=== PATIENT | female | born 1940 | race Two or more races ===

== ENCOUNTER → 2017-04-12 | Outpatient (REF) | payer MEDICARE ==
[~2017-04-12] MED LIST: ACET500C PO; AMLO5TAB2 PO; BENZ100C5 PO; CLON0.5T PO; CRAN475C PO; CURCPOW XX; FOLI1TAB86 PO; IRBE150T12 PO; IRBE300T10 PO; LIDO TOP; LUTE6TAB2 PO; MAGN250T3 PO; METH2.5T PO; PRILOCAINE TOP; SUSTANE EYE DROPS OU; TUMS1000 PO; ULTR50TA PO; VISITAB5 PO; VITA100037 PO; VITATAB11 PO; [UNRECOGNIZED DRUG - OTHER] PO
[2017-04-12 21:36] LABS: RENAL EPITHELIAL CELLS 3 /HPF
== END ==
LOC: M LAB REF 10:00
PROVIDERS: ATTEND Physician Assistant
DX: R35.0 Frequency of micturition (principal)

== ENCOUNTER → 2017-05-21 | Outpatient (CLI) | payer MEDICARE | LOC: M WUC 14:53 | PROVIDERS: ATTEND Emergency Medicine | DX: I10 Essential (primary) hypertension (principal) ==

== ENCOUNTER → 2017-06-04 | Outpatient (CLI) | payer MEDICARE ==
--- NOTE | 2017-06-26 02:06 | ECWPNPC ---
PATIENT NAME: MARTELL SANTOYO : 1940 GENDER: FEMALE VISIT DATE: 06/04/2017 DISCHARGE DATE: 06/04/17 1457 VISIT LOCKED DATE TIME: PHYSICIAN: KENNA EASLEY RESOURCE: KENNA EASLEY REASON FOR APPOINTMENT 1. HIP/BACK/MEDS HISTORY OF PRESENT ILLNESS NEW PATIENT CONSULT: WHEN DID YOUR PAIN FIRST START? . BRIEFLY DESCRIBE HOW YOUR PAIN STARTED? . HOW DOES YOUR PAIN CHANGE WITH TIME? . DOES YOUR PAIN AWAKEN YOU FROM SLEEP? . HOW MANY HOURS OF SLEEP DO YOU NORMALLY GET? . ANY DIAGNOSTIC TESTING? . FACILITY WHERE TESTS WERE DONE? ____. PAIN TREATMENT TREATMENT YES CANCER HAVE YOU EVER HAD ANY TYPE OF CANCER?NO NO. PAIN SCREENING: PATIENT HAS A COMPLAINT OF ACUTE OR CHRONIC PAIN :YES FALL RISK SCREENING: SCREENING :NO FALLS IN THE PAST YEAR SCHUSTER INVENTORY: QUESTIONNAIRE ASSESSEDTBD SCORE VALUE CALCULATED TBD TODAY'S VISIT: NOTES: REFERRED BY DR JUSTIN ABDUL, [facility] FOR RIGHT HIP AREA PAIN. PCP IS LISANDRO BAILEY MD. SHE HAS PREVIOUSLY BEEN HERE FOR EVALUATION BY THIS PROVIDER ON 08/05/13. DID HAVE LFB 11/02/13 WHICH SHE REPORTS DID NOT HAVE RELIEF FOR MORE THAN A FEW DAYS. SHE HAS BEEN TO NUMEROUS PROVIDERS FOR PAIN CONTROL INCLUDING DR COLLINS AT [employer]. AFTER HER LAST VISIT HERE PULLED ON SOMETHING AT WORK AND HAD SEVERE BACK PAIN AND A=WAS OFF WORK FOR 6 WEEKS. WAS ABLE TO RETURN TO WORK FOR A PERIOD OF TIME HAD RETURN OF PAIN AND WENT OUT ON PERM DIS. PAIN IN RIGHT HIP/LEG HAS BEEN CONSTANT OVER THE LAST SEVERAL MONTHS. PAIN IS IN THE BUTTUCK AND POSTERIOR LEG.. NO N/T/W . WORST IS AFTER PROLONGED SITTING. CAN WALK WITH CART SUPPORT W/O DIFF. IS SLOW TO GET OOB. NO RECENT FALLS.. CURRENT MEDICATIONS TAKING SYSTANE 0.4-0.3 % SOLUTION 1 DROP INTO AFFECTED EYE NEEDED OPHTHALMIC 3-4 TIME(S) A DAY TAKING FISH OIL 1000 MG CAPSULE DELAYED RELEASE 1 CAPSULE ORALLY ONCE A DAY TAKING ULTRAM 50 MG TABLET 1 TABLET NEEDED ORALLY EVERY 6 HRS TAKING TYLENOL EXTRA STRENGTH 500 MG TABLET 1 TAB ORALLY EVERY 6 HRS NEEDED TAKING BENZONATATE 100 MG CAPSULE 1 CAPSULE NEEDED ORALLY THREE TIMES A DAY TAKING AMLODIPINE BESYLATE 5 MG TABLET 1 TABLET ORALLY ONCE A DAY TAKING IRBESARTAN 75 MG TABLET 1 TABLET ORALLY ONCE A DAY TAKING CLONAZEPAM 0.25 MG TABLET DISINTEGRATING 1 TAB ORALLY ONCE A DAY TAKING TUMS E-X 750 MG TABLET CHEWABLE 1 TABLET ORALLY TWICE A DAY TAKING PEPCID 20 MG TABLET 1 TABLET AT BEDTIME ORALLY ONCE A DAY TAKING VITAMIN D 1000 UNIT TABLET 1 TABLET ORALLY ONCE A DAY TAKING VITAMIN B COMPLEX - TABLET 1 TAB ORALLY DAILY TAKING LUTEIN 6 MG TABLET 2 TABS ORALLY DAILY TAKING VISION FORMULA - TABLET 1/2 TABLET ORALLY DAILY TAKING CRANBERRY FRUIT 425 MG CAPSULE ORALLY 2 TIMES A DAY TAKING MAGNESIUM 250 MG TABLET 1 TABLET WITH A MEAL ORALLY ONCE A DAY TAKING TURMERIC 500 MG CAPSULE ORALLY DAILY MEDICATION LIST REVIEWED AND RECONCILED WITH THE PATIENT PAST MEDICAL HISTORY HTN KIDNEY DX STAGE IV RENAL FAILURE DEPRESSION / ANXIETY DEGENERATIVE DISC POLYARTHRITIS NODOSA / OSTEOARTHRITIS SLEEP APNEA ASTHMA HIATLE HERNIA ANEMIA REFLUX BACK PAIN NECK PAIN ALLERGIES ASPIRIN: SHORT OF BREATH: ALLERGY SULFA: RASH: ALLERGY BISOPROLOL: SHORT OF BREATH: ALLERGY AMOXICILLIN: SHORT OF BREATH: ALLERGY CLONIDINE HCL: SHORT OF BREATH: ALLERGY MACROBID: SHORT OF BREATH: ALLERGY SURGICAL HISTORY REMOVAL OF CYST RIGHT INDEX FINGER 1995 CATARACT SURGERY 2009 HYSTERECTOMY 1988 SEPTOPLASTY 1990 AND 1997 TONSILECTOMY 1944 CARPAL TUNNEL RIGHT HAND 1998 RIGHT AND LEFT EYELID SURGERY 2011 PLANTAR FASCIOTOMY LEFT FOOT 2013 MOHS SURGERY LEFT NOSE AND SKIN GRAFT 2015 RIGHT INDEX FINGER CYST AND DEBRIDEMENT 06/2016 FAMILY HISTORY FATHER: , DIAGNOSED WITH HEART DISEASE MOTHER: , DIAGNOSED WITH HYPERTENSION 1 SISTER(S) - HEALTHY. SISITER HAS MELANOMA. SOCIAL HISTORY GENERAL: TOBACCO USE ARE YOU A:NONSMOKER ALCOHOL SCREENING POINTS0 INTERPRETATIONNEGATIVE RECREATIONAL DRUG USE DRUG USE?NO BAHAI [id number] PRESBYTERIAN LANGUAGE LANGUAGES SPOKEN:UZBEK LEARNING BARRIERS / SPECIAL NEEDS BARRIERS TO LEARNING?NO HEARING IMPAIRED?NO VISION IMPAIRED?YES :CORRECTIVE LENSES COGNITIVELY IMPAIRED?NO READINESS TO LEARN?YES LEARNING PREFERENCES?NO LEARNING CAPABILITIES PRESENT?YES EMOTIONAL BARRIERS?NO SPECIAL DEVICES?YES :CANE BOWL SANDER NEEDED?NO PAIN CLINIC PFS, CLERGY, PUBLIC HEALTH REFERRALS PFS REFERRAL NEEDED?NO CLERGY REFERRAL NEEDED?NO PUBLIC HEALTH REFERRAL NEEDED?NO WAS THE PROVIDER NOTIFIED OF ANY PERTINENT INFO?NO HAS THE PATIENT BEEN EDUCATED REGARDING HIS/HER PLAN OF CARE?YES HAS THE PATIENT BEEN EDUCATED REGARDING PAIN, THE RISK FOR PAIN, THE IMPORTANCE OF EFFECTIVE PAIN MANAGEMENT, AND THE PAIN ASSESSMENT PROCESS?YES PATIENT: ____. ADVANCE DIRECTIVES HEALTH CARE PROXY?NO WOULD YOU LIKE MORE INFORMATION?NO DO YOU HAVE A DNR?NO WOULD YOU LIKE MORE INFORMATION?NO LIVING WILL?NO WOULD YOU LIKE MORE INFORMATION?NO POWER OF AUTOMOBILE DESIGNER?NO WOULD YOU LIKE MORE INFORMATION?NO REVIEW OF SYSTEMS REVIEWED BY: PROVIDER: . CONSTITUTIONAL: ANY CHANGE IN YOUR MEDICAL CONDITION? NO . CHILLS NO . FEVER NO . INFECTION: DO YOU HAVE NEW INFECTIONS? NO - UTI RESOLVED - TAKES CRANBERRY PILL . DO YOU HAVE HISTORY OF MRSA? NO . MUSCULOSKELETAL: ANY NEW PATTERNS OF PAIN OR NUMBNESS? NO . SYTEMIC LUPUS NO . JOINT PAIN IS BEING CONSIDERED FR LEFT SHOULDER REPLACEMENT BUT HERE ARE MANY QUESTIONS AND CONCERNS (DR KOROMA/DR ELIAS). . GASTROENTEROLOGY: ANY NEW CHANGE IN BOWEL CONTROL? NO . BARRETTS ESOPHAGUS NO . CIRRHOSIS NO . HEPATITIS NO . LIVER FAILURE NO . ACID REFLUX YES . UNEXPLAINED WEIGHT LOSS NO . GENITOURINARY: ANY NEW CHANGE IN BLADDER CONTROL? NO . IS THERE A CHANCE YOU COULD BE ? NO . HEMATOLOGY/LYMPH: DO YOU TAKE ANY BLOOD THINNERS? (FOR EXAMPLE- COUMADIN, PLAVIX, AGGRENOX, PLATEL, PRADAXA, OR XARELTO) NO . WHEN WAS YOUR LAST DOSE? DATE: TIME: . LOW PLATELET COUNT NO . SICKLE CELL DISEASE NO . VON WILLIEBRANDS NO . FACTOR V LEIDEN NO . THALLASEMIA NO . ANEMIA YES . EASY BRUISING NO . NEUROLOGY: HAVE YOU FALLEN IN THE PAST 6 MONTHS? NO . ANY NEW EXTREMITY NUMBNESS OR WEAKNESS? NO . HEAD INJURY NO . DEMENTIA NO . CEREBRAL PALSY NO . MULTIPLE SCLEROSIS NO . DIZZINESS NO . HEADACHE NO . STROKES NO . VERTIGO NO . CARDIOLOGY: DO YOU HAVE A PACEMAKER OR DEFIBRILLATOR? NO . ANGINA NO . HEART ATTACK NO . HEART SURGERY NO . CONGESTIVE HEART FAILURE/FLUID OVERLOAD NO . CHEST PAIN NO . HIGH BLOOD PRESSURE YES . IRREGULAR HEART BEAT NO . KNOWN CORONARY ARTERY DISEASE FOLLOWS WITH DR LARA . RESPIRATORY: HAVE YOU BEEN SICK IN THE PAST WEEK? NO . FEVER NO . FLU LIKE SYMPTOMS? NO . CPAP YES . BYPAP NO . ASTHMA YES . EMPHYSEMA NO . CHRONIC LUNG DISEASES NO . SHORTNESS OF BREATH ON EXERTION NO . DO YOU USE ANY TYPE OF TOBACCO (SMOKE, SMOKELESS, CHEW)? NO . COUGH NO . SNORING NO . INTEGUMENTARY: DO YOU HAVE ANY RASHES OR OPEN SORES? NO . ALLERGIC/IMMUNO: ARE YOU ALLERGIC TO SHELLFISH OR IV DYE? NO . ANY NEW ALLERGIES? NO . PSYCHIATRIC: DO YOU HAVE THOUGHTS OF HURTING YOURSELF OR SOMEONE ELSE? NO . ARE YOU ABUSED, NEGLECTED, OR IN AN UNSAFE ENVIRONMENT? NO . ENDOCRINOLOGY: ARE YOU DIABETIC? NO . THYROID DISORDER NO . OTHER: DO YOU NEED ANY PRESCRIPTIONS? NO . IF YES, PLEASE LIST: ____ . ANY NEW PROBLEMS WITH YOUR MEDICATIONS? NO . WHEN DID YOU LAST EAT? ____ . WHEN DID YOU LAST DRINK? ____ . WHAT DID YOU LAST DRINK? ____ . NAME OF PERSON DRIVING YOU HOME? ____ . DO YOU HAVE ANY OTHER QUESTIONS OR CONCERNS NO . 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 UROLOGY: GENERAL STAGE IV KIDNEY DISEASE WITH GFR 29 . VITAL SIGNS WT 185.0 LBS, HT 59", BMI 37.36 INDEX, BP 148/79 MM HG, HR 72 /MIN, RR 16 /MIN, TEMP 97.5 F, OXYGEN SAT % 97%, SAFE IN ENV? (Y/N) YES, NA INITIALS TL 1319, REVIEWED BY: NORMAN. EXAMINATION GENERAL EXAMINATION: MUSCULOSKELETAL:MUSCLE STRENGTH TESTING 5/5 BILATERAL. SOME PAIN W SLR R>L. NO PAIN W PATRICKS. MIN TENDERNESS WITH PALP OVER TROCANERS, GROIN OR OVER LSA. NEUROLOGIC EXAM:1+/3+ U..2+ DAKOTA LE NO SENS DEF. ASSESSMENTS LUMBAR FACET ARTHROPATHY - M46.96 (PRIMARY) RIGHT HIP PAIN - M25.551 TREATMENT LUMBAR FACET ARTHROPATHY INJECTION FACET JOINT/NERVE LUMBAR/SACRALKENNA EASLEY 06/04/2017 2:33:30 PM > DIAGNSTIC LUMBAR FACET BLOCK RIGHT L4-5, L5-S1 NOTES: OK TO USE SALANPAS, BIOFREEZE, MEDS ORDERED. DISCUSSED OPTIONS FOR INTERVENTIONAL. ,FACET JOINT INJECTION MATERIAL WAS PRINTED. PREVENTIVE MEDICINE REVIEWED DX FACET PROCEDURE AND PRE PROCEDURE CARE/ PT EXPRESSED UNDERSTANDING OF ALL. PROCEDURE CODES FA211 ESTABILISHED PATIENT [facility] CHARGE DISPOSITION & COMMUNICATION FOLLOW UP AFTER INJECTION (REASON: CHECK AUTH DIAGNSTIC LUMBAR FACET BLOCK RIGHT L4-5, L5-S1) ELECTRONICALLY SIGNED BY BENJAMIN MARIE ON 06/24/2017 AT 08:36 AM EST DISCLAIMER : THIS IS A VISIT SUMMARY EXTRACTED FROM THE [employer] CHART. IT IS NOT A COPY OF THE [employer] PROGRESS NOTE. BARBER
== END ==
LOC: M PAIN 13:00
PROVIDERS: ATTEND Nurse Practitioner Family
DX: M46.96 Unspecified inflammatory spondylopathy, lumbar region (principal); M25.551 Pain in right hip; I12.9 Hypertensive chronic kidney disease with stage 1 through stage 4 chronic kidney disease, or unspecified chronic kidney disease; N18.4 Chronic kidney disease, stage 4 (severe); I25.9 Chronic ischemic heart disease, unspecified; Z79.891 Long term (current) use of opiate analgesic; Z79.899 Other long term (current) drug therapy; Z88.1 Allergy status to other antibiotic agents; Z88.2 Allergy status to sulfonamides

== ENCOUNTER → 2017-06-17 | Outpatient (CLI) | payer MEDICARE ==
[~2017-06-17] MED LIST changes: +BUPIVACAINE HCL 0.25% 30 ML VIAL As Ordered ONE; +ISOVUE-M 300 61% 15ML VIAL (Q9967) As Ordered ONE; +LIDOCAINE 1% SDV INJ 30 ML VIAL As Ordered ONE
--- NOTE | 2017-06-17 12:45 | REP ---
Partial lumbar spine series: Four views . History: Injection procedure for pain. 38 seconds of fluoroscopy time is reported. Findings: A sequence of four fluoroscopically obtained last image hold procedural spot radiographs of the lumbar spine document needle position and contrast injection associated with injection procedure. Signed by Calvin Laguerre MD 06/17/2017 12:36 P
--- NOTE | 2017-06-24 00:58 | ECWPNPC ---
PATIENT NAME: MARTELL SANTOYO : 1940 GENDER: FEMALE VISIT DATE: 06/17/2017 DISCHARGE DATE: 06/17/17 1218 VISIT LOCKED DATE TIME: PHYSICIAN: ADRIEN MARTINEZ RESOURCE: ADRIEN MARTINEZ REASON FOR APPOINTMENT 1. LFB, RIGHT, DIAG HISTORY OF PRESENT ILLNESS HISTORY OF PRESENT ILLNESS: PAIN THE PATIENT DESCRIBES THE PAIN... FALL RISK SCREENING: SCREENING :NO FALLS IN THE PAST YEAR CURRENT MEDICATIONS TAKING SYSTANE 0.4-0.3 % SOLUTION 1 DROP INTO AFFECTED EYE NEEDED OPHTHALMIC 3-4 TIME(S) A DAY, NOTES: 06/17/17 AM TAKING FISH OIL 1000 MG CAPSULE DELAYED RELEASE 1 CAPSULE ORALLY ONCE A DAY, NOTES: 06/16/17 11AM TAKING ULTRAM 50 MG TABLET 1 TABLET NEEDED ORALLY EVERY 6 HRS, NOTES: WEEK AGO TAKING TYLENOL EXTRA STRENGTH 500 MG TABLET 1 TAB ORALLY EVERY 6 HRS NEEDED, NOTES: AWHILE TAKING BENZONATATE 100 MG CAPSULE 1 CAPSULE NEEDED ORALLY THREE TIMES A DAY, NOTES: AWHILE TAKING AMLODIPINE BESYLATE 5 MG TABLET 1 TABLET ORALLY ONCE A DAY, NOTES: 06/16/17 1030PM TAKING IRBESARTAN 75 MG TABLET 1 TABLET ORALLY ONCE A DAY, NOTES: 06/16/17 1030 PM TAKING CLONAZEPAM 0.25 MG TABLET DISINTEGRATING 1 TAB ORALLY ONCE A DAY, NOTES: 06/16/17 11PM TAKING TUMS E-X 750 MG TABLET CHEWABLE 1 TABLET ORALLY TWICE A DAY, NOTES: 06/17/17 5PM TAKING PEPCID 20 MG TABLET 1 TABLET AT BEDTIME ORALLY ONCE A DAY, NOTES: 06/16/17 11PM TAKING VITAMIN D 1000 UNIT TABLET 1 TABLET ORALLY ONCE A DAY, NOTES: 06/16/17 11AM TAKING VITAMIN B COMPLEX - TABLET 1 TAB ORALLY DAILY, NOTES: 05/29/17 11AM TAKING LUTEIN 6 MG TABLET 2 TABS ORALLY DAILY, NOTES: 06/17/17 0800 TAKING VISION FORMULA - TABLET 1/2 TABLET ORALLY DAILY, NOTES: 06/17/17 0800 TAKING CRANBERRY FRUIT 425 MG CAPSULE ORALLY 2 TIMES A DAY, NOTES: 06/170800 TAKING MAGNESIUM 250 MG TABLET 1 TABLET WITH A MEAL ORALLY ONCE A DAY, NOTES: 06/16/17 2230 TAKING TURMERIC 500 MG CAPSULE ORALLY DAILY, NOTES: 06/16/17 1130PM MEDICATION LIST REVIEWED AND RECONCILED WITH THE PATIENT PAST MEDICAL HISTORY HTN KIDNEY DX STAGE IV RENAL FAILURE DEPRESSION / ANXIETY DEGENERATIVE DISC POLYARTHRITIS NODOSA / OSTEOARTHRITIS SLEEP APNEA ASTHMA HIATLE HERNIA ANEMIA REFLUX BACK PAIN NECK PAIN ALLERGIES ASPIRIN: SHORT OF BREATH: ALLERGY SULFA: RASH: ALLERGY BISOPROLOL: SHORT OF BREATH: ALLERGY AMOXICILLIN: SHORT OF BREATH: ALLERGY CLONIDINE HCL: SHORT OF BREATH: ALLERGY MACROBID: SHORT OF BREATH: ALLERGY SURGICAL HISTORY REMOVAL OF CYST RIGHT INDEX FINGER 1995 CATARACT SURGERY 2009 HYSTERECTOMY 1988 SEPTOPLASTY 1990 AND 1997 TONSILECTOMY 194 CARPAL TUNNEL RIGHT HAND 1998 RIGHT AND LEFT EYELID SURGERY 2011 PLANTAR FASCIOTOMY LEFT FOOT 2013 MOHS SURGERY LEFT NOSE AND SKIN GRAFT 2016 RIGHT INDEX FINGER CYST AND DEBRIDEMENT 06/2016 SOCIAL HISTORY GENERAL: TOBACCO USE ARE YOU A:NONSMOKER ALCOHOL SCREENING DID YOU HAVE A DRINK CONTAINING ALCOHOL IN THE PAST YEAR?NO POINTS0 INTERPRETATIONNEGATIVE RECREATIONAL DRUG USE DRUG USE?NO EPISCOPAL [id number] PRESBYTERIAN LANGUAGE LANGUAGES SPOKEN:VINCENTIAN LEARNING BARRIERS / SPECIAL NEEDS BARRIERS TO LEARNING?NO HEARING IMPAIRED?NO VISION IMPAIRED?YES :CORRECTIVE LENSES COGNITIVELY IMPAIRED?NO READINESS TO LEARN?YES LEARNING PREFERENCES?NO LEARNING CAPABILITIES PRESENT?YES EMOTIONAL BARRIERS?NO SPECIAL DEVICES?YES :CANE GRAB OPERATOR NEEDED?NO PAIN CLINIC PFS, CLERGY, PUBLIC HEALTH REFERRALS PFS REFERRAL NEEDED?NO CLERGY REFERRAL NEEDED?NO PUBLIC HEALTH REFERRAL NEEDED?NO WAS THE PROVIDER NOTIFIED OF ANY PERTINENT INFO?NO HAS THE PATIENT BEEN EDUCATED REGARDING HIS/HER PLAN OF CARE?YES HAS THE PATIENT BEEN EDUCATED REGARDING PAIN, THE RISK FOR PAIN, THE IMPORTANCE OF EFFECTIVE PAIN MANAGEMENT, AND THE PAIN ASSESSMENT PROCESS?YES PATIENT: ____. ADVANCE DIRECTIVES HEALTH CARE PROXY?NO WOULD YOU LIKE MORE INFORMATION?NO DO YOU HAVE A DNR?NO WOULD YOU LIKE MORE INFORMATION?NO LIVING WILL?NO WOULD YOU LIKE MORE INFORMATION?NO POWER OF COLLECTION SYSTEMS CONSULTANT?NO WOULD YOU LIKE MORE INFORMATION?NO REVIEW OF SYSTEMS REVIEWED BY: PROVIDER: . CONSTITUTIONAL: ANY CHANGE IN YOUR MEDICAL CONDITION? NO . CHILLS NO . FEVER NO . INFECTION: DO YOU HAVE NEW INFECTIONS? NO . DO YOU HAVE HISTORY OF MRSA? NO . MUSCULOSKELETAL: ANY NEW PATTERNS OF PAIN OR NUMBNESS? YES, MID BACK (WAS AT [facility] YESTERDAY) . GASTROENTEROLOGY: ANY NEW CHANGE IN BOWEL CONTROL? NO . GENITOURINARY: ANY NEW CHANGE IN BLADDER CONTROL? NO . IS THERE A CHANCE YOU COULD BE ? NO . HEMATOLOGY/LYMPH: DO YOU TAKE ANY BLOOD THINNERS? (FOR EXAMPLE- COUMADIN, PLAVIX, AGGRENOX, PLATEL, PRADAXA, OR XARELTO) NO . WHEN WAS YOUR LAST DOSE? DATE: TIME: . NEUROLOGY: HAVE YOU FALLEN IN THE PAST 6 MONTHS? NO . ANY NEW EXTREMITY NUMBNESS OR WEAKNESS? NO . CARDIOLOGY: DO YOU HAVE A PACEMAKER OR DEFIBRILLATOR? NO . RESPIRATORY: HAVE YOU BEEN SICK IN THE PAST WEEK? NO . FEVER NO . FLU LIKE SYMPTOMS? NO . COUGH NO . INTEGUMENTARY: DO YOU HAVE ANY RASHES OR OPEN SORES? NO . ALLERGIC/IMMUNO: ARE YOU ALLERGIC TO SHELLFISH OR IV DYE? YES, IV DYE CANNOT HAVE IV DYE DUE TO KIDNEY FAILURE . ANY NEW ALLERGIES? NO . PSYCHIATRIC: DO YOU HAVE THOUGHTS OF HURTING YOURSELF OR SOMEONE ELSE? NO . ARE YOU ABUSED, NEGLECTED, OR IN AN UNSAFE ENVIRONMENT? NO . ENDOCRINOLOGY: ARE YOU DIABETIC? NO . OTHER: DO YOU NEED ANY PRESCRIPTIONS? NO . IF YES, PLEASE LIST: ____ . ANY NEW PROBLEMS WITH YOUR MEDICATIONS? NO . WHEN DID YOU LAST EAT? 1130PM . WHEN DID YOU LAST DRINK? 0800 . WHAT DID YOU LAST DRINK? APPLE JUICE / WATER . NAME OF PERSON DRIVING YOU HOME? ARIADNA . DO YOU HAVE ANY OTHER QUESTIONS OR CONCERNS HAS TRIED SALON PAS TWICE WITH HIGH BP AFTER , NOT SURE IF COINCIDENCE OR NOT . VITAL SIGNS WT 180 LBS, HT 59", BMI 36.35 INDEX, BP 147/77 MM HG, HR 67 /MIN, RR 16 /MIN, TEMP 98.6 F, OXYGEN SAT % 98%, NA INITIALS SC 10:08, REVIEWED BY: NL. ASSESSMENTS SPONDYLOSIS OF LUMBAR REGION WITHOUT MYELOPATHY OR RADICULOPATHY - M47.816 (PRIMARY) SPONDYLOSIS OF LUMBOSACRAL REGION WITHOUT MYELOPATHY OR RADICULOPATHY - M47.817 PROCEDURES PN LUMBAR FACET BLOCK DIAGNOSTIC PRE PROCEDURE DIAGNOSIS LUMBAR SPONDYLOSIS, LUMBOSACRAL SPONDYLOSIS POST PROCEDURE DIAGNOSIS LUMBAR SPONDYLOSIS, , LUMBOSACRAL SPONDYLOSIS PROCEDURE RIGHT L4-L5 AND RIGHT L5-S1 FACET BLOCK DIAGNOSTIC NUMBER [address] ADRIEN MARTINEZ HOTEL OR MOTEL CLEANING SUPERVISOR NONE ANESTHESIA LOCAL PRE PROCEDURE NOTE THE PATIENT WITH HISTORY OF CHRONIC LOW BACK PAIN. I EVALUATED THE PATIENT AND REVIEWED THE CHART. I WENT OVER THE RISKS, ALTERNATIVES, AND BENEFITS ASSOCIATED WITH THIS PROCEDURE. THE PATIENT WOULD LIKE TO PROCEED AND GAVE CONSENT TO PERFORM THE PROCEDURE. AGREED WITH THE PATIENT WE ARE DOING THIS PROCEDURE TO DETERMINE IF THE PATIENT IS A CANDIDATE FOR A RADIOFREQUENCY ABLATION OF THE FACETS JOINTS. THE PATIENT DENIES UNEXPLAINABLE WEIGHT LOSS, FEVER, CHILLS, OR NEW CHANGES IN URINARY OR BOWEL CONTROL DESCRIPTION OF PROCEDURE THE PATIENT WAS BROUGHT TO THE PROCEDURE ROOM AND PLACED IN THE PRONE POSITION. THE LUMBOSACRAL AREA WAS CLEANED WITH CHLORAPREP SOLUTION AND DRAPED ASEPTICALLY. THE PROCEDURE WAS DONE UNDER STERILE CONDITIONS. I CHECKED LATERALITY AND THE LEVEL WHERE THE PROCEDURE WAS GOING TO BE PERFORMED WITH THE PATIENT AND THE SUPPORTING STAFF AT THE MOMENT OF THE TIME OUT IN THE PROCEDURE ROOM. UNDER FLUOROSCOPIC GUIDANCE, TARGETS WERE SELECTED AT THE INTERSECTION OF THE RIGHT TRANSVERSE PROCESS OF L4, L5 AND ALA OF S1 WITH ITS RESPECTIVE SUPERIOR ARTICULAR PROCESS. LIDOCAINE WAS USED TO NUMB THE SKIN AND THE SUBCUTANEOUS TISSUE BELOW IT. SPINAL NEEDLE, 22-GAUGE WAS ADVANCED UNDER FLUOROSCOPIC GUIDANCE AND FOLLOWING PATIENT FEEDBACK UNTIL THE TARGETS WERE REACHED. POSITION OF THE NEEDLES WAS VERIFIED WITH AP AND LATERAL VIEWS. AFTER PROPER POSITION OF THE NEEDLES WAS ACHIEVED, ISOVUE-M DYE 30% 0.1 ML WAS INJECTED AT EACH SITE SHOWING ADEQUATE SPREAD OF THE DYE. THEN A SOLUTION OF 0.4 ML OF BUPIVACAINE 0.25% WAS INJECTED AT EACH SITE. THERE WAS NO EVIDENCE OF BLOOD, PARESTHESIA OR CEREBROSPINAL FLUID DURING THE PROCEDURE. THE PATIENT WAS SENT TO THE RECOVERY ROOM. THE PATIENT WAS MOVING THE EXTREMITIES AND DOING WELL. THERE WAS NO COMPLICATION DURING THE PROCEDURE. FLUOROSCOPY TIME WAS 38 SECONDS POST PROCEDURE NOTE THE PATIENT WILL DOCUMENT HIS PAIN LEVEL AND RESPONSE TO THIS PROCEDURE EVERY 30 MINUTES. THE PATIENT WILL BE SEEN IN A FOLLOW UP IN THE NEXT FEW WEEKS. FURTHER DETERMINATION FOR HIS CASE WILL BE DONE AT THE NEXT VISIT. INSTRUCTIONS WERE GIVEN, QUESTIONS WERE ANSWERED, AND THE PATIENT EXPRESSED UNDERSTANDING AND AGREED WITH THE PLAN. I, GRACIELA DURÁN, DOCUMENTED THE ABOVE INFORMATION ACTING A SCRIBE FOR DR. MARTINEZ. I HAVE REVIEWED THE ABOVE DOCUMENT, WRITTEN BY GRACIELA WIGGINS AND I VERIFY THAT IT IS [facility] FACET BLOCK (PAIN)[id number] PROCEDURE CODES 17673 INJ PARAVERT F JNT L/S 1 LEV, MODIFIERS: RT 63083 INJ PARAVERT F JNT L/S 2 LEV, MODIFIERS: RT 6045F RADXPS IN END [id number] PXD DISPOSITION & COMMUNICATION FOLLOW UP 3 WEEKS ELECTRONICALLY SIGNED BY ADRIEN MARTINEZ MD ON 06/23/2017 AT 02:17 PM EST DISCLAIMER : THIS IS A VISIT SUMMARY EXTRACTED FROM THE [employer] CHART. IT IS NOT A COPY OF THE [employer] PROGRESS NOTE. MTDD
== END ==
LOC: M PAIN 10:00
PROVIDERS: ATTEND Anesthesiology
DX: G89.29 Other chronic pain (principal); M47.816 Spondylosis without myelopathy or radiculopathy, lumbar region; M47.817 Spondylosis without myelopathy or radiculopathy, lumbosacral region; I12.9 Hypertensive chronic kidney disease with stage 1 through stage 4 chronic kidney disease, or unspecified chronic kidney disease; N18.4 Chronic kidney disease, stage 4 (severe); G47.30 Sleep apnea, unspecified; J45.909 Unspecified asthma, uncomplicated; K21.9 Gastro-esophageal reflux disease without esophagitis; Z88.6 Allergy status to analgesic agent; Z88.2 Allergy status to sulfonamides; Z88.1 Allergy status to other antibiotic agents; Z88.8 Allergy status to other drugs, medicaments and biological substances; Z79.899 Other long term (current) drug therapy
CPT/HCPCS: 64493; 64494; Q9967

== ENCOUNTER → 2017-07-11 | Outpatient (CLI) | payer MEDICARE | LOC: M PAIN 14:15 | DX: G89.29 Other chronic pain (principal); M70.61 Trochanteric bursitis, right hip; M51.16 Intervertebral disc disorders with radiculopathy, lumbar region; M51.17 Intervertebral disc disorders with radiculopathy, lumbosacral region; I12.9 Hypertensive chronic kidney disease with stage 1 through stage 4 chronic kidney disease, or unspecified chronic kidney disease; N18.9 Chronic kidney disease, unspecified; G47.30 Sleep apnea, unspecified; J45.909 Unspecified asthma, uncomplicated; K21.9 Gastro-esophageal reflux disease without esophagitis; Z88.6 Allergy status to analgesic agent; Z88.2 Allergy status to sulfonamides; Z88.1 Allergy status to other antibiotic agents; Z88.8 Allergy status to other drugs, medicaments and biological substances; Z91.041 Radiographic dye allergy status; Z79.899 Other long term (current) drug therapy | CPT/HCPCS: G0463 ==

== ENCOUNTER → 2017-09-02 | Outpatient (CLI) | payer MEDICARE ==
[~2017-09-02] MED LIST changes: -ACET500C PO; -AMLO5TAB2 PO; -BENZ100C5 PO; +BUPIVACAINE HCL 0.25% 30 ML VIAL As Ordered; -BUPIVACAINE HCL 0.25% 30 ML VIAL As Ordered ONE; -CLON0.5T PO; -CRAN475C PO; -CURCPOW XX; -FOLI1TAB86 PO; -IRBE150T12 PO; -IRBE300T10 PO; -ISOVUE-M 300 61% 15ML VIAL (Q9967) As Ordered ONE; -LIDO TOP; +LIDOCAINE 1% SDV INJ 30 ML VIAL As Ordered; -LIDOCAINE 1% SDV INJ 30 ML VIAL As Ordered ONE; -LUTE6TAB2 PO; -MAGN250T3 PO; -METH2.5T PO; -PRILOCAINE TOP; -SUSTANE EYE DROPS OU; +TRIAMCINOLONE ACETONIDE SUSP 40 MG/ML VIAL (J3301) As Ordered; -TUMS1000 PO; -ULTR50TA PO; -VISITAB5 PO; -VITA100037 PO; -VITATAB11 PO; -[UNRECOGNIZED DRUG - OTHER] PO
== END ==
LOC: M PAIN 10:30
DX: G89.29 Other chronic pain (principal); M70.61 Trochanteric bursitis, right hip; I12.9 Hypertensive chronic kidney disease with stage 1 through stage 4 chronic kidney disease, or unspecified chronic kidney disease; N18.4 Chronic kidney disease, stage 4 (severe); M30.0 Polyarteritis nodosa; M19.90 Unspecified osteoarthritis, unspecified site; G47.30 Sleep apnea, unspecified; J45.909 Unspecified asthma, uncomplicated; K43.2 Incisional hernia without obstruction or gangrene; Z79.899 Other long term (current) drug therapy; Z88.1 Allergy status to other antibiotic agents; Z88.2 Allergy status to sulfonamides; Z88.6 Allergy status to analgesic agent; Z88.8 Allergy status to other drugs, medicaments and biological substances; Z91.041 Radiographic dye allergy status
CPT/HCPCS: J3301

== ENCOUNTER → 2017-09-18 | Outpatient (CLI) | payer MEDICARE | LOC: M PAIN 14:00 | DX: M70.61 Trochanteric bursitis, right hip (principal); M51.16 Intervertebral disc disorders with radiculopathy, lumbar region; M51.17 Intervertebral disc disorders with radiculopathy, lumbosacral region; G57.11 Meralgia paresthetica, right lower limb; I12.9 Hypertensive chronic kidney disease with stage 1 through stage 4 chronic kidney disease, or unspecified chronic kidney disease; N18.4 Chronic kidney disease, stage 4 (severe); K21.9 Gastro-esophageal reflux disease without esophagitis; Z79.891 Long term (current) use of opiate analgesic; Z79.899 Other long term (current) drug therapy; Z88.8 Allergy status to other drugs, medicaments and biological substances; Z91.041 Radiographic dye allergy status | CPT/HCPCS: G0463 ==

== ENCOUNTER → 2017-11-17 | Outpatient (CLI) | payer MEDICARE | LOC: M PAIN 13:45 | DX: M70.61 Trochanteric bursitis, right hip (principal); M51.16 Intervertebral disc disorders with radiculopathy, lumbar region; M51.17 Intervertebral disc disorders with radiculopathy, lumbosacral region; G57.11 Meralgia paresthetica, right lower limb; I12.0 Hypertensive chronic kidney disease with stage 5 chronic kidney disease or end stage renal disease; N18.5 Chronic kidney disease, stage 5; F32.9 Major depressive disorder, single episode, unspecified; F41.9 Anxiety disorder, unspecified; G47.30 Sleep apnea, unspecified; J45.909 Unspecified asthma, uncomplicated; K44.9 Diaphragmatic hernia without obstruction or gangrene; K21.9 Gastro-esophageal reflux disease without esophagitis; Z79.899 Other long term (current) drug therapy; Z88.0 Allergy status to penicillin; Z88.2 Allergy status to sulfonamides; Z88.6 Allergy status to analgesic agent; Z88.8 Allergy status to other drugs, medicaments and biological substances; Z91.041 Radiographic dye allergy status | CPT/HCPCS: G0463 ==

== ENCOUNTER → 2017-12-12 | Outpatient (CLI) | payer MEDICARE | LOC: M PAIN 14:00 | DX: G89.29 Other chronic pain (principal); M70.61 Trochanteric bursitis, right hip; M51.16 Intervertebral disc disorders with radiculopathy, lumbar region; M51.17 Intervertebral disc disorders with radiculopathy, lumbosacral region; G57.11 Meralgia paresthetica, right lower limb; I12.9 Hypertensive chronic kidney disease with stage 1 through stage 4 chronic kidney disease, or unspecified chronic kidney disease; N18.4 Chronic kidney disease, stage 4 (severe); F32.9 Major depressive disorder, single episode, unspecified; F41.9 Anxiety disorder, unspecified; M19.90 Unspecified osteoarthritis, unspecified site; G47.30 Sleep apnea, unspecified; J45.909 Unspecified asthma, uncomplicated; K44.9 Diaphragmatic hernia without obstruction or gangrene; D64.9 Anemia, unspecified; K21.9 Gastro-esophageal reflux disease without esophagitis; Z79.899 Other long term (current) drug therapy; Z88.2 Allergy status to sulfonamides; Z88.6 Allergy status to analgesic agent; Z88.0 Allergy status to penicillin; Z88.8 Allergy status to other drugs, medicaments and biological substances; Z91.041 Radiographic dye allergy status | CPT/HCPCS: G0463 ==

== ENCOUNTER → 2017-12-25 | Outpatient (CLI) | payer MEDICARE | LOC: M PAIN 08:45 | DX: M25.551 Pain in right hip (principal); I12.9 Hypertensive chronic kidney disease with stage 1 through stage 4 chronic kidney disease, or unspecified chronic kidney disease; N18.4 Chronic kidney disease, stage 4 (severe); F32.9 Major depressive disorder, single episode, unspecified; F41.9 Anxiety disorder, unspecified; G47.30 Sleep apnea, unspecified; J45.909 Unspecified asthma, uncomplicated; K44.9 Diaphragmatic hernia without obstruction or gangrene; D64.9 Anemia, unspecified; K21.9 Gastro-esophageal reflux disease without esophagitis; M54.2 Cervicalgia; Z79.899 Other long term (current) drug therapy; Z88.2 Allergy status to sulfonamides; Z88.6 Allergy status to analgesic agent; Z88.0 Allergy status to penicillin; Z88.8 Allergy status to other drugs, medicaments and biological substances; Z91.041 Radiographic dye allergy status | CPT/HCPCS: J3301 ==

== ENCOUNTER → 2018-01-15 | Outpatient (CLI) | payer MEDICARE | LOC: M PAIN 13:00 | DX: M70.61 Trochanteric bursitis, right hip (principal); M46.96 Unspecified inflammatory spondylopathy, lumbar region; M51.17 Intervertebral disc disorders with radiculopathy, lumbosacral region; I12.9 Hypertensive chronic kidney disease with stage 1 through stage 4 chronic kidney disease, or unspecified chronic kidney disease; N18.4 Chronic kidney disease, stage 4 (severe); F32.9 Major depressive disorder, single episode, unspecified; F41.9 Anxiety disorder, unspecified; M13.0 Polyarthritis, unspecified; G47.30 Sleep apnea, unspecified; J45.909 Unspecified asthma, uncomplicated; K44.9 Diaphragmatic hernia without obstruction or gangrene; Z79.899 Other long term (current) drug therapy; Z88.1 Allergy status to other antibiotic agents; Z88.2 Allergy status to sulfonamides; Z88.6 Allergy status to analgesic agent; Z88.8 Allergy status to other drugs, medicaments and biological substances; Z91.041 Radiographic dye allergy status | CPT/HCPCS: G0463 ==

== ENCOUNTER → 2018-01-30 | Outpatient (REF) | payer MEDICARE ==
[2018-01-30 13:25] LABS: APPEARANCE, URINE HAZY (CLEAR); BACTERIA, URINE AUTO 2+ (NEGATIVE); BILIRUBIN, URINE AUTO NEGATIVE (NEGATIVE); BLOOD, URINE BLOOD 2+ (NEGATIVE); COLOR, URINE YELLOW (YELLOW); GLUCOSE, URINE (UA) AUTO NEGATIVE (NEGATIVE); KETONE, URINE AUTO NEGATIVE (NEGATIVE); LEUKOCYTE ESTERASE, URINE AUTO 3+ (NEGATIVE); MUCUS, URINE SMALL (NEGATIVE); NITRITE, URINE AUTO NEGATIVE (NEGATIVE); PROTEIN, URINE AUTO NEGATIVE (NEGATIVE); RBC, URINE AUTO 12 /HPF (0-3); SPECIFIC GRAVITY URINE AUTO 1.009 (1.002-1.035); SQUAMOUS EPITHELIAL CELL UR AU 0 /HPF (0-6); UROBILINOGEN, URINE AUTO 0.2 mg/dL (0.0-2.0); WBC, URINE AUTO 84 /HPF (0-3)
== END ==
LOC: M LAB REF 13:04
DX: N39.0 Urinary tract infection, site not specified (principal)
CPT/HCPCS: 81001

== ENCOUNTER → 2018-02-27 | Outpatient (CLI) | payer MEDICARE | LOC: M PAIN 13:00 | DX: M70.61 Trochanteric bursitis, right hip (principal); M46.96 Unspecified inflammatory spondylopathy, lumbar region; M51.17 Intervertebral disc disorders with radiculopathy, lumbosacral region; I12.9 Hypertensive chronic kidney disease with stage 1 through stage 4 chronic kidney disease, or unspecified chronic kidney disease; N18.4 Chronic kidney disease, stage 4 (severe); F32.9 Major depressive disorder, single episode, unspecified; F41.9 Anxiety disorder, unspecified; M30.0 Polyarteritis nodosa; G47.30 Sleep apnea, unspecified; J45.909 Unspecified asthma, uncomplicated; K44.9 Diaphragmatic hernia without obstruction or gangrene; Z79.899 Other long term (current) drug therapy; Z88.1 Allergy status to other antibiotic agents; Z88.2 Allergy status to sulfonamides; Z88.6 Allergy status to analgesic agent; Z88.8 Allergy status to other drugs, medicaments and biological substances; Z91.041 Radiographic dye allergy status | CPT/HCPCS: G0463 ==

== ENCOUNTER → 2018-02-28 | Outpatient (REF) | payer MEDICARE ==
[2018-02-28 22:04] LABS: APPEARANCE, URINE CLEAR (CLEAR); BACTERIA, URINE AUTO 1+ (NEGATIVE); BILIRUBIN, URINE AUTO NEGATIVE (NEGATIVE); BLOOD, URINE BLOOD 2+ (NEGATIVE); COLOR, URINE STRAW (YELLOW); GLUCOSE, URINE (UA) AUTO NEGATIVE (NEGATIVE); KETONE, URINE AUTO NEGATIVE (NEGATIVE); LEUKOCYTE ESTERASE, URINE AUTO 1+ (NEGATIVE); NITRITE, URINE AUTO NEGATIVE (NEGATIVE); PROTEIN, URINE AUTO NEGATIVE (NEGATIVE); RBC, URINE AUTO 2 /HPF (0-3); SPECIFIC GRAVITY URINE AUTO 1.004 (1.002-1.035); SQUAMOUS EPITHELIAL CELL UR AU 0 /HPF (0-6); UROBILINOGEN, URINE AUTO 0.2 mg/dL (0.0-2.0); WBC, URINE AUTO 10 /HPF (0-3)
== END ==
LOC: M LAB REF 09:57
DX: N39.0 Urinary tract infection, site not specified (principal)
CPT/HCPCS: 81001

== ENCOUNTER → 2018-07-27 | Outpatient (REF) | payer MEDICARE ==
[~2018-07-27] MED LIST changes: +ACET500C PO; +AMLO5TAB6 PO; +BENZ100C5 PO; -BUPIVACAINE HCL 0.25% 30 ML VIAL As Ordered; +CLON0.5T PO; +CRAN475C PO; +CURCPOW XX; +FOLI1TAB86 PO; +IRBE150T12 PO; +IRBE300T10 PO; +LIDO TOP; -LIDOCAINE 1% SDV INJ 30 ML VIAL As Ordered; +LUTE6TAB2 PO; +MAGN250T3 PO; +METH2.5T PO; +PRILOCAINE TOP; +SUSTANE EYE DROPS OU; -TRIAMCINOLONE ACETONIDE SUSP 40 MG/ML VIAL (J3301) As Ordered; +TUMS1000 PO; +ULTR50TA PO; +VISITAB5 PO; +VITA100037 PO; +VITATAB11 PO; +[UNRECOGNIZED DRUG - OTHER] PO
[2018-07-27 17:04] LABS: AMORPHOUS SEDIMENT LARGE (NEGATIVE); APPEARANCE, URINE CLOUDY (CLEAR); BACTERIA, URINE AUTO 1+ (NEGATIVE); BILIRUBIN, URINE AUTO NEGATIVE (NEGATIVE); BLOOD, URINE BLOOD 1+ (NEGATIVE); COLOR, URINE YELLOW (YELLOW); GLUCOSE, URINE (UA) AUTO NEGATIVE (NEGATIVE); KETONE, URINE AUTO NEGATIVE (NEGATIVE); LEUKOCYTE ESTERASE, URINE AUTO 2+ (NEGATIVE); MUCUS, URINE SMALL (NEGATIVE); NITRITE, URINE AUTO NEGATIVE (NEGATIVE); PROTEIN, URINE AUTO NEGATIVE (NEGATIVE); RBC, URINE AUTO 47 /HPF (0-3); SPECIFIC GRAVITY URINE AUTO 1.012 (1.002-1.035); SQUAMOUS EPITHELIAL CELL UR AU 1 /HPF (0-6); UROBILINOGEN, URINE AUTO 0.2 mg/dL (0.0-2.0); WBC, URINE AUTO TNTC /HPF (0-3)
== END ==
LOC: M LAB REF 16:22
PROVIDERS: ATTEND Physician Assistant Medical
DX: N39.0 Urinary tract infection, site not specified (principal)

== ENCOUNTER → 2018-08-04 | Outpatient (REF) | payer MEDICARE ==
[2018-08-04 20:36] LABS: APPEARANCE, URINE CLEAR (CLEAR); BACTERIA, URINE AUTO NEGATIVE (NEGATIVE); BILIRUBIN, URINE AUTO NEGATIVE (NEGATIVE); BLOOD, URINE BLOOD NEGATIVE (NEGATIVE); COLOR, URINE STRAW (YELLOW); GLUCOSE, URINE (UA) AUTO NEGATIVE (NEGATIVE); KETONE, URINE AUTO NEGATIVE (NEGATIVE); LEUKOCYTE ESTERASE, URINE AUTO 1+ (NEGATIVE); NITRITE, URINE AUTO NEGATIVE (NEGATIVE); PROTEIN, URINE AUTO NEGATIVE (NEGATIVE); RBC, URINE AUTO 1 /HPF (0-3); SPECIFIC GRAVITY URINE AUTO 1.004 (1.002-1.035); SQUAMOUS EPITHELIAL CELL UR AU 0 /HPF (0-6); UROBILINOGEN, URINE AUTO 0.2 mg/dL (0.0-2.0); WBC, URINE AUTO 1 /HPF (0-3)
== END ==
LOC: M LAB REF 19:09
PROVIDERS: ATTEND Physician Assistant
DX: N39.0 Urinary tract infection, site not specified (principal)

== ENCOUNTER → 2018-08-28 | Outpatient (CLI) | payer MEDICARE ==
--- NOTE | 2018-08-28 16:01 | REP ---
Clinical: Trauma. Technique: Frontal view of the chest with four views of the the right hemithorax. Findings: Frontal view of the chest demonstrates no acute cardiopulmonary process. Multiple views of the right hemithorax demonstrates no obvious acute rib fracture or pathology. Impression: No acute right rib fracture identified. Electronically Signed by Swapnil Sunshine MD 08/28/2018 03:53 P
== END ==
LOC: M WUC 15:28
PROVIDERS: ATTEND Physician Assistant
DX: S20.211A Contusion of right front wall of thorax, initial encounter (principal); Y92.89 Other specified places as the place of occurrence of the external cause; Y93.89 Activity, other specified; X58.XXXA Exposure to other specified factors, initial encounter; Y99.8 Other external cause status

== ENCOUNTER → 2018-12-03 | Outpatient (CLI) | payer MEDICARE ==
[2018-12-03 12:40] LABS: BASO % 0.5 % (0.0-1.0); EOS # 0.5 10^3/uL (0.0-0.50); EOS % 8.2 % (0.0-3.0); HEMATOCRIT 34.4 % (36.0-47.0); HEMOGLOBIN 10.8 g/dl (12.0-15.5); LYMPH # 1.6 10^3/uL (1.5-4.5); LYMPH % 27.9 % (24.0-44.0); MEAN CORPUSCULAR HEMOGLOBIN 30.9 pg (27.0-33.0); MEAN CORPUSCULAR HGB CONC 31.4 g/dl (32.0-36.5); MEAN CORPUSCULAR VOLUME 98.3 fl (80.0-96.0); MONO # 0.6 10^3/uL (0.0-0.8); MONO % 10.2 % (0.0-5.0); NEUTROPHILS % 52.8 % (36.0-66.0); PLATELET COUNT, AUTOMATED 258 10^3/uL (150-450); WHITE BLOOD COUNT 5.6 10^3/uL (4.0-10.0)
[2018-12-03 13:02] LABS: ALBUMIN 3.5 GM/DL (3.2-5.2); BILIRUBIN,TOTAL 0.5 MG/DL (0.2-1.0); CALCIUM LEVEL 9.1 MG/DL (8.8-10.2); CHOLESTEROL RISK RATIO 3.369 (<5); CREATININE FOR GFR 2.01 MG/DL (0.55-1.30); GLOMERULAR FILTRATION RATE 25.6 (>39); POTASSIUM SERUM 4.4 MEQ/L (3.5-5.1); TOTAL PROTEIN 6.2 GM/DL (6.4-8.2)
== END ==
LOC: M WUC 09:52
PROVIDERS: ATTEND Physician Assistant
DX: I10 Essential (primary) hypertension (principal); M30.0 Polyarteritis nodosa

== ENCOUNTER → 2019-05-28 | Outpatient (CLI) | payer MEDICARE ==
--- NOTE | 2019-05-28 15:12 | REP ---
Clinical: Osteoporosis. Technique: AP and lateral views of the lower thoracic and lumbar spine. Findings: Osteopenia and moderate multilevel degenerative changes are appreciated including endplate sclerosis, spurring and disc space narrowing at T12-L1. Lordosis is maintained. There is no evidence for acute fracture / compression injury or significant subluxation. 4 mm of chronic anterolisthesis at the L4-5 level is noted and stable compared to MRI dated 2015. Impression: Osteopenia and moderate multilevel degenerative changes. No acute fracture / compression injury Electronically Signed by Swapnil Sunshine MD 05/28/2019 03:03 P
== END ==
LOC: M RAD 14:30
PROVIDERS: ATTEND Internal Medicine Rheumatology
DX: M85.9 Disorder of bone density and structure, unspecified (principal); M51.9 Unspecified thoracic, thoracolumbar and lumbosacral intervertebral disc disorder

== ENCOUNTER → 2019-12-27 | Outpatient (CLI) | payer MEDICARE ==
[~2019-12-27] MED LIST changes: -IRBE150T12 PO; +IRBE150T7 PO
[2019-12-27 11:31] LABS: BASO % 0.6 % (0.0-1.0); EOS # 0.7 10^3/uL (0.0-0.5); EOS % 9.8 % (0.0-3.0); HEMATOCRIT 35.5 % (36.0-47.0); HEMOGLOBIN 11.3 g/dl (12.0-15.5); LYMPH # 1.7 10^3/uL (1.5-5.0); MEAN CORPUSCULAR HEMOGLOBIN 31.8 pg (27.0-33.0); MEAN CORPUSCULAR HGB CONC 31.8 g/dl (32.0-36.5); MONO # 0.6 10^3/uL (0.0-0.8); MONO % 9.1 % (0.0-5.0); NEUTROPHILS # 3.7 10^3/uL (1.5-8.5); NEUTROPHILS % 55.2 % (36.0-66.0); PLATELET COUNT, AUTOMATED 231 10^3/uL (150-450); RED BLOOD COUNT 3.55 10^6/uL (4.00-5.40); WHITE BLOOD COUNT 6.6 10^3/uL (4.0-10.0)
[2019-12-27 13:34] LABS: ALBUMIN 3.4 GM/DL (3.2-5.2); BILIRUBIN,TOTAL 0.4 MG/DL (0.2-1.0); CALCIUM LEVEL 9.2 MG/DL (8.8-10.2); CHOLESTEROL RISK RATIO 4.102 (<5); CREATININE FOR GFR 2.19 MG/DL (0.55-1.30); GLOMERULAR FILTRATION RATE 23.1 (>39); POTASSIUM SERUM 4.3 MEQ/L (3.5-5.1); TOTAL 25(OH) VITAMIN D 42.9 NG/ML (30.0-100.0); TOTAL PROTEIN 6.5 GM/DL (6.4-8.2)
== END ==
LOC: M WUC 09:32
PROVIDERS: ATTEND Physician Assistant
DX: I10 Essential (primary) hypertension (principal); M30.0 Polyarteritis nodosa; E55.9 Vitamin D deficiency, unspecified

== ENCOUNTER → 2020-06-27 | Outpatient (CLI) | payer MEDICARE ==
[~2020-06-27] MED LIST changes: +AMLO1TAB24 PO; -AMLO5TAB6 PO
[2020-06-27 10:09] LABS: BASO % 0.7 % (0.0-1.0); EOS # 0.4 10^3/uL (0.0-0.5); EOS % 7.2 % (0.0-3.0); HEMATOCRIT 36.6 % (36.0-47.0); HEMOGLOBIN 11.2 g/dl (12.0-15.5); LYMPH # 1.7 10^3/uL (1.5-5.0); LYMPH % 27.2 % (24.0-44.0); MEAN CORPUSCULAR HEMOGLOBIN 30.4 pg (27.0-33.0); MEAN CORPUSCULAR HGB CONC 30.6 g/dl (32.0-36.5); MEAN CORPUSCULAR VOLUME 99.5 fl (80.0-96.0); MONO # 0.6 10^3/uL (0.0-0.8); MONO % 9.3 % (0.0-5.0); NEUTROPHILS # 3.4 10^3/uL (1.5-8.5); NEUTROPHILS % 55.3 % (36.0-66.0); PLATELET COUNT, AUTOMATED 232 10^3/uL (150-450); RED BLOOD COUNT 3.68 10^6/uL (4.00-5.40); WHITE BLOOD COUNT 6.1 10^3/uL (4.0-10.0)
[2020-06-27 10:31] LABS: ALBUMIN 3.4 GM/DL (3.2-5.2); BILIRUBIN,TOTAL 0.6 MG/DL (0.2-1.0); CALCIUM LEVEL 9.2 MG/DL (8.8-10.2); CREATININE FOR GFR 2.2 MG/DL (0.55-1.30); GLOMERULAR FILTRATION RATE 22.9 (>39); POTASSIUM SERUM 4.3 MEQ/L (3.5-5.1); TOTAL PROTEIN 6.6 GM/DL (6.4-8.2)
== END ==
LOC: M LAB 09:28
PROVIDERS: ATTEND Physician Assistant
DX: I10 Essential (primary) hypertension (principal)

== ENCOUNTER → 2020-10-11 | Outpatient (REF) | payer MEDICARE ==
[2020-10-11 18:26] LABS: PERCENT SATURATION 27.8 % (13.2-45.0)
== END ==
LOC: M LAB REF 16:40
PROVIDERS: ATTEND Nurse Practitioner Family
DX: D50.9 Iron deficiency anemia, unspecified (principal)

== ENCOUNTER 2020-11-09 09:50 | Emergency (ER) | payer MEDICARE ==
[~2020-11-09] VITALS: Ht 149.9 cm; Wt 81.9 kg
[2020-11-09 10:54] LABS: BASO % 0.5 % (0.0-1.0); EOS # 0.4 10^3/uL (0.0-0.5); EOS % 5.7 % (0.0-3.0); HEMATOCRIT 36.1 % (36.0-47.0); HEMOGLOBIN 11.5 g/dl (12.0-15.5); LYMPH # 1.5 10^3/uL (1.5-5.0); LYMPH % 19.9 % (24.0-44.0); MEAN CORPUSCULAR HEMOGLOBIN 30.6 pg (27.0-33.0); MEAN CORPUSCULAR HGB CONC 31.9 g/dl (32.0-36.5); MONO # 0.5 10^3/uL (0.0-0.8); MONO % 7.2 % (2.0-8.0); NEUTROPHILS % 66.3 % (36.0-66.0); PLATELET COUNT, AUTOMATED 255 10^3/uL (150-450); RED BLOOD COUNT 3.76 10^6/uL (4.00-5.40); WHITE BLOOD COUNT 7.5 10^3/uL (4.0-10.0)
--- NOTE | 2020-11-09 10:55 | REP ---
INDICATION: DYSPNEA/COUGH. COMPARISON: 08/28/2018. TECHNIQUE: SINGLE PORTABLE AP VIEW OF THE CHEST WAS PERFORMED. FINDINGS: THERE IS NO ACUTE INFILTRATE OR PULMONARY EDEMA. LUNGS ARE CLEAR. HEART IS NOT SIGNIFICANTLY ENLARGED. MEDIASTINAL SILHOUETTE IS UNREMARKABLE. THE VISUALIZED OSSEOUS STRUCTURES ARE INTACT. IMPRESSION: NO ACUTE PULMONARY DISEASE. <Electronically signed by Walt Cisse > 11/09/20 1054
[2020-11-09 11:04] LABS: INR 1.07; PROTHROMBIN TIME 14.2 SECONDS (12.5-14.3)
[2020-11-09 11:43] LABS: ALBUMIN 3.8 GM/DL (3.2-5.2); ALT/SGPT 17 U/L (12-78); BILIRUBIN,DIRECT 0.2 MG/DL (0.0-0.2); BILIRUBIN,TOTAL 0.6 MG/DL (0.2-1.0); BLOOD UREA NITROGEN 22 MG/DL (7-18); CALCIUM LEVEL 10.5 MG/DL (8.8-10.2); CARBON DIOXIDE LEVEL 25 MEQ/L (21-32); CHLORIDE LEVEL 111 MEQ/L (98-107); CK-MB VALUE MASS 1.6 NG/ML (<3.6); CPK CREATINE PHOSPHOKINASE 87 U/L (26-192); CREATININE FOR GFR 2.23 MG/DL (0.55-1.30); GLOMERULAR FILTRATION RATE 22.6 (>39); GLUCOSE, FASTING 103 MG/DL (70-100); MB/CK RELATIVE INDEX 1.84 (< OR =4); POTASSIUM SERUM 3.6 MEQ/L (3.5-5.1); SODIUM LEVEL 144 MEQ/L (136-145); THYROXINE (T4) 10.8 UG/DL (4.5-12.0); TOTAL PROTEIN 7.2 GM/DL (6.4-8.2); TROPONIN I < 0.02 NG/ML (< 0.10)
[2020-11-09 14:24] LABS: NT-PRO BNP 250 PG/ML (<450)
[2020-11-09 15:15] VITALS: BP 162/75
--- NOTE | 2020-11-10 19:37 | ECGEPIP ---
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
== END 2020-11-09 15:50 | disposition home or self-care (01) ==
LOC: M ED 09:50
DX: R06.00 Dyspnea, unspecified (principal); N18.9 Chronic kidney disease, unspecified; I12.9 Hypertensive chronic kidney disease with stage 1 through stage 4 chronic kidney disease, or unspecified chronic kidney disease; F41.9 Anxiety disorder, unspecified; M19.90 Unspecified osteoarthritis, unspecified site; Z79.899 Other long term (current) drug therapy; Z88.0 Allergy status to penicillin; Z88.2 Allergy status to sulfonamides; Z88.8 Allergy status to other drugs, medicaments and biological substances; Z91.011 Allergy to milk products; Z91.018 Allergy to other foods; Z91.041 Radiographic dye allergy status

== ENCOUNTER 2021-02-11 08:16 | Emergency (ER) | payer MEDICARE ==
[~2021-02-11] VITALS: Ht 149.9 cm; Wt 74.8 kg
[2021-02-11] MEDS ORDERED: CLON0.5T2 (08:31)
[2021-02-11] MEDS ORDERED: SERT50TA29 (08:31)
[2021-02-11] MEDS ORDERED: TRAM50TA2 (08:45)
[2021-02-11] MEDS ORDERED: CRAN450T4 PO (08:52)
[2021-02-11] MEDS ORDERED: TUMS750C5 PO (08:52)
[2021-02-11] MEDS ORDERED: PEPCCHW3 PO (08:52)
[2021-02-11] MEDS ORDERED: FISH306C PO (08:52)
[2021-02-11] MEDS ORDERED: RA T500C2 PO (08:52)
[2021-02-11 11:42] VITALS: BP 141/76
== END 2021-02-11 11:45 | disposition home or self-care (01) ==
LOC: M ED 08:16
DX: F41.9 Anxiety disorder, unspecified (principal); I12.9 Hypertensive chronic kidney disease with stage 1 through stage 4 chronic kidney disease, or unspecified chronic kidney disease; N18.4 Chronic kidney disease, stage 4 (severe); F33.9 Major depressive disorder, recurrent, unspecified; D64.9 Anemia, unspecified; G47.33 Obstructive sleep apnea (adult) (pediatric); Z79.899 Other long term (current) drug therapy; Z88.0 Allergy status to penicillin; Z88.2 Allergy status to sulfonamides; Z88.8 Allergy status to other drugs, medicaments and biological substances; Z91.018 Allergy to other foods; Z91.041 Radiographic dye allergy status

== ENCOUNTER → 2021-03-07 | Outpatient (REF) | payer MEDICARE ==
[~2021-03-07] MED LIST changes: +CLON0.5T2; +CRAN450T4 PO; +FISH306C PO; +PEPCCHW3 PO; +RA T500C2 PO; +SERT50TA29; +TRAM50TA2; +TUMS750C5 PO
[2021-03-07 20:00] LABS: ALBUMIN 3.6 GM/DL (3.2-5.2); BILIRUBIN,TOTAL 0.7 MG/DL (0.2-1.0); CALCIUM LEVEL 9.3 MG/DL (8.8-10.2); CHOLESTEROL RISK RATIO 3.27 (<5); CREATININE FOR GFR 2.27 MG/DL (0.55-1.30); FREE T4 1.05 NG/DL (0.76-1.46); GLOMERULAR FILTRATION RATE 22.1 (>32); POTASSIUM SERUM 3.9 MEQ/L (3.5-5.1); THYROID STIMULATING HORMONE 3.12 uIU/ML (0.358-3.740); TOTAL PROTEIN 6.5 GM/DL (6.4-8.2)
== END ==
LOC: M LAB REF 19:04
PROVIDERS: ATTEND Nurse Practitioner Family
DX: F41.9 Anxiety disorder, unspecified (principal); I10 Essential (primary) hypertension

== ENCOUNTER → 2021-03-20 | Outpatient (CLI) | payer MEDICARE ==
[2021-03-20 12:26] LABS: HEMOGLOBIN A1c 5.5 %
== END ==
LOC: M WUC 08:53
PROVIDERS: ATTEND Internal Medicine Endocrinology, Diabetes & Metabolism
DX: E16.1 Other hypoglycemia (principal)

== ENCOUNTER 2021-04-26 07:45 | Emergency (ER) | payer MEDICARE ==
[~2021-04-26] VITALS: Ht 149.9 cm; Wt 70.5 kg
[2021-04-26 07:45] VITALS: BP 131/72
[2021-04-26 08:43] LABS: HEMATOCRIT 41.2 % (36.0-47.0); HEMOGLOBIN 13.1 g/dl (12.0-15.5); MEAN CORPUSCULAR HEMOGLOBIN 31.6 pg (27.0-33.0); MEAN CORPUSCULAR HGB CONC 31.8 g/dl (32.0-36.5); MEAN CORPUSCULAR VOLUME 99.5 fl (80.0-96.0); PLATELET COUNT, AUTOMATED 294 10^3/uL (150-450); RED BLOOD COUNT 4.14 10^6/uL (4.00-5.40); WHITE BLOOD COUNT 8.3 10^3/uL (4.0-10.0)
[2021-04-26 09:13] LABS: AMPHETAMINES LEVEL URINE NEGATIVE (NEGATIVE); BARBITURATES URINE NEGATIVE (NEGATIVE); BENZODIAZEPINES URINE NEGATIVE (NEGATIVE); CANNABINOIDS URINE NEGATIVE (NEGATIVE); COCAINE METABOLITE URINE NEGATIVE (NEGATIVE); METHADONE URINE NEGATIVE (NEGATIVE); OPIATES URINE NEGATIVE (NEGATIVE); PHENCYCLIDINE URINE NEGATIVE (NEGATIVE)
[2021-04-26 09:25] LABS: ACETAMINOPHEN LEVEL < 2.0 UG/ML (10.0-30.0); ALBUMIN 3.5 GM/DL (3.2-5.2); ALT/SGPT 20 U/L (12-78); BILIRUBIN,DIRECT 0.2 MG/DL (0.0-0.2); BILIRUBIN,TOTAL 0.7 MG/DL (0.2-1.0); BLOOD UREA NITROGEN 22 MG/DL (7-18); CARBON DIOXIDE LEVEL 26 MEQ/L (21-32); CHLORIDE LEVEL 111 MEQ/L (98-107); CREATININE FOR GFR 2.22 MG/DL (0.55-1.30); ETHYL ALCOHOL (ETHANOL) < 0.003 % (0.000-0.010); GLOMERULAR FILTRATION RATE 22.6 (>32); GLUCOSE, FASTING 99 MG/DL (70-100); POTASSIUM SERUM 3.5 MEQ/L (3.5-5.1); SALICYLATE LEVEL < 1.7 MG/DL (5.0-30.0); SODIUM LEVEL 144 MEQ/L (136-145); TOTAL PROTEIN 7.1 GM/DL (6.4-8.2)
== END 2021-04-26 16:26 | disposition home or self-care (01) ==
LOC: M ED 07:45
DX: R06.02 Shortness of breath (principal); F33.9 Major depressive disorder, recurrent, unspecified; F41.9 Anxiety disorder, unspecified; I12.9 Hypertensive chronic kidney disease with stage 1 through stage 4 chronic kidney disease, or unspecified chronic kidney disease; N18.4 Chronic kidney disease, stage 4 (severe); Z79.899 Other long term (current) drug therapy; Z88.0 Allergy status to penicillin; Z88.2 Allergy status to sulfonamides; Z88.8 Allergy status to other drugs, medicaments and biological substances; Z91.018 Allergy to other foods; Z91.041 Radiographic dye allergy status

== ENCOUNTER 2021-05-05 06:54 | Emergency (ER) | payer MEDICARE ==
[~2021-05-05] VITALS: Ht 149.9 cm; Wt 71.8 kg
[2021-05-05 07:22] VITALS: BP 134/63
[2021-05-05] MEDS ORDERED: NS 500 ML IV ONE (07:25)
[2021-05-05] MEDS ORDERED: LOPE-39 PO (07:40)
[2021-05-05 07:42] LABS: BASO % 0.6 % (0.0-1.0); EOS # 0.4 10^3/uL (0.0-0.5); EOS % 5.6 % (0.0-3.0); HEMATOCRIT 35.5 % (36.0-47.0); HEMOGLOBIN 11.2 g/dl (12.0-15.5); LYMPH # 1.5 10^3/uL (1.5-5.0); LYMPH % 24.3 % (24.0-44.0); MEAN CORPUSCULAR HEMOGLOBIN 31.6 pg (27.0-33.0); MEAN CORPUSCULAR HGB CONC 31.5 g/dl (32.0-36.5); MEAN CORPUSCULAR VOLUME 100.3 fl (80.0-96.0); MONO # 0.6 10^3/uL (0.0-0.8); MONO % 9.6 % (2.0-8.0); NEUTROPHILS # 3.7 10^3/uL (1.5-8.5); NEUTROPHILS % 59.7 % (36.0-66.0); PLATELET COUNT, AUTOMATED 211 10^3/uL (150-450); RED BLOOD COUNT 3.54 10^6/uL (4.00-5.40); WHITE BLOOD COUNT 6.3 10^3/uL (4.0-10.0)
[2021-05-05 08:11] LABS: ALBUMIN 3.1 GM/DL (3.2-5.2); BILIRUBIN,DIRECT 0.2 MG/DL (0.0-0.2); BILIRUBIN,TOTAL 0.5 MG/DL (0.2-1.0); CREATININE FOR GFR 2.26 MG/DL (0.55-1.30); GLOMERULAR FILTRATION RATE 22.2 (>32); MAGNESIUM LEVEL 2.3 MG/DL (1.8-2.4); POTASSIUM SERUM 3.3 MEQ/L (3.5-5.1); TOTAL PROTEIN 6.3 GM/DL (6.4-8.2)
== END 2021-05-05 10:24 | disposition home or self-care (01) ==
LOC: M ED 06:54
DX: R19.7 Diarrhea, unspecified (principal); T50.995A Adverse effect of other drugs, medicaments and biological substances, initial encounter; I12.9 Hypertensive chronic kidney disease with stage 1 through stage 4 chronic kidney disease, or unspecified chronic kidney disease; N18.4 Chronic kidney disease, stage 4 (severe); G47.33 Obstructive sleep apnea (adult) (pediatric); F41.9 Anxiety disorder, unspecified; Z79.899 Other long term (current) drug therapy; Z88.0 Allergy status to penicillin; Z88.2 Allergy status to sulfonamides; Z88.8 Allergy status to other drugs, medicaments and biological substances; Z91.018 Allergy to other foods; Z91.041 Radiographic dye allergy status

== ENCOUNTER → 2021-05-21 | Outpatient (REF) | payer MEDICARE ==
[~2021-05-21] MED LIST changes: +LOPE-39 PO
== END ==
LOC: M LAB REF 11:32
PROVIDERS: ATTEND Physician Assistant
DX: N39.0 Urinary tract infection, site not specified (principal)

== ENCOUNTER → 2021-05-23 | Outpatient (CLI) | payer MEDICARE ==
--- NOTE | 2021-05-23 15:01 | DEXAMM ---
INDICATION: DISORDER OF BONE. COMPARISON: 05/13/2019, 11/05/2004. TECHNIQUE: Bone density was measured using dual-energy x-ray absorptiometry (DEXA). FINDINGS: AP SPINE L1-L4 BMD 1.204 g/cm2 Young Adult T-Score 0.1 Age Matched Z-Score 1.9. LT FEMUR, TOTAL BMD 0.944 g/cm2 Young Adult T-Score -0.5 Age Matched Z-Score 1.5. LT NECK BMD 0.847 g/cm2 Young Adult T-Score -1.4 Age Matched Z-Score 0.8. RT FEMUR, TOTAL BMD 0.932 g/cm2 Young Adult T-Score -0.6 Age Matched Z-Score 1.4. RT NECK BMD 0.893 g/cm2 Young Adult T-Score -1.0 Age Matched Z-Score 1.1. IMPRESSION: There is normal bone density of the spine. There is low bone density of the left hip. There is low bone density of the right hip. The density of the spine has increased 6.2% since the initial exam on 11/05/2004. The density of the spine increased 6.0% since most recent exam on 05/13/2019. The density of the left hip has increased 3.7% since initial exam on 11/05/2004. The density of the left hip has decreased 5.2% since most recent exam on 05/13/2019. The density of the right hip has increased 8.5% since the initial exam on 11/05/2004. The density of the right hip has decreased 0.7% since the most recent exam on 05/13/2019. FOLLOW-UP: Recommendation for the next bone density exam: 2 years. <Electronically signed by Walt Cisse > 05/23/21 [id number]
--- NOTE | 2021-05-23 15:58 | REPMRS ---
Patient History The patient states she has not had a clinical breast exam in over a year. Patient is postmenopausal and is nulliparous. No known family history of cancer. No Hormone Replacement Therapy Patient states no breast complaints today. Patient has signed MRS History Sheet. Digital Woman Screen Mammo: May 23, 2021 - Exam #: [id number] Bilateral CC and MLO view(s) were taken. Technologist: Eufemia Brito Millwright Prior study comparison: May 22, 2020, bilateral screening 3D/tomosynthesis, performed at [facility]. May 13, 2019, bilateral screening 3D/tomosynthesis, performed at [facility]. FINDINGS: The breast tissue is almost entirely fat. Screening. Digital screening (2D) mammography was performed bilaterally in the CC and MLO projections. Additionally, breast tomosynthesis (3D mammography) was performed bilaterally in the CC and MLO projections. Todays exam was compared to the prior exam/exams. By history, the patient has no complaints of a palpable breast abnormality or other significant breast complaints. The Volpara volumetric breast density category is A, the breasts are almost entirely fatty. The breasts are unchanged in size and shape. There are no tanisha-soft tissue densities or spiculated masses. There is no internal architectural distortion. There are no suspicious tanisha-calcific clusters. Skin thickening or nipple retraction is not present. IMPRESSION: BI-RADS Category 2- Benign Findings. There is no evidence of malignant alteration of the breasts. Followup examination recommended in one year. The lifetime Tyrer-Cuzick score is 2.5% This mammogram was read with the assistance of Belén [employer],an FDA approved computer aided detection system for mammography. Negative x-ray reports should not delay surgical consultation if a dominant or clinically suspicious mass is present. Not all breast cancers can be identified by mammography. Therefore, we recommend that you continue to perform regular breast self-examination and physical examination and then promptly contact your physician of any concerns or changes. Adenosis and dense breasts may obscure an underlying neoplasm. No significant changes when compared with prior studies. Assessment: BI-RADS/ACR category 2 mammogram. Benign Findings. Recommendation Routine screening mammogram of both breasts in 1 year. Electronically Signed By: Henrry Toledo MD 05/23/21 0180
== END ==
LOC: M WHC 12:26
PROVIDERS: ATTEND Nurse Practitioner Family
DX: Z12.31 Encounter for screening mammogram for malignant neoplasm of breast (principal); M89.9 Disorder of bone, unspecified; Z78.0 Asymptomatic menopausal state; M85.89 Other specified disorders of bone density and structure, multiple sites

== ENCOUNTER → 2021-05-29 | Outpatient (CLI) | payer MEDICARE ==
[2021-05-29 14:52] LABS: FOLATE > 24.0 NG/ML; VITAMIN B12 LEVEL 482 PG/ML
== END ==
LOC: M PLALAB 10:50
PROVIDERS: ATTEND Psychiatry & Neurology Neurology
DX: E03.9 Hypothyroidism, unspecified (principal); D51.9 Vitamin B12 deficiency anemia, unspecified; G31.84 Mild cognitive impairment of uncertain or unknown etiology

== ENCOUNTER 2021-06-04 08:09 | Emergency (ER) | payer MEDICARE ==
[~2021-06-04] VITALS: Ht 147.3 cm; Wt 70.0 kg
--- OUTSIDE RECORDS SUMMARY | 2021-06-04 08:15 | CCD ---
Author Author Christine Birmingham Organization Unknown Address [address] [address] Phone Care Team Providers Care Material Worker Name Role Phone Vinnie Celsa PCP Allergies, Adverse Reactions, Alerts No Data in Section Problem List Concept Problem Description Status Start Date Created Date Resolv ed Date Snomed Code F41.9 Unspecified Anxiety Disorder Active 05/17/2021 I12.9 Hypertensive chronic kidney disease w stg 1-4/unsp chr kdny Active 05/17/2021 F60.9 Unspecified Personality Disorder Active 021 Medications No Data in Section Social History Social History Element Description Concept Effective Date Smoking Status Unknown if ever smoked [id number] Immunizations No Data in Section Vital Signs Encounter Date Height Ins Weight Lbs Bmi Bp Systolic Bp Diastoli c Oxygen Saturation Respiration Rate Pulse Rate Body Temp Head Circumference Heigh t Lying 05/17/2021 59.00 156.00 31.50 142 81 0.00 0 0 0.00 0.0 0. 00 Procedures Date Concept Id Description Targeted Site Concept Targeted Site Concept Type 05/17/2021 18662 Health Monitoring - 15 Min CPT Patient has no history of implantable de vices Encounters Encounter Start Date End Date Encounter Type Description Diagnosis Di agnosis Desc Location Author First Name Author Last Name Npid Taxonomy Cod e Taxonomy Desc Phone Number Location Addr1 Location Addr2 Location [facility] Location [facility] Location Zip [id number] 05/17/2021 05/17/2021 00197 Health Monitoring - 15 Min F 41.[address] [facility] Vinnie woodward [phone] [id number] Licensed Practical Nurse [id number] [address] [address] Plan of Treatment No Data in Section Lab Results No Data in Section Instructions No Data in Section Functional Cognitive Status No Data in Section Insurance Providers Insurance Id Policy Effective Date Policy Thru Date Sean N isaias [id number] 2021 MEDICARE [id number] 11 2021 JADE
--- OUTSIDE RECORDS SUMMARY | 2021-06-04 08:15 | CCD ---
Author Christine Haley Organization Unknown Address [address] [address] Phone Care Team Providers Care Utility Lineman Name Role Phone Elfego Amayamond PCP Allergies, Adverse Reactions, Alerts No Data in Section Problem List Concept Problem Description Status Start Date Created Date Resolv ed Date Snomed Code F41.9 Unspecified Anxiety Disorder Active 05/22/2021 I12.9 Hypertensive chronic kidney disease w stg 1-4/unsp chr kdny Active 05/22/2021 F60.9 Unspecified Personality Disorder Active 021 Medications Rx Norm Medication Route Route Concept Start Date Stop Date Dosage Иван quency Duration Formula Strength Dosage Form Dosage Form Code Dosage Description Medication Id Account Npid Author First Name Author Last Name Taxonomy Code Taxonomy Desc Phone Number [id number] trazodone by mouth [id number] 05/22/2021 07/21/2021 at bedtime 30 50 mg tablet [id number] Daniel Amaya [id number] Psychiat ry [id number] Social History Social History Element Description Concept Effective Date Smoking Status Unknown if ever smoked [id number] Immunizations No Data in Section Vital Signs Encounter Date Height Ins Weight Lbs Bmi Bp Systolic Bp Diastoli c Oxygen Saturation Respiration Rate Pulse Rate Body Temp Head Circumference Heigh t Lying 05/22/2021 59.00 156.00 31.50 142 81 0.00 0 0 0.00 0.0 0. 00 Procedures Date Concept Id Description Targeted Site Concept Targeted Site Concept Type 05/22/2021 54463-85 Telemed Diagnostic Eval C PT Patient has no history of implantable de vices Encounters Encounter Start Date End Date Encounter Type Description Diagnosis Di agnosis Desc Location Author First Name Author Last Name Npid Taxonomy Cod e Taxonomy Desc Phone Number Location Addr1 Location Addr2 Location [facility] Location [facility] Location [facility] [id number] 05/22/2021 05/22/2021 99579-63 Telemed Diagnostic Eval F41. 9 Anxiety Disorder, Unspecified [facility] [id number] Psychiatry [id number] [address] [address] Plan of Treatment No Data in Section Lab Results No Data in Section Instructions No Data in Section Functional Cognitive Status No Data in Section Insurance Providers Insurance Id Policy Effective Date Policy Thru Date Company N isaias [id number] 2021 MEDICARE [id number] 11 2021 JADE
--- OUTSIDE RECORDS SUMMARY | 2021-06-04 08:15 | CCD ---
Continuity of Care Document (CCD) Created on: 05/29/2021 Christine Oconnor External Reference #: [id number] Sex: Female Author Author Christine SWAIN M.D. Organization Unknown Address [address] [place] [address] Phone [phone] Care Team Providers Care Carburizing Furnace Operator Name Role Phone Sapna Olsen AUTM [phone] Problems Active Problems Provider Date Mild cognitive disorder Winifred Swain M.D. Onset: Disorders of initiating and maintaining sleep Joy Sheth Onset: 05/29/2021 Recurrent major depression in partial remission Winifred Swain M.D. Onset: 05/29/2021 Obstructive sleep apnea syndrome Winifred Swain M.D. Onset: 05/29/2021 Malaise and fatigue Winifred Swain M.D. Onset: 05/29/2021 Social History Type Date Description Comments Sex Unknown Tobacco Use Start: Unknown Patient has never smoked Allergies and adverse reactions Active Allergies Criticality Reaction | Severity Comments Date Sulfamethoxazole Unable to assess criticality 05/29/2021 Penicillins Unable to assess criticality 05/29/2021 Kelsey Aspirin Unable to assess criticality 05/29/2021 Buspirone Unable to assess criticality 05/29/2021 Macrobid Unable to assess criticality 05/29/2021 Clonidine Unable to assess criticality 05/29/2021 Bisoprolol Unable to assess criticality 05/29/2021 Medications Description No Information Available Immunizations Description No Information Available Vital Signs Date Vital Result Comment 05/29/2021 9:32am BP Systolic 125 mmHg BP Diastolic 80 mmHg Heart Rate 74 /min Respiratory Rate 14 /min Height 58.3 inches 4'10.30" Weight 154.00 lb BMI (Body Mass Index) 31.9 kg/m2 Tama Body Weight 100 lb Results Description No Information Available Procedures Date Code Description Status 05/29/2021 25960 Office/Outpatient New Moderate M DM 45-59 Minutes Completed Medical Devices Description No Information Available Encounters Type Date Location Provider Dx Diagnosis Office Visit 05/29/2021 9:00a Main office [place] G31.84 Mild cognitive impairment, so stated F51.01 Primary insomnia F33.41 Major depressive disorder, r ecurrent, in partial remission G47.33 Obstructive sleep apnea (vy lt) (pediatric) R53.83 Other fatigue Assessments Date Code Description Provider 05/29/2021 G31.84 Mild cognitive impairment, so st ated Winifred Swain M.D. 05/29/2021 F51.01 Primary insomnia Moriah Sheth 05/29/2021 F33.41 Major depressive disorder, recur rent, in partial remission Wiinfred Swain M.D. 05/29/2021 G47.33 Obstructive sleep apnea (adult) (pediatric) Winifred Swain M.D. 05/29/2021 R53.83 Other fatigue Winifred Swain M.D. Plan of Treatment No Information Available Functional Status Description No Information Available Mental Status Description No Information Available Referrals Description No Information Available
--- OUTSIDE RECORDS SUMMARY | 2021-06-04 08:15 | CCD ---
Author Author BarbaraChristine Organization Unknown Address [address] [address] Phone Care Team Providers Care Needle Valve Operator Name Role Phone Doroteo Jimenez PCP Allergies, Adverse Reactions, Alerts No Data [...] Date Smoking Status Unknown if ever smoked [id number] Immunizations No Data in Section Vital Signs No Data in Section Procedures Date Concept Id Description Targeted Site Concept Targeted Site Concept Type 05/17/2021 75007 Brief Individual Psychotherapy - 30 min CPT Patient has no history of implantable de vices Encounters Encounter Start Date End Date Encounter Type Description Diagnosis Di agnosis Desc Location Author First Name Author Last Name Npid Taxonomy Cod e Taxonomy Desc Phone Number Location Addr1 Location Addr2 Location [facility] Location [facility] Location [place] [id number] 05/17/2021 05/17/2021 90147 Brief Individual Psychoth erapy - 30 min F41.9 Anxiety Disorder, Unspecified [facility] ty Barbara Sadler [id number] Maintenance Mechanic Supervisor [phone] [address] [address] Plan of Treatment No Data in Section Lab Results No Data in Section Instructions No Data in Section Insurance Providers Insurance Id Policy Effective Date Policy Thru Date Company N isaias [id number] 2021 MEDICARE [id number] 11 2021 [employer]
--- OUTSIDE RECORDS SUMMARY | 2021-06-04 08:15 | CCD | Continuity of Care Document ---
Author Author Christine TREJO Organization Unknown Address [address] [place] [address] Phone [phone] Care Team Providers Care Tank Farm Operator Name Role Phone Sapna Olsen AUTM [phone] Problems Active Problems Provider Date Mild cognitive [...] lb BMI (Body Mass Index) 31.9 kg/m2 [place] Body Weight 100 lb Results Test Acquired Date Facility Test Result H/L Range Note Laboratory test finding 05/29/2021 [facility] Thyroid Stimulating Hormone 3.340 uIU/ML Normal 0.358-3.740 Vitamin B12 & Folate 05/29/2021 [facility] Vitamin B12 Level 482 pg/mL Normal 1 Folate > 24.0 NG/ML Normal 2 1 VITAMIN B12 NORMAL RANGE NORMAL 247 - 911 PG/ML INDETERMINATE 211 - 246 PG/ML DEFICIENT LESS THAN 211 PG/ML 2 FOLATE NORMAL RANGE NORMAL GREATER THAN 5.4 NG/ML INDETERMINATE 3.4-5.4 NG/ML DEFICIENT LESS THAN 3.4 NG/ML Procedures Date Code Description Status 05/29/2021 15182 Office/Outpatient New Moderate M DM 45-59 Minutes Completed Medical Devices Description No Information Available Encounters Type Date Location Provider Dx Diagnosis Office Visit 05/29/2021 9:00a [facility] Joy Sheth G31.84 Mild cognitive impairment, so stated F51.01 Primary insomnia F33.41 Major depressive disorder, r ecurrent, in partial remission G47.33 Obstructive sleep apnea (vy lt) (pediatric) R53.83 Other fatigue Assessments Date Code Description Provider 05/29/2021 G31.84 Mild cognitive impairment, so st ated Winifred Swain M.D. 05/29/2021 F51.01 Primary insomnia Moriah Sheth 05/29/2021 F33.41 Major depressive disorder, recur rent, in partial remission Winifred Swain M.D. 05/29/2021 G47.33 Obstructive sleep apnea (adult) (pediatric) Winifred Swain M.D. 05/29/2021 R53.83 Other fatigue Winifred Swain M.D. Plan of Treatment Future Appointment(s):* 08/07/2021 3:00 pm - Winifred Swain M.D. at [facility] Functional Status Description No Information Available Mental Status Description No Information Available Referrals Description No Information Available
--- OUTSIDE RECORDS SUMMARY | 2021-06-04 08:15 | CCD | Continuity of Care Document ---
Author Author Christine BACK P.A. Organization Unknown Address [address] [place] [address] [place] [address] Phone [phone] Care Team Providers Care [employer] French Teacher Name Role Phone Mary Schroeder MD AUTM [phone] Problems Active Problems Provider Date Acute upper respiratory infection Lou Bruce Onset: 02/25/2011 Posterior rhinorrhea Lou Bruce Onset: 02/25 Urinary tract infectious disease Lou Dockery Ons et: 02/25/2011 Essential hypertension Lou Dockery Onset: 2010 Social History Type Date Description Comments Sex Unknown ETOH Use Denies alcohol use Tobacco Use Start: Unknown Patient has never smoked Smoking Status Reviewed: 05/21/21 Patient has never smoked Allergies and adverse reactions Active Allergies Criticality Reaction | Severity Comments Date Sulfa Unable to assess criticality 04/20/2008 Aspirin Unable to assess criticality 04/20/2008 Bisoprolol Fumarate Unable to assess criticality 04/20/2008 Clonidine HCL Unable to assess criticality 04/20/2008 Amoxicillin Unable to assess criticality sob 12/01/2011 Macrobid Unable to assess criticality 08/28/2018 Zithromax Unable to assess criticality yeast 08/28/2018 Contrast Dye Unable to assess criticality 08/28/2018 Buspar Unable to assess criticality severe diarr hea 05/21/2021 Zoloft Unable to assess criticality 05/21/2021 Medications Active Medications SIG Qnty Indications Ordering Provide r Date Clonazepam 0.25mg Tablets hs Unknown Tums 500mg Chewtabs Unknown Vitamin B Complex Capsules q d Unknown Lutein 20mg Capsules qd Unknown Vision Formula Tablets 1/2 q d Unknown Cranberry Fruit 475mg Capsules qd Unknown Magnesium 250mg bid Unknown Vitamin D-1000 1000Unit Tablets qd Unknown Fish Oil 435mg Capsules Unknown Amlodipine Besylate 5mg Tablets Unknown Tumeric Unknown Pepcid Unknown Systane Complete Unknown Immunizations Description No Information Available Vital Signs Date Vital Result Comment 05/21/2021 9:57am BP Systolic 152 mmHg BP Diastolic 82 mmHg Heart Rate 84 /min Respiratory Rate 17 /min O2 % BldC Oximetry 99 % Body Temperature 97.7 F Weight 155.00 lb Height 60 inches 5'0" BMI (Body Mass Index) 30.3 kg/m2 Pain Level 3 08/28/2018 3:00pm BP Systolic 127 mmHg BP Diastolic 83 mmHg Heart Rate 68 /min Respiratory Rate 18 /min O2 % BldC Oximetry 98 % Body Temperature 97.7 F Weight 173.00 lb Height 60 inches 5'0" BMI (Body Mass Index) 33.8 kg/m2 Pain Level 3 Results Test Acquired Date Facility Test Result H/L Range Note Laboratory test finding 05/21/2021 [place] [id number] [phone] Urine Culture <pending> Procedures Date Code Description Status 05/21/2021 76120 Office/Outpatient Established Lo w MDM 20-29 Min Completed Medical Devices Description No Information Available Encounters Type Date Location Provider Dx Diagnosis Office Visit 05/21/2021 9:25a Main Office Cash Back, [place] R3 5.0 Frequency of micturition Assessments Date Code Description Provider 05/21/2021 R35.0 Frequency of micturition Lou Best Plan of Treatment No Information Available Functional Status Description No Information Available Mental Status Description No Information Available Referrals Description No Information Available
--- OUTSIDE RECORDS SUMMARY | 2021-06-04 08:15 | CCD | Continuity of Care Document ---
Author Author Christine BACK P.A. Organization Unknown Address [address] [place] [address] [place] [address] Phone [phone] Care Team Providers Care Circulation Clerk Name Role Phone Mary Schroeder MD AUTM [phone] Problems Active Problems Provider Date Acute upper [...] H/L Range Note Laboratory test finding 05/21/[address] [id number] [phone] Urine Culture FULL REPORT IN L <SEE NOTE> Normal 1, 2 1 No Rx 2 FULL REPORT IN LAB NOTES (eC W and Medent). NO GROWTH CLINICAL SIGNIFICANCE 1 ORGANISM Procedures Date Code Description Status 05/21/2021 53040 Office/Outpatient Established Lo w MDM 20-29 Min Completed Medical Devices Description No Information Available Encounters Type Date Location Provider Dx Diagnosis Office Visit 05/21/2021 9:25a Main Office Cash Back, P.AEnrique R3 5.0 Frequency of micturition Assessments Date Code Description Provider 05/21/2021 R35.0 Frequency of micturition Mando Back, PDano Plan of Treatment No Information Available Functional Status Description No Information Available Mental Status Description No Information Available Referrals Description No Information Available
--- OUTSIDE RECORDS SUMMARY | 2021-06-04 08:15 | CCD | Continuity of Care Document ---
Author Author Christine BACK P.A. Organization Unknown Address [address] [place] [address] [place] [address] Phone [phone] Care Team Providers Care Family Sociologist Name Role Phone Mary Schroeder MD AUTM [phone] Problems Active Problems Provider Date Acute upper [...] H/L Range Note Laboratory test finding 05/21/2021 [place] [id number] [phone] Urine Culture <pending> Procedures Date Code Description Status 05/21/2021 50657 Office/Outpatient Established Lo w MDM 20-29 Min [...]
--- OUTSIDE RECORDS SUMMARY | 2021-06-04 08:15 | CCD | Continuity of Care Document ---
Author Author Christine SWAIN M.D. Organization Unknown Address [address] [place] [address] Phone [phone] Care Team Providers Care Wash House Supervisor Name Role Phone Sapna Olsen AUTM [phone] Problems Active Problems Provider Date Mild cognitive disorder Winifred Swain M.D. Onset: Disorders of initiating and maintaining sleep Joy Shteh Onset: 05/29/2021 Recurrent major depression in partial [...] lb BMI (Body Mass Index) 31.9 kg/m2 [place] Body Weight 100 lb Results Test Acquired Date Facility Test Result H/L Range Note Laboratory test finding 05/29/2021 [facility] Thyroid Stimulating Hormone 3.340 uIU/ML Normal 0.358-3.740 Vitamin B12 & Folate 05/29/2021 [facility] Vitamin B12 Level 482 pg/mL Normal 1 Folate > 24.0 NG/ML Normal 2 1 VITAMIN B12 NORMAL RANGE NORMAL 247 - 911 PG/ML INDETERMINATE 211 - 246 PG/ML DEFICIENT LESS THAN 211 PG/ML 2 FOLATE NORMAL RANGE NORMAL GREATER THAN 5.4 NG/ML INDETERMINATE 3.4-5.4 NG/ML DEFICIENT LESS THAN 3.4 NG/ML Procedures Date Code Description Status 05/29/2021 67341 Office/Outpatient New Moderate M DM 45-59 Minutes Completed Medical Devices Description No Information Available Encounters Type Date Location Provider Dx Diagnosis Office Visit 05/29/2021 9:00a [facility] Joy Sheth G31.84 Mild cognitive impairment, so [...] Swain M.D. Plan of Treatment Future Appointment(s):* 06/01/2021 3:15 pm - MRI at [facility] * 08/07/2021 3:00 pm - Winifred Swain M.D. at [facility] Functional Status Description No Information Available Mental Status Description No Information Available Referrals Description No Information Available
--- OUTSIDE RECORDS SUMMARY | 2021-06-04 08:15 | CCD ---
Author Author Christine Birmingham Organization Unknown Address [address] [address] Phone Care Team Providers Care Bird Trapper Name Role Phone Vinnie Celsa PCP Allergies, [...] Date Smoking Status Unknown if ever smoked [id number] Immunizations No Data in Section Vital Signs Encounter Date Height Ins Weight Lbs Bmi Bp Systolic Bp Diastoli c Oxygen Saturation Respiration Rate Pulse Rate Body Temp Head Circumference Heigh t Lying 05/17/2021 59.00 156.00 31.50 142 81 0.00 0 0 0.00 0.0 0. 00 Procedures Date Concept Id Description Targeted Site Concept Targeted Site Concept Type 05/17/2021 04022 Health Monitoring - 15 Min CPT Patient has no history of implantable de vices Encounters Encounter Start Date End Date Encounter Type Description Diagnosis Di agnosis Desc Location Author First Name Author Last Name Npid Taxonomy Cod e Taxonomy Desc Phone Number Location Addr1 Location Addr2 Location [facility] Location [facility] Location Zip [id number] 05/17/2021 05/17/2021 98283 Health Monitoring - 15 Min F 41.9 Anxiety Disorder, Unspecified [facility] Vinnie woodward [phone] [id number] Licensed Practical Nurse [phone] [address] [address] Plan of Treatment No Data in Section Lab Results No Data in Section Instructions No Data in Section Functional Cognitive Status No Data in Section Insurance Providers Insurance Id Policy Effective Date Policy Thru Date Sean N isaias [id number] 2021 MEDICARE [id number] 11 2021 JADE
--- OUTSIDE RECORDS SUMMARY | 2021-06-04 08:15 | CCD | Continuity of Care Document ---
Author Organization Unknown Address Unknown Phone Unavailable Care Team Providers Care Net Finisher Name Role Phone Philipp Mahoney MD AUTM [phone] [place] [employer] Account Coordinator - Orthopaedic Surgery AUTM [phone] Arsh RAMIREZ., Aziza AUTM [phone] Myrna Gooden MD AUTM [phone] [facility] Neurology - Neurology AUTM [phone] Problems Active Problems Provider Date Anxiety state Sahil Frazier M.D. Onset: 2010 Essential hypertension Sahil Frazier M.D. Onset: 06/2011 Polyarteritis nodosa Sahil Frazier M.D. Onset: 12/06 Gastroesophageal reflux disease Sahil Frazier M.D. O nset: 12/06/2010 Obstructive sleep apnea syndrome Sahil Frazier M.D. Onset: 04/08/2011 Spinal stenosis of lumbar region Sahil Frazier M.D. Onset: 11/12/2012 Chronic kidney disease stage 4 Mary Schroeder M.D. Onse t: 07/03/2020 Social History Type Date Description Comments Sex Unknown Tobacco Use Start: Unknown End: Unknown denies cigarette use Tobacco Use Start: Unknown Never Used Smokeless Tobacco ETOH Use Denies alcohol use Tobacco Use Start: Unknown Patient has never smoked Recreational Drug Use Never Used Drugs Smoking Status Reviewed: 03/12/21 Patient has never smoked Exercise Type/Frequency Exercises sporadically Sun Exposure Minimum amount of sun exposure Seat Belt/Car Seat Always uses seat belt Guns in Home No Smoke Alarms Yes Smoke Alarms Carbon Monoxide Detector: Yes Allergies and adverse reactions Active Allergies Criticality Reaction | Severity Comments Date Sulfa Unable to assess criticality rash 06/11/2006 Aspirin Unable to assess criticality trouble j luis thing 06/11/2006 Beta Blockers Unable to assess criticality Trouble amari athing 06/11/2006 Amoxicillin Unable to assess criticality SOB and rash, diarrhea 10/10/2011 Macrobid Unable to assess criticality SOB, Sneezing | Mil d Dr. Gordon advised to not take anymore 10/28/2013 Hydrochlorothiazide Unable to assess criticality Urticaria, heat ra sh 07/05/2016 Clonidine Unable to assess criticality 11/17/2018 Sertraline Unable to assess criticality insomnia, ag itation,nausea 03/12/2021 Medications Active Medications SIG Qnty Indications Ordering Provide r Date Buspirone HCL 5mg Tablets take one tablet by mouth twice a day 60tabs Sapna Olsen, MACHINE FILLER SERVICER 2020 Clotrimazole 1% Cream apply to affected area in ever area twice a day as needed for irritation 30gm B37.2 Mary Schroeder M.D. 08/06/2018 Vitamin D-3 1000Unit Tablets 1 po qd 90tabs Unknown Melatonin 3mg Capsules 1 t ab at bedtime Unknown CBD Oil using cream at night on her ankles U nknown Tumeric 538mg OTC 1 cap po ev annette day Unknown Fish Oil 1000mg Capsules 1 by mouth every day Unknown Amlodipine Besylate 5mg Tablets take one tablet by mouth every day for blood pressure Unk nown Pepcid Complete [id number] Chewt abs at hs prn Unknown Systane 0.4-0.3% Solution as needed for dry eyes otc Unknown Magnesium 250mg Tablets daily OTC Unknown Clonazepam 0.5mg Tablets 1 tab by mouth twice a day as needed for anxiety 60tabs Jada Olsen, MACHINE FILLER SERVICER Cranberry Fruit 475mg Tablets one tid Unknown Vision Formula Tab 1/2 tab q d Unknown Lutein 20mg Tablets 1 PO qd Unknown Vitamin B Complex Tablets 1 PO qd OTC Unknown Tums E-X Extra Strength 750mg Chew tabs 1 daily Unknown History Medications Mirtazapine 15mg Tablets take 1/2 tablet by mouth every day at bedtime 15tabs F41.9 Sapna Olsen F INCOME TAX INVESTIGATOR 02/12/2021 - 03/12/2021 Sertraline HCL 50mg Tablets 1/2 by mouth every day for one week then one tablet daily 30tabs F41.9 Sapna Mims FNP 02/05/2021 - 02/12/2021 Immunizations CPT Code Status Date Vaccine Lot # [id number] Given 10/27/2020 Moderna Sars-(Co vid-19) vaccine, mRNA, LNP-S, PF, 100 mcg/ 0.5 mL [id number] Given 09/29/2020 Moderna Sars-(Co vid-19) vaccine, mRNA, LNP-S, PF, 100 mcg/ 0.5 mL [id number] Given 12/09/2016 Prevnar 13 For Adults Q2038 Given 05/02/2016 Influenza Vaccine (Fluzone)( medicare) [id number] Given 06/02/2015 Zostavax Q2038 Given 05/04/2015 Influenza Vaccine (Fluzone)( medicare) [id number] Given 04/11/2010 Influenza Vaccination 80042 Given 05/22/2006 Pneumococcal Vaccine 40013 Given Unknown Pneumococcal Vaccine Vital Signs Date Vital Result Comment 04/30/2021 2:09pm BP Systolic 148 mmHg BP Diastolic 87 mmHg Heart Rate 86 /min Respiratory Rate 18 /min 03/12/2021 2:03pm BP Systolic 162 mmHg BP Diastolic 85 mmHg BP Systolic Recheck 136 mmHg BP Diastolic Recheck 86 mmHg Heart Rate 75 /min Body Temperature 97.8 F Respiratory Rate 16 /min Height 58.75 inches 4'10.75" Weight 165.38 lb Peak Expiratory Flow Rate 267 Estimated Peak Flow Rate [place] Body Weight 100 lb BMI (Body Mass Index) 33.7 kg/m2 Results Test Acquired Date Facility Test Result H/L Range Note Laboratory test finding 05/29/2021 [facility] [place], [place] [id number] [phone] Thyroid Stimulating Hormone 3.340 uIU/ML Normal 0. 358-3.740 Vitamin B12 & Folate 05/29/2021 [place] [address] [phone] Vitamin B12 Level 482 pg/mL Normal 1 Folate > 24.0 NG/ML Normal 2 Complete Blood Count 04/26/2021 [place] [address] [phone] White Blood Count 8.3 10 Normal 4.0-10.0 Red Blood Count 4.14 10 Normal 4.00-5.40 Hemoglobin 13.1 g/dL Normal 12.0-15.5 Hematocrit 41.2 % Normal 36.0-47.0 Mean Corpuscular Volume 99.5 fl High 80.0-96.0 Mean Corpuscular Hemoglobin 31.6 pg Normal 27.0-33.0 Mean Corpuscular HGB Conc 31.8 g/dL Low 32.0-36.5 Red Cell Distribution Width 12.8 % Normal 11.5-14.5 Platelet Count, Automated 294 10 Normal 150-450 Nucleated Red Blood Cell % 0.0 % Normal 0-0 Drug Eval Toxicology ED Only 04/26/2021 [place] [address] [phone] Amphetamines Level Urine NEGATIVE Normal Negativ e Barbiturates Urine NEGATIVE Normal Negative Benzodiazepines Urine NEGATIVE Normal Negative Cannabinoids Urine NEGATIVE Normal Negative Cocaine Metabolite Urine NEGATIVE Normal Negative Methadone Urine NEGATIVE Normal Negative Opiates Urine NEGATIVE Normal Negative Phencyclidine Urine NEGATIVE Normal Negative 3 Liver Profile 04/26/2021 [place] [address] [phone] Ast/Sgot 15 U/L Normal 7-37 Alt/SGPT 20 U/L Normal 12-78 Alkaline Phosphatase 54 U/L Normal 45-117 Bilirubin,Total 0.7 mg/dL Normal 0.2-1.0 Bilirubin,Direct 0.2 mg/dL Normal 0.0-0.2 Total Protein 7.1 GM/DL Normal 6.4-8.2 Albumin 3.5 GM/DL Normal 3.2-5.2 Albumin/Globulin Ratio 1.0 Low 1.2-2.2 Basic Metabolic Profile 04/26/2021 [place] [address] [phone] Glucose, Fasting 99 mg/dL Normal 70-100 Blood Urea Nitrogen 22 mg/dL High 7-18 Creatinine For GFR 2.22 mg/dL High 0.55-1.30 Glomerular Filtration Rate 22.6 Low >32 4 Sodium Level 144 mEq/L Normal 136-145 Potassium Serum 3.5 mEq/L Normal 3.5-5.1 Chloride Level 111 mEq/L High 98-107 Carbon Dioxide Level 26 mEq/L Normal 21-32 Anion Gap 7 mEq/L Low 8-16 Calcium Level 10.0 mg/dL Normal 8.8-10.2 Laboratory test finding 04/26/2021 [place] [address] [phone] Ethyl Alcohol (Ethanol) < 0.003 % Normal 0.000-0. 010 Salicylate Level < 1.7 mg/dL Low 5.0-30.0 Acetaminophen Level < 2.0 UG/ML Low 10.0-30.0 Thyroid Stimulating Hormone 3.540 uIU/ML Normal 0.358-3.740 Hemoglobin A1c 03/20/2021 [place] [address] [phone] Hemoglobin A1c 5.5 % Normal 5 Estimated Average Glucose 111 mg/dL High 60-110 Laboratory test finding 03/20/2021 [place] [address] [phone] Cortisol Am 16.6 g/dL Normal 4.3-22.4 Comprehensive Metabolic Profil 03/07/2021 [place] [facility] [address] [phone] Glucose, Fasting 100 mg/dL Normal 70-100 Blood Urea Nitrogen 27 mg/dL High 7-18 Creatinine For GFR 2.27 mg/dL High 0.55-1.30 Glomerular Filtration Rate 22.1 Low >32 6 Sodium Level 144 mEq/L Normal 136-145 Potassium Serum 3.9 mEq/L Normal 3.5-5.1 Chloride Level 111 mEq/L High 98-107 Carbon Dioxide Level 29 mEq/L Normal 21-32 Anion Gap 4 mEq/L Low 8-16 Calcium Level 9.3 mg/dL Normal 8.8-10.2 Ast/Sgot 17 U/L Normal 7-37 Alt/SGPT 20 U/L Normal 12-78 Alkaline Phosphatase 48 U/L Normal 45-117 Bilirubin,Total 0.7 mg/dL Normal 0.2-1.0 Total Protein 6.5 GM/DL Normal 6.4-8.2 Albumin 3.6 GM/DL Normal 3.2-5.2 Albumin/Globulin Ratio 1.2 Normal 1.2-2.2 Lipid Panel 03/07/2021 [facility] [place] [address] [phone] Triglycerides Level 122 mg/dL Normal <150 Cholesterol Level 157 mg/dL Normal <200 HDL Cholesterol 48 mg/dL Normal >40 LDL Cholesterol 85 mg/dL Normal <100 Non-HDL-C 109 mg/dL Normal Cholesterol Risk Ratio 3.270 Normal <5 FT4&TSH Panel 03/07/2021 [facility] [place] [address] [phone] Thyroid Stimulating Hormone 3.120 uIU/ML Normal 0. 358-3.740 Free T4 1.05 ng/dL Normal 0.76-1.46 1 VITAMIN B12 NORMAL RANGE NORMAL 247 - 911 PG/ML INDETERMINATE 211 - 246 PG/ML DEFICIENT LESS THAN 211 PG/ML 2 FOLATE NORMAL RANGE NORMAL GREATER THAN 5.4 NG/ML INDETERMINATE 3.4-5.4 NG/ML DEFICIENT LESS THAN 3.4 NG/ML 3 ALL PRESUMPTIVE POSITIVE FINDINGS ARE UNCONFIRMED THRESHOLD IN NG/ML AMPHETAMINES/METHAMPHET 1000 BARBITURATES 200 BENZODIAZEPINES 200 CANNABINOIDS (THC) 50 COCAINE METABOLITE 300 METHADONE 300 OPIATES 300 PHENCYCLIDINE 25 RESULTS ARE FOR MEDICAL PURPOSES ONLY. ALL URINE SPECIMENS WILL BE SAVED FOR 3 DAYS. IF CONFIRMATION OF A PRESUMPTIVE POSITIVE SCREEN RESULT IS DESIRED, CALL CHEMISTRY ([phone]) AND REQUEST URINE TO BE SENT TO REFERENCE LAB. FOR A LIST OF CLOSELY RELATED COMPOUNDS PLEASE CALL THE LAB. 4 Units are mL/min/1.73 m2 Chronic Kidney Disease Staging per NKF: Stage I & II GFR >=60 Normal to Mildly Decreased Stage III GFR 30-59 Moderately Decreased Stage IV GFR 15-29 Severely Decreased Stage V GFR <15 Very Little GFR Left ESRD GFR <15 on JOB TRAINING SPECIALIST 5 REFERENCE RANGES: <=5.6% NORMAL 5.7-6.4% SUGGESTS IMPAIRED GLUCOSE META BOLISM/PREDIABETIC >= 6.5% ABNORMAL 6 Units are mL/min/1.73 m2 Chronic Kidney Disease Staging per NKF: Stage I & II GFR >=60 Normal to Mildly Decreased Stage III GFR 30-59 Moderately Decreased Stage IV GFR 15-29 Severely Decreased Stage V GFR <15 Very Little GFR Left ESRD GFR <15 on JOB TRAINING SPECIALIST Procedures Date Code Description Status 05/23/2021 [id number] Mammogram Completed 04/30/2021 24943 Office/Outpatient Established Lo w MDM 20-29 Min Completed 03/12/2021 38801 Office/Outpatient Established Mo d MDM 30-39 Min Completed 02/12/2021 71718 Office/Outpatient Established Mo d MDM 30-39 Min Completed 02/05/2021 54299 Office/Outpatient Established Mo d MDM 30-39 Min Completed 05/23/2017 [id number] Bone Mineral Density Test Comple kasie 02/09/2016 [id number] Mammogram Completed 01/26/2014 [id number] Mammogram Completed 01/21/2013 [id number] Mammogram Completed Medical Devices Description No Information Available Encounters Type Date Location Provider Dx Diagnosis Office Visit 04/30/2021 2:00p Main Office Sapna Olsen FNP F41.9 Anxiety disorder, unspecified I10 Essential (primary) hyperten evelin Office Visit 03/12/2021 2:15p Main Office Sapna Olsen, MACHINE FILLER SERVICER I10 Essential (primary) hypertension F41.9 Anxiety disorder, unspecifie d E16.2 Hypoglycemia, unspecified Office Visit 02/12/2021 3:30p Main Office Sapna Olsen MACHINE FILLER SERVICER F41.9 Anxiety disorder, unspecified R11.0 Nausea Office Visit 02/05/2021 8:00a Main Office Sapna Olsen MACHINE FILLER SERVICER F41.9 Anxiety disorder, unspecified I10 Essential (primary) hyperten evelin Office Visit 01/01/2021 3:45p Main Office Sapna Olsen MACHINE FILLER SERVICER Z00.0 0 Encntr for general adult medical exam w/o abnormal findings I10 Essential (primary) hyperten evelin M30.0 Polyarteritis nodosa M48.061 Spinal stenosis, lumbar pelon on without neurogenic gopi N18.4 Chronic kidney disease, stag e 4 (severe) F41.9 Anxiety disorder, unspecifie d K21.9 Gastro-esophageal reflux dis ease without esophagitis Assessments Date Code Description Provider 04/30/2021 F41.9 Anxiety disorder, unspecified Pl eskach, Sapna, MACHINE FILLER SERVICER 04/30/2021 I10 Essential (primary) hypertension Pleskach, Sapna, MACHINE FILLER SERVICER 03/12/2021 I10 Essential (primary) hypertension Pleskach, Sapna, MACHINE FILLER SERVICER 03/12/2021 F41.9 Anxiety disorder, unspecified Pl eskach, Sapna, MACHINE FILLER SERVICER 03/12/2021 E16.2 Hypoglycemia, unspecified Pleska ch, Sapna, MACHINE FILLER SERVICER 02/12/2021 F41.9 Anxiety disorder, unspecified Pl eskach, Sapna, MACHINE FILLER SERVICER 02/12/2021 R11.0 Nausea Pleskach, Sapna, MACHINE FILLER SERVICER 02/05/2021 F41.9 Anxiety disorder, unspecified Pl eskach, Sapna, MACHINE FILLER SERVICER 02/05/2021 I10 Essential (primary) hypertension Pleskach, Sapna, MACHINE FILLER SERVICER 01/01/2021 Z00.00 Encounter for genera l adult medical examination without abnormal findings Mary Schroeder M.D. 01/01/2021 Z00.00 Encounter for genera l adult medical examination without abnormal findings Pleskach, Sapna, MACHINE FILLER SERVICER 01/01/2021 I10 Essential (primary) hypertension Mary Schroeder M.D. 01/01/2021 I10 Essential (primary) hypertension Pleskach, Sapna, [facility] 01/01/2021 M30.0 Polyarteritis nodosa Mack Schroeder M.D. 01/01/2021 M30.0 Polyarteritis nodosa Ambar Olsen, [facility] 01/01/2021 M48.061 Spinal stenosis, lum bar region without neurogenic claudication Mary Schroeder M.D. 01/01/2021 M48.061 Spinal stenosis, lum bar region without neurogenic claudication Pleskach, Sapna, MACHINE FILLER SERVICER 01/01/2021 N18.4 Chronic kidney disease, stage 4 (severe) Mary Schroeder M.D. 01/01/2021 N18.4 Chronic kidney disease, stage 4 (severe) Sapna Olsen FNP 01/01/2021 F41.9 Anxiety disorder, unspecified Wi Mary cox M.D. 01/01/2021 F41.9 Anxiety disorder, unspecified Pl Sapna cardenas FNP 01/01/2021 K21.9 Gastro-esophageal reflux disease without esophagitis Mary Schroeder M.D. 01/01/2021 K21.9 Gastro-esophageal reflux disease without esophagitis Sapna Olsen FNP Plan of Treatment Future Appointment(s):* 09/12/2021 1:45 pm - Sapna Olsen FNP at Main Office 04/30/2021 - Sapna Olsen FNP* F41.9 Anxiety disorder, unspecified * I10 Essential (primary) hypertension Functional Status Functional Condition Comment Date Status Glasses progressives Active Independent with all ADL's Activ e Wears corrective shoes on both feet Active Independent with all IADL's Acti ve Standard cane is used with the right hand to ambulate Active Cpap Machine Active Mental Status Mental Condition Comment Date Status None Active Referrals Refer to Dr Reason for Referral Status Appt Date [facility] Neurology Please evaluate for anxiety/ dementia issues, recommended by Dr. Myrna Gooden, I will include her note as well. Thank you. Scheduled 05/29/2021 [address] [place] [address] [phone] [facility] for Symptom Treatment/Relief Referring belinda ortiz, she is interested in medical marijuana for anxiety. Thank you. Patient Declined [address] [facility] [address] [phone] Myrna Gooden MD Please evaluate patient for hypoglycemia. Than k you. Closed [facility] [address] [place] [address] [phone]
--- OUTSIDE RECORDS SUMMARY | 2021-06-04 08:16 | CCD ---
Continuity of Care Document (CCD) Created on: 03/28/2021 Christine Oconnor External Reference #: [id number] : 1940 Sex: Female Author Author Christine BERRY MD Organization Unknown Address [address] [facility] [place] [address] Phone [phone] Care Team Providers Care Cupola Liner Helper Name Role Phone Sapna Olsen AUTM [phone] Problems Active Problems Provider Date Anxiety state Onset: 12/06/2010 Chronic kidney disease stage 4 Onset: Essential hypertension Onset: 12/06/2010 Gastroesophageal reflux disease Onset: 0 12/06/2010 Obstructive sleep apnea syndrome Onset: 04/08/2011 Polyarteritis nodosa Onset: 12/06/2010 Spinal stenosis of lumbar region Onset: 11/12/2012 Social History Type Date Description Comments Sex Unknown Tobacco Use Start: Unknown Never Smoked Cigarettes Smoking Status Reviewed: 03/19/21 Never Smoked Cigarettes ETOH Use Never used alcohol Allergies, Adverse Reactions, Alerts Active Allergies Criticality Reaction | Severity Comments Date Amoxicillin Unable to assess criticality SOB and rash, diarrhea 03/19/2021 Aspirin Unable to assess criticality trouble j luis thing 03/19/2021 Clonidine Unable to assess criticality 03/19/2021 Hydrochlorothiazide Unable to assess criticality Urticaria, heat ra sh 03/19/2021 Nitrofurantoin, Macrocrystals / Nitrofurantoin, Monohy drate Unable to assess criticality SOB, Sneezing | Mild Dr. Gordon advised to not take anymore 03/19/2021 Sertraline Unable to assess criticality insomnia, ag itation,nausea 03/19/2021 sulfa drugs Unable to assess criticality 03/19/2021 Medications Active Medications SIG Qnty Indications Ordering Provide r Date Lutein 20mg Tablets 1 PO qd Unknown Clonazepam 0.5mg Tablets 1 tab by mouth twice a day as needed for anxiety 60tabs PrettyJada y, COMIC ARTIST Vitamin D3 25mcg (1000 Ut) Tablets 1 po qd 90tabs Unknown Systane 0.4-0.3% Solution as needed for dry eyes Unknown Amlodipine Besylate 5mg Tablets take one tablet by mouth every day for blood pressure Unk nown Fish Oil 1000mg Capsules 1 by mouth every day Unknown Vitamin B Complex Tablets 1 by mouth daily Unknown Magnesium 250mg Tablets 1/2 tablet by mouth daily Unknown Turmeric 500mg Tablets 1 b y mouth daily Unknown CBD Cream as directed Unknown Cranberry Fruit 465mg Capsules 3 by mouth daily Unknown Pepcid Complete Chewtabs 1 by mouth daily Unknown Tums 500mg Chewtabs 1 by sai th daily Unknown Immunizations Description No Information Available Vital Signs Date Vital Result Comment 03/19/2021 1:02pm BP Systolic 130 mmHg BP Diastolic 70 mmHg Heart Rate 81 /min Height 59 inches 4'11" Weight 165.00 lb BMI (Body Mass Index) 33.3 kg/m2 O2 % BldC Oximetry 99 % Results Test Acquired Date Facility Test Result H/L Range Note Laboratory test finding 03/20/2021 [facility] [address] [place] [address] [phone] Cortisol Am 16.6 g/dL Normal 4.3-22.4 Hemoglobin A1c 03/20/2021 [facility] [address] [place] [address] [phone] Hemoglobin A1c 5.5 % Normal 1 Estimated Average Glucose 111 mg/dL High 60-110 Comprehensive Metabolic Profil 03/07/2021 N2N/CCD [place] Glucose, Fasting 100 mg/dL 70-100 Blood Urea Nitrogen 27 mg/dL High 7-18 Creatinine For GFR 2.27 mg/dL High 0.55-1.30 Glomerular Filtration Rate 22.1 1 Low 2 Sodium Level 144 mEq/L 136-145 Potassium Serum 3.9 mEq/L 3.5-5.1 Chloride Level 111 mEq/L High 98-107 Carbon Dioxide Level 29 mEq/L 21-32 Anion Gap 4 mEq/L Low 8-16 Calcium Level 9.3 mg/dL 8.8-10.2 Ast/Sgot 17 U/L 7-37 Alt/SGPT 20 U/L 12-78 Alkaline Phosphatase 48 U/L 45-117 Bilirubin,Total 0.7 mg/dL 0.2-1.0 Total Protein 6.5 GM/DL 6.4-8.2 Albumin 3.6 GM/DL 3.2-5.2 Albumin/Globulin Ratio 1.2 1 1.2-2.2 Lipid Panel 03/07/2021 N2N/CCD Import Triglycerides Level 122 mg/dL Cholesterol Level 157 mg/dL HDL Cholesterol 48 mg/dL LDL Cholesterol 85 mg/dL Non-HDL-C 109 mg/dL Cholesterol Risk Ratio 3.270 1 FT4&TSH Panel 03/07/2021 N2N/CCD Import Thyroid Stimulating Hormone 3.120 uIU/ML 0.358-3.740 Free T4 1.05 ng/dL 0.76-1.46 1 REFERENCE RANGES: <=5.6% NORMAL 5.7-6.4% SUGGESTS IMPAIRED GLUCOSE META BOLISM/PREDIABETIC >= 6.5% ABNORMAL 2 Units are mL/min/1.73 m2 Chronic Kidney Disease Staging per NKF: Stage I & II GFR >=60 Normal to Mildly Decreased Stage III GFR 30-59 Moderately Decreased Stage IV GFR 15-29 Severely Decreased Stage V GFR <15 Very Little GFR Left ESRD GFR <15 on MEDICAL STENOGRAPHER Procedures Date Code Description Status 03/19/2021 23603 Office/Outpatient New Moderate M DM 45-59 Minutes Completed 2013 [id number] Diabetic Foot Exam Completed Medical Devices Description No Information Available Encounters Type Date Location Provider Dx Diagnosis Office Visit 03/19/2021 1:00p DR. Myrna Berry MD E 16.1 Other hypoglycemia Assessments Date Code Description Provider 03/19/2021 E16.1 Other hypoglycemia Myrna mandujano MD Plan of Treatment Future Appointment(s):* 04/20/2021 3:15 pm - Florina Bran, TAPE CONTROLLED MACHINE STITCHER at DR. Myrna Berry 03/19/2021 - Myrna Berry MD* E16.1 Other hypoglycemia* Comments:* It does not sound as if she is actually having hypoglycemia. May be side effects of er clonazepam or may be her anxiety itself.given a meter and taught how to check BS when she feels symptomatic.Check cortisol level to rule our adrenal insu fficiency.Had been on steroids in the remote past. * Follow up:* florina ascencio- hypoglycemia Functional Status Description No Information Available Mental Status Description No Information Available Referrals Description No Information Available
--- OUTSIDE RECORDS SUMMARY | 2021-06-04 08:16 | CCD | Continuity of Care Document ---
Author Author Christine BERRY MD Organization Unknown Address [address] [facility] [place] [address] Phone [phone] Care Team Providers Care Remote Recruiter Name Role Phone Sapna Olsen AUTM [phone] Problems Active Problems Provider Date Anxiety state [...] as needed for anxiety 60tabs PrettyJada y, COPY WRITER Vitamin D3 25mcg (1000 Ut) Tablets 1 [...] H/L Range Note Laboratory test finding 03/20/2021 [facility] [address] [place] [address] [phone] - Cortisol Am 16.6 g/dL Normal 4.3-22.4 Hemoglobin A1c 03/20/2021 [facility] [address] [place] [address] [phone] - Hemoglobin A1c 5.5 % Normal [...] Little GFR Left ESRD GFR <15 on BUSINESS BANKING OFFICER Procedures Date Code Description Status 03/19/2021 58971 Office/Outpatient New Moderate M DM 45-59 Minutes Completed 2013 [id number] Diabetic Foot Exam Completed Medical Devices Description No Information Available Encounters Type Date Location Provider Dx Diagnosis Office Visit 03/19/2021 1:00p DR. Myrna Berry MD E 16.1 Other hypoglycemia Assessments Date Code Description Provider 03/19/2021 E16.1 Other hypoglycemia Myrna mandujano MD Plan of Treatment Future Appointment(s):* 04/20/2021 3:15 pm - Florina Bran, REGISTER OF WILLS at DR. Myrna Berry 03/19/2021 - Myrna [...]
--- OUTSIDE RECORDS SUMMARY | 2021-06-04 08:16 | CCD | Continuity of Care Document ---
Author Author Christine BENAVIDEZ DEBONER Organization Unknown Address [address] [place] [address] Phone [phone] Care Team Providers Care Granite Countertop Installer Name Role Phone Sapna Olsen MEL AUTM [phone] Problems Active Problems Provider Date Anxiety state Onset: 12/06/2010 Chronic kidney disease stage 4 Onset: Essential hypertension Onset: 12/06/2010 Gastroesophageal reflux disease Onset: 0 12/06/2010 Obstructive sleep apnea syndrome Onset: 04/08/2011 Polyarteritis nodosa Onset: 12/06/2010 Spinal stenosis of lumbar region Onset: 11/12/2012 Social History Type Date Description Comments Sex Unknown Tobacco Use Start: Unknown Never Smoked Cigarettes Smoking Status Reviewed: 04/20/21 Never Smoked Cigarettes ETOH Use Never used [...] a day as needed for anxiety 60tabs PleskJada lazo y, CERTIFIED ENERGY MANAGER Vitamin D3 25mcg (1000 Ut) Tablets 1 [...] Available Vital Signs Date Vital Result Comment 04/20/2021 2:56pm BP Systolic 128 mmHg BP Diastolic 84 mmHg Heart Rate 81 /min Height 59 inches 4'11" Weight 162.19 lb BMI (Body Mass Index) 32.8 kg/m2 O2 % BldC Oximetry 98 % 03/19/2021 1:02pm BP Systolic 130 mmHg BP Diastolic 70 mmHg Heart Rate 81 /min Height 59 inches 4'11" Weight 165.00 lb BMI (Body Mass Index) 33.3 kg/m2 O2 % BldC Oximetry 99 % Results Test Acquired Date Facility Test Result H/L Range Note Laboratory test finding 03/20/2021 [facility] [address] [place] [address] [phone] Cortisol Am 16.6 g/dL Normal 4.3-22.4 Hemoglobin A1c 03/20/2021 [facility] [address] [place] [address] [phone] Hemoglobin A1c 5.5 % Normal [...] Little GFR Left ESRD GFR <15 on CORRECTIONAL SUPERVISOR Procedures Date Code Description Status 04/20/2021 53780 Office/Outpatient Established Mo d MDM 30-39 Min Completed 03/19/2021 77199 Office/Outpatient New Moderate M DM 45-59 Minutes Completed 03/19/2021 [id number] Diabetic Foot Exam Completed Medical Devices Description No Information Available Encounters Type Date Location Provider Dx Diagnosis Office Visit 04/20/2021 3:15p DR. Myrna Benavidez, Dharmesh P E16.1 Other hypoglycemia Office Visit 03/19/2021 1:00p DR. Myrna Gooden MD E 16.1 Other hypoglycemia Assessments Date Code Description Provider 04/20/2021 E16.1 Other hypoglycemia Laurel marie NP 03/19/2021 E16.1 Other hypoglycemia Myrna mandujano MD Plan of Treatment 04/20/2021 - Laurel Benavidez NP* E16.1 Other hypoglycemia* Comments:* It does not sound as if she is actually having hypoglycemia. May be side effects of her clonazepam or may be her anxiety itself.Meter downloaded and reviewed- range 84-118Today, feels very shaky. Usually takes CLonazepam, but did not. Labs done 03/20/21- A1c= 5.5 %, cortisol level to rule out adrenal insufficiency= 16.6- normal. PT awaiting counseling with psychiatric NPPt also stage 4 CKDSuggest appt with PCP to discuss referral to neurology * Follow up:* Return to PCP Functional Status Description No Information Available Mental Status Description No Information Available Referrals Description No Information Available
--- OUTSIDE RECORDS SUMMARY | 2021-06-04 08:16 | CCD | Continuity of Care Document ---
Author Organization Unknown Address Unknown Phone Unavailable Care Team Providers Care Nuclear Medicine Physician Name Role Phone Philipp Mahoney MD AUT[facility] - Orth[facility]edic [facility] AUTM [phone] Arsh RAMIREZ., Aziza AUTM [phone] Myrna Gooden MD AUTM [phone] Problems Active Problems Provider Date Anxiety state [...] Yes Smoke Alarms Carbon Monoxide Detector: Yes Allergies, Adverse Reactions, Alerts Active Allergies Criticality [...] SIG Qnty Indications Ordering Provide r Date Clotrimazole 1% Cream apply to affected area in ever area twice a day as needed for irritation 30gm B37.2 Mary Schroeder M.D. 08/06/2018 Tums E-X Extra Strength 750mg Chew tabs 1 daily Unknown CBD Oil using cream at night on her ankles U nknown Tramadol HCL 50mg Tablets take 1 tablet by mouth every 6 hours as needed for pain 30tabs Sapna Olsen, CONTROL OFFICER MANAGER Tumeric 538mg OTC 1 cap po ev annette day Unknown Fish Oil 1000mg Capsules 1 by mouth every day Unknown Amlodipine Besylate 5mg Tablets take one tablet by mouth every day for blood pressure Unk nown Pepcid Complete [id number] Chewt abs at hs prn Unknown Systane 0.4-0.3% Solution as needed for dry eyes otc Unknown Vitamin D-3 1000Unit Tablets 1 po qd 90tabs Unknown Magnesium 250mg Tablets daily OTC Unknown Clonazepam 0.5mg Tablets 1 tab by mouth twice a day as needed for anxiety 60tabs Jada Olsen y, CONTROL OFFICER MANAGER Cranberry Fruit 475mg Tablets one tid Unknown Vision Formula Tab 1/2 tab q d Unknown Lutein 20mg Tablets 1 PO qd Unknown Vitamin B Complex Tablets 1 PO qd OTC Unknown History Medications Mirtazapine 15mg Tablets take 1/2 tablet by mouth every day at bedtime 15tabs F41.9 Sapna Olsen, F FINISHER OPERATOR 02/12/2021 - 03/12/2021 Sertraline HCL 50mg Tablets 1/2 by mouth every day for one week then one tablet daily 30tabs F41.9 Sapna Mims, CONTROL OFFICER MANAGER 02/05/2021 - 02/12/2021 Immunizations CPT Code Status Date Vaccine Lot # [id number] Given 10/27/2020 Moderna Sars-(Co vid-19) vaccine, mRNA, LNP-S, PF, 100 mcg/ 0.5 mL 35883 Given 09/29/2020 Moderna Sars-(Co vid-19) vaccine, mRNA, LNP-S, PF, 100 mcg/ 0.5 mL 87774 Given 12/09/2016 Prevnar 13 For Adults Q2038 Given 05/02/2016 Influenza Vaccine (Fluzone)( medicare) [id number] Given 06/02/2015 Zostavax Q2038 Given 05/04/2015 Influenza Vaccine (Fluzone)( medicare) [id number] 07677 Given 04/11/2010 Influenza Vaccination 46521 Given 05/22/2006 Pneumococcal Vaccine 52477 Given Unknown Pneumococcal Vaccine Vital Signs Date Vital Result Comment 03/12/2021 2:03pm BP Systolic 162 mmHg BP Diastolic 85 mmHg BP Systolic Recheck 136 mmHg BP Diastolic Recheck 86 mmHg Heart Rate 75 /min Body Temperature 97.8 F Respiratory Rate 16 /min Height 58.75 inches 4'10.75" Weight 165.38 lb Peak Expiratory Flow Rate 267 Estimated Peak Flow Rate [place] Body Weight 100 lb BMI (Body Mass Index) 33.7 kg/m2 02/12/2021 3:31pm BP Systolic 163 mmHg BP Diastolic 89 mmHg BP Systolic Recheck 150 mmHg recheck BP Diastolic Recheck 85 mmHg recheck Heart Rate 83 /min Body Temperature 97.4 F Respiratory Rate 14 /min Height 58.75 inches 4'10.75" Weight 165.50 lb Peak Expiratory Flow Rate 267 Estimated Peak Flow Rate [place] Body Weight 100 lb BMI (Body Mass Index) 33.7 kg/m2 Results Test Acquired Date Facility Test Result H/L Range Note Hemoglobin A1c 03/20/2021 [facility] [place] [address] [phone] Hemoglobin A1c 5.5 % Normal 1 Estimated Average Glucose 111 mg/dL High 60-110 Laboratory test finding 03/20/2021 [facility] [place], [place] [id number] [phone] Cortisol Am 16.6 g/dL Normal 4.3-22.4 Comprehensive Metabolic Profil 03/07/2021 [facility] [place] [address] [phone] Glucose, Fasting 100 mg/dL Normal 70-100 Blood Urea Nitrogen 27 mg/dL High 7-18 Creatinine For GFR 2.27 mg/dL High 0.55-1.30 Glomerular Filtration Rate 22.1 Low >32 2 Sodium Level 144 mEq/L Normal 136-145 Potassium [...] Ratio 1.2 Normal 1.2-2.2 Lipid Panel 03/07/[address] [facility] [address] [facility] [place] [address] [phone] Triglycerides Level 122 mg/dL Normal <150 Cholesterol Level 157 mg/dL Normal <200 HDL Cholesterol 48 mg/dL Normal >40 LDL Cholesterol 85 mg/dL Normal <100 Non-HDL-C 109 mg/dL Normal Cholesterol Risk Ratio 3.270 Normal <5 FT4&TSH Panel 03/07/[address] [facility] [address] [facility] [place] [address] [phone] Thyroid Stimulating Hormone 3.120 uIU/ML Normal 0. 358-3.740 Free T4 1.05 ng/dL Normal 0.76-1.46 1 REFERENCE RANGES: <=5.6% NORMAL 5.7-6.4% SUGGESTS IMPAIRED GLUCOSE META BOLISM/PREDIABETIC >= 6.5% ABNORMAL 2 Units are mL/min/1.73 m2 Chronic Kidney Disease Staging per NKF: Stage I & II GFR >=60 Normal to Mildly Decreased Stage III GFR 30-59 Moderately Decreased Stage IV GFR 15-29 Severely Decreased Stage V GFR <15 Very Little GFR Left ESRD GFR <15 on SHOPPER MARKETING MANAGER Procedures Date Code Description Status 03/12/2021 04932 Office/Outpatient Established Mo d MDM 30-39 Min Completed 02/12/2021 03040 Office/Outpatient Established Mo d MDM 30-39 Min Completed 02/05/2021 48266 Office/Outpatient Established Mo d MDM 30-39 Min Completed 05/22/2020 [id number] Mammogram Completed 05/13/2019 [id number] Bone Mineral Density Test Comple kasie 02/09/2016 [id number] Mammogram Completed 01/26/2014 [id number] Mammogram Completed 01/21/2013 [id number] Mammogram Completed Medical Devices Description No Information Available Encounters Type Date Location Provider Dx Diagnosis Office Visit 03/12/2021 2:15p Main Office Sapna Olsen, CONTROL OFFICER MANAGER I10 Essential (primary) hypertension F41.9 Anxiety disorder, unspecifie d E16.2 Hypoglycemia, unspecified Office Visit 02/12/2021 3:30p Main Office Sapna Olsen, CONTROL OFFICER MANAGER F41.9 Anxiety disorder, unspecified R11.0 Nausea Office Visit 02/05/2021 8:00a Main Office Sapna Olsen CONTROL OFFICER MANAGER F41.9 Anxiety disorder, unspecified I10 Essential (primary) hyperten evelin Office Visit 01/01/2021 3:45p Main Office Sapna Olsen, CONTROL OFFICER MANAGER Z00.0 0 Encntr for general adult medical exam w/o abnormal findings I10 Essential (primary) hyperten evelin M30.0 Polyarteritis nodosa M48.061 Spinal stenosis, lumbar pelon on without neurogenic gopi N18.4 Chronic kidney disease, stag e 4 (severe) F41.9 Anxiety disorder, unspecifie d K21.9 Gastro-esophageal reflux dis ease without esophagitis Assessments Date Code Description Provider 03/12/2021 I10 Essential (primary) hypertension Pleskach, Sapna, CONTROL OFFICER MANAGER 03/12/2021 F41.9 Anxiety disorder, unspecified Pl eskach, Sapna, CONTROL OFFICER MANAGER 03/12/2021 E16.2 Hypoglycemia, unspecified Pleska ch, Sapna, CONTROL OFFICER MANAGER 02/12/2021 F41.9 Anxiety disorder, unspecified Pl eskach, Sapna, CONTROL OFFICER MANAGER 02/12/2021 R11.0 Nausea Pleskach, Sapna, CONTROL OFFICER MANAGER 02/05/2021 F41.9 Anxiety disorder, unspecified Pl eskach, Sapna, CONTROL OFFICER MANAGER 02/05/2021 I10 Essential (primary) hypertension Pleskach, Sapna, CONTROL OFFICER MANAGER 01/01/2021 Z00.00 Encounter for genera l adult medical examination without abnormal findings Mary Schroeder M.D. 01/01/2021 Z00.00 Encounter for genera l adult medical examination without abnormal findings Pleskach Sapna, [facility] 01/01/2021 I10 Essential (primary) hypertension Mary Schroeder M.D. 01/01/2021 I10 Essential (primary) hypertension Plenurisach, Sapna, [facility] 01/01/2021 M30.0 Polyarteritis nodosa Mack Schroeder M.D. 01/01/2021 M30.0 Polyarteritis nodosa Ambar Olsen, [facility] 01/01/2021 M48.061 Spinal stenosis, lum bar region without neurogenic claudication Mary Schroeder M.D. 01/01/2021 M48.061 Spinal stenosis, lum bar region without neurogenic claudication Jada Olseny, [facility] 01/01/2021 N18.4 Chronic kidney disease, stage 4 (severe) Mary Schroeder M.D. 01/01/2021 N18.4 Chronic kidney disease, stage 4 (severe) Pleskach Sapna, [facility] 01/01/2021 F41.9 Anxiety disorder, unspecified Wi Mary cox M.D. 01/01/2021 F41.9 Anxiety disorder, unspecified Pl eskach, Sapna, [facility] 01/01/2021 K21.9 Gastro-esophageal reflux disease without esophagitis Mary Schroeder M.D. 01/01/2021 K21.9 Gastro-esophageal reflux disease without esophagitis Sapna Olsen FNP Plan of Treatment Future Appointment(s):* 09/12/2021 1:45 pm - Sapna Olsen FNP at Main Office 03/12/2021 - Sapna Olsen FNP* I10 Essential (primary) hypertension* Comments:* continue current medications * Follow up:* 6 months, no labs * F41.9 Anxiety disorder, unspecified* Comments:* patient would like a referral for medical marijuana, will refer to palliative care * E16.2 Hypoglycemia, unspecified* Comments:* patient feels that her BS is low and she would like to see Dr. Gooden, states she has seen her in the past and would like to see her againEncouraged patient to ensure protein with every meal and to follow a consistent carbohydrate diet Functional Status Functional Condition Comment Date Status Glasses progressives Active Independent with all ADL's Activ e Wears corrective shoes on both feet Active Independent with all IADL's Acti ve Standard cane is used with the right hand to ambulate Active Cpap Machine Active Mental Status Mental Condition Comment Date Status None Active Referrals Refer to Reason for Referral Status Appt Date Myrna Gooden MD Please evaluate patient for hypoglycemia. Than k you. Sent [facility] [address] [facility] [address] [phone] [facility] for Symptom Treatment/Relief Referring belinda ortiz, she is interested in medical marijuana for anxiety. Thank you. Sent [address] [facility] [address] [phone]
--- OUTSIDE RECORDS SUMMARY | 2021-06-04 08:16 | CCD | Continuity of Care Document ---
Author Author Christine OLSEN [facility] Organization Unknown Address [address] [place] [address] Phone [phone] Care Team Providers Care Journalism Internship Name Role Phone Philipp Mahoney MD AUTM [facility] - Orthopaedic Surgery AUTM [phone] Arsh RAMIREZ., Aziza AUTM [phone] Myrna Gooden MD AUTM [phone] [facility] - Neurology AUTM Problems Active Problems Provider Date Anxiety state [...] Strength 750mg Chew tabs 1 daily Unknown Melatonin 3mg Capsules 1 t ab at bedtime Unknown CBD Oil using cream at night on her ankles U nknown Tumeric 538mg OTC 1 cap po ev annette day Unknown Fish Oil 1000mg Capsules 1 by mouth every day Unknown Amlodipine Besylate 5mg Tablets take one tablet by mouth every day for blood pressure Unk nown Pepcid Complete [id number] Chewt abs at hs prn Unknown Systane 0.4-0.3% Solution as needed for dry eyes otc Unknown Vitamin D-3 1000Unit Tablets 1 po qd 90tabs Unknown Magnesium 250mg Tablets daily OTC Unknown Clonazepam 0.5mg Tablets 1 tab by mouth twice a day as needed for anxiety 60tabs Pleskach, Moll y, ASSISTANT DIRECTOR OF ADMISSIONS Cranberry Fruit 475mg Tablets one tid Unknown Vision Formula Tab 1/2 tab q d Unknown Lutein 20mg Tablets 1 PO qd Unknown Vitamin B Complex Tablets 1 PO qd OTC Unknown History Medications Mirtazapine 15mg Tablets take 1/2 tablet by mouth every day at bedtime 15tabs F41.9 Sapna Olsen, F MEDICAL RECORD CLERK 02/12/2021 - 03/12/2021 Sertraline HCL 50mg Tablets 1/2 by mouth every day for one week then one tablet daily 30tabs F41.9 Sapna Mims FNP 02/05/2021 - 02/12/2021 Immunizations CPT Code Status Date Vaccine Lot # [id number] Given 10/27/2020 Moderna Sars-(Co vid-19) vaccine, mRNA, LNP-S, PF, 100 mcg/ 0.5 mL 98659 Given 09/29/2020 Moderna Sars-(Co vid-19) vaccine, mRNA, LNP-S, PF, 100 mcg/ 0.5 mL 52870 Given 12/09/2016 Prevnar 13 For Adults Q2038 Given 05/02/2016 Influenza Vaccine (Fluzone)( medicare) [id number] 17873 Given 06/02/2015 Zostavax Q2038 Given 05/04/2015 Influenza Vaccine (Fluzone)( medicare) [id number] 00373 Given 04/11/2010 Influenza Vaccination 61243 Given 05/22/2006 Pneumococcal Vaccine 97146 Given Unknown Pneumococcal Vaccine Vital Signs Date [...] Flow Rate 267 Estimated Peak Flow Rate [place] Body Weight 100 lb BMI (Body Mass Index) 33.7 kg/m2 Results Test Acquired Date Facility Test Result H/L Range Note Complete Blood Count 04/26/2021 [place] [address] [phone] White Blood Count 8.3 10 Normal 4.0-10.0 [...] Toxicology ED Only 04/26/2021 [place] [address] [phone] Amphetamines Level Urine NEGATIVE Normal Negativ e Barbiturates Urine NEGATIVE Normal Negative Benzodiazepines Urine NEGATIVE Normal Negative Cannabinoids Urine NEGATIVE Normal Negative Cocaine Metabolite Urine NEGATIVE Normal Negative Methadone Urine NEGATIVE Normal Negative Opiates Urine NEGATIVE Normal Negative Phencyclidine Urine NEGATIVE Normal Negative 1 Liver Profile 04/26/2021 [facility] [place], [place] [address] [phone] Ast/Sgot 15 U/L Normal 7-37 Alt/SGPT 20 U/L Normal 12-78 Alkaline Phosphatase 54 U/L Normal 45-117 Bilirubin,Total 0.7 mg/dL Normal 0.2-1.0 Bilirubin,Direct 0.2 mg/dL Normal 0.0-0.2 Total Protein 7.1 GM/DL Normal 6.4-8.2 Albumin 3.5 GM/DL Normal 3.2-5.2 Albumin/Globulin Ratio 1.0 Low 1.2-2.2 Basic Metabolic Profile 04/26/2021 Patient Service Center [place], [place] [id number] [phone] Glucose, Fasting 99 mg/dL Normal 70-100 Blood Urea Nitrogen 22 mg/dL High 7-18 Creatinine For GFR 2.22 mg/dL High 0.55-1.30 Glomerular Filtration Rate 22.6 Low >32 2 Sodium Level 144 mEq/L Normal 136-145 Potassium Serum 3.5 mEq/L Normal 3.5-5.1 Chloride Level 111 mEq/L High 98-107 Carbon Dioxide Level 26 mEq/L Normal 21-32 Anion Gap 7 mEq/L Low 8-16 Calcium Level 10.0 mg/dL Normal 8.8-10.2 Laboratory test finding 04/26/2021 Patient Service [place], [place] [id number] [phone] Ethyl Alcohol (Ethanol) < 0.003 % Normal 0.000-0. 010 Salicylate Level < 1.7 mg/dL Low 5.0-30.0 Acetaminophen Level < 2.0 UG/ML Low 10.0-30.0 Thyroid Stimulating Hormone 3.540 uIU/ML Normal 0.358-3.740 Hemoglobin A1c 03/20/2021 Patient Service [place], [place] [address] [phone] Hemoglobin A1c 5.5 % Normal 3 Estimated Average Glucose 111 mg/dL High 60-110 Laboratory test finding 03/20/2021 [place] [address] [phone] Cortisol Am 16.6 g/dL Normal 4.3-22.4 Comprehensive Metabolic Profil 03/07/2021 [facility] [place] [address] [phone] Glucose, Fasting 100 mg/dL Normal 70-100 Blood Urea Nitrogen 27 mg/dL High 7-18 Creatinine For GFR 2.27 mg/dL High 0.55-1.30 Glomerular Filtration Rate 22.1 Low >32 4 Sodium Level 144 mEq/L [...] Ratio 1.2 Normal 1.2-2.2 Lipid Panel 03/07/2021 [facility] [place] [address] [phone] Triglycerides Level 122 mg/dL Normal <150 Cholesterol Level 157 mg/dL Normal <200 HDL Cholesterol 48 mg/dL Normal >40 LDL Cholesterol 85 mg/dL Normal <100 Non-HDL-C 109 mg/dL Normal Cholesterol Risk Ratio 3.270 Normal <5 FT4&TSH Panel 03/07/2021 [facility] [place] [address] [phone] Thyroid Stimulating Hormone 3.120 uIU/ML Normal 0. 358-3.740 Free T4 1.05 ng/dL Normal 0.76-1.46 1 ALL PRESUMPTIVE POSITIVE FINDINGS ARE UNCONFIRMED THRESHOLD [...] CLOSELY RELATED COMPOUNDS PLEASE CALL THE LAB. 2 Units are mL/min/1.73 m2 Chronic Kidney Disease Staging per NKF: Stage I & II GFR >=60 Normal to Mildly Decreased Stage III GFR 30-59 Moderately Decreased Stage IV GFR 15-29 Severely Decreased Stage V GFR <15 Very Little GFR Left ESRD GFR <15 on LEGAL ENTITY CONTROLLER 3 REFERENCE RANGES: <=5.6% NORMAL 5.7-6.4% SUGGESTS IMPAIRED GLUCOSE META BOLISM/PREDIABETIC >= 6.5% ABNORMAL 4 Units are mL/min/1.73 m2 Chronic Kidney Disease Staging per NKF: Stage I & II GFR >=60 Normal to Mildly Decreased Stage III GFR 30-59 Moderately Decreased Stage IV GFR 15-29 Severely Decreased Stage V GFR <15 Very Little GFR Left ESRD GFR <15 on LEGAL ENTITY CONTROLLER Procedures Date Code Description Status 04/30/2021 33783 Office/Outpatient Established Lo w MDM 20-29 Min Completed 03/12/2021 26352 Office/Outpatient Established Mo d MDM 30-39 Min Completed 02/12/2021 30624 Office/Outpatient Established Mo d MDM 30-39 Min Completed 02/05/2021 31572 Office/Outpatient Established Mo d MDM 30-39 Min Completed 05/22/2020 [id number] Mammogram Completed 05/13/2019 [id number] Bone Mineral Density Test Comple kasie 02/09/2016 [id number] Mammogram Completed 01/26/2014 [id number] Mammogram Completed 01/21/2013 [id number] Mammogram Completed Medical Devices Description No Information Available Encounters Type Date Location Provider Dx Diagnosis Office Visit 04/30/2021 2:00p Main Office Pleskach, Sapna, ASSISTANT DIRECTOR OF ADMISSIONS F41.9 Anxiety disorder, unspecified I10 Essential (primary) hyperten evelin Office Visit 03/12/2021 2:15p Main Office Pleskach, Sapna, ASSISTANT DIRECTOR OF ADMISSIONS I10 Essential (primary) hypertension F41.9 Anxiety disorder, unspecifie d E16.2 Hypoglycemia, unspecified Office Visit 02/12/2021 3:30p Main Office Pleskach, Sapna, ASSISTANT DIRECTOR OF ADMISSIONS F41.9 Anxiety disorder, unspecified R11.0 Nausea Office Visit 02/05/2021 8:00a Main Office Pleskach, Sapna, ASSISTANT DIRECTOR OF ADMISSIONS F41.9 Anxiety disorder, unspecified I10 Essential (primary) hyperten evelin Office Visit 01/01/2021 3:45p Main Office Pleskach, Sapna, ASSISTANT DIRECTOR OF ADMISSIONS Z00.0 0 Encntr for general adult medical exam w/o abnormal findings I10 Essential (primary) hyperten evelin M30.0 Polyarteritis nodosa M48.061 Spinal stenosis, lumbar pelon on without neurogenic gopi N18.4 Chronic kidney disease, stag e 4 (severe) F41.9 Anxiety disorder, unspecifie d K21.9 Gastro-esophageal reflux dis ease without esophagitis Assessments Date Code Description Provider 04/30/2021 F41.9 Anxiety disorder, unspecified Pl eskach, Sapna, ASSISTANT DIRECTOR OF ADMISSIONS 04/30/2021 I10 Essential (primary) hypertension Pleskach, Sapna, ASSISTANT DIRECTOR OF ADMISSIONS 03/12/2021 I10 Essential (primary) hypertension Pleskach, Sapna, ASSISTANT DIRECTOR OF ADMISSIONS 03/12/2021 F41.9 Anxiety disorder, unspecified Pl eskach, Sapna, ASSISTANT DIRECTOR OF ADMISSIONS 03/12/2021 E16.2 Hypoglycemia, unspecified Pleska ch, Sapna, ASSISTANT DIRECTOR OF ADMISSIONS 02/12/2021 F41.9 Anxiety disorder, unspecified Pl eskach Sapna, ASSISTANT DIRECTOR OF ADMISSIONS 02/12/2021 R11.0 Nausea Pleskviolet Sapna, ASSISTANT DIRECTOR OF ADMISSIONS 02/05/2021 F41.9 Anxiety disorder, unspecified Pl eskach, Sapna, ASSISTANT DIRECTOR OF ADMISSIONS 02/05/2021 I10 Essential (primary) hypertension PleSapna ennis, ASSISTANT DIRECTOR OF ADMISSIONS 01/01/2021 Z00.00 Encounter for genera l adult medical examination without abnormal findings Mary Schroeder M.D. 01/01/2021 Z00.00 Encounter for genera l adult medical examination without abnormal findings PleSapna ennis, ASSISTANT DIRECTOR OF ADMISSIONS 01/01/2021 I10 Essential (primary) hypertension Mary Schroeder M.D. 01/01/2021 I10 Essential (primary) hypertension Sapna Olsen, [facility] 01/01/2021 M30.0 Polyarteritis nodosa Mack Schroeder M.D. 01/01/2021 M30.0 Polyarteritis nodosa Ambar Olsen, [facility] 01/01/2021 M48.061 Spinal stenosis, lum bar region without neurogenic claudication Mary Schroeder M.D. 01/01/2021 M48.061 Spinal stenosis, lum bar region without neurogenic claudication Sapna Olsen, [facility] 01/01/2021 N18.4 Chronic kidney disease, stage 4 (severe) Mary Schroeder M.D. 01/01/2021 N18.4 Chronic kidney disease, stage 4 (severe) Sapna Olsen, ASSISTANT DIRECTOR OF ADMISSIONS 01/01/2021 F41.9 Anxiety disorder, unspecified Wi Mary cox M.D. 01/01/2021 F41.9 Anxiety disorder, unspecified Pl Sapna cardenas, ASSISTANT DIRECTOR OF ADMISSIONS 01/01/2021 K21.9 Gastro-esophageal reflux disease without esophagitis Mary Schroeder M.D. 01/01/2021 K21.9 Gastro-esophageal reflux disease without esophagitis Sapna Olsen, ASSISTANT DIRECTOR OF ADMISSIONS Plan of Treatment Future Appointment(s):* 09/12/2021 1:45 [...] to Reason for Referral Status Appt Date [facility] Please evaluate for anxiety/ dementia issues, recommended by Dr. Myrna Gooden, I will include her note as well. Thank you. Sent [address] [place] [address] [phone] [facility] for Symptom Treatment/Relief Referring belinda andresnathanael, she is interested in medical marijuana for anxiety. Thank you. Patient Declined [address] [address] [phone] Myrna Gooden MD Please evaluate patient for hypoglycemia. Than k you. Closed [facility] [address] [address] [phone]
--- OUTSIDE RECORDS SUMMARY | 2021-06-04 08:16 | CCD ---
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 06/30/2020 - 12:00AM Ba Goddard MD, FACS Active Macular Degeneration Nonexudative Bilateral Early Dry Stage 06/30/2020 - 12:00AM Ba Goddard MD, FACS Active Corneal Dystrophy Juvenile Epithelial 10/30/2015 - 12:00AM Ba Goddard MD, FACS Inactive Essential Hypertension 10/16/2015 - 12:00AM Ba Pascual MD, FACS Active Conjunctivitis Chronic Allergic 11/23/2013 - 12:00AM Ba Goddard MD, FACS Active Note: Unchanged Retinopathy Hypertensive Both Eyes 11/23/2013 - 12:00AM Ba Goddard MD, FACS Active Note: Unchanged Macular Degeneration Nonexudative Dry 05/20/2013 - 12:00AM Ba Goddard MD, FACS Inactive Note: Unchanged - both eyes Corneal Dystrophy Anterior 05/20/2013 - 12:00AM Ba Goddard MD, FACS Inactive Note: Unchanged - both eyes Corneal Dystrophy Endothelial Cornea Guttata 05/20/2013 - 12:00A Ba Goddard MD, FACS Inactive Note: Unchanged - both eyes Dry Eye Syndrome Both Eyes 05/20/2013 - 12:00AM Ba Goddard MD, FACS Active Note: Unchanged Vitreous Floaters Both Eyes 05/20/2013 - 12:00AM Ba Goddard MD, FACS Active Note: Unchanged Plan of Treatment Pending Tests Order Diagnosis Results Due Ordering Provi paty Testing Ordered - OCT OCT RETINA 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, bilateral, early dry stage 02/19/21 Ba Goddard MD, FACS Future Appointments Date Time Location Provider 7 Month Follow-Up and Testing 10/24/2021 2:35PM Ba Ivy MD [facility] Ba Goddard MD, FACS Assessments Includes: Assessments for all patient encounters Findings Encounter Date Corneal guttata of bilateral eyes 6 Month Follow-Up [facility] Ba Goddard MD, FACS 06/30/2020 Dry eye syndrome of both eyes 6 Month Follow-Up with Devin Goddard MD, FACS 06/30/2020 Early dry stage nonexudative macular degeneration of b oth eyes 6 Month Follow-Up with Ba Goddard MD, FACS 06/30/2020 Essential hypertension 6 Month Follow-Up with Ba Ivy MD, FACS 06/30/2020 Hypertensive retinopathy of both eyes 6 Month Follow-U p with Ba Goddard MD, FACS 06/30/2020 Early dry stage nonexudative macular degeneration of b oth eyes 7 Month Follow-Up with Ba Goddard MD, FACS 01/07/2020 Endothelial corneal dystrophy cornea guttata 7 Month F ollow-Up with Ba Goddard MD, FACS 01/07/2020 Essential hypertension 7 Month Follow-Up with Ba Ivy MD, FACS 01/07/2020 Hypertensive retinopathy of both eyes 7 Month Follow-U p with Ba Goddard MD, FACS 01/07/2020 Dry eye syndrome of both eyes 6 Month Follow-Up with O CT Retina with Ba Goddard MD, FACS 06/10/2019 Dry nonexudative macular degeneration 6 Month Follow-U p with OCT Retina with Ba Goddard MD, FACS 06/10/2019 Endothelial corneal dystrophy cornea guttata 6 Month F ollow-Up with OCT Retina with Ba Goddard MD, FACS 06/10/2019 Hypertensive retinopathy of both eyes 6 Month Follow-U p with OCT Retina with Ba Goddard MD, FACS 06/10/2019 Early dry stage nonexudative macular degeneration of b oth eyes 6 Month Follow-Up with Ba Goddard MD, FACS 12/02/2018 Endothelial corneal dystrophy cornea guttata 6 Month F ollow-Up with Ba Goddard MD, FACS 12/02/2018 Essential hypertension 6 Month Follow-Up with Ba Ivy MD, FACS 12/02/2018 Hypertensive retinopathy of both eyes 6 Month Follow-U p with Ba Goddard MD, FACS 12/02/2018 Early dry stage nonexudative macular degeneration of b oth eyes 7 Month Follow-Up and Testing with Ba Goddard MD, FACS 05/11/2018 Essential hypertension 7 Month Follow-Up and Testin g with Ba Goddard MD, FACS 05/11/2018 Fuchs' endothelial corneal dystrophy 7 Month Follow-Up and Testing with Ba Goddard MD, FACS 05/11/2018 Hypertensive retinopathy of both eyes 7 Month Follow-U p and Testing with Ba Goddard MD, FACS 05/11/2018 Anterior corneal dystrophy 8 Month Follow-Up with Ba Pascual MD, FACS 10/10/2017 Early dry stage nonexudative macular degeneration of b oth eyes 8 Month Follow-Up with Ba Goddard MD, FACS 10/10/2017 Essential hypertension 8 Month Follow-Up with Ba Ivy MD, FACS 10/10/2017 Hypertensive retinopathy of both eyes 8 Month Follow-U p with Ba Goddard MD, FACS 10/10/2017 Anterior corneal dystrophy 9 Month Follow-Up with Ba Pascual MD, FACS 02/10/2017 Early dry stage nonexudative macular degeneration of b oth eyes 9 Month Follow-Up with Ba Goddard MD, FACS 02/10/2017 Essential hypertension 9 Month Follow-Up with Ba Ivy MD, FACS 02/10/2017 Fuchs' endothelial corneal dystrophy 9 Month Follow-Up with Ba Goddard MD, FACS 02/10/2017 Hypertensive retinopathy of both eyes 9 Month Follow-U p with Ba Goddard MD, FACS 02/10/2017 Anterior corneal dystrophy 8 Month Follow-Up with Ba Pascual MD, FACS 06/07/2016 Dry eye syndrome of both eyes 8 Month Follow-Up with Devin Goddard MD, FACS 06/07/2016 Early dry stage nonexudative macular degeneration of b oth eyes 8 Month Follow-Up with Ba Goddard MD, FACS 06/07/2016 Essential hypertension 8 Month Follow-Up with Ba Ivy MD, FACS 06/07/2016 Hypertensive retinopathy of both eyes 8 Month Follow-U p with Ba Goddard MD, FACS 06/07/2016 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 7 Month Follow-Up with Ba Goddard MD, FACS 10/16/2015 Essential hypertension 7 Month Follow-Up with Ba Ivy MD, FACS 10/16/2015 Hypertensive retinopathy of both eyes 7 Month Follow-U p with Ba Goddard MD, FACS 10/16/2015 Juvenile epithelial corneal dystrophy 7 Month Follow-U p with Ba Goddard MD, FACS 10/16/2015 Nonexudative age-related macular degeneration of both eyes 7 Month Follow-Up with Ba Goddard MD, FACS 10/16/2015 Anterior corneal dystrophy both eyes 9 Month Follow-U p with Testing with Ba Goddard MD, FACS 03/13/2015 Chronic allergic conjunctivitis both eyes 9 Month Fol low-Up with Testing with Ba Goddard MD, FACS 03/13/2015 Dry eye syndrome of both eyes 9 Month Follow-Up with T esting with Ba Goddard MD, FACS 03/13/2015 Dry nonexudative macular degeneration both eyes 9 Mon th Follow-Up with Testing with Ba Goddard MD, FACS 03/13/2015 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 9 Month Follow-Up with Testing with Ba Goddard MD, FACS 03/13/2015 Hypertensive retinopathy of both eyes 9 Month Follow-U p with Testing with Ba Goddard MD, FACS 03/13/2015 Vitreous floaters in both eyes 9 Month Follow-Up with Testing with Ba Goddard MD, FACS 03/13/2015 Anterior corneal dystrophy both eyes 6 Month Follow-U p with Ba Goddard MD, FACS 06/06/2014 Chronic allergic conjunctivitis both eyes 6 Month Fol low-Up with Ba Goddard MD, FACS 06/06/2014 Dry eye syndrome of both eyes 6 Month Follow-Up with Devin Goddard MD, FACS 06/06/2014 Dry nonexudative macular degeneration both eyes 6 Mon th Follow-Up with Ba Goddard MD, FACS 06/06/2014 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 6 Month Follow-Up with Ba Goddard MD, FACS 06/06/2014 Hypertensive retinopathy of both eyes 6 Month Follow-U p with Ba Goddard MD, FACS 06/06/2014 Vitreous floaters in both eyes 6 Month Follow-Up with Ba Goddard MD, FACS 06/06/2014 Anterior corneal dystrophy 6 Month Follow-Up with Ba Pascual MD, FACS 11/23/2013 Chronic allergic conjunctivitis of both eyes 6 Month Follow-Up with Ba Goddard MD, FACS 11/23/2013 Dry eye syndrome of both eyes 6 Month Follow-Up with Devin Goddard MD, FACS 11/23/2013 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 6 Month Follow-Up with Ba Goddard MD, FACS 11/23/2013 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 6 Month Follow-Up with Ba Goddard MD, FACS 11/23/2013 Hypertensive retinopathy of both eyes 6 Month Follow-U p with Ba Goddard MD, FACS 11/23/2013 Vitreous floaters in both eyes 6 Month Follow-Up with Ba Goddard MD, FACS 11/23/2013 Anterior corneal dystrophy both eyes 1 Year Follow-Up with Ba Goddard MD, FACS 05/20/2013 Dry eye syndrome of both eyes 1 Year Follow-Up with Travis Goddard MD, FACS 05/20/2013 Dry nonexudative macular degeneration both eyes 1 Yea r Follow-Up with Ba Goddard MD, FACS 05/20/2013 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 1 Year Follow-Up with Ba Goddard MD, FACS 05/20/2013 Vitreous floaters in both eyes 1 Year Follow-Up with Devin Goddard MD, FACS 05/20/2013 Instructions Instructions not supported for this document typeNo Instructions Recorded Medical Equipment - Implanted Devices Includes: Current and historical DevicesNo Medical Equipment Recorded Medications Includes: Current and historical Medications Current Medications (continue as prescribed) Pepcid 20MG Oral Tablet 10/10/2017 Provider: Diagnosis: Tums E-X 750 Oral Tablet Chewable 10/10/2017 Provid er: Diagnosis: Fish Oil 1200 MG Capsule, conventional 10/16/2015 P rovider: Diagnosis: Irbesartan 75 MG Tablet 10/16/2015 Provider: Diagnosis: Turmeric 500 MG Capsule, conventional 10/16/2015 Pr ovider: Diagnosis: AmLODIPine Besylate 5 MG Tablet 03/13/2015 Provider : Diagnosis: Cranberry Fruit 475 MG Capsule, conventional 03/13/2015 Provider: Diagnosis: Systane 0.4-0.3% OP SOLN 06/06/2014 Provider: Diagnosis: Ultram 50 MG OR TABS 05/20/2013 Provider: Diagnosis: HM Magnesium 250 MG OR TABS 05/20/2013 Provider: Diagnosis: CVS Vision Formula OR TABS 05/20/2013 Provider: Diagnosis: 1/2 a tablet once a day CVS Lutein 6 MG OR CAPS 05/20/2013 Provider: Diagnosis: Tylenol Extra Strength 500 MG OR TABS 05/20/2013 Pr ovider: Diagnosis: Vitamin-B Complex OR TABS 05/20/2013 Provider: Diagnosis: GNP Vitamin D 25 MCG (1000 UT) OR TABS 05/20/2013 P rovider: Diagnosis: clonazePAM 0.25 MG OR TBDP 05/20/2013 Provider: Diagnosis: Past Medications on file Hydrochlorothiazide 12.5 MG Tablet 03/13/2015 - 10/16/2015 P rovider: Diagnosis: Folic Acid 3mg OR CAPS 06/06/2014 - 03/13/2015 Provider: Diagnosis: Methotrexate 2.5 MG OR TABS 06/06/2014 - 03/13/2015 Provider : Diagnosis: 2 tabs weekly Systane 0.4-0.3% OP SOLN 05/20/2013 - 06/06/2014 Provider: Diagnosis: Methotrexate 2.5 MG OR TABS 05/20/2013 - 06/06/2014 Provider : Diagnosis: weekly Irbesartan 300 MG OR TABS 05/20/2013 - 03/13/2015 Provider: Diagnosis: Folic Acid 5 MG OR CAPS 05/20/2013 - 06/06/2014 Provider: Diagnosis: Tums E-X 750 750 MG OR CHEW 05/20/2013 - 10/10/2017 Provider : Diagnosis: Pepcid Complete 10-800-165 MG OR CHEW 05/20/2013 - 8 Provider: Diagnosis: Cranberry Fruit 475 MG OR CAPS 05/20/2013 - 03/13/2015 Provi paty: Diagnosis: Medications Administered Includes: Administered Medications in patient's chartNo Administered Medications Recorded Vital Signs Includes: Vital Signs from 04/18/2020 through 04/18/2021No Vital Signs Recorded For Specified Dates Results Includes: Results from 04/18/2020 through 04/18/2021No Results Recorded For Specified Dates History of Present Illness History of Present Illness not supported for this document typeNo History of Present Illness Recorded Social History Description Last Updated No consumption of alcohol 06/30/2020 No tobacco use 06/30/2020 Not using drugs 06/30/2020 Smoking status : Never smoker 06/30/2020 Never smoked 05/20/2013 Procedures and Surgical History Includes: Procedures from 04/18/2020 through 04/18/2021 Procedures Code Diagnosis Performing Provider Service Location Service Date Intermediate Eye Exam Established Patient [id number] Nexdtve age-related mclr degn, bilateral, early dry stage, Essential (primary) hypertension, Hypertensive retinopathy, bilateral, Endothelial corneal dystrophy, bilateral Ba Dowell MD, FACS Ba Goddard MD [facility] 06/30/2020 Surgical History Last Updated Surgical / procedural history : Steele-Hyst erectomy 1988, Septoplasty, Removal of Polyps 1990, Endoscopic Removal of Polyps in sinuses 1997, Plantar Fasciitis sx on left foot 06/08/14, VNG test 05/03/19 01/07/2020 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 Frances wagn 05/20/2013 Medical History Includes: Medical History in patient's chart Description Last Updated Reported medical history : Carpal Tunnel Right Hand, Polyarteritis Nodosa, Anemia, Stage 4 Kidney Disease for 20 years, Vertigo, started balance thrapy 05/18/19 01/17/2020 History of essential hypertension 10/16/2015 No recent change in medical history 11/23/2013 History of blepharoplasty of the upper lid was perform ed both eyes 05/20/2013 Currently wearing eyeglasses 05/20/2013 History of arthritis 05/20/2013 History of hypertension 05/20/2013 Family History Includes: Family History in patient's chart Description Last Updated Maternal history of cataract 06/30/2020 Maternal history of glaucoma 06/30/2020 Maternal history of hypertension 06/30/2020 Paternal history of arthritis 06/30/2020 Paternal history of heart disease 06/30/2020 Family history of heart disease - Grandparent 015 Family history of hypertension - Grandparent 08/20/19 15 Family history of stroke/cerebrovascular accident - G randparent 08/20/2014 Review of Systems Review of Systems not supported for this document typeNo Review of Systems Recorded Mental Status Mental Status not supported for this document typeNo Mental Status Recorded Functional Status Functional Status not supported for this document typeNo Functional Status Recorded Physical Exam Physical Exam not supported for this document typeNo Physical Exam Recorded Immunizations Includes: Immunizations in patient's chartNo Immunizations Recorded Allergies Includes: Active, inactive, and resolved Allergies Substance Type Reaction Onset Date - Time Resolved Date - Ti me Status Sulfa Antibiotics Allergy 05/20/2013 - 12:00AM Active Macrobid Allergy 03/13/2015 - 12:00AM Acti ve hydroCHLOROthiazide Allergy Skin Rashes, Hives 10/16/2015 - 12:00A M Active Bisoprolol Allergy 05/20/2013 - 12:00AM Acti ve Aspirin Allergy 05/20/2013 - 12:00AM Acti ve Amoxicillin Allergy 11/23/2013 - 12:00AM Act buzz Encounters Includes: Encounters from 04/18/2020 through 04/18/2021 Encounter Provider Location Date Check-In Time Check-Out Time D iagnosis 7 Month Follow-Up and Testing Ba Goddard MD, FACS Devin Goddard MD [facility] 03/21/2021 1:25PM 2:22PM 6 Month Follow-Up Ba Goddard MD, FACS Ba Goddard MD [facility] 06/30/2020 1:34PM 2:33PM Essential Hypertensi on, Retinopathy Hypertensive Both Eyes, Macular Degeneration Nonexudative Bilateral Early Dry Stage, 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, Dry Eye Syndrome Both Eyes Insurance Includes: Active Insurance Policies Plan Name Member ID Group # Subscriber Relationship Effective Da trevor 1 - Medicare Part B [facility] ([facility]) [id number] Christine Oconnor Self 2 - [employer] [id number] Christine Oconnor Self Advance Directives Includes: Current Advance DirectivesNo Advance Directives Recorded Health Concerns Includes: Active Health ConcernsNo Active Health Concerns Recorded Goals Includes: Active GoalsNo Active Goals Recorded Interventions Includes: Interventions for active GoalsNo Interventions Recorded Evaluations & Outcomes Includes: Evaluations & Outcomes for active GoalsNo Outcomes Recorded
--- OUTSIDE RECORDS SUMMARY | 2021-06-04 08:16 | CCD | Continuity of Care Document ---
Author Author Christine OLSEN [facility] Organization Unknown Address [address] [place] [address] Phone [phone] Care Team Providers Care Leach Tank Tender Name Role Phone Philipp Mahoney MD AUTM [phone] [employer] Athletic Director - Orthopaedic Surgery AUTM [phone] Arsh RAMIREZ., Aziza AUTM [phone] Myrna Gooden MD AUTM [phone] [facility] Neurology - Neurology AUTM Problems Active Problems Provider Date Anxiety state Sahil Fraizer M.D. Onset: 2010 Essential hypertension Sahil Frazier [...] for blood pressure Unk nown Pepcid Complete [id number] Chewt abs at hs prn Unknown Systane 0.4-0.3% Solution as needed for dry eyes otc Unknown Vitamin D-3 1000Unit Tablets 1 po qd 90tabs Unknown Magnesium 250mg Tablets daily OTC Unknown Clonazepam 0.5mg Tablets 1 tab by mouth twice a day as needed for anxiety 60tabs Pleskach, Moll y, HAT FORMING MACHINE OPERATOR Cranberry Fruit 475mg Tablets one tid Unknown Vision Formula Tab 1/2 tab q d Unknown Lutein 20mg Tablets 1 PO qd Unknown Vitamin B Complex Tablets 1 PO qd OTC Unknown History Medications Mirtazapine 15mg Tablets take 1/2 tablet by mouth every day at bedtime 15tabs F41.9 Sapna Olsen, F GEOGRAPHIC INFORMATION SYSTEM ANALYST 02/12/2021 - 03/12/2021 Sertraline HCL 50mg Tablets 1/2 by mouth every day for one week then one tablet daily 30tabs F41.9 Sapna Mims FNP 02/05/2021 - 02/12/2021 Immunizations CPT Code Status Date Vaccine Lot # [id number] Given 10/27/2020 Moderna Sars-(Co vid-19) vaccine, mRNA, LNP-S, PF, 100 mcg/ 0.5 mL 26528 Given 09/29/2020 Moderna Sars-(Co vid-19) vaccine, mRNA, LNP-S, PF, 100 mcg/ 0.5 mL 34316 Given 12/09/2016 Prevnar 13 For Adults Q2038 Given 05/02/2016 Influenza Vaccine (Fluzone)( medicare) [id number] 06891 Given 06/02/2015 Zostavax Q2038 Given 05/04/2015 Influenza Vaccine (Fluzone)( medicare) [id number] 87577 Given 04/11/2010 Influenza Vaccination 40546 Given 05/22/2006 Pneumococcal Vaccine 59369 Given Unknown Pneumococcal Vaccine Vital Signs Date [...] Flow Rate 267 Estimated Peak Flow Rate [place] Body Weight 100 lb BMI (Body Mass Index) 33.7 kg/m2 Results Test Acquired Date Facility Test Result H/L Range Note Complete Blood Count 04/26/2021 [place] [address] [phone] White Blood Count 8.3 10 Normal 4.0-10.0 [...] Toxicology ED Only 04/26/2021 [place] [address] [phone] Amphetamines Level Urine NEGATIVE Normal Negativ e Barbiturates Urine NEGATIVE Normal Negative Benzodiazepines Urine NEGATIVE Normal Negative Cannabinoids Urine NEGATIVE Normal Negative Cocaine Metabolite Urine NEGATIVE Normal Negative Methadone Urine NEGATIVE Normal Negative Opiates Urine NEGATIVE Normal Negative Phencyclidine Urine NEGATIVE Normal Negative 1 Liver Profile 04/26/2021 Patient Service Cent [place], [place] [id number] [phone] Ast/Sgot 15 U/L Normal 7-37 Alt/SGPT 20 U/L Normal 12-78 Alkaline Phosphatase 54 U/L Normal 45-117 Bilirubin,Total 0.7 mg/dL Normal 0.2-1.0 Bilirubin,Direct 0.2 mg/dL Normal 0.0-0.2 Total Protein 7.1 GM/DL Normal 6.4-8.2 Albumin 3.5 GM/DL Normal 3.2-5.2 Albumin/Globulin Ratio 1.0 Low 1.2-2.2 Basic Metabolic Profile 04/26/2021 Patient Service Center [place], [place] [id number] [phone] Glucose, Fasting 99 mg/dL Normal 70-100 Blood [...] 8.8-10.2 Laboratory test finding 04/26/2021 Patient Service [place], [place] [id number] [phone] Ethyl Alcohol (Ethanol) < 0.003 % Normal 0.000-0. 010 Salicylate Level < 1.7 mg/dL Low 5.0-30.0 Acetaminophen Level < 2.0 UG/ML Low 10.0-30.0 Thyroid Stimulating Hormone 3.540 uIU/ML Normal 0.358-3.740 Hemoglobin A1c 03/20/2021 Patient Service [place], [place] [id number] [phone] Hemoglobin A1c 5.5 % Normal 3 Estimated Average Glucose 111 mg/dL High 60-110 Laboratory test finding 03/20/2021 [place] [address] [phone] Cortisol Am 16.6 g/dL Normal 4.3-22.4 Comprehensive Metabolic Profil 03/07/2021 [facility] [place] [address] [phone] Glucose, Fasting 100 mg/dL Normal 70-100 Blood [...] Ratio 1.2 Normal 1.2-2.2 Lipid Panel 03/07/2021 [facility] [place] [address] [phone] Triglycerides Level 122 mg/dL Normal <150 Cholesterol Level 157 mg/dL Normal <200 HDL Cholesterol 48 mg/dL Normal >40 LDL Cholesterol 85 mg/dL Normal <100 Non-HDL-C 109 mg/dL Normal Cholesterol Risk Ratio 3.270 Normal <5 FT4&TSH Panel 03/07/2021 [facility] [place] [address] [phone] Thyroid Stimulating Hormone 3.120 uIU/ML Normal 0. [...] Little GFR Left ESRD GFR <15 on PRESS TOOL MAKER 3 REFERENCE RANGES: <=5.6% NORMAL 5.7-6.4% SUGGESTS IMPAIRED GLUCOSE META BOLISM/PREDIABETIC >= 6.5% ABNORMAL 4 Units are mL/min/1.73 m2 Chronic Kidney Disease Staging per NKF: Stage I & II GFR >=60 Normal to Mildly Decreased Stage III GFR 30-59 Moderately Decreased Stage IV GFR 15-29 Severely Decreased Stage V GFR <15 Very Little GFR Left ESRD GFR <15 on PRESS TOOL MAKER Procedures Date Code Description Status 04/30/2021 08279 Office/Outpatient Established Lo w MDM 20-29 Min Completed 03/12/2021 08692 Office/Outpatient Established Mo d MDM 30-39 Min Completed 02/12/2021 39997 Office/Outpatient Established Mo d MDM 30-39 Min Completed 02/05/2021 07811 Office/Outpatient Established Mo d MDM 30-39 Min Completed 05/22/2020 [id number] Mammogram Completed 05/13/2019 [id number] Bone Mineral Density Test Comple kasie 02/09/2016 [id number] Mammogram Completed 01/26/2014 [id number] Mammogram Completed 01/21/2013 [id number] Mammogram Completed Medical Devices Description No Information Available Encounters Type Date Location Provider Dx Diagnosis Office Visit 04/30/2021 2:00p Main Office Pleskach, Sapna, HAT FORMING MACHINE OPERATOR F41.9 Anxiety disorder, unspecified I10 Essential (primary) hyperten evelin Office Visit 03/12/2021 2:15p Main Office Pleskach, Sapna, HAT FORMING MACHINE OPERATOR I10 Essential (primary) hypertension F41.9 Anxiety disorder, unspecifie d E16.2 Hypoglycemia, unspecified Office Visit 02/12/2021 3:30p Main Office Pleskach, Sapna, HAT FORMING MACHINE OPERATOR F41.9 Anxiety disorder, unspecified R11.0 Nausea Office Visit 02/05/2021 8:00a Main Office Pleskach, Sapna, HAT FORMING MACHINE OPERATOR F41.9 Anxiety disorder, unspecified I10 Essential (primary) hyperten evelin Office Visit 01/01/2021 3:45p Main Office Pleskach, Sapna, HAT FORMING MACHINE OPERATOR Z00.0 0 Encntr for general adult medical exam w/o abnormal findings I10 Essential (primary) hyperten evelin 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 M48.061 Spinal stenosis, lumbar pelon on without neurogenic gopi N18.4 Chronic kidney disease, stag e 4 (severe) F41.9 Anxiety disorder, unspecifie d K21.9 Gastro-esophageal reflux dis ease without esophagitis Assessments Date Code Description Provider 04/30/2021 F41.9 Anxiety disorder, unspecified Pl eskach, Sapna, HAT FORMING MACHINE OPERATOR 04/30/2021 I10 Essential (primary) hypertension Pleskach, Sapna, HAT FORMING MACHINE OPERATOR 03/12/2021 I10 Essential (primary) hypertension Pleskach, Sapna, HAT FORMING MACHINE OPERATOR 03/12/2021 F41.9 Anxiety disorder, unspecified Pl eskach, Sapna, HAT FORMING MACHINE OPERATOR 03/12/2021 E16.2 Hypoglycemia, unspecified Pleska ch, Sapna, HAT FORMING MACHINE OPERATOR 02/12/2021 F41.9 Anxiety disorder, unspecified Pl eskach Sapna, HAT FORMING MACHINE OPERATOR 02/12/2021 R11.0 Nausea Pleskviolet Sapna, HAT FORMING MACHINE OPERATOR 02/05/2021 F41.9 Anxiety disorder, unspecified Pl eskach, Sapna, HAT FORMING MACHINE OPERATOR 02/05/2021 I10 Essential (primary) hypertension PleSapna ennis, HAT FORMING MACHINE OPERATOR 01/01/2021 Z00.00 Encounter for genera l adult medical examination without abnormal findings Mary Schroeder M.D. 01/01/2021 Z00.00 Encounter for genera l adult medical examination without abnormal findings PleSapna ennis, HAT FORMING MACHINE OPERATOR 01/01/2021 I10 Essential (primary) hypertension Mary Schroeder M.D. 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 01/01/2021 M48.061 Spinal stenosis, lum bar region without neurogenic claudication Sapna Olsen, [facility] 01/01/2021 N18.4 Chronic kidney disease, stage 4 (severe) Mary Schroeder M.D. 01/01/2021 N18.4 Chronic kidney disease, stage 4 (severe) Sapna Olsen, HAT FORMING MACHINE OPERATOR 01/01/2021 F41.9 Anxiety disorder, unspecified Wi Mary cox M.D. 01/01/2021 F41.9 Anxiety disorder, unspecified Pl Sapna cardenas, HAT FORMING MACHINE OPERATOR 01/01/2021 K21.9 Gastro-esophageal reflux disease without esophagitis Mary Schroeder M.D. 01/01/2021 K21.9 Gastro-esophageal reflux disease without esophagitis Sapna Olsen, HAT FORMING MACHINE OPERATOR Plan of Treatment Future Appointment(s):* 09/12/2021 1:45 [...] to Reason for Referral Status Appt Date [facility] Neurology Please evaluate for anxiety/ dementia issues, recommended by Dr. Myrna Gooden, I will include her note as well. Thank you. Sent [address] [place] [address] [phone] [facility] for Symptom Treatment/Relief Referring belinda andresnathanael, she is interested in medical marijuana for anxiety. Thank you. Patient Declined [address] [address] [phone] Myrna Gooden MD Please evaluate patient for hypoglycemia. Than k you. Closed [facility] [address] [address] [phone]
--- OUTSIDE RECORDS SUMMARY | 2021-06-04 08:16 | CCD | Continuity of Care Document ---
Author Author Christine ORDONEZ M.D. Organization Unknown Address [address] [place] [address] Phone [phone] Care Team Providers Care Cloth Pattern Maker Name Role Phone Philipp Mahoney MD AUTM [employer] Instructor - Orthopaedic Surgery AUTM [phone] Arsh RAMIREZ., Aziza AUTM [phone] Myrna Gooden MD AUTM [phone] [facility] Neurology - Neurology AUTM Problems Active [...] 11/12/2012 Chronic kidney disease stage 4 Mary Ordonez M.D. Onse t: 07/03/2020 Social History Type [...] as needed for irritation 30gm B37.2 Mary Ordonez M.D. 08/06/2018 Tums E-X Extra Strength 750mg Chew tabs 1 daily Unknown Melatonin 3mg Capsules 1 t ab at bedtime Unknown CBD Oil using cream at night on her ankles U nknown Tramadol HCL 50mg Tablets take 1 tablet by mouth every 6 hours as needed for pain 30tabs Sapna Olsen, DIETITIAN CONSULTANT Tumeric 538mg OTC 1 cap po ev annette day Unknown Fish Oil 1000mg Capsules 1 by mouth every day Unknown Amlodipine Besylate 5mg Tablets take one tablet by mouth every day for blood pressure Unk nown Pepcid Complete [id number] Chewt abs at hs prn Unknown Systane 0.4-0.3% Solution as needed for dry eyes otc Unknown Vitamin D-3 1000Unit Tablets 1 po qd 90tabs Unknown Magnesium 250mg Tablets daily OTC Unknown Clonazepam 0.5mg Tablets 1 tab by mouth twice a day as needed for anxiety 60tabs Jada Olsen, DIETITIAN CONSULTANT Cranberry Fruit 475mg Tablets one tid Unknown Vision Formula Tab 1/2 tab q d Unknown Lutein 20mg Tablets 1 PO qd Unknown Vitamin B Complex Tablets 1 PO qd OTC Unknown History Medications Mirtazapine 15mg Tablets take 1/2 tablet by mouth every day at bedtime 15tabs F41.9 Sapna Olsen, F AIRCRAFT LAY OUT WORKER 02/12/2021 - 03/12/2021 Sertraline HCL 50mg Tablets 1/2 by mouth every day for one week then one tablet daily 30tabs F41.9 Sapna Mims FNP 02/05/2021 - 02/12/2021 Immunizations CPT Code Status Date Vaccine Lot # [id number] Given 10/27/2020 Moderna Sars-(Co vid-19) vaccine, mRNA, LNP-S, PF, 100 mcg/ 0.5 mL 45054 Given 09/29/2020 Moderna Sars-(Co vid-19) vaccine, mRNA, LNP-S, PF, 100 mcg/ 0.5 mL 62889 Given 12/09/2016 Prevnar 13 For Adults Q2038 Given 05/02/2016 Influenza Vaccine (Fluzone)( medicare) [id number] 22753 Given 06/02/2015 Zostavax Q2038 Given 05/04/2015 Influenza Vaccine (Fluzone)( medicare) [id number] 64928 Given 04/11/2010 Influenza Vaccination 48776 Given 05/22/2006 Pneumococcal Vaccine 54532 Given Unknown Pneumococcal Vaccine Vital Signs Date Vital Result Comment 03/12/2021 2:03pm BP Systolic 162 mmHg BP Diastolic 85 mmHg BP Systolic Recheck 136 mmHg BP Diastolic Recheck 86 mmHg Heart Rate 75 /min Body Temperature 97.8 F Respiratory Rate 16 /min Height 58.75 inches 4'10.75" Weight 165.38 lb Peak Expiratory Flow Rate 267 Estimated Peak Flow Rate [place] Body Weight 100 lb BMI (Body Mass Index) 33.7 kg/m2 02/12/2021 3:31pm BP Systolic 163 mmHg BP Diastolic 89 mmHg BP Systolic Recheck 150 mmHg recheck BP Diastolic Recheck 85 mmHg recheck Heart Rate 83 /min Body Temperature 97.4 F Respiratory Rate 14 /min Height 58.75 inches 4'10.75" Weight 165.50 lb Peak Expiratory Flow Rate 267 Estimated Peak Flow Rate [place] Body Weight 100 lb BMI (Body Mass Index) 33.7 kg/m2 Results Test Acquired Date Facility Test Result H/L Range Note Complete Blood Count 04/26/2021 [place] [address] [phone] White Blood Count 8.3 10 Normal 4.0-10.0 [...] Toxicology ED Only 04/26/2021 [place] [address] [phone] Amphetamines Level Urine NEGATIVE Normal Negativ e Barbiturates Urine NEGATIVE Normal Negative Benzodiazepines Urine NEGATIVE Normal Negative Cannabinoids Urine NEGATIVE Normal Negative Cocaine Metabolite Urine NEGATIVE Normal Negative Methadone Urine NEGATIVE Normal Negative Opiates Urine NEGATIVE Normal Negative Phencyclidine Urine NEGATIVE Normal Negative 1 Liver Profile 04/26/2021 [place] [address] [phone] Ast/Sgot 15 U/L Normal 7-37 Alt/SGPT 20 U/L Normal 12-78 Alkaline Phosphatase 54 U/L Normal 45-117 Bilirubin,Total 0.7 mg/dL Normal 0.2-1.0 Bilirubin,Direct 0.2 mg/dL Normal 0.0-0.2 Total Protein 7.1 GM/DL Normal 6.4-8.2 Albumin 3.5 GM/DL Normal 3.2-5.2 Albumin/Globulin Ratio 1.0 Low 1.2-2.2 Basic Metabolic Profile 04/26/2021 [place] [address] [phone] Glucose, Fasting 99 mg/dL Normal 70-100 Blood [...] 8.8-10.2 Laboratory test finding 04/26/2021 [place] [address] [phone] Ethyl Alcohol (Ethanol) < 0.003 % Normal 0.000-0. 010 Salicylate Level < 1.7 mg/dL Low 5.0-30.0 Acetaminophen Level < 2.0 UG/ML Low 10.0-30.0 Thyroid Stimulating Hormone 3.540 uIU/ML Normal 0.358-3.740 Hemoglobin A1c 03/20/2021 [place] [address] [phone] Hemoglobin A1c 5.5 % Normal 3 Estimated Average Glucose 111 mg/dL High 60-110 Laboratory test finding 03/20/2021 [place] [address] [phone] Cortisol Am 16.6 g/dL Normal 4.3-22.4 Comprehensive Metabolic Profil 03/07/2021 [facility] [place] [address] [phone] Glucose, Fasting 100 mg/dL Normal 70-100 Blood [...] Ratio 1.2 Normal 1.2-2.2 Lipid Panel 03/07/2021 [facility] [place] [address] [phone] Triglycerides Level 122 mg/dL Normal <150 Cholesterol Level 157 mg/dL Normal <200 HDL Cholesterol 48 mg/dL Normal >40 LDL Cholesterol 85 mg/dL Normal <100 Non-HDL-C 109 mg/dL Normal Cholesterol Risk Ratio 3.270 Normal <5 FT4&TSH Panel 03/07/2021 [facility] [place] [address] [phone] Thyroid Stimulating Hormone 3.120 uIU/ML Normal 0. [...] Little GFR Left ESRD GFR <15 on MANAGER TRANSPORTATION 3 REFERENCE RANGES: <=5.6% NORMAL 5.7-6.4% SUGGESTS IMPAIRED GLUCOSE META BOLISM/PREDIABETIC >= 6.5% ABNORMAL 4 Units are mL/min/1.73 m2 Chronic Kidney Disease Staging per NKF: Stage I & II GFR >=60 Normal to Mildly Decreased Stage III GFR 30-59 Moderately Decreased Stage IV GFR 15-29 Severely Decreased Stage V GFR <15 Very Little GFR Left ESRD GFR <15 on MANAGER TRANSPORTATION Procedures Date Code Description Status 03/12/2021 51319 Office/Outpatient Established Mo d MDM 30-39 Min Completed 02/12/2021 36851 Office/Outpatient Established Mo d MDM 30-39 Min Completed 02/05/2021 37496 Office/Outpatient Established Mo d MDM 30-39 Min Completed 05/22/2020 [id number] Mammogram Completed 05/13/2019 [id number] Bone Mineral Density Test Comple kasie 02/09/2016 [id number] Mammogram Completed 01/26/2014 [id number] Mammogram Completed 01/21/2013 [id number] Mammogram Completed Medical Devices Description No Information Available Encounters Type Date Location Provider Dx Diagnosis Office Visit 03/12/2021 2:15p Main Office PleSapna ennis, DIETITIAN CONSULTANT I10 Essential (primary) hypertension F41.9 Anxiety disorder, unspecifie d E16.2 Hypoglycemia, unspecified Office Visit 02/12/2021 3:30p Main Office Pleskach Sapna, DIETITIAN CONSULTANT F41.9 Anxiety disorder, unspecified R11.0 Nausea Office Visit 02/05/2021 8:00a Main Office PleSapna ennis, DIETITIAN CONSULTANT F41.9 Anxiety disorder, unspecified I10 Essential (primary) hyperten evelin Office Visit 01/01/2021 3:45p Main Office Plenurisach Sapna, DIETITIAN CONSULTANT Z00.0 0 Encntr for general adult medical exam w/o abnormal findings I10 Essential (primary) hyperten evelin 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 M48.061 Spinal stenosis, lumbar pelon on without neurogenic gopi N18.4 Chronic kidney disease, stag e 4 (severe) F41.9 Anxiety disorder, unspecifie d K21.9 Gastro-esophageal reflux dis ease without esophagitis Assessments Date Code Description Provider 03/12/2021 I10 Essential (primary) hypertension Sapna Olsen, DIETITIAN CONSULTANT 03/12/2021 F41.9 Anxiety disorder, unspecified Pl eskachSapna, DIETITIAN CONSULTANT 03/12/2021 E16.2 Hypoglycemia, unspecified Pleska chSapna, DIETITIAN CONSULTANT 02/12/2021 F41.9 Anxiety disorder, unspecified Pl Jada cardenasy, DIETITIAN CONSULTANT 02/12/2021 R11.0 Nausea Jada Olseny, DIETITIAN CONSULTANT 02/05/2021 F41.9 Anxiety disorder, unspecified Pl esJada bernsteiny, DIETITIAN CONSULTANT 02/05/2021 I10 Essential (primary) hypertension PleSapna ennis, DIETITIAN CONSULTANT 01/01/2021 Z00.00 Encounter for genera l adult medical examination without abnormal findings Mary Ordonez M.D. 01/01/2021 Z00.00 Encounter for genera l adult medical examination without abnormal findings PleSapna ennis, [facility] 01/01/2021 I10 Essential (primary) hypertension Mary Ordonez M.D. 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 01/01/2021 M48.061 Spinal stenosis, lum bar region without neurogenic claudication Sapna Olsen, [facility] 01/01/2021 N18.4 Chronic kidney disease, stage 4 (severe) Mary Ordonez M.D. 01/01/2021 N18.4 Chronic kidney disease, stage 4 (severe) Sapna Olsen, [facility] 01/01/2021 F41.9 Anxiety disorder, unspecified Mary Cook M.D. 01/01/2021 F41.9 Anxiety disorder, unspecified Pl Sapna cardenas, [facility] 01/01/2021 K21.9 Gastro-esophageal reflux disease without esophagitis Mary Ordonez M.D. 01/01/2021 K21.9 Gastro-esophageal reflux disease without [...] Dr Reason for Referral Status Appt Date [facility] Neurology Please evaluate for anxiety/ dementia issues, recommended by Dr. Myrna Gooden, I will include her note as well. Thank you. Sent [address] [place] [address] [phone] [facility] for Symptom Treatment/Relief Referring belinda ortiz, she is interested in medical marijuana for anxiety. Thank you. Patient Declined [address] [facility] [address] [phone] Myrna Gooden MD Please evaluate patient for hypoglycemia. Than k you. Closed [facility] [address] [address] [phone]
--- OUTSIDE RECORDS SUMMARY | 2021-06-04 08:16 | CCD | Continuity of Care Document ---
Author Author Christine BENAVIDEZ [employer] PROGRAM TEACH[employer] Organization Unknown Address [address] [place] [address] Phone [phone] Care Team Providers Care Sulfide Head Operator Name Role Phone Sapna Olsen MEL AUTM [phone] Problems Active Problems Provider Date Anxiety state [...] needed for anxiety 60tabs PleskJada lazo y, APPELLATE CONFEREE Vitamin D3 25mcg (1000 Ut) Tablets 1 [...] H/L Range Note Laboratory test finding 03/20/2021 [facility] [address] [place] [address] [phone] Cortisol Am 16.6 g/dL Normal 4.3-22.4 Hemoglobin A1c 03/20/2021 [facility] [address] [place] [address] [phone] Hemoglobin A1c 5.5 % Normal [...] Little GFR Left ESRD GFR <15 on MUSIC ADAPTER Procedures Date Code Description Status 04/20/2021 96774 Office/Outpatient Established Mo d MDM 30-39 Min Completed 03/19/2021 55021 Office/Outpatient New Moderate M DM 45-59 Minutes Completed 03/19/2021 [id number] Diabetic Foot Exam Completed Medical Devices Description [...]
--- OUTSIDE RECORDS SUMMARY | 2021-06-04 08:16 | CCD ---
Author Author BarbaraChristine Organization Unknown Address [address] [address] Phone Care Team Providers Care Mud Jack Nozzle Worker Name Role Phone Doroteo Jimenez PCP Allergies, Adverse Reactions, Alerts No Data in Section Problem List Concept Problem Description Status Start Date Created Date Resolv ed Date Snomed Code F41.9 Unspecified Anxiety Disorder Active 04/19/2021 I12.9 Hypertensive chronic kidney disease w stg 1-4/unsp chr kdny Active 04/19/2021 F60.9 Unspecified Personality Disorder Active 021 Medications No Data in Section Social History Social History Element Description Concept Effective Date Smoking Status Unknown if ever smoked [id number] Immunizations No Data in Section Vital Signs No Data in Section Procedures Date Concept Id Description Targeted Site Concept Targeted Site Concept Type 04/19/2021 00071 Brief Individual Psychotherapy - 30 min CPT Patient has no history of implantable de vices Encounters Encounter Start Date End Date Encounter Type Description Diagnosis Di agnosis Desc Location Author First Name Author Last Name Npid Taxonomy Cod e Taxonomy Desc Phone Number Location Addr1 Location Addr2 Location [facility] Location [facility] Location [facility] [id number] 04/19/2021 04/19/2021 40806 Brief Individual Psychoth erapy - 30 min F41.9 Anxiety Disorder, Unspecified [facility] ty Barbara Sadler [id number] Fibre Optic Cable Splicer [phone] [address] [address] Plan of Treatment No Data in Section Lab Results No Data in Section Instructions No Data in Section Insurance Providers Insurance Id Policy Effective Date Policy Thru Date Company [employer] [id number] 2021 MEDICARE [id number] 2021 [employer]
--- OUTSIDE RECORDS SUMMARY | 2021-06-04 08:17 | CCD ---
Author Author [facility] Organization [facility] Address Unknown Phone Unavailable Care Team Providers Care Weeder Name Role Phone Barbara, Doroteo Unavailable Cristo Lindsey MD Unavailable Unavailable Cristo Lindsey MD Unavailable Unavailable Cristo Lindsey MD Unavailable Unavailable Cristo Lindsey MD Unavailable Unavailable Cristo Lindsey MD Unavailable Unavailable Cristo Lindsey MD Unavailable Unavailable Cherie Iglesias Unavailable Pleskach, Sapna GARMENT INSPECTOR Unavailable Unavailable Pleskach, Sapna GARMENT INSPECTOR Unavailable Unavailable Pleskach, Sapna GARMENT INSPECTOR Unavailable Unavailable Pleskach, Sapna GARMENT INSPECTOR Unavailable Unavailable Pleskach, Sapna GARMENT INSPECTOR Unavailable Unavailable Pleskach, Sapna GARMENT INSPECTOR Unavailable Unavailable Pleskach, Sapna GARMENT INSPECTOR Unavailable Unavailable Pleskach, Sapna GARMENT INSPECTOR Unavailable Unavailable Pleskach, Sapna GARMENT INSPECTOR Unavailable Unavailable Pleskach, Sapna GARMENT INSPECTOR Unavailable Unavailable Pleskach, Sapna GARMENT INSPECTOR Unavailable Unavailable Pleskach, Sapna GARMENT INSPECTOR Unavailable Unavailable Pleskach, Sapna GARMENT INSPECTOR Unavailable Unavailable Pleskach, Sapna GARMENT INSPECTOR Unavailable Unavailable Pleskach, Sapna GARMENT INSPECTOR Unavailable Unavailable Pleskach, Sapna GARMENT INSPECTOR Unavailable Unavailable Pleskach, Sapna GARMENT INSPECTOR Unavailable Unavailable Pleskach, Sapna GARMENT INSPECTOR Unavailable Unavailable Pleskach, Sapna GARMENT INSPECTOR Unavailable Unavailable Pleskach, Sapna GARMENT INSPECTOR Unavailable Unavailable Pleskach, Sapna GARMENT INSPECTOR Unavailable Unavailable Pleskach, Sapna GARMENT INSPECTOR Unavailable Unavailable Pleskach, Sapna GARMENT INSPECTOR Unavailable Unavailable Pleskach, Sapna GARMENT INSPECTOR Unavailable Unavailable Pleskach, Sapna GARMENT INSPECTOR Unavailable Unavailable Pleskach, Sapna GARMENT INSPECTOR Unavailable Unavailable Pleskach, Sapna GARMENT INSPECTOR Unavailable Unavailable Pleskach, Sapna GARMENT INSPECTOR Unavailable Unavailable Pleskach, Sapna GARMENT INSPECTOR Unavailable Unavailable Pleskach, Sapna GARMENT INSPECTOR Unavailable Unavailable Pleskach, Sapna GARMENT INSPECTOR Unavailable Unavailable Pleskach, Sapna GARMENT INSPECTOR Unavailable Unavailable Pleskach, Sapna GARMENT INSPECTOR Unavailable Unavailable Pleskach, Sapna GARMENT INSPECTOR Unavailable Unavailable Pleskach, Sapna GARMENT INSPECTOR Unavailable Unavailable Pleskach, Sapna GARMENT INSPECTOR Unavailable Unavailable Pleskach, Sapna GARMENT INSPECTOR Unavailable Unavailable Pleskach, Sapna GARMENT INSPECTOR Unavailable Unavailable Pleskach, Sapna GARMENT INSPECTOR Unavailable Unavailable Pleskach, Sapna GARMENT INSPECTOR Unavailable Unavailable Pleskach, Sapna GARMENT INSPECTOR Unavailable Unavailable Pleskach, Sapna GARMENT INSPECTOR Unavailable Unavailable Pleskach, Sapna GARMENT INSPECTOR Unavailable Unavailable Pleskach, Sapna GARMENT INSPECTOR Unavailable Unavailable NAZANIN, DOM PA Unavailable Unavailable NAZANINDOM PA Unavailable Unavailable NAZANINDOM PA Unavailable Unavailable NAZANINDOM PA Unavailable Unavailable NAZANIN DOM PA Unavailable Unavailable NAZANIN, DOM PA Unavailable Unavailable NAZANIN, DOM PA Unavailable Unavailable NAZANIN, DOM PA Unavailable Unavailable NAZANIN, DOM PA Unavailable Unavailable NAZANIN, DOM PA Unavailable Unavailable NAZANIN, DOM PA Unavailable Unavailable NAZANIN, DOM PA Unavailable Unavailable NAZANIN, DOM PA Unavailable Unavailable NAZANIN, DOM PA Unavailable Unavailable NAZANIN, DOM PA Unavailable Unavailable NAZANIN, DOM PA Unavailable Unavailable NAZANIN, DOM PA Unavailable Unavailable NAZANIN, DOM PA Unavailable Unavailable NAZANIN, DOM PA Unavailable Unavailable NAZANIN, DOM PA Unavailable Unavailable NAZANIN, DOM PA Unavailable Unavailable NAZANIN, DOM PA Unavailable Unavailable NAZANIN, DOM PA Unavailable Unavailable NAZANIN, DOM PA Unavailable Unavailable NAZANIN, DOM PA Unavailable Unavailable NAZANIN, DOM PA Unavailable Unavailable NAZANIN, DOM PA Unavailable Unavailable NAZANIN, DOM PA Unavailable Unavailable NAZANIN, DOM PA Unavailable Unavailable NAZANIN, DOM PA Unavailable Unavailable NAZANIN, DOM PA Unavailable Unavailable NAZANIN, DOM PA Unavailable Unavailable NAZANIN, DOM PA Unavailable Unavailable NAZANIN, DOM PA Unavailable Unavailable NAZANIN, DOM PA Unavailable Unavailable NAZANIN, DOM PA Unavailable Unavailable Farmer Dowell, Cora Cosme MD, FACS Unavailable Unavailable Farmer Dowell, Cora Cosme MD, FACS Unavailable Unavailable Farmer Dowell, Cora Cosme MD, FACS Unavailable Unavailable Farmer Dowell, Cora Cosme MD, FACS Unavailable Unavailable Farmer Dowell, Cora Cosme MD, FACS Unavailable Unavailable Farmer Dowell, Cora Cosme MD, FACS Unavailable Unavailable Farmer Dowell, Cora Cosme MD, FACS Unavailable Unavailable Farmer Dowell, Cora Cosme MD, FACS Unavailable Unavailable Farmer Dowell, Cora Cosme MD, FACS Unavailable Unavailable Farmer Dowell, Cora Cosme MD, FACS Unavailable Unavailable Farmer Dowell, Cora Cosme MD, FACS Unavailable Unavailable Farmer Dowell, Cora Cosme MD, FACS Unavailable Unavailable Farmer Dowell, Cora Cosme MD, FACS Unavailable Unavailable Farmer Dowell, Cora Cosme MD, FACS Unavailable Unavailable Farmer Dowell, Cora Cosme MD, FACS Unavailable Unavailable Farmer Dowell, Cora Cosme MD, FACS Unavailable Unavailable Farmer Dowell, Cora Cosme MD, FACS Unavailable Unavailable Farmer Dowell, Cora Cosme MD, FACS Unavailable Unavailable Farmer Dowell, Cora Cosme MD, FACS Unavailable Unavailable Farmer Dowell, Cora Cosme MD, FACS Unavailable Unavailable Farmer Dowell, Cora Cosme MD, FACS Unavailable Unavailable Farmer Dowell, Cora Cosme MD, FACS Unavailable Unavailable Farmer Dowell, Cora Cosme MD, FACS Unavailable Unavailable Farmer Dowell, Cora Cosme MD, FACS Unavailable Unavailable Farmer Dowell, Cora Cosme MD, FACS Unavailable Unavailable Farmer Dowell, Cora Cosme MD, FACS Unavailable Unavailable Farmer Dowell, Cora Cosme MD, FACS Unavailable Unavailable Farmer Dowell, Cora Cosme MD, FACS Unavailable Unavailable Farmer Dowell, Cora Cosme MD, FACS Unavailable Unavailable Farmer Dowell, Cora Cosme MD, FACS Unavailable Unavailable Farmer Dowell, Cora Cosme MD, FACS Unavailable Unavailable Farmer Dowell, Cora Cosme MD, FACS Unavailable Unavailable Farmer Dowell, Cora Cosme MD, FACS Unavailable Unavailable Farmer Dowell, Cora Cosme MD, FACS Unavailable Unavailable Farmer Dowell, Cora Cosme MD, FACS Unavailable Unavailable Farmer Dowell, Cora Cosme MD, FACS Unavailable Unavailable Farmer Dowell, Cora Cosme MD, FACS Unavailable Unavailable Farmer Dowell, Cora Cosme MD, FACS Unavailable Unavailable Farmer Dowell, Cora Cosme MD, FACS Unavailable Unavailable Moreira, Yoly Unavailable Moreira, Yoly Unavailable Celsa Birmingham Unavailable Unavailable Petrancosta, [place] Julissa PA-C Unavailable Unavailabl e Petrancosta, [place] Julissa PA-C Unavailable Unavailabl e Petrancosta, [place] Julissa PA-C Unavailable Unavailabl e Petrancosta, [place] Julissa PA-C Unavailable Unavailabl e Petrancosta, [place] Julissa PA-C Unavailable Unavailabl e Petrancosta, [place] Julissa PA-C Unavailable Unavailabl e Petrancosta, [place] Julissa PA-C Unavailable Unavailabl e Petrancosta, [place] Julissa PA-C Unavailable Unavailabl e Petrancosta, [place] Julissa PA-C Unavailable Unavailabl e Petrancosta, [place] Julissa PA-C Unavailable Unavailabl e Petrancosta, [place] Julissa PA-C Unavailable Unavailabl e Petrancosta, [place] Julissa PA-C Unavailable Unavailabl e Petrancosta, [place] Julissa PA-C Unavailable Unavailabl e Petrancosta, [place] Julissa PA-C Unavailable Unavailabl e Petrancosta, [place] Julissa PA-C Unavailable Unavailabl e Petrancosta, [place] Julissa PA-C Unavailable Unavailabl e Petrancosta, [place] Julissa PA-C Unavailable Unavailabl e Petrancosta, [place] Julissa PA-C Unavailable Unavailabl e Petrancosta, [place] Julissa PA-C Unavailable Unavailabl e Petrancosta, [place] Julissa PA-C Unavailable Unavailabl e Petrancosta, [place] Julissa PA-C Unavailable Unavailabl e Petrancosta, [place] Julissa PA-C Unavailable Unavailabl e Petrancosta, [place] Julissa PA-C Unavailable Unavailabl e Petrancosta, [place] Julissa PA-C Unavailable Unavailabl e Petrancosta, [place] Julissa PA-C Unavailable Unavailabl e XAVIER BAILEY MD Unavailable Unavailable XAVIER BAILEYOPHER Unavailable Unavailable XAVIER BAILEY MD Unavailable Unavailable XAVIER BAILEY MD Unavailable Unavailable XAVIER BAILEY MD Unavailable Unavailable XAVIER BAILEYER Unavailable Unavailable XAVIER BAILEY MD Unavailable Unavailable XAVIER BAILEY MD Unavailable Unavailable XAVIER BAILEY MD Unavailable Unavailable XAVIER BAILEY MD Unavailable Unavailable XAVIER BAILEY MD Unavailable Unavailable XAVIER BAILEY MD Unavailable Unavailable XAVIER BAILEY MD Unavailable Unavailable XAVIER BAILEY MD Unavailable Unavailable XAVIER BAILEY MD Unavailable Unavailable XAVIER BAILEY MD Unavailable Unavailable XAVIER BAILEY MD Unavailable Unavailable XAVIER BAILEY MD Unavailable Unavailable XAVIER BAILEY MD Unavailable Unavailable XAVIER BAILEY MD Unavailable Unavailable XAVIER BAILEY MD Unavailable Unavailable XAVIER BAILEY MD Unavailable Unavailable XAVIER BAILEY MD Unavailable Unavailable XAVIER BAILEY MD Unavailable Unavailable XAVIER BAILEY MD Unavailable Unavailable XAVIER BAILEY MD Unavailable Unavailable XAVIER BAILEY MD Unavailable Unavailable XAVIER BAILEY MD Unavailable Unavailable XAVIER BAILEY MD Unavailable Unavailable XAVIER BAILEY MD Unavailable Unavailable XAVIER BAILEY MD Unavailable Unavailable XAVIER BAILEY MD Unavailable Unavailable XAVIER BAILEY MD Unavailable Unavailable XAVIER BAILEY MD Unavailable Unavailable XAVIER BAILEY MD Unavailable Unavailable XAVIER BAILEY MD Unavailable Unavailable XAVIER BAILEYOPHBRITTA RAMIREZ Unavailable Unavailable XAVIER BAILEY MD Unavailable Unavailable XAVIER BAILEY MD Unavailable Unavailable XAVIER BAILEY MD Unavailable Unavailable XAVIER BAILEY MD Unavailable Unavailable XAVIER BAILEY MD Unavailable Unavailable XAVIER BAILEY MD Unavailable Unavailable XAVIER BAILEY MD Unavailable Unavailable XAVIER BAILEY MD Unavailable Unavailable XAVIER BAILEY MD Unavailable Unavailable XAVIER BAILEY MD Unavailable Unavailable BLACK, XAVIER MCMAHON MD Unavailable Unavailable BLACK, XAVIER MCMAHON MD Unavailable Unavailable BLACK, XAVIER MCMAHON MD Unavailable Unavailable BLACK, XAVIER MCMAHON MD Unavailable Unavailable BLACK, XAVIER MCMAHON MD Unavailable Unavailable BLACK, XAVIER MCMAHON MD Unavailable Unavailable BLACK, XAVIER MCMAHON MD Unavailable Unavailable BLACK, XAVIER MCMAHON MD Unavailable Unavailable MCELHERAN, TAMMI PA Unavailable Unavailable MCELHERAN, TAMMI PA Unavailable Unavailable MCELHERAN, TAMMI PA Unavailable Unavailable MCELHERAN, TAMMI PA Unavailable Unavailable MCELHERAN, TAMMI PA Unavailable Unavailable MCELHERAN, TAMMI PA Unavailable Unavailable MCELHERAN, TAMMI PA Unavailable Unavailable MCELHERAN, TAMMI PA Unavailable Unavailable MCELHERAN, TAMMI PA Unavailable Unavailable MCELHERAN, TAMMI PA Unavailable Unavailable MCELHERAN, TAMMI PA Unavailable Unavailable MCELHERAN, TAMMI PA Unavailable Unavailable MCELHERAN, TAMMI PA Unavailable Unavailable MCELHERAN, TAMMI PA Unavailable Unavailable MCELHERAN, TAMMI PA Unavailable Unavailable MCELHERAN, TAMMI PA Unavailable Unavailable MCELHERAN, TAMMI PA Unavailable Unavailable MCELHERAN, TAMMI PA Unavailable Unavailable MCELHERAN, TAMMI PA Unavailable Unavailable MCELHERAN, TAMMI PA Unavailable Unavailable MCELHERAN, TAMMI PA Unavailable Unavailable MCELHERAN, TAMMI PA Unavailable Unavailable MCELHERAN, TAMMI PA Unavailable Unavailable MCELHERAN, TAMMI PA Unavailable Unavailable MCELHERAN, TAMMI PA Unavailable Unavailable MCELHERAN, TAMMI PA Unavailable Unavailable MCELHERAN, TAMMI PA Unavailable Unavailable MCELHERAN, TAMMI PA Unavailable Unavailable MCELHERAN, TAMMI PA Unavailable Unavailable Winifred Swain MD Unavailable Unavailable Winifred Swain MD Unavailable Unavailable Winifred Swain MD Unavailable Unavailable Winifred Swain MD Unavailable Unavailable Winifred Swain MD Unavailable Unavailable Winifred Swain MD Unavailable Unavailable Winifred Swain MD Unavailable Unavailable Winifred Swain MD Unavailable Unavailable Winifred Swain MD Unavailable Unavailable Winifred Swain MD Unavailable Unavailable Winifred Swain MD Unavailable Unavailable Winifred Swain MD Unavailable Unavailable Winifred Swain MD Unavailable Unavailable Winifred Swain MD Unavailable Unavailable Winifred Swain MD Unavailable Unavailable Winifred Swain MD Unavailable Unavailable Winifred Swain MD Unavailable Unavailable Winifred Swain MD Unavailable Unavailable Winifred Swain MD Unavailable Unavailable Winifred Swain MD Unavailable Unavailable Winifred Swain MD Unavailable Unavailable Winifred Swain MD Unavailable Unavailable Winifred Swain MD Unavailable Unavailable AliWinifred MD Unavailable Unavailable AliWinifred MD Unavailable Unavailable AliWinifred MD Unavailable Unavailable Ali, Winifred RAMIREZ Unavailable Unavailable AliWinifred MD Unavailable Unavailable Ali, Winifred RAMIREZ Unavailable Unavailable Ali, Winifred RAMIREZ Unavailable Unavailable Ali, Winifred RAMIREZ Unavailable Unavailable Ali, Winifred RAMIREZ Unavailable Unavailable Ali, Winifred RAMIREZ Unavailable Unavailable Ali, Winifred RAMIREZ Unavailable Unavailable Ali, Winifred RAMIREZ Unavailable Unavailable Ali, Winifred RAMIREZ Unavailable Unavailable Ali, Winifred RAMIREZ Unavailable Unavailable Ali, Winifred RAMIREZ Unavailable Unavailable Ali, Winifred RAMIREZ Unavailable Unavailable Ali, Winifred RAMIREZ Unavailable Unavailable Ali, Winifred RAMIREZ Unavailable Unavailable Ali, Winifred RAMIREZ Unavailable Unavailable Ali, Winifred RAMIREZ Unavailable Unavailable Ali, Winifred RAMIREZ Unavailable Unavailable Ali, Winifred RAMIREZ Unavailable Unavailable Ali, Winifred RAMIREZ Unavailable Unavailable Ali, Winifred RAMIREZ Unavailable Unavailable Ali, Winifred RAMIREZ Unavailable Unavailable Ali, Winifred RAMIREZ Unavailable Unavailable Ali, Winifred RAMIREZ Unavailable Unavailable AliWinifred MD Unavailable Unavailable AmayaAlek MD Unavailable Unavailable AmayaAlek MD Unavailable Unavailable Amaya, Alek Sanchez MD Unavailable Unavailable Amaya, Alek Sanchez MD Unavailable Unavailable PRAMOD, B MADY SHIPPER RECEIVER Unavailable Unavailable PRAMOD, B MADY SHIPPER RECEIVER Unavailable Unavailable PRAMOD, B MADY SHIPPER RECEIVER Unavailable Unavailable PRAMOD, B MADY SHIPPER RECEIVER Unavailable Unavailable PRAMOD, B MADY SHIPPER RECEIVER Unavailable Unavailable PRAMOD, B MADY SHIPPER RECEIVER Unavailable Unavailable PRAMOD, B MADY SHIPPER RECEIVER Unavailable Unavailable PRAMOD, B MADY SHIPPER RECEIVER Unavailable Unavailable PRAMOD, B MADY SHIPPER RECEIVER Unavailable Unavailable PRAMOD, B MADY SHIPPER RECEIVER Unavailable Unavailable PRAMOD, B MADY SHIPPER RECEIVER Unavailable Unavailable PRAMOD, B MADY SHIPPER RECEIVER Unavailable Unavailable PRAMOD, B MADY SHIPPER RECEIVER Unavailable Unavailable PRAMOD, B MADY SHIPPER RECEIVER Unavailable Unavailable PRAMOD, B MADY SHIPPER RECEIVER Unavailable Unavailable PRAMOD, B MADY SHIPPER RECEIVER Unavailable Unavailable PRAMOD, B MADY SHIPPER RECEIVER Unavailable Unavailable PRAMOD, B MADY SHIPPER RECEIVER Unavailable Unavailable PRAMOD, B MADY SHIPPER RECEIVER Unavailable Unavailable PRAMOD, B MADY SHIPPER RECEIVER Unavailable Unavailable PRAMOD, B MADY SHIPPER RECEIVER Unavailable Unavailable PRAMOD, B MADY SHIPPER RECEIVER Unavailable Unavailable PRAMOD, B MADY SHIPPER RECEIVER Unavailable Unavailable PRAMOD, B MADY SHIPPER RECEIVER Unavailable Unavailable PRAMOD, B MADY SHIPPER RECEIVER Unavailable Unavailable PRAMOD, B MADY SHIPPER RECEIVER Unavailable Unavailable PRAMOD, B MADY SHIPPER RECEIVER Unavailable Unavailable PRAMOD, B MADY SHIPPER RECEIVER Unavailable Unavailable PRAMOD, B MADY SHIPPER RECEIVER Unavailable Unavailable PRAMOD, B MADY SHIPPER RECEIVER Unavailable Unavailable PRAMOD, B MADY SHIPPER RECEIVER Unavailable Unavailable PRAMOD, B MADY SHIPPER RECEIVER Unavailable Unavailable PRAMOD, B MADY SHIPPER RECEIVER Unavailable Unavailable PRAMOD, B MADY SHIPPER RECEIVER Unavailable Unavailable PRAMOD, B MADY SHIPPER RECEIVER Unavailable Unavailable PRAMOD, B MADY SHIPPER RECEIVER Unavailable Unavailable PRAMOD, B MADY SHIPPER RECEIVER Unavailable Unavailable PRAMOD, B MADY SHIPPER RECEIVER Unavailable Unavailable PRAMOD, B MADY SHIPPER RECEIVER Unavailable Unavailable PRAMOD, B MADY SHIPPER RECEIVER Unavailable Unavailable PRAMOD, B MADY SHIPPER RECEIVER Unavailable Unavailable PRAMOD, B MADY SHIPPER RECEIVER Unavailable Unavailable PRAMOD, B MADY SHIPPER RECEIVER Unavailable Unavailable PRAMOD, B MADY SHIPPER RECEIVER Unavailable Unavailable PRAMOD, B MADY SHIPPER RECEIVER Unavailable Unavailable PRAMOD, B MADY SHIPPER RECEIVER Unavailable Unavailable PRAMOD, B MADY SHIPPER RECEIVER Unavailable Unavailable PRAMOD, B MADY SHIPPER RECEIVER Unavailable Unavailable PRAMOD, B MADY SHIPPER RECEIVER Unavailable Unavailable PRAMOD, B MADY SHIPPER RECEIVER Unavailable Unavailable PRAMOD, B MADY SHIPPER RECEIVER Unavailable Unavailable PRAMOD, B MADY SHIPPER RECEIVER Unavailable Unavailable PRAMOD, B MADY SHIPPER RECEIVER Unavailable Unavailable PRAMOD, B MADY SHIPPER RECEIVER Unavailable Unavailable PRAMOD, B MADY SHIPPER RECEIVER Unavailable Unavailable PRAMOD, B MADY SHIPPER RECEIVER Unavailable Unavailable PRAMOD, B MADY SHIPPER RECEIVER Unavailable Unavailable PRAMOD, B MADY SHIPPER RECEIVER Unavailable Unavailable PRAMOD, B MADY SHIPPER RECEIVER Unavailable Unavailable PRAMOD, B MADY SHIPPER RECEIVER Unavailable Unavailable PRAMOD, B MADY SHIPPER RECEIVER Unavailable Unavailable PRAMOD, B MADY SHIPPER RECEIVER Unavailable Unavailable Fish, B Myrna RAMIREZ Unavailable Unavailable Fish, B Myrna RAMIREZ Unavailable Unavailable Fish, B Myrna RAMIREZ Unavailable Unavailable Fish, B Myrna RAMIREZ Unavailable Unavailable Fish, B Myrna RAMIREZ Unavailable Unavailable Fish, B Myrna RAMIREZ Unavailable Unavailable Fish, B Myrna RAMIREZ Unavailable Unavailable Fish, B Myrna RAMIREZ Unavailable Unavailable Fish, B Myrna RAMIREZ Unavailable Unavailable Fish, B Myrna RAMIREZ Unavailable Unavailable Fish, B Myrna RAMIREZ Unavailable Unavailable Fish, B Myrna RAMIREZ Unavailable Unavailable Fish, B Myrna RAMIREZ Unavailable Unavailable Fish, B Myrna RAMIREZ Unavailable Unavailable Fish, B Myrna RAMIREZ Unavailable Unavailable Fish, B Myrna RAMIREZ Unavailable Unavailable Fish, B Myrna RAMIREZ Unavailable Unavailable Fish, B Myrna RAMIREZ Unavailable Unavailable Fish, B Myrna MD Unavailable Unavailable Fish, Michael Norris MD Unavailable Unavailable Fish, B Myrna RAMIREZ Unavailable Unavailable Fish, B Myrna RAMIREZ Unavailable Unavailable Fish, B Myrna RAMIREZ Unavailable Unavailable Fish, B Myrna RAMIREZ Unavailable Unavailable Fish, B Myrna RAMIREZ Unavailable Unavailable Fish, B Myrna RAMIREZ Unavailable Unavailable Fish, B Myrna RAMIREZ Unavailable Unavailable Fish, B Myrna RAMIREZ Unavailable Unavailable Fish, B Myrna RAMIREZ Unavailable Unavailable Fish, B Myrna RAMIREZ Unavailable Unavailable Fish, B Myrna RAMIREZ Unavailable Unavailable Fish, B Myrna RAMIREZ Unavailable Unavailable Fish, B Myrna RAMIREZ Unavailable Unavailable Fish, B Myrna RAMIREZ Unavailable Unavailable Fish, B Myrna RAMIREZ Unavailable Unavailable Fish, B Myrna RAMIREZ Unavailable Unavailable Fish, B Myrna RAMIREZ Unavailable Unavailable Fish, B Myrna RAMIREZ Unavailable Unavailable Fish, B Myrna RAMIREZ Unavailable Unavailable Fish, B Myrna RAMIREZ Unavailable Unavailable Fish, B Myrna RAMIREZ Unavailable Unavailable Fish, B Myrna RAMIREZ Unavailable Unavailable Fish, B Myrna RAMIREZ Unavailable Unavailable Fish, B Myrna RAMIREZ Unavailable Unavailable Fish, B Myrna RAMIREZ Unavailable Unavailable Fish, B Myrna RAMIREZ Unavailable Unavailable Fish, B Myrna RAMIREZ Unavailable Unavailable Fish, B Myrna RAMIREZ Unavailable Unavailable Fish, B Myrna RAMIREZ Unavailable Unavailable Fish, B Myrna RAMIREZ Unavailable Unavailable Fish, B Myrna RAMIREZ Unavailable Unavailable Fish, B Myrna RAMIREZ Unavailable Unavailable Fish, B Myrna RAMIREZ Unavailable Unavailable Fish, B Mynra RAMIREZ Unavailable Unavailable Fish, B Myrna RAMIREZ Unavailable Unavailable Fish, B Myrna RAMIREZ Unavailable Unavailable Fish, B Myrna RAMIREZ Unavailable Unavailable Fish, B Myrna RAMIREZ Unavailable Unavailable Fish, B Myrna RAMIREZ Unavailable Unavailable Fish, B Myrna RAMIREZ Unavailable Unavailable Fish, B Myrna RAMIREZ Unavailable Unavailable Fish, B Myrna RAMIREZ Unavailable Unavailable Fish, B Myrna RAMIREZ Unavailable Unavailable Fish, B Myrna RAMIREZ Unavailable Unavailable Fish, B Myrna RAMIREZ Unavailable Unavailable Angulo, L Macey PA Unavailable Unavailable Angulo, L Macey PA Unavailable Unavailable Angulo, L Macey PA Unavailable Unavailable Angulo, L Macey PA Unavailable Unavailable Angulo, L Macey PA Unavailable Unavailable Angulo, L Macey PA Unavailable Unavailable Angulo, L Macey PA Unavailable Unavailable Angulo, L Macey PA Unavailable Unavailable Angulo, L Macey PA Unavailable Unavailable Angulo, L Macey PA Unavailable Unavailable Angulo, L Macey PA Unavailable Unavailable Angulo, L Macey PA Unavailable Unavailable Angulo, L Macey PA Unavailable Unavailable Angulo, L Macey PA Unavailable Unavailable Angulo, L Macey PA Unavailable Unavailable Angulo, L Macey PA Unavailable Unavailable Angulo, L Macey PA Unavailable Unavailable Angulo, L Macey PA Unavailable Unavailable Angulo, L Macey PA Unavailable Unavailable Angulo, L Macey PA Unavailable Unavailable Angulo, L Macey PA Unavailable Unavailable Angulo, L Macey PA Unavailable Unavailable Angulo, L Macey PA Unavailable Unavailable Angulo, L Macey PA Unavailable Unavailable Angulo, L Macey PA Unavailable Unavailable Angulo, L Macey PA Unavailable Unavailable Angulo, L Macey PA Unavailable Unavailable Angulo, L Macey PA Unavailable Unavailable Angulo, L Macey PA Unavailable Unavailable Angulo, L Macey PA Unavailable Unavailable Angulo, L Macey PA Unavailable Unavailable Angulo, L Macey PA Unavailable Unavailable Angulo, L Macey PA Unavailable Unavailable Angulo, L Macey PA Unavailable Unavailable Angulo, L Macey PA Unavailable Unavailable Angulo, L Macey PA Unavailable Unavailable Angulo, L Macey PA Unavailable Unavailable Angulo, L Macey PA Unavailable Unavailable Angulo, L Macey PA Unavailable Unavailable Hegard, Destini GARMENT INSPECTOR Unavailable Unavailable Hegard, Destini GARMENT INSPECTOR Unavailable Unavailable Hegard, Destini GARMENT INSPECTOR Unavailable Unavailable Hegard, Destini GARMENT INSPECTOR Unavailable Unavailable Hegard, Destini GARMENT INSPECTOR Unavailable Unavailable Hegard, Destini GARMENT INSPECTOR Unavailable Unavailable Hegard, Dsetini GARMENT INSPECTOR Unavailable Unavailable Hegard, Destini GARMENT INSPECTOR Unavailable Unavailable Hegard, Destini GARMENT INSPECTOR Unavailable Unavailable Hegard, Destini GARMENT INSPECTOR Unavailable Unavailable Hegard, Destini GARMENT INSPECTOR Unavailable Unavailable Hegard, Destini GARMENT INSPECTOR Unavailable Unavailable Hegard, Destini GARMENT INSPECTOR Unavailable Unavailable Hegard, Destini GARMENT INSPECTOR Unavailable Unavailable Hegard, Destini GARMENT INSPECTOR Unavailable Unavailable Hegard, Destini GARMENT INSPECTOR Unavailable Unavailable Hegard, Destini GARMENT INSPECTOR Unavailable Unavailable Re-disclosure Warning The records that you are about to access may contain information from federally-assisted alcohol or drug abuse programs. If such information is present, then the following federally mandated warning applies: This information has been disclosed to you from records protected by federal confidentiality rules (42 CFR part 2). The federal rules prohibit you from making any further disclosure of this information unless further disclosure is expressly permitted by the written consent of the person to whom it pertains or as otherwise permitted by 42 CFR part 2. A general authorization for the release of medical or other information is NOT sufficient for this purpose. The Federal rules restrict any use of the information to criminally investigate or prosecute any alcohol or drug abuse patient.The records that you are about to access may contain highly sensitive health information, the redisclosure of which is protected by Article 27-F of the [facility] Public Health law. If you continue you may have access to information: Regarding HIV / AIDS; Provided by facilities licensed or operated by the [facility] Office of Mental Health; or Provided by the [facility] Office for People With Developmental Disabilities. If such information is present, then the following [facility] mandated warning applies: This information has been disclosed to you from confidential records which are protected by state law. State law prohibits you from making any further disclosure of this information without the specific written consent of the person to whom it pertains, or as otherwise permitted by law. Any unauthorized further disclosure in violation of state law may result in a fine or senior living sentence or both. A general authorization for the release of medical or other information is NOT sufficient authorization for further disc losure. Allergies and Adverse Reactions Type Description Substance Reaction Status Data Source(s ) Propensity to adverse reactions CLONIDINE DERIVATIVES Clonidine Derivatives Shortness Of Breath High [facility] High Family History Family Member Name Family Member Gender Family Member Status Date o f Status Description Data Source(s) Unknown Unknown Problem [facility] ([facility], [facility]) Encounters Encounter Providers Location Date Indications Data Source(s ) Outpatient Attender: Winifred Swain MD Main office - [place] 05/29/2021 09:00:00 AM EDT [facility] ([facility]) Telemed Diagnostic Eval Attender: Daniel Amaya MD [facility] fred [facility] 05/22/2021 01:00:00 AM EDT - 05/22/2021 01:00:00 AM EDT [facility] ([facility]) Attender: Daniel Amaya MD 05/22/2021 12:00:00 AM EDT [facility] ([facility]) Outpatient Attender: DOM montanez 05/21/2021 09:25:00 AM EDT MEDENT ([facility], [facility]) Health Monitoring - 15 Min Attender: Celsa ibarra [facility] 05/17/2021 01:45:00 AM EDT - 05/17/2021 01:45:00 AM EDT [facility] ([facility]) Brief Individual Psychotherapy - 30 min [facility] 01:00:00 AM EDT - 05/17/2021 01:00:00 AM EDT [facility] ([facility]) Attender: Celsa [place] 05/17/2021 12:00:00 AM EDT [facility] ([facility]) Attender: Doroteo Jimenez 05/17/2021 12:00:00 AM EDT [facility] ([facility]) Outpatient Attender: Sapna Olsen [facility] Main Office 04/30/2021 0 2:00:00 PM EDT MEDENT ([facility] Outpatient Attender: MADY VO NP Physical Therapy 03:15:00 PM EDT [facility] ([facility] ) Brief Individual Psychotherapy - 30 min [facility] 04/19/2021 01:00:00 AM EDT - 04/19/2021 01:00:00 AM EDT [facility] ([facility]) [facility]: [facility] 04/19/[facility]21 12:00:00 AM EDT [facility] ([facility]) <td ID="encounterTypeDescriptionID0">[facility]</td><td>Ba Goddard MD, ABRAM</td><td>Ba Goddard MD [facility]</td><td>03/21/2021</td><td>1:25PM</td><td>2:22PM</td><td></td>Outpatient Attender: Ba Dowell MD, ABRAM Goddard MD [facility] 03/21/2021 01:25:0 0 PM EDT - 03/21/2021 02:22:00 PM EDT MICHELLE (Ba Dowell MD [facility]) Outpatient Attender: Myrna Gooden MD Physical Therapy 03/19 01:00:00 PM EDT [facility] ([facility]) Outpatient Attender: Sapna Olsen [facility] Main Office 03/12/2021 0 2:15:00 PM EDT MED[facility] ([facility] Extended Individual Psychotherapy - 45 min Attender: Pretty nguyễn Harris [facility] 03/06/2021 01:00:00 AM EDT - 03/06/2021 01:00:00 AM EDT [facility] ([facility]) Attender: Cherie Harris 03/06/2021 12:00:00 AM EDT [facility] ([facility]) Emergency Attender: Cristo Lindsey MDConsultant: LISANDRO Giron MD 2021 08:23:00 AM EDT - 2021 11:22:00 AM EDT [facility] Patient discharged. Psychiatric Diagnostic Evaluation (Non-Medical) Attender: Noa wilsonnguyễn Harris [facility] 02/21/2021 01:00:00 AM EDT - 02/21/2021 01:00:00 AM EDT [facility] ([facility]) Attender: Cherie Iglesias 02/21/2021 12:00:00 AM EDT [facility] ([facility]) Extended Individual Psychotherapy - 45 min Attender: Darin Edwards [facility] 02/14/2021 02:15:00 AM EDT - 02/14/2021 02:15:00 AM EDT [facility] ([facility]) Attender: Yoly Moreira 02/14/2021 12:00:00 AM E DT [facility] ([facility]) Outpatient Attender: Sapna Olsen [facility] Main Office 02/12/2021 0 3:30:00 PM EDT MEDENT ([facility] Outpatient Attender: Sapna Olsen [facility] Main Office 02/05/2021 0 8:00:00 AM EDT MED[facility] ([facility] OFFICE OUTPATIENT VISIT 15 MINUTES Attender: TAMMI WELCH Physical Therapy 01/17/2021 02:45:00 PM EDT [facility] ([facility]) Outpatient Attender: Destini Rivas [facility] Main Office 0 01/16/2021 02:00:00 PM EDT MEDENT ([facility]) Outpatient Attender: Sapna Olsen [facility] Main Office 01/01/2021 0 3:45:00 PM EDT MED[facility] ([facility] Outpatient Attender: Macey WELCH Zeeshan.PRISCILLA-SJ.PRISCILLA 12:00:00 AM EST - 08/09/2020 02:50:43 PM EST [facility] Outpatient Attender: Jluissa Jaime PA-C Main Office 07/03/2020 12:15:00 PM EST [facility] ([facility] <td ID="encounterTypeDescriptionID1">[facility]</td><td>Ba Dowell MD, FACS</td><td>Ba Goddard MD [facility]</td><td>06/30/2020</td><td>1:34PM</td><td>2:33PM</td><td><content ID="encounterDiagnosisID1-0">Essential Hypertension</content>, <content ID="encounterDiagnosisID1-1">Retinopathy Hypertensive Both Eyes</content>, <content ID="encounterDiagnosisID1-2">Macular Degeneration Nonexudative Bilateral Early Dry Stage</content>, <content ID="encounterDiagnosisID1- 3">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</content>, <content ID="encounterDiagnosisID1-4">Dry Eye Syndrome Both Eyes</content></td>Outpatient Attender: Ba Dowell MD, FACS Ba Dowell MD [facility] 06/30/2020 01:34:00 PM EST - 06/30/2020 02:33:00 PM ES T 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Macular Degeneration Nonexudative Bilateral Early Dry StageEssential HypertensionRetinopathy Hypertensive Both EyesDry Eye Syndrome Both Eyes MICHELLE (Ba Dowell MD [facility]) Corneal Dystrophy Endothelial Cornea Gut brittany Bilateral Eyes Macular Degeneration Nonexudative Bilate ral Early Dry Stage Essential Hypertension 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 Outpatient Referrer: Macey RAMEYPRISCILLA-SJP.PRISCILLA 10/2019 12:00:00 AM EST [facility] Outpatient Attender: Macey RAMEYPRISCILLA-SJP.PRISCILLA 02/2020 12:00:00 AM EDT - 05/04/2020 01:59:49 PM EDT [facility] Functional Status Immunizations Vaccine Date Status Description Data Source(s) Moderna Sars-(Covid-19) vaccine, mRNA, LNP-S, PF, 100 mcg/ 0.5 mL 10/27/2020 12:00:00 AM EDT completed [facility] ([facility] COVID-19 VACCINE Moderna 10/27/2020 12:00:00 AM EDT completed [facility] Vaccine Series Complete: YESThis Data wa s Submitted to [facility] Via [facility]. COVID-19 VACCINE Moderna 09/29/2020 12:00:00 AM EST completed [facility] Vaccine Series Complete: NOThis Data was Submitted to [facility] Via [employer]. Moderna Sars-(Covid-19) vaccine, mRNA, LNP-S, PF, 100 mcg/ 0.5 mL 09/28/2020 11:00:00 PM EST completed [facility] ([facility] Medications Medication Brand Name Start Date Product Form Dose Route Admi nistrative Instructions Pharmacy Instructions Status Indications Reaction Description Data Source(s) Trazodone Hydrochloride 50 MG Oral Tablet trazodone 2020 12:00:00 AM EDT 50 mg by mouth completed <td ID="Medic ationRxNorm_1">267194</td><td ID="MedicationMedication_1">trazodone</td><td ID="MedicationRoute_1">by mouth</td><td ID="MedicationRouteConcept_1">W42685</td><td ID="MedicationStartDate_1">05/22/2021</td><td ID="MedicationStopDate_1">07/21/2021</td><td ID="MedicationDosageFrequency_1">at bedtime</td><td ID="MedicationDuration_1">30</td><td ID="MedicationFormulaStrength_1">50 mg</td><td ID="MedicationDosageForm_1">tablet</td><td ID="MedicationDosageFormCode_1"></td><td ID="MedicationDosageDescription_1"></td><td ID="MedicationMedicationId_1">[id number]</td><td ID="MedicationAccount_1">[id number]</td><td ID="MedicationNpid_1">[id number]</td><td ID="MedicationAuthorFirstName_1">Daniel</td><td ID="MedicationAuthorLastName_1">Amaya</td><td ID="MedicationTaxonomyCode_1">[id number]</td><td ID="MedicationTaxonomyDesc_1">Psychiatry</td><td ID="MedicationPhoneNumber_1"> [phone]</td> [facility] ([facility]) buspirone hydrochloride 5 MG Oral Tablet Buspirone HCL 05/03/2021 12:00:00 AM EDT ORAL active [facility]ENT ([facility] buspirone hydrochloride 5 MG Oral Tablet BUSPIRONE HCL 05/03/2021 12:00:00 AM EDT tablet 60 TAKE ONE TABLET BY MOUTH TWI CE A DAY TAKE ONE TABLET BY MOUTH TWICE A DAY SOLD: 05/03/2021 Mcconnell Alisson s Mirtazapine 15 MG Oral Tablet Mirtazapine 02/12/2021 12:00:00 AM EDT ORAL completed [facility] ([facility] Sertraline 50 MG Oral Tablet Sertraline HCL 02/05/2021 12:00:00 AM EDT ORAL completed [facility] ([facility] Clotrimazole 10 MG/ML Topical Cream clotrimazole (LOTR IMIN) 1 % cream clotrimazole (LOTRIMIN) 1 % cream 07/03/2020 12:00:00 AM EST active APPLY TO AFFECTED AREA IN JULIO C AREA TWICE DAILY NEE DED FOR IRRITATION [facility] Meclizine Hydrochloride 12.5 MG Oral Tablet meclizine (ANTIVERT) 12.5 MG tablet meclizine (ANTIVERT) 12.5 MG tablet 12.5 mg Oral a borted Take 12.5 mg by mouth 3 (three) times a day as needed [facility] Multiple Vitamin (MULTI-DAY PO) Oral aborted Take by mouth [facility] Insurance Providers Payer name Policy type / Coverage type Policy ID Covered republican ID Covered republican's relationship to badillo Policy [place] Plan Information [facility] [place] [id number] Self BS [place] Medigap Part B [id number] Self [id number] MEDICARE A [id number] Self [id number] A MEDICARE [id number] xxxxxxxxxxx [id number] Medicare Natl Gov't Servi Medicare Primary [id number] Self [id number] MEDICARE [id number] Latisha [id number] [place] Primary [id number] [facility] [id number] Self [id number] [facility] Options Medigap Part B [id number] Self [place] Primary [id number] Self [facility] Options Medigap Part B [id number] Self [place] Primary [id number] Self [facility] [facility] Options Medigap Part B [id number] Self 0 [id number] Medicare [place] Medicare Primary [id number] Self 1 [id number] [facility] Options Medigap Part B [id number] Self 0 [id number] [place] Med[place]ap Part B [id number] Self 1 [id number] [employer] [facility] Options Medigap Part B [id number] Self [id number] [place] Med[place]ap Part B [id number] Self [id number] [facility] Options Medigap Part B [id number] Self [id number] [place] Medicare Primary [id number] Self 1 [id number] [facility] Options Medigap Part B [id number] Self [id number] Medicare [place] Medicare Primary [id number] Self 1 [id number] [facility] [facility] Options Medigap Part B [id number] Self [id number] [place] Medicare Primary [id number] Self 1 [id number] [facility] Options Medigap Part B [id number] Self 0 [id number] Medicare [place] Medicare Primary [id number] Self 1 [id number] [facility] [id number] [facility] [id number] [address] [place] [address] [id number] xxxxxxxxxxx [id number] ANSI-Commercial [id number] MEDICARE C [id number] S [id number] A Medicare Part B [facility] Other 0 [id number] S elf 0 MEDICARE [id number] SP [id number] Medicare [place] Medicare Primary [id number] Self [id number] [facility]/ [facility] Options Medigap Part B [id number] Self [id number] Medicare - NGS Medicare Primary [id number] Self [id number] [employer] Medigap Part B [id number] 00.0 Self [id number] Medicare [place] Medicare Primary [id number] Self [id number] [employer] Medigap Part B [id number] 00.0 Self [id number] Medicare [place] Medicare Primary [id number] Self [id number] [facility] Medigap Part B [id number] Self Medicare [place] Medicare Primary [id number] Self Aarp Medigap Part B [id number] Self AARP O [id number] S [id number] A [id number] [employer] Medigap Part B [id number] 00.0 Self [id number] [employer] OPTIONS [id number] SP [id number] [employer] HE[employer] C[employer] OPTIONS [id number] SP [id number] MEDICARE [id number] SP [id number] A Medicare Part B [employer] Other 0 [id number] Self 0 MEDICARE PART A -O/P [id number] 18 [id number] [employer]ARP HE[employer] CARE OPTIONS -C [id number] 18 [id number] MEDICARE PART A -O/P [id number] 18 [id number] [facility]ARP [facility] C[facility] OPTIONS -CLINIC [id number] 18 [id number] MEDICARE PART A -CLINIC [id number] 18 [id number] MEDICARE C [id number] S [id number] AARP O [id number] S [id number] Medicare Part B [employer] Other 0 [id number] Self 0 Medicare [place] Medicare Primary [id number] Self [id number] [employer] Medigap Part B [id number] Self [id number] Medicare [place] Medicare Primary [id number] Self [id number] [facility] Part B [id number] 00.0 Self [id number] Medicare [place] Medicare Primary [id number] Self [id number] [facility] Health Care Options [facility] Part B [id number] Self [id number] [facility] Part B [id number] 00.0 Self [id number] Medicare [place] Medicare Primary [id number] Self [id number] [facility] Part B [id number] 00.0 Self [id number] Medicare [place] Medicare Primary [id number] Self [id number] Medicare [place] Medicare Primary [id number] Self [id number] MEDICARE [id number] ANS-Medicare Part B [id number] Problems, Conditions, and Diagnoses Code Display Name Description Problem Type Effective Dates Data Source(s) N182 Chronic kidney disease, stage 2 (mild) C hronic kidney disease, stage 2 (mild) Diagnosis 2021 08:23:00 AM EDT [facility] I129 Hypertensive chronic kidney disease with stage 1 through stage 4 chronic kidney disease, or unspecified chronic kidney disease Hypertensive chronic kidney disease with stage 1 through stage 4 chronic kidney disease, or unspecified chronic kidney disease Diagnosis 2021 08:23:00 AM ED T [facility] R1084 Generalized abdominal pain Generalized abdominal pain Diagnosis 2021 08:23:00 AM EDT [facility] I10 Essential (primary) hypertension Essential (primary) h ypertension Diagnosis 05/04/2020 12:46:07 PM EDT [facility] N28.9 Disorder of kidney and ureter, unspecifi ed Disorder of kidney and ureter, unspecifi Diagnosis 05/04/2020 12:46:07 PM EDT [facility] R06.02 Shortness of breath Shortness of breath Diagnosis 1 12:46:07 PM EDT [facility] I35.1 Nonrheumatic aortic (valve) insufficienc y Nonrheumatic aortic (valve) insufficienc Diagnosis 05/04/2020 12:46:07 PM EDT [facility] R09.89 Other specified symptoms and signs involving the circulatory and respiratory systems Other specified symptoms and signs invol Diagnosis 05/04/2020 12:46:07 PM EDT [facility] R53.83 Malaise and fatigue Malaise and fatigue Problem 1 07/29/2020 12:00:00 AM EDT MEDHENRIET[facility] ([facility]) G47.33 Obstructive sleep apnea syndrome Obstructive sle ep apnea syndrome Problem 05/29/2021 12:00:00 AM EDT [facility] ([facility]) F33.41 Recurrent major depression in partial re mission Recurrent major depression in partial remission Problem 05/29/2021 12:00:00 AM EDT LESLI ([facility]) F51.01 Disorders of initiating and maintaining sleep Disorders of initiating and maintaining sleep Problem 05/29/2021 12:00:00 AM EDT [place] ([facility]) G31.84 Mild cognitive disorder Mild cognitive disorder Proble m 05/29/2021 12:00:00 AM EDT MED[facility] ([facility]) F60.9 Personality disorder, unspecified Unspecified Pe rsonality Disorder Condition 05/22/2021 12:00:00 AM EDT [facility] ([facility]) I12.9 Hypertensive chronic kidney disease with stage 1 through stage 4 chronic kidney disease, or unspecified chronic kidney disease Hypertensive chronic kidney disease w stg 1-4/unsp chr kdny Condition 05/22/2021 12:00:00 A M EDT [facility] ([facility]) F41.9 Anxiety disorder, unspecified Unspecified Anxiety Diso rder Condition 05/22/2021 12:00:00 AM EDT [facility] ([facility]) N18.4 Chronic kidney disease stage 4 Chronic kidney disease stage 4 Problem 07/03/2020 12:00:00 AM EST [facility] ([facility] [id number] Chronic kidney disease stage 4 Chronic kidney disease stage 4 Problem 07/03/2020 12:00:00 AM EST [facility] ([facility]) [id number] 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 Problem 12:00:00 AM EST MICHELLE (Ba Dowell MD [facility]) [id number] 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 Problem 06/30/2020 12:00:00 AM EST [place] (Ba Dowell MD [facility]) I10 Essential hypertension Essential hypertension [id number] 05/04/2020 12:00:00 AM EDT [facility] N28.9 Renal insufficiency Renal insufficiency [id number] 1 12:00:00 AM EDT [facility] R06.02 SOB (shortness of breath) SOB (shortness of breath) [id number] 05/04/2020 12:00:00 AM EDT [facility] I35.1 Nonrheumatic aortic valve insufficiency Nonrheumatic aortic valve insufficiency [id number] 05/04/2020 12:00:00 AM EDT [facility] R09.89 Bruit of right carotid artery Bruit of right carotid a rtery [id number] 05/04/2020 12:00:00 AM EDT [facility] Surgeries/Procedures Procedure Description Date Indications Data Source(s) OFFICE OUTPATIENT NEW 45 MINUTES 05/29/2021 12:00:00 A M EDT [facility] ([facility]) Mammogram 05/23/2021 12:00:00 AM EDT M EDENT ([facility] Telemed Diagnostic Eval 05/22/2021 12:00 :00 AM EDT - 05/22/2021 12:00:00 AM EDT [facility] ([facility]) Telemed Diagnostic Eval 05/22/2021 12:00:00 AM EDT [facility] ([facility]) OFFICE OUTPATIENT VISIT 15 MINUTES 05/21/2021 12:00:00 AM EDT MED[facility] ([facility]) 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&/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 FACTOR REDJ SPX 15 MIN 05/17/2021 12:00:00 AM EDT - 05/17/2021 12:00:00 AM EDT [facility] ([facility]) 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&/RISK FACTOR REDJ SPX 15 MIN 05/17 12:00:00 AM EDT [facility] ([facility]) Brief Individual Psychotherapy - 30 min 05/17/2021 12:00:00 AM EDT - 05/17/2021 12:00:00 AM EDT [facility] ([facility]) Brief Individual Psychotherapy - 30 min 05/17/2021 12: 00:00 AM EDT [facility] ([facility]) OFFICE OUTPATIENT VISIT 15 MINUTES 04/30/2021 12:00:00 AM EDT MED[facility] ([facility] OFFICE OUTPATIENT VISIT 25 MINUTES 04/20/2021 12:00:00 AM EDT [facility] ([facility]) Brief Individual Psychotherapy - 30 min 04/19/2021 12:00:00 AM EDT - 04/19/2021 12:00:00 AM EDT [facility] ([facility]) Brief Individual Psychotherapy - 30 min 04/19/2021 12: 00:00 AM EDT [facility] ([facility]) Diabetic Foot Exam 03/19/2021 12:00:00 AM EDT MED[facility] ([facility]) OFFICE OUTPATIENT NEW 45 MINUTES 03/19/2021 12:00:00 A M EDT [facility] ([facility]) OFFICE OUTPATIENT VISIT 25 MINUTES 03/12/2021 12:00:00 AM EDT [facility] ([facility] Extended Individual Psychotherapy - 45 min 03/06/2021 12:00:00 AM EDT - 03/06/2021 12:00:00 AM EDT [facility] ([facility]) Extended Individual Psychotherapy - 45 min 12:00:00 AM EDT [facility] ([facility]) Psychiatric Diagnostic Evaluation (Non-Medical) 02/21/2021 12:00:00 AM EDT - 02/21/2021 12:00:00 AM EDT [facility] ([facility]) Psychiatric Diagnostic Evaluation (Non-Medical) 2020 12:00:00 AM EDT [facility] ([facility]) Extended Individual Psychotherapy - 45 min 02/14/2021 12:00:00 AM EDT - 02/14/2021 12:00:00 AM EDT [facility] ([facility]) Extended Individual Psychotherapy - 45 min 12:00:00 AM EDT [facility] ([facility]) OFFICE OUTPATIENT VISIT 25 MINUTES 02/12/2021 12:00:00 AM EDT [facility] ([facility] OFFICE OUTPATIENT VISIT 25 MINUTES 02/05/2021 12:00:00 AM EDT [facility] ([facility] ARTHROCENTESIS ASPIR&/INJECTION MAJOR JT/BURSA 021 12:00:00 AM EDT [facility] ([facility]) OFFICE OUTPATIENT VISIT 15 MINUTES 01/17/2021 12:00:00 AM EDT [facility] ([facility]) Shave Biopsy Of Skin, Single Lesion 01/16/2021 12:00:0 0 AM EDT [facility] ([facility]) OFFICE OUTPATIENT VISIT 25 MINUTES 01/16/2021 12:00:00 AM EDT [facility] ([facility]) Intermediate Eye Exam Established Patient Intermediate Eye Exam Established Patient 06/30/2020 12:00:00 AM EST MICHELLE (Marcelo Dowell MD [facility]) Mammogram 05/22/2020 12:00:00 AM EDT M [facility]ENT ([facility] Document: 05/01/17 - Xray Report Results ID Date Data Source [id number] 05/29/2021 11:18:00 AM EDT [facility] ([facility], ) Name Value Range Interpretation Code Description Data Michelle rce(s) Supporting Document(s) Folate Laboratory test result [facility] ([facility], ) FOLATE NORMAL RANGE NORMAL GREATER THAN 5.4 NG/ML INDETERMINATE 3.4-5.4 NG/ML DEFICIENT LESS THAN 3.4 NG/ML Vitamin B12 Level 482 pg/mL [facility] ([facility], ) VITAMIN B12 NORMAL RANGE NORMAL 247 - 911 PG/ML INDETERMINATE 211 - 246 PG/ML DEFICIENT LESS THAN 211 PG/ML ID Date Data Source [id number] 05/29/2021 11:18:00 AM EDT [facility] ([facility], ) Name Value Range Interpretation Code Description Data Michelle rce(s) Supporting Document(s) Thyrotropin [Units/volume] in Serum or Plasma 3.340 uIU/ML 0.358-3.74 0 [facility] ([facility], ) ID Date Data Source [id number] 05/29/2021 11:18:00 AM EDT [facility] ([facility] Name Value Range Interpretation Code Description Data Michelle rce(s) Supporting Document(s) Folate Laboratory test result [facility] ([facility] FOLATE NORMAL RANGE NORMAL GREATER THAN 5.4 NG/ML INDETERMINATE 3.4-5.4 NG/ML DEFICIENT LESS THAN 3.4 NG/ML Vitamin B12 Level 482 pg/mL [facility] ([facility] VITAMIN B12 NORMAL RANGE NORMAL 247 - 911 PG/ML INDETERMINATE 211 - 246 PG/ML DEFICIENT LESS THAN 211 PG/ML ID Date Data Source [id number] 05/29/2021 11:18:00 AM EDT [facility] ([facility] Name Value Range Interpretation Code Description Data Michelle rce(s) Supporting Document(s) Thyrotropin [Units/volume] in Serum or Plasma 3.340 uIU/ML 0.358-3.74 0 [facility] ([facility] ID Date Data Source [id number] 05/21/2021 10:07:00 AM EDT [facility] ([facility]) Name Value Range Interpretation Code Description Data Michelle rce(s) Supporting Document(s) Bacteria identified in Urine by Culture Laboratory test result [facility] ([facility]) No Rx ID Date Data Source [id number] 04/26/2021 08:12:00 AM EDT [facility] ([facility] Name Value Range Interpretation Code Description Data Michelle rce(s) Supporting Document(s) Ethanol [Mass/volume] in Serum or Plasma Laboratory test result 0.000 -0.010 [facility] ([facility] Salicylates [Mass/volume] in Serum or Plasma Laboratory test result 5.0-30.0 [facility] ([facility] Acetaminophen [Mass/volume] in Serum or Plasma Laboratory test r esult 10.0-30.0 [facility] ([facility] Thyrotropin [Units/volume] in Serum or Plasma 3.540 uIU/ML 0.358-3.74 0 [facility] ([facility] ID Date Data Source [id number] 04/26/2021 08:12:00 AM EDT [facility] ([facility] Name Value Range Interpretation Code Description Data Michelle rce(s) Supporting Document(s) Creatinine For GFR 2.22 mg/dL 0.55-1.30 [facility] ([facility] Glucose, Fasting 99 mg/dL 70-100 [facility] ([facility] Blood Urea Nitrogen 22 mg/dL 7-18 [facility] ([facility] Glomerular Filtration Rate 22.6 [facility] ([facility] <content>Units are mL/min/1.73 m2</content>
<content></content>
<content>Chronic Kidney Disease Staging per NKF:</content>
<content></content>
<content>Stage I & II GFR >=60 Normal to Mildly Decreased</content>
<content>Stage III GFR 30- 59 Moderately Decreased</content>
<content>Stage IV GFR 15-29 Severely Decreased</content>
<content>Stage V GFR <15 Very Little GFR Left</content>
<content>ESRD GFR <15 on MACHINE DESIGN ENGINEER</content>
<content></content> Sodium Level 144 meq/L 136-145 [facility] ([facility] Chloride Level 111 meq/L 98-107 [facility] ([facility] Potassium Serum 3.5 meq/L 3.5-5.1 [facility] ([facility] Carbon Dioxide Level 26 meq/L 21-32 [facility] ([facility] Calcium Level 10.0 mg/dL 8.8-10.2 [facility] ([facility] Anion Gap 7 meq/L 8-16 [facility] ([facility] ID Date Data Source [id number] 04/26/2021 08:12:00 AM EDT [facility] ([facility] Name Value Range Interpretation Code Description Data Michelle e(s) Supporting Document(s) Ast/Sgot 15 U/L 7-37 [facility] ([facility] Alt/SGPT 20 U/L 12-78 [facility] ([facility] Bilirubin,Total 0.7 mg/dL 0.2-1.0 [facility] ([facility] Alkaline Phosphatase 54 U/L 45-117 [facility] ([facility] Bilirubin,Direct 0.2 mg/dL 0.0-0.2 [facility] ([facility] Total Protein 7.1 GM/DL 6.4-8.2 [facility] ([facility] Albumin/Globulin Ratio 1.0 1.2-2.2 [facility] ([facility] Albumin 3.5 GM/DL 3.2-5.2 [facility] ([facility] ID Date Data Source [id number] 04/26/2021 08:12:00 AM EDT [facility] ([facility] Name Value Range Interpretation Code Description Data [facility](s) Supporting Document(s) Amphetamines Level Urine Laboratory test result [facility] ([facility] Benzodiazepines Urine Laboratory test result [facility] ([facility] Cannabinoids Urine Laboratory test result [facility] ([facility] Barbiturates Urine Laboratory test result [facility] ([facility] Cocaine Metabolite Urine Laboratory test result [facility] ([facility] Methadone Urine Laboratory test result [facility] ([facility] Opiates Urine Laboratory test result [facility] ([facility] Phencyclidine Urine Laboratory test result [facility] ([facility] ALL PRESUMPTIVE POSITIVE FINDINGS AR E UNCONFIRMED THRESHOLD IN NG/ML AMPHETAMINES/METHAMPHET 1000 BARBITURATES [...] CLOSELY RELATED COMPOUNDS PLEASE CALL THE LAB. ID Date Data Source [id number] 04/26/2021 08:12:00 AM EDT [facility] ([facility] Name Value Range Interpretation Code Description Data Michelle rce(s) Supporting Document(s) White Blood Count 8.3 10 4.0-10.0 [facility] ([facility] Hematocrit 41.2 % 36.0-47.0 [facility] ([facility] Hemoglobin 13.1 g/dL 12.0-15.5 [facility] ([facility] Red Blood Count 4.14 10 4.00-5.40 [facility] ([facility] Mean Corpuscular Volume 99.5 fl 80.0-96.0 M EDENT ([facility] Mean Corpuscular HGB Conc 31.8 g/dL 32.0-36.5 [facility] ([facility] Mean Corpuscular Hemoglobin 31.6 pg 27.0-33.0 [facility] ([facility] Nucleated Red Blood Cell % 0.0 % 0-0 [facility] ([facility] Red Cell Distribution Width 12.8 % 11.5-14.5 [facility] ([facility] Platelet Count, Automated 294 10 150-450 [facility] ([facility] ID Date Data Source [id number] 03/20/2021 09:03:00 AM EDT [facility] ([facility] Name Value Range Interpretation Code Description Data Michelle rce(s) Supporting Document(s) Cortisol [Mass/volume] in Serum or Plasma --AM peak specimen 16.6 ug/dL 4.3-22.4 [facility] ([facility] ID Date Data Source [id number] 03/20/2021 09:03:00 AM EDT [facility] ([facility] Name Value Range Interpretation Code Description Data Michelle rce(s) Supporting Document(s) Hemoglobin A1c/Hemoglobin.total in Blood 5.5 % [facility] ([facility] <content>REFERENCE RANGES:</content><br/ ><content></content>
<content><=5.6% NORMAL</content>
<content>5.7-6.4% SUGGESTS IMPAIRED GLUCOSE METABOLISM/PREDIABETIC</content>
<content>>= 6.5% ABNORMAL</content>
<content></content> Estimated Average Glucose 111 mg/dL 60-110 [facility] ([facility] ID Date Data Source [id number] 03/20/2021 09:03:00 AM EDT [facility] ([facility]) Name Value Range Interpretation Code Description Data Michelle rce(s) Supporting Document(s) Estimated Average Glucose 111 mg/dL 60-110 [facility] ([facility]) Hemoglobin A1c 5.5 % [facility] ([facility]) <content>REFERENCE RANGES:</content><br/ ><content></content>
<content><=5.6% NORMAL</content>
<content>5.7-6.4% SUGGESTS IMPAIRED GLUCOSE METABOLISM/PREDIABETIC</content>
<content>>= 6.5% ABNORMAL</content>
<content></content> ID Date Data Source [id number] 03/20/2021 09:03:00 AM EDT [facility] ([facility]) Name Value Range Interpretation Code Description Data Michelle rce(s) Supporting Document(s) Cortisol [Mass/volume] in Serum or Plasma --AM peak specimen 16.6 ug/dL 4.3-22.4 [facility] ([facility]) ID Date Data Source [id number] 03/07/2021 02:29:00 PM EDT [facility] ([facility] Name Value Range Interpretation Code Description Data Michelle rce(s) Supporting Document(s) Thyroid Stimulating Hormone 3.120 uIU/ML 0.358-3.740 [facility] ([facility] Free T4 1.05 ng/dL 0.76-1.46 [facility] ([facility] ID Date Data Source [id number] 03/07/2021 02:29:00 PM EDT [facility] ([facility] Name Value Range Interpretation Code Description Data Michelle rce(s) Supporting Document(s) Triglycerides Level 122 mg/dL [facility] ([facility] Cholesterol Level 157 mg/dL [facility] ([facility] LDL Cholesterol 85 mg/dL [facility] ([facility] Non-HDL-C 109 mg/dL [facility] ([facility] HDL Cholesterol 48 mg/dL [facility] Cholesterol Risk Ratio 3.270 [facility] ([facility] ID Date Data Source [id number] 03/07/2021 02:29:00 PM EDT [facility] ([facility] Name Value Range Interpretation Code Description Data Michelle rce(s) Supporting Document(s) Glucose, Fasting 100 mg/dL 70-100 [facility] ([facility] Blood Urea Nitrogen 27 mg/dL 7-18 [facility] ([facility] Creatinine For GFR 2.27 mg/dL 0.55-1.30 [facility] ([facility] Sodium Level 144 meq/L 136-145 [facility] ([facility] Glomerular Filtration Rate 22.1 [facility] ([facility] <content>Units are mL/min/1.73 m2</content>
<content></content>
<content>Chronic Kidney Disease Staging per NKF:</content>
<content></content>
<content>Stage I & II GFR >=60 Normal to Mildly Decreased</content>
<content>Stage III GFR 30- 59 Moderately Decreased</content>
<content>Stage IV GFR 15-29 Severely Decreased</content>
<content>Stage V GFR <15 Very Little GFR Left</content>
<content>ESRD GFR <15 on MACHINE DESIGN ENGINEER</content>
<content></content> Potassium Serum 3.9 meq/L 3.5-5.1 [facility] ([facility] Carbon Dioxide Level 29 meq/L 21-32 [facility] ([facility] Chloride Level 111 meq/L 98-107 [facility] ([facility] Ast/Sgot 17 U/L 7-37 [facility] ([facility] Calcium Level 9.3 mg/dL 8.8-10.2 [facility] ([facility] Anion Gap 4 meq/L 8-16 [facility] Alt/SGPT 20 U/L 12-78 [facility] ([facility] Bilirubin,Total 0.7 mg/dL 0.2-1.0 [facility] ([facility] Alkaline Phosphatase 48 U/L 45-117 [facility] ([facility] Total Protein 6.5 GM/DL 6.4-8.2 [facility] ([facility] Albumin 3.6 GM/DL 3.2-5.2 [facility] ([facility] Albumin/Globulin Ratio 1.2 1.2-2.2 [facility] ([facility] ID Date Data Source [id number] 03/07/2021 02:29:00 PM EDT [facility] ([facility]) Name Value Range Interpretation Code Description Data Michelle rce(s) Supporting Document(s) Thyrotropin [Units/volume] in Serum or Plasma by Detec tion limit <= 0.05 mIU/L 3.120 uIU/ML 0.358-3.740 [facility] ([facility]) Free T4 1.05 ng/dL 0.76-1.46 [facility] ([facility]) ID Date Data Source [id number] 03/07/2021 02:29:00 PM EDT [facility] ([facility]) Name Value Range Interpretation Code Description Data Michelle rce(s) Supporting Document(s) Cholesterol Level 157 mg/dL [facility] ([facility]) Triglycerides Level 122 mg/dL [facility] ([facility] HDL Cholesterol 48 mg/dL [facility] ([facility]) LDL Cholesterol 85 mg/dL [facility] ([facility]) Non-HDL-C 109 mg/dL [facility] ([facility]) Cholesterol Risk Ratio 3.270 [facility] ([facility]) ID Date Data Source [id number] 03/07/2021 02:29:00 PM EDT [facility] ([facility]) Name Value Range Interpretation Code Description Data Michelle rce(s) Supporting Document(s) Glucose, Fasting 100 mg/dL 70-100 [facility] ([facility]) Creatinine For GFR 2.27 mg/dL 0.55-1.30 [facility] ([facility]) Blood Urea Nitrogen 27 mg/dL 7-18 [facility] ([facility] Potassium Serum 3.9 meq/L 3.5-5.1 [facility] ([facility]) Sodium Level 144 meq/L 136-145 [facility] ([facility]) Glomerular Filtration Rate 22.1 [facility] ([facility]) <content>Units are mL/min/1.73 m2</content>
<content></content>
<content>Chronic Kidney Disease Staging per NKF:</content>
<content></content>
<content>Stage I & II GFR >=60 Normal to Mildly Decreased</content>
<content>Stage III GFR 30- 59 Moderately Decreased</content>
<content>Stage IV GFR 15-29 Severely Decreased</content>
<content>Stage V GFR <15 Very Little GFR Left</content>
<content>ESRD GFR <15 on MACHINE DESIGN ENGINEER</content>
<content></content>
<content></content> Carbon Dioxide Level 29 meq/L 21-32 [facility] ([facility]) Chloride Level 111 meq/L 98-107 [facility] ([facility] Anion Gap 4 meq/L 8-16 [facility] ([facility]) Calcium [Mass/volume] in Serum or Plasma 9.3 mg/dL 8.8-10.2 [facility] ([facility]) Aspartate aminotransferase [Enzymatic activity/volume] in Serum or Plasma 17 U/L 7-37 [facility] ([facility]) Alanine aminotransferase [Enzymatic activity/volume] in Seru m or Plasma 20 U/L 12-78 [facility] ([facility] Bilirubin,Total 0.7 mg/dL 0.2-1.0 [facility] ([facility]) Alkaline phosphatase [Enzymatic activity/volume] in Serum or Plasma 48 U/L 45-117 [facility] ([facility]) Albumin/Globulin Ratio 1.2 1.2-2.2 [facility] ([facility]) Protein [Mass/volume] in Serum or Plasma 6.5 GM/DL 6.4-8.2 [facility] ([facility]) Albumin [Mass/volume] in Serum or Plasma 3.6 GM/DL 3.2-5.2 [facility] ([facility]) ID Date Data Source [id number] 2021 03:02:00 PM EDT [facility] [address] [place] [address] PHONE: [phone] FAX: [phone] Name .................. : NATANAEL MOURA Acct Number.................. : [id number] ROOM. ................. : TR-07 Number ................... : [id number] Stay type ............. : E/R Discharge Date......... ... : 03/04/21 Admit Date ......... : 03/04/21 Admit Phys .................... : SHONNA Fisher Date of ....... : 1940 Family Phys ................... : LEO RAMSAY Phone .................. : [phone] Age ................................ : 81 Film# .................. .:[id number] Sex ................................. : F Unsigned transcriptions are preliminary reports and do not represent a medical or legal document CT ABD & PELV W/O ORAL W/[place] [id number] COMPLETE:03/04/21 08:55 [id number] Reason(s): Abdominal Pain CT ABDOMEN AND PELVIS WITHOUT IV CONTRAST INDICATION: Abdominal pain COMPARISON: None IV CONTRAST: None One or more of the following dose reduction techniques were utilized in effectively lowering the radiation dose for this examination: Automated Exposure Control, Adjustment of the mA and/or kV according to patient size, or Iterative reconstruction. FINDINGS: LUNG BASES: Mild linear atelectasis or scarring both lower lungs. No pleural effusions. LIVER/BILIARY: Multiple cysts scattered throughout the liver too numerous to count. Largest 28 mm. Some of these cysts have small foci of mural calcification. Gallbladder unremarkable. Bile ducts are not dilated. SPLEEN: Normal. PANCREAS: Normal. ADRENALS: Normal bilaterally. RIGHT KIDNEY: Kidney is enlarged. Multiple cysts too numerous to count. Largest lower pole 103 mm. Some of cysts have small foci of mural calcification. No hydronephrosis or stones. LEFT KIDNEY: Kidney is enlarged. Multiple cysts too numerous to cou nt. Largest is in the upper pole measuring 53 mm some of the cysts have small foci of mural calcification. No hydronephrosis or stones. Page 1 of 2 [place] [id number] PHONE: [phone] FAX: [phone] Name .................. : NATANAEL MOURA Acct Number.................. : [id number] ROOM. ................. : TR-07 MR Number ................... : [id number] Stay type ............. : E/R Discharge Date......... ... : 03/04/21 Admit Date ......... : 03/04/21 Admit Phys .................... : SHONNA Fisher Date of ....... : 1940 Family Phys ................... : BLACK CHRI Phone .................. : [phone] Age ................................ : 81 Film# .................. .:[id number] Sex ........................... ...... : F Unsigned transcriptions are preliminary reports and do not represent a medical or legal document CT ABD & PELV W/[place] ORAL W/[place] [id number] COMPLETE:03/04/21 08:55 [id number] Reason(s): Abdominal Pain OTHER : No abnormalities seen in the urinary bladder. Uterus is not identified. It could be atrophic or absent. No adnexal masses. BOWEL/GI: No dilated bowel or obstruction. No bowel wall thickening. No hernia. PERITONEUM: No free fluid, focal fluid collection or free air. NODES/RETROPERITONEUM: No adenopathy. No AAA. SKELETAL: Severe facet arthropathy lower lumbar spine. Grade 1 anterolisthesis L4-5. Moderate to severe joint space narrowing and marginal osteophytes right hip. IMPRESSION: 1. Findings consistent with polycystic renal disease. No hydronephrosis or stones. 2. Multiple hepatic cysts. 3. Severe facet arthropathy lower lumbar spine with grade 1 anterolisthesis L4-5. Electronical ly Reviewed and Signed By Mark Kelley MD , 03/04/21 15:02, CHEN Transcribe Initials: CHANDLER , Transcribe Date: 03/04/21 13:39, Dictation Date: Copy for: EMERGENCY DEPT via modem Copy for: 710 MED REC DISCHARGED Page 2 of 2 Name Value Range Interpretation Code Description Data Michelle rce(s) Supporting Document(s) ID Date Data Source [id number] 2021 08:23:00 AM EDT [facility] 1 OrderSheet [facility] Emergency Department [address] [place] [address] Phone #: ext- [phone] 08:22 Patient: MARTELL SANTOYO Sex: F : 1940 Age: 81yWEIGHT:73.4 kg (S) HEIGHT:59 inches (S) BMI:32.7ALLERGIES: Amoxicillin, Aspirin, Ciprofloxin HCl, Macrobid, Sulfa AntibioticsCHIEF COMPLAINT: abdominal painDIAGNOSIS: Abdominal pain, Renal impairmentLAB ORDERSOrder Description Priority Entered Acknowledged InitialedCBC w Diff STAT 08:45 2021 08:49 Shonna Vo Jack ; Liana RNCMP STAT 08:45 2021 08:49 Shonna Vo Jack ; Liana RNLipase STAT 08:45 2021 08:49 Shonna Vo Jack ; Liana RNUrinalysis (Clean STAT 08:45 2021 08:59 Pati EDCatch) Cristo Lindsye ; Arlene Nguyễn [id number] STUDY ORDERSOrder Description Priority Entered Acknowledged InitialedCT ABD PEL W/O STAT 08:55 2021 08:56 TerryOral W/O IV Cristo Lindsey ; Janki RNContrast(Oxygen?(No))(IV?(No)) Reason for Study: Abdominal PainMEDICATION/IV/DRIP/FLUID ORDERSOrder Description Priority Entered Acknowledged InitialedAcetaminophen PO 08:45 2021 08:56 [id number] mg (NOW x1) Cristo Lindsey ; Janki RNGENERAL ORDERSOrder Description Priority Entered Acknowledged Initialed[Electronically signed by Ronda Hope R.N. (12:2021)][Electronically signed by Cristo Lindsey (13:27 2021)][Electronically locked by Ronda Hope R.N. (12:2021)] Name Value Range Interpretation Code Description Data Michelle rce(s) Supporting Document(s) ID Date Data Source [id number] 2021 08:23:00 AM EDT [place] [address] Medication Reconciliation Report [facility] Emergency Department [address] [place] [address] Phone #: ext- [phone] 08:22 Patient: MARTELL SANTOYO Sex: F : 1940 Age: 81yWeight: 73.4 kgHeight/Length: 59 in.BMI: 32.7ALLERGIES: Amoxicillin, Aspirin, Ciprofloxin HCl, Macrobid, Sulfa AntibioticsThe patient's Home Medications are listed below:CONTINUE TAKING THE FOLLOWING MEDICATIONS: clonazePAM Oral 0.5 mg, at bedtime Fish Oil Oral (1000 mg), daily Magnesium Oral 200 mg, daily Norvasc Oral 5 mg, daily Pepcid Oral 20 mg, daily Tramadol HCL Oral 50 mg, prn Vitamin D Oral 1000u, dailyThe source(s) of the original Home Medication information:patientThe following Medications were given to the patient in the Emergency Department:Acetaminophen [PO] PO 650 mg, administered: 08:56 2021The following Medications were prescribed to the patient:None. Name Value Range Interpretation Code Description Data Michelle rce(s) Supporting Document(s) ID Date Data Source [id number] 2021 08:23:00 AM EDT [facility] 1 Medication Administration Record [facility] Emergency Department [address] [place] [address] Phone #: ext- [phone] 08:22 Patient: MARTELL SANTOYO Sex: F : 1940 Age: 81yWeight: 73.4 kgHeight/Length: 59 inBMI: 32.7ALLERGIES: Aspirin, Amoxicillin, Macrobid, Ciprofloxin HCl, Sulfa Antibiotics Date/Time Medication Administered Medication OrderedGiven ACETAMINOPHEN [PO] Acetaminophen PO 650 mg (NOW08:56 2021 Dose: 650 mg Tablets PO x1)Arnulfo Shearer RN Name Value Range Interpretation Code Description Data Michelle rce(s) Supporting Document(s) ID Date Data Source [id number] 2021 08:23:00 AM EDT [facility] 1 General Instructions [facility] Emergency Department [address] [place] [address] Phone #: ext- [phone] 08:22 Patient: MARTELL SANTOYO Sex: F : 1940 Age: 81yChronic generalized abdominal pain of undetermined cause.Mild chronic renal insufficiency.INSTRUCTIONSWarnings: Further evaluation is necessary.GENERAL WARNINGS: Return or contact your physician immediately if your condition worsens orchanges unexpectedly, if not improving as expected, or if other problems arise.Your Current Medications: Your current home medications have been reviewed.CONTINUE TAKING THE FOLLOWING MEDICATIONS:clonazePAM Oral : 0.5 mg, at bedtime.Fish Oil Oral : Capsule 1000 mg, daily.Magnesium Oral : 200 mg daily.Norvasc Oral : 5 mg daily.Pepcid Oral : 20 mg daily.Tramadol HCL Oral : 50 mg, prn.Vitamin D Oral : 1000u daily.Follow-up:Follow up with your healthcare provider.Understanding of the discharge instructions verbalized by patient. ADDITIONAL INFORMATIONUnknown Causes of Abdominal Pain (Female) 2 General Instructions [facility] Emergency Department [address] [place] [address] Phone #: ext- [phone] 08:22 Patient: MARTELL SANTOYO Sex: F : 1940 Age: 81yThe exact cause of your belly (abdominal) pain is not clear. This does not mean that this is somethingto worry about. Everyone likes to know the exact cause of the problem. But sometimes with bellypain, there is no clear- cut cause, and this could be a good thing. The good news is that yoursymptoms can be treated, and you will feel better.Your condition does not seem serious now. But sometimes the signs of a serious problem may takemore time to appear. For this reason, it is important for you to watch for any new symptoms,problems, or worsening of your condition.Over the next few days, the abdominal pain may come and go. Or it may be constant. Other commonsymptoms can include nausea and vomiting. Sometimes it can be difficult to tell if you feel nauseous.You may just feel bad and not connect that feeling to nausea. Constipation, diarrhea, and a fever maygo along with the pain.The pain may continue even if treated correctly over the following days. Depending on how things go,sometimes the cause can become clear and may need more or different treatment. Additionalevaluations, medicines, or tests may also be needed.Home careYour healthcare provider may prescribe medicine for pain, symptoms, or an infection. Follow thehealthcare provider's instructions for taking these medicines. 3 General Instructions [facility] Emergency Department [address] [place] [address] Phone #: ext- [phone] 08:22 Patient: MARTELL SANTOYO Sex: F : 1940 Age: 81yGeneral care Rest as much as you can until your next exam. No strenuous activities. Try to find positions that ease discomfort. A small pillow placed on the abdomen may help relieve pain. Something warm on your abdomen (such as a heating pad) may help, but be careful not to burn yourself.Diet Don't force yourself to eat, especially if having cramps, vomiting, or diarrhea. Water is important so you don't get dehydrated. Soup may also be good. Sports drinks may also help, especially if they are not too acidic. Don't drink sugary drinks as this can make things worse. Take liquids in small amounts. Don't guzzle them. Caffeine sometimes makes the pain and cramping worse. Don't take dairy products if you have vomiting or diarrhea. Don't eat large amounts at a time. Wait a few minutes between bites. Eat a diet low in fiber (called a low-residue diet). Foods allowed include refined breads, white rice, fruit and vegetable juices without pulp, tender meats. These foods will pass more easily through the intestine. Don't have whole-grain foods, whole fruits and vegetables, meats, seeds and nuts, fried or fatty foods, dairy, alcohol and spicy foods until your symptoms go away.Follow-up careFollow up with your healthcare provider, or as advised, if your pain does not begin to improve in thenext 24 hours.Call [phone] if any of these occur: Trouble breathing Confusion Fainting or loss of consciousness Rapid heart rate 4 General Instructions [facility] Emergency Department [address] [place] [id number] Phone #: ext- [phone] 08:22 Patient: MARTELL SANTOYO [facility]#: [id number] Sex: F : 1940 Age: 81y SeizureWhen to seek medical adviceCall your healthcare provider right away if any of these occur: Pain gets worse or moves to the right lower abdomen New or worsening vomiting or diarrhea Swelling of the abdomen Unable to pass stool for more than 3 days Fever of 100.4F (38C) or higher, or as directed by your healthcare provider. Blood in vomit or bowel movements (dark red or black color) Yellow color of eyes and skin (jaundice) Weakness, dizziness Chest, arm, back, neck, or jaw pain Unexpected vaginal bleeding or missed period Can't keep down liquids or water and you are getting dehydrated [id number] [employer]. [address] [place] [address]. All rights reserved. This information is not intended as asubstitute for professional medical care. Always follow your healthcare professional's instructions.Renal (Kidney) InsufficiencyYour kidneys remove waste products and extra water from your body. When your kidneys don't workas they should, waste products build up in your blood. The early stage of this process is called renalinsufficiency. If renal insufficiency gets worse, you can develop chronic renal failure. This allows extrawater, waste, and toxic substances to build up in your body. This can become life threatening. Youmay need dialysis or a kidney transplant. The most serious form of renal insufficiency is end-stagerenal disease.Diabetes is the main cause of renal insufficiency. Other causes include: High blood pressure Hardening of the arteries Lupus Inflammation of the blood vessels (vasculitis) 5 General Instructions [facility] Emergency Department [address] [place] [address] Phone #: ext- [phone] 08:22 [id number] Sex: [facility] : 1940 Age: 81y Viral or bacterial infectionSome zyaw-kvx-mrsvrmq (OTC) pain medicines can cause renal failure if you take them for a long time.These include aspirin, ibuprofen, naproxen, and other nonsteroidal anti-inflammatory drugs (NSAIDs).Home careFollow these tips when caring for yourself at home: If you have diabetes, talk with your healthcare provider about controlling your blood sugar. Ask if you need to make any changes to your diet, lifestyle, or medici gagan. If you have high blood pressure: o Take your prescribed medicine. Your goal is to lower your blood pressure to less than 130/80, or as recommended by your provider. o Start a regular exercise program that you enjoy. Check with your healthcare provider to be sure your planned exercise program is right for you. o Cut back on the amount of salt (sodium) you eat. Your healthcare provider can tell you how much salt each day is safe for you. o Monitor and record your blood pressure at home on a regular schedule. Ask your provider to teach you how to correctly check your BP. Bring the BP records with you to your appointments. If you are overweight, talk with your healthcare provider about a weight loss plan. If you smoke, quit. Smoking makes kidney disease worse. Talk with your healthcare provider about ways to help you quit. For more information, visit: o smokefree.gov/sites/default/files/pdf/kpyssfyz-qju-kwo-accessible.pdf o www.smokefree.gov o www.cancer.org/healthy/stayawayfromtobacco/guidetoquittingsmoking/ Talk with your healthcare provider about any restrictions you should make in your diet. In general, you should limit the amount of protein, salt, potassium, and phosphorus. Don't drink too many fluids. Don't add salt at the table, and stay away from salty foods. You may need a calcium supplement to help prevent osteoporosis. If you or your family feel overwhelmed by the dietary restrictions, ask for a referral to a registered dietitian. This person can help you understand and plan your diet. Talk with your healthcare provider about any medicines you are currently taking to find out if they need to be reduced or stopped. 6 General Instructions [facility] Emergency Department [address] [place] [address] Phone #: ext- [phone] 08:22 [id number] Sex: [facility] : 1940 Age: 81y Before starting any lomu-mvg-jwpuuff (OTC) medicines, herbal supplements, or vitamins, talk with your healthcare provider or pharmacist. Make sure they won't harm your kidneys. Don't take the following OTC medicines, or talk with your healthcare provider before you take them: o Aspirin, ibuprofen, naproxen, and other NSAIDs. You may be able to use these for a short time to help with fever or pain. o Laxatives and antacids with magnesium or aluminum o Phospho soda enemas with phosphorus o Certain stomach acid-blocking medicine such as cimetidine or ranitidine o Decongestants with pseudoephedrine o Herbal supplementsFollow- up careFollow up with your healthcare provider, or as advised. Contact one of the following for moreinformation: [place] [employer], www.aakp.org National Kidney Foundation, www.kidney.org [place] [employer], www.kidneyfund.org National Kidney Disease Education Program, www.nkdep.nih.govCall 911Call 911 if any of the following occur: Severe weakness, dizziness, fainting, drowsiness, or confusion Chest pain or shortness of breath Heart beating fast, slowly, or irregularlyWhen to get medical adviceCall your healthcare provider right away if any of these occur: Nausea or vomiting Fever of 100.4F (38C) or higher, or as directed by your healthcare provider 7 General Instructions [facility] Emergency Department [address] [place] [address] Phone #: ext- [phone] 08:22 Patient: MARTELL SANTOYO Sex: F : 1940 Age: 81y Unexpected weight gain or swelling in the legs, ankles, or around your eyes You don't urinate as much as normal, or you aren't able to urinate [employer]. [address] [place] [address]. All rights reserved. This information is not intended as asubstitute for professional medical care. Always follow your healthcare professional's instructions. You have been given the following additional information: Abdominal Pain, Unknown Cause, (Female) Renal Insufficiency(Electronically signed by Cristo Lindsey 2021 13:27) Name Value Range Interpretation Code Description Data Michelle rce(s) Supporting Document(s) ID Date Data Source [id number] 2021 08:23:00 AM EDT [facility] 1 Clinical Report - Nurses [facility] Emergency Department [address] [place] [address] Phone #: ext- [phone] 08:22 Patient: MARTELL SANTOYO Sex: F : 1940 Age: 81yTRIAGEArrived by EMS. Historian: EMS and patient. ( presents via amb with c/o chronic lower abd. pain buthasnt been sleeping well and pain seems worse today. has hx of anxiety and her told her this all may berelated to that.).Triage time: 08:26 2021. Acuity: LEVEL 3.Chief Complaint: ABDOMINAL PAIN and DIARRHEA.Alert. No acute distress.Onset. (1 months). 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 SEPSIS SCREEN NEGATIVE. No suspected or confirmedsigns of infection present. --08:47 03/04/21 Liana Vo RN08:26 03/04/21. BP: 159/84. MAP: 109. HR: 71. RR: 18. O2 saturation: 95%. Temp: 98.1 F. Pain levelnow: 10. --08:47 03/04/21 Liana Vo RN.Weight: 73.4 kg stated. Height/Length: 59 inches Per Patient. BMI: 32.7. --08:26 03/04/21 Liana Vo RN.MedicationsNorvasc Oral 5 mg, daily. --08:37 03/04/21 Liana Vo RN clonazePAM Oral 0.5 mg, at bedtime. --08:37 03/04/21 Liana Vo RN Pepcid Oral 20 mg, daily. --08:37 03/04/21 Liana Vo RN Vitamin D Oral 1000u, daily. --08:38 03/04/21 Liana Vo RN Magnesium Oral 200 mg, daily. --08:38 03/04/21 Liana Vo RN Tramadol HCL Oral 50 mg, as needed. --08:38 03/04/21 Liana Vo RN Fish Oil Oral (Capsule 1000 mg), daily. --08:39 03/04/21 Liana Vo RN.AllergiesSulfa Antibiotics. --08:44 03/04/21 Liana Vo RNCiprofloxin HCl. --08:45 03/04/21 Liana Vo RNMacrobid. --08:45 03/04/21 Liana Vo, RNAmoxicillin. --08:45 03/04/21 Liana Vo, RNAspirin. --08:46 03/04/21 Liana Vo RN.PROBLEMS: 2 Clinical Report - Nurses [facility] Emergency Department [address] [place] [address] Phone #: ext- [phone] 08:22 [id number] Sex: F : 1940 Age: 81y L shoulder pain. Anxiety Reaction. Hypertension. Nephropathy. --08:46 03/04/21 Liana Vo RN. Medication/allergy information source: the patient. --08:47 03/04/21 Liana Vo RN. ADDITIONAL SURGERIES: Carpal Tunnel Surgery. Cataract Surgery. Hysterectomy. Plantar fasciotomy. Tonsillectomy. --08:46 03/04/21 Liana Vo RN. History PAST MEDICAL HX: Immunizations: (covid vaccine). SOCIAL HX: Never smoker. No alcohol use or drug use. No recent travel. No known contact with a sick individual. She was offered HIV testing but declined and hepatitis C testing but declined. She has not traveled outside the [place] Infectious disease exposure: No infectious disease exposure. SELF HARM ASSESSMENT: Self harm assessment was performed. The patient answered "no" to the question(s) "Have you recently felt down, depressed, or hopeless?". ABUSE ASSESSMENT: No report of abuse. NUTRITIONAL RISK ASSESSMENT: The nutritional risk assessment revealed no deficiencies. FUNCTIONAL ASSESSMENT: Functional assessment: no impairments noted. LEARNING NEEDS ASSESSMENT: The learning needs assessment revealed no barriers. FALL RISK ASSESSMENT: Fall risk assessment completed. Risk factors identified include patient medications, age greater than 65 years and impairment of mobility and cognition. Fall interventions initiated. Patient placed on stretcher. Side rails up x2. Bed in low position. Brakes on. Call light in reach of patient. SKIN INTEGRITY ASSESSMENT: Skin integrity risk assessment completed. No skin integrity risk identified. --08:47 03/04/21 Liana Vo RN. FAMILY HX: Father: Essential Hypertension. --08:50 03/04/21 Cristo Lindsey.PHYSICAL ASSESSMENTTo room via stretcher. 3 Clinical Report - Nurses [facility] Emergency Department [address] [place] [address] Phone #: ext- [phone] 08:22 Patient: MARTELL SANTOYO Sex: F : 1940 Age: 81y GENERAL / NEURO / PSYCH: Alert. Oriented X 4. Appears in no acute distress. HEENT: Mucous membranes are pink. RESPIRATORY: Respirations not labored. Breath sounds within normal limits. CVS: Capillary refill less than 2 seconds. GI / : The patient has had nausea and diarrhea. Abdomen soft. Abdominal tenderness in the lower abdomen. Bowel sounds within normal limits. SKIN: Skin is warm and dry. --08:48 03/04/21 Liana Vo RN.NURSING PROGRESS NOTESPatient gowned. Reassurance given. Two patient identifiers checked. Bed placed in lowest position.Brakes of bed on. Patient ready for evaluation. --08:48 03/04/21 Liana Vo RN 08:56 2021 Acetaminophen PO Tablets 650 mg given. Allergies verified and confirmed 5 rights. --08:56 03/04/21 Arnulfo Shearer RN Checked patient name and birthdate: patient confirmed. Blood samples drawn by tech. (0900). Checked patient name and birthdate: patient confirmed. Clean catch urine collected; sample sent to lab for urinalysis. Specimen labeled in the presence of the patient (0900). --08:59 03/04/21 Arnulfo Shearer RN 10:15 03/04/21. BP: 154/63. HR: 64. RR: 16. O2 saturation: 97%. --10:15 03/04/21 [facility] Tech1 10:56 03/04/21. BP: 147/74. HR: 66. RR: 16. O2 saturation: 96%. --10:56 03/04/21 [facility] Tech1.DISPOSITION / DISCHARGE 11:18 03/04/21. BP: 139/78. HR: 76. RR: 16. O2 saturation: 97%. Temp: 98.1 F. Pain level now 5/10. --11:18 03/04/21 [facility] TechArlene ER Tech1 11:26 03/04/21. Condition at departure: improved and stable. No learning barriers present. Discharge instructions provided and reviewed with the patient. Patient verbalized understanding. Written instructions provided in Nigerien. The patient was discharged by the physician. She was discharged home and accompanied by junior art director. She left via p [employer] vehicle. Silk Spooler driving. --12:26 03/04/21 Ronda Hope R.N.Locked/Released at 2021 12:26 by Ronda Hope R.N. Name Value Range Interpretation Code Description Data Michelle rce(s) Supporting Document(s) ID Date Data Source [id number] 2021 08:23:00 AM EDT [facility] 1 Clinical Report - Physicians/Mid Levels [facility] Emergency Department [address] [place] [address] Phone #: ext- [phone] 08:22 Patient: MARTELL SANTOYO Sex: F : 1940 Age: 81y Time Seen: 08:38 2021. Arrived- By ambulance. Historian- patient.HISTORY OF PRESENT ILLNESS Chief Complaint: ABDOMINAL PAIN. This started weeks and is still present. It has been intermittent. At its maximum, severity described as mild. When seen in the E.D., severity described as mild. Modifying factors. Not worsened by anything. Not relieved by anything. The patient has had loss of appetite and fatigue. No weight loss, headache, visual disturbance, muscle aches or weakness. Denies sleep problem. No decreased urine output. (Patient has multiple complaints ranging from diminished appetite, poor sleeping, fatigue, abdominal pain, diarrhea, and anxiety. Patient also worried about low blood sugar. She states her doctor is trying to adjust her clonazepam dose. occasional diarrhea and lower abdominal pain on and off for 4 weeks). Similar symptoms pre viously. Recent medical care: The patient was seen recently in the emergency department. ( Seen at [facility] for possible adverse effect from Zoloft).REVIEW OF SYSTEMSNo fever, sinus drainage, cough, difficulty breathing or chest pain. No nausea, vomiting, black stools,difficulty with urination or back pain. No headache. She has had abdominal pain and diarrhea. All othersystems reviewed and are negative.PAST HISTORYSee nurses notes. No history of diabetes mellitus. Problems: Spinal Stenosis. Anxiety Reaction. Hypertension. Nephropathy. Additional Surgeries: Carpal Tunnel Surgery. Cataract Surgery. Hysterectomy. Plantar fasciotomy. Tonsillectomy. Medications: 2 Clinical Report - Physicians/Mid Levels [facility] Emergency Department [address] [place] [address] Phone #: ext- [phone] 08:22 [id number] Sex: F : 1940 Age: 81y Fish Oil Oral (Capsule 1000 mg), daily. Tramadol HCL Oral 50 mg, as needed. Magnesium Oral 200 mg, daily. Vitamin D Oral 1000u, daily. Pepcid Oral 20 mg, daily. clonazePAM Oral 0.5 mg, at bedtime. Norvasc Oral 5 mg, daily. Allergies: Amoxicillin. Aspirin. Ciprofloxin HCl. Macrobid. Sulfa Antibiotics.SOCIAL HISTORYNever smoker.FAMILY HISTORYFather: Essential Hypertension.ADDITIONAL NOTESThe nursing notes have been reviewed.PHYSICAL EXAMVital Signs: 2021 08:26 BP: 159/84. MAP: 109. HR: 71. RR: 18. O2 saturation: 95%. Temp: 98.1 F.Pain level now: 4/10.Appearance: Alert. No acute distress. Anxious.Eyes: Pupils equal, round and reactive to light.ENT: Pharynx normal.Neck: Normal inspection. Neck supple.CVS: Normal heart rate and rhythm. Heart sounds normal. Pulses normal.Respiratory: No respiratory distress. Breath sounds normal. Chest nontender.Abdomen: No visible injury. Soft and nontender. Bowel sounds normal. No organomegaly.Back: Normal inspection.Skin: Skin warm and dry. Normal skin color. Normal skin turgor.Extremities: Extremities exhibit normal ROM. No lower extremity edema.Neuro: Oriented X 3. No motor deficit. No sensory deficit.LABS, X-RAYS, AND EKGAbdominal CT: Normal aorta. No mass. No naomi e fluid. No dilated ureter. renal and hepatic cyst.Abdominal CT performed without contrast. The study was interpreted by the radiologist.Laboratory Tests: CBC w Diff: (OSITO: 2021 09:00) ( MsgRcvd 2021 09:34) Final results Test Result Flag Units (Reference) 3 Clinical Report - Physicians/[facility] Emergency Department [address] [place] [address] Phone #: ext- [phone] 08:22 Patient: MARTELL SANTOYO Sex: F : 1940 Age: 81y CBC W/AUTOMATED DIFF COMPLETE BLOOD COUNT WBC 7.4 10/uL (4.2 - 11.0) RBC 3.74 L 10/uL (4.20 - 5.40) HEMOGLOBIN 11.9 L g/dL (12.0 - 16.0) HEMATOCRIT 36.7 L % (37.0 - 47.0) MCV 98.1 fL (81.0 - 101) MCH 31.8 pg (27.0 - 34.0) MCHC 32.4 g/dL (31.0 - 36.0) RDW 13.6 % (11.5 - 14.5) PLATELETS 249 10/uL (150 - 450) MPV 9.0 fL (7.4 - 10.4) NEUT 67.3 % (37.0 - 80.0) LYMPH 18.6 L % (25.0 - 40.0) MONO 9.6 H % (3.0 - 8.0) EOS 3.7 % (0.0 - 7.0) BASO 0.5 % (0.0 - 2.5) %IG 0.3 H % (0.0 - 0.0) %NRBC 0.0 % (0.0 - 0.0) #NEUT 4.96 10/uL (2.00 - 6.90) #LYMPH 1.37 10/uL (0.60 - 3.40) #MONO 0.71 10/uL (0.00 - 0.90) #EOS 0.27 10/uL (0.00 - 0.70) #BASO 0.04 10/uL (0.00 - 0.20) #IG 0.02 10/uL (0.00 - 0.10) #NRBC 0.00 10/uL (0.00 - 0.00) MANUAL DIFF NOT INDICATED RBC MORPH NOT INDICATEDCMP: (OSITO: 2021 09:00) ( MsgRcvd 2021 09:33) Final results Test Result Flag Units (Reference) COMPREHENSIVE METABOLIC PANEL COMPREHENSIVE METABOLIC PANEL SODIUM 144 mEq/L (134 - 153) POTASSIUM 4.0 mEq/L (3.6 - 5.0) CHLORIDE 109 H mEq/L (98 - 107) CO2 25 MEQ/L (22 - 30) GLUCOSE 104 H MG/DL (70 - 99) BUN 24 H MG/DL (7 - 21) CREATININE 2.0 H MG/DL (0.7 - 1.5) BUN/CREAT 12 (8 - 27) TOTAL PROTEIN 6.5 G/DL (6.3 - 8.2) ALBUMIN 3.9 G/DL (3.9 - 5.0) GLOBULIN 2.6 GM/DL (2.4 - 3.2) A/G RATIO 1.5 (0.8 - 2.0) CALCIUM 10.1 MG/DL (8.4 - 10.2) TOTAL BILI <0.7 MG/DL (0.2 - 1.3) ALKALINE PHOS 48 U/L (38 - 126) SGOT/AST 18 U/L (5 - 40) SGPT/ALT 10 U/L (7 - 56) ANION GAP 10.0 mmol/L (8.0 - 16.0) AGE 81 yrs NON- AA GFR 25 mL/min AFR AMER GFR >60 Male GFR Interprentation 20-49 yrs >60 mL/min Lnwbgk13-95 yrs >56 mL/min Normal 60-69 yrs >49 mL/min Normal 70-79yrs>42 mL/min Normal 80 and above >35 mL/min Normal Female GFRInterpretation 20-39 yrs >60 mL/min Normal 40-49 yrs >58 mL/minNormal 50-59 yrs >51 mL/min Normal 60-69 yrs >45 mL/min Normal 4 Clinical Report - Physicians/Mid Levels [facility] Emergency Department [address] [place] [address] Phone #: ext- [phone] 08:22 Patient: MARTELL SANTOYO Sex: F : 1940 Age: 81y 70-79 yrs >39 mL/min Normal 80 and above >32 mL/min Normal Lipase: (OSITO: 2021 09:00) ( MsgRcvd 2021 09:26) Final results Test Result Flag Units (Reference) LIPASE 36 U/L (13 - 60) Urinalysis: (OSITO: 2021 08:55) ( MsgRcvd 2021 09:34) Final results Test Result Flag Units (Reference) URINALYSIS URINALYSIS SOURCE R COLOR yellow (NORMAL: Yello CLARITY clear (NORMAL: Clear SPEC GRAVITY 1.010 (1.001 - 1.030 pH 7 (5 - 9) GLUCOSE NORM (NORMAL: Negat BILIRUBIN NEG (NORMAL: Negat KETONE NEG (NORMAL: Negat PROTEIN 30 (NORMAL: Negat NITRITE NEG (NORMAL: Negat BLOOD NEG (NORMAL: Negat LEUK EST 25 (NORMAL: Negat UROBILINOGEN NOR (less than 1.0 MICROSCOPIC See Below WBC 1 - 3 (NORMAL: NONE EPITHELIAL FEW (NORMAL: NONE BACTERIA Trace (NORMAL: NONE.PROGRESS AND PROCEDURESCourse of Care: 08:53 03/04/21. Laboratories from 01/15 noted. history of chronic renal disease. Howeverabdominal exam is unremarkable. Records from family care reviewed. 09:37 03/04/21. Creatinine does not appear to be worse than baseline. vital signs normal. Last creatinine in December was 1.9. 10:56 03/04/21. Multiple cysts on kidneys and liver. Most likely chronic condition. Her complaints today suggestive of more chronic nature. Old medical records ordered. Disposition: Discharged. Condition: stable.CLINICAL IMPRESSION Chronic generalized abdominal pain of undetermined cause. Mild chronic renal in sufficiency. 5 Clinical Report - Physicians/Mid Levels [facility] Emergency Department [address] [place] [address] Phone #: ext- [phone] 08:22 Patient: MARTELL SANTOYO Sex: F : 1940 Age: 81yINSTRUCTIONS Warnings: Further evaluation is necessary. GENERAL WARNINGS: Return or contact your physician immediately if your condition worsens or changes unexpectedly, if not improving as expected, or if other problems arise. Your Current Medications: Your current home medications have been reviewed. CONTINUE TAKING THE FOLLOWING MEDICATIONS: clonazePAM Oral : 0.5 mg, at bedtime. Fish Oil Oral : Capsule 1000 mg, daily. Magnesium Oral : 200 mg daily. Norvasc Oral : 5 mg daily. Pepcid Oral : 20 mg daily. Tramadol HCL Oral : 50 mg, prn. Vitamin D Oral : 1000u daily. Follow-up: Follow up with your healthcare provider. Understanding of the discharge instructions verbalized by patient.(Electronically signed by Cristo Lindsey 2021 13:27) Name Value Range Interpretation Code Description Data Michelle rce(s) Supporting Document(s) ID Date Data Source [id number] 2021 09:34:00 AM EDT [facility] Name Value Range Interpretation Code Description Data [facility](s) Supporting Document(s) CBC W/AUTOMATED DIFF [facility] COMPLETE BLOOD COUNT Leukocytes [#/volume] in Blood by Automated count 7.4 10^3/uL 4.2 - 1 1.0 [facility] Erythrocytes [#/volume] in Blood by Automated count 3.74 10^6/uL 4. 20 - 5.40 L [facility] Hemoglobin [Mass/volume] in Blood 11.9 g/dL 12.0 - 16.0 L [facility] Hematocrit [Volume Fraction] of Blood by Automated count 36.7 % 3 7.0 - 47.0 L [facility] Erythrocyte mean corpuscular volume [Entitic volume] by Auto mated count 98.1 fL 81.0 - 101 [facility] Erythrocyte mean corpuscular hemoglobin [Entitic mass] by Automated count 31.8 pg 27.0 - 34.0 [facility] Erythrocyte mean corpuscular hemoglobin concentration [Mass/volume] by Automated count 32.4 g/dL 31.0 - 36.0 [facility] Erythrocyte distribution width [Ratio] by Automated count 13.6 % 11.5 - 14.5 [facility] Platelets [#/volume] in Blood by Automated count 249 10^3/uL 150 - 45 0 [facility] Platelet mean volume [Entitic volume] in Blood by Automated count 9.0 fL 7.4 - 10.4 [facility] Neutrophils/100 leukocytes in Blood by Automated count 67.3 % 37. 0 - 80.0 [facility] Lymphocytes/100 leukocytes in Blood by Manual count 18.6 % 25.0 - 40.0 L [facility] Monocytes/100 leukocytes in Blood by Automated count 9.6 % 3.0 - 8.0 [facility] Eosinophils/100 leukocytes in Blood by Automated count 3.7 % 0.0 - 7.0 [facility] Basophils/100 leukocytes in Blood by Automated count 0.5 % 0.0 - 2.5 [facility] %IG 0.3 % 0.0 - 0.0 [facility] al %NRBC 0.0 % 0.0 - 0.0 [facility] al Neutrophils [#/volume] in Blood by Automated count 4.96 10^3/uL 2.00 - 6.90 [facility] Lymphocytes [#/volume] in Blood by Automated count 1.37 10^3/uL 0.60 - 3.40 [facility] Monocytes [#/volume] in Blood by Automated count 0.71 10^3/uL 0.00 - 0.90 [facility] Eosinophils [#/volume] in Blood by Automated count 0.27 10^3/uL 0.00 - 0.70 [facility] Basophils [#/volume] in Blood by Automated count 0.04 10^3/uL 0.00 - 0.20 [facility] #IG 0.02 10^3/uL 0.00 - 0.10 [facility] ospital #NRBC 0.00 10^3/uL 0.00 - 0.00 [facility] ospital MANUAL DIFF NOT INDICATED [facility] RBC MORPH NOT INDICATED [facility] spital ID Date Data Source [id number] 2021 09:33:00 AM EDT [facility] Name Value Range Interpretation Code Description Data Michelle rce(s) Supporting Document(s) COMPREHENSIVE METABOLIC PANEL [facility] COMPREHENSIVE METABOLIC PANEL Sodium [Moles/volume] in Serum or Plasma 144 mEq/L 134 - 153 [facility] Potassium [Moles/volume] in Serum or Plasma 4.0 mEq/L 3.6 - 5.0 [facility] Chloride [Moles/volume] in Serum or Plasma 109 mEq/L 98 - 107 [facility] Carbon dioxide, total [Moles/volume] in Serum or Plasma 25 MEQ/L 22 - 30 [facility] Glucose [Mass/volume] in Serum or Plasma 104 MG/DL 70 - 99 [facility] BUN 24 MG/DL 7 - 21 [facility] al Creatinine [Mass/volume] in Serum or Plasma 2.0 MG/DL 0.7 - 1.5 [facility] BUN/CREAT 12 8 - 27 [facility] al Protein [Mass/volume] in Serum or Plasma 6.5 G/DL 6.3 - 8.2 [facility] Albumin [Mass/volume] in Serum or Plasma 3.9 G/DL 3.9 - 5.0 [facility] Globulin [Mass/volume] in Serum by calculation 2.6 GM/DL 2.4 - 3.2 [facility] A/G RATIO 1.5 0.8 - 2.0 [facility] Calcium [Mass/volume] in Serum or Plasma 10.1 MG/DL 8.4 - 10.2 [facility] Bilirubin.total [Mass/volume] in Serum or Plasma <0.7 MG/DL 0.2 - 1.3 [facility] Alkaline phosphatase [Enzymatic activity/volume] in Serum or Plasma 48 U/L 38 - 126 [facility] Aspartate aminotransferase [Enzymatic activity/volume] in Serum or Plasma 18 U/L 5 - 40 [facility] Alanine aminotransferase [Enzymatic activity/volume] in Seru m or Plasma 10 U/L 7 - 56 [facility] Anion gap 3 in Serum or Plasma 10.0 mmol/L 8.0 - 16.0 [facility] AGE 81 yrs [facility] al NON-AA GFR 25 mL/min [facility] AFR AMER GFR >60 [facility] Male GFR In terprentation 20-49 yrs >60 mL/min Normal 50-59 yrs >56 mL/min Normal 60-69 yrs >49 mL/min Normal 70-79yrs >42 mL/min Normal 80 and above >35 mL/min Normal Female GFR Interpretation 20-39 yrs >60 mL/min Normal 40-49 yrs >58 mL/min Normal 50-59 yrs >51 mL/min Normal 60-69 yrs >45 mL/min Normal 70-79 yrs >39 mL/min Normal 80 and above >32 mL/min Normal ID Date Data Source [id number] 2021 09:26:00 AM EDT [facility] Name Value Range Interpretation Code Description Data Michelle rce(s) Supporting Document(s) Lipase [Enzymatic activity/volume] in Serum or Plasma 36 U/L 13 - 60 [facility] ID Date Data Source [id number] 2021 09:33:00 AM EDT [facility] Name Value Range Interpretation Code Description Data Michelle rce(s) Supporting Document(s) [facility]YSIS [facility] UR[facility] SOURCE [facility] COLOR yellow NORMAL: Yellow [facility] CLARITY clear NORMAL: Clear [facility] Specific gravity of Urine by Test strip 1.010 1.001 - 1.030 [facility] pH 7 5 - 9 [facility] al Glucose [Mass/volume] in Urine by Test strip NORM NORMAL: Negat [facility] Bilirubin.total [Presence] in Urine by Test strip NEG NORMAL: Negative [facility] Ketones [Presence] in Urine by Test strip NEG NORMAL: Negative [facility] Protein [Mass/volume] in Urine by Test strip 30 NORMAL: Negat [facility] Nitrite [Presence] in Urine by Test strip NEG NORMAL: Negative [facility] BLOOD NEG NORMAL: Negative [facility] LEUK EST 25 NORMAL: Negative [facility] Urobilinogen [Mass/volume] in Urine by Test strip NOR less venessa n 1.0 mg/dL [facility] MICROSCOPIC See Below [facility] WBC 1 - 3 NORMAL: NONE SEEN [facility] EPITHELIAL FEW NORMAL: NONE SEEN [facility] Bacteria [Presence] in Urine sediment by Light microscopy Tr brice NORMAL: NONE SEEN [facility] ID Date Data Source [id number] 01/16/2021 02:21:00 PM EDT [facility] ([facility]) Name Value Range Interpretation Code Description Data Michelle rce(s) Supporting Document(s) Laboratory test finding (navigational concept) Laboratory test result [facility] ([facility]) No further treatment Laboratory test finding (navigational concept) Laboratory test result [facility] ([facility]) No further treatment ID Date Data Source [id number] 01/16/2021 02:21:00 PM EDT [facility] ([facility]) Name Value Range Interpretation Code Description Data Michelle rce(s) Supporting Document(s) Laboratory test finding (navigational concept) Laboratory test result [facility]) ID Date Data Source [id number] 11/09/2020 10:24:00 AM EDT [facility] Name Value Range Interpretation Code Description Data Michelle rce(s) Supporting Document(s) SARS-CoV-2 (COVID 19) NEGATIVE - SARS-CoV-2 (COVID19) [facility] This lab was ordered by [facility] a nd reported by [facility]. ID Date Data Source [id number] 06/27/2020 09:38:00 AM EST [facility] ([facility] Name Value Range Interpretation Code Description Data Michelle rce(s) Supporting Document(s) White Blood Count 6.1 10 4.0-10.0 [facility] ([facility] Red Blood Count 3.68 10 4.00-5.40 [facility] ([facility] Hemoglobin 11.2 g/dL 12.0-15.5 [facility] ([facility] Mean Corpuscular Volume 99.5 fl 80.0-96.0 [facility] ([facility] Hematocrit 36.6 % 36.0-47.0 [facility] ([facility] Mean Corpuscular Hemoglobin 30.4 pg 27.0-33.0 [facility] ([facility] Red Cell Distribution Width 13.0 % 11.5-14.5 [facility] ([facility] Mean Corpuscular HGB Conc 30.6 g/dL 32.0-36.5 [facility] ([facility] Lymph % 27.2 % 24.0-44.0 [facility] ([facility] Neutrophils % 55.3 % 36.0-66.0 [facility] ([facility] Platelet Count, Automated 232 10 150-450 [facility] ([facility] Eos % 7.2 % 0.0-3.0 [facility] ([facility] Baso % 0.7 % 0.0-1.0 [facility] ([facility] Graves % 9.3 % 0.0-5.0 [facility] ([facility] Nucleated Red Blood Cell % 0.0 % 0-0 [facility] ([facility] Immature Granulocyte % 0.3 % 0-3.0 [facility] ([facility] Neutrophils # 3.4 10 1.5-8.5 [facility] ([facility] Lymph # 1.7 10 1.5-5.0 [facility] ([facility] Graves # 0.6 10 0.0-0.8 [facility] ([facility] Eos # 0.4 10 0.0-0.5 [facility] ([facility] Baso # 0.0 10 0.0-0.2 [facility] ([facility] ID Date Data Source [id number] 06/27/2020 09:38:00 AM EST [facility] ([facility] Name Value Range Interpretation Code Description Data Michelle rce(s) Supporting Document(s) Glucose, Fasting 94 mg/dL 70-100 [facility] ([facility] Blood Urea Nitrogen 29 mg/dL 7-18 [facility] ([facility] Glomerular Filtration Rate 22.9 [facility] ([facility] <content>Units are mL/min/1.73 m2</content>
<content></content>
<content>Chronic Kidney Disease Staging per NKF:</content>
<content></content>
<content>Stage I & II GFR >=60 Normal to Mildly Decreased</content>
<content>Stage III GFR 30- 59 Moderately Decreased</content>
<content>Stage IV GFR 15-29 Severely Decreased</content>
<content>Stage V GFR <15 Very Little GFR Left</content>
<content>ESRD GFR <15 on MACHINE DESIGN ENGINEER</content>
<content></content> Creatinine For GFR 2.20 mg/dL 0.55-1.30 [facility] ([facility] Potassium Serum 4.3 meq/L 3.5-5.1 [facility] ([facility] Sodium Level 144 meq/L 136-145 [facility] ([facility] Chloride Level 113 meq/L 98-107 [facility] ([facility] Carbon Dioxide Level 25 meq/L 21-32 [facility] ([facility] Calcium Level 9.2 mg/dL 8.8-10.2 [facility] ([facility] Anion Gap 6 meq/L 8-16 [facility] ([facility] Alkaline Phosphatase 55 U/L 45-117 [facility] ([facility] Ast/Sgot 14 U/L 7-37 [facility] ([facility] Alt/SGPT 17 U/L 12-78 [facility] ([facility] Albumin 3.4 GM/DL 3.2-5.2 [facility] ([facility] Bilirubin,Total 0.6 mg/dL 0.2-1.0 [facility] ([facility] Total Protein 6.6 GM/DL 6.4-8.2 [facility] ([facility] Albumin/Globulin Ratio 1.1 1.2-2.2 [facility] ([facility] ID Date Data Source [id number] 05/22/2020 12:00:00 AM EDT [facility] Sav Rosario Patient Name: MARTELL [id number] Date of : 1940[place] [address] Date of Exam: 05/22/2020#: Fax: [phone] EXAM: MAMMO SCREENING WITH CADCLINICAL INFORMATION: Screening.Based on the personal and family history information your patient suppliedat the time of imaging, her lifetime risk of breast cancer estimated by theTyrer-Cuzick model is 2.2%. Given that this patient has less than 20% TCrisk score, no further medical management is currently recommended at thistime.Digital screening (2D) mammography was performed bilaterally in the CC andMLO projections. A dditionally, breast tomosynthesis (3D mammography) wasperformed bilaterally in the CC and MLO projections. Today's exam wascompared to the prior exam(s).By history, the patient has no complaints of a palpable breast abnormalityor other significant breast complaints.The patient states that a clinical breast exam was not performed.The breasts are unchanged in size and shape. There are no tanisha- soft tissuedensities or spiculated masses. There is no internal architecturaldistortion. There are no suspicious tanisha-calcific clusters. Skinthickening or nipple retraction is not present. Benign calcifications areagain seen bilaterally.The Volpara volumetric breast density category is B, there are scatteredareas of fibroglandular density.IMPRESSION:BI-RADS Category 2 - Benign Finding(s). Stable mammogram. There is noevidence of malignant alteration of the breasts. Followup examinationrecommended in one year.This mammogram was read with the assistance of [employer] an FDAapproved computer aided detection system for mammography.Negative x-ray reports should not delay surgical consultation if a dominantor clinically suspicious mass is present.Not all breast cancers can be identified by mammography. Therefore, werecommend that you continue to perform regular breast self-examination andphysical examination and then promptly contact your physician of anyconcerns or changes.Adenosis and dense breasts may obscure an underlying neoplasm.HANS Patton/Denise you for referring MARTELL SANTOYO to our office. Electronically Signed - HAJA EAST DO 05/23/20 15:28 Name Value Range Interpretation Code Description Data Michelle rce(s) Supporting Document(s) Procedure Social History Code Duration Value Status Description Data Source(s ) Smoking 05/22/2021 12:00:00 AM EDT Unknown if ever smoked comp leted Unknown if ever smoked [facility] ([facility]) Smoking 05/21/2021 12:00:00 AM EDT Patient has never smoked co mpleted Patient has never smoked [facility] ([facility]) Smoking 05/17/2021 12:00:00 AM EDT Unknown if ever smoked comp leted Unknown if ever smoked [facility] ([facility]) Smoking 04/20/2021 12:00:00 AM EDT Never Smoked Cigarettes com pleted Never Smoked Cigarettes [facility] ([facility]) Smoking 04/19/2021 12:00:00 AM EDT Unknown if ever smoked comp leted Unknown if ever smoked [facility] ([facility]) Smoking 04/18/2021 06:33:32 AM EDT Never smoked tobacco (findi ng) completed Never smoked tobacco (finding) MICHELLE (Ba Dowell MD [facility]) Smoking 03/12/2021 12:00:00 AM EDT Patient has never smoked co mpleted Patient has never smoked [facility] ([facility] Smoking 03/06/2021 12:00:00 AM EDT Unknown if ever smoked comp leted Unknown if ever smoked [facility] ([facility]) Smoking 02/21/2021 12:00:00 AM EDT Unknown if ever smoked comp leted Unknown if ever smoked [facility] ([facility]) Smoking 02/14/2021 12:00:00 AM EDT Unknown if ever smoked comp leted Unknown if ever smoked [facility] ([facility]) Alcohol intake 08/09/2020 12:00:00 AM EST Never completed [facility] Smoking 08/09/2020 12:00:00 AM EST Never smoker completed Never s moker [facility] Vital Signs ID Date Data Source [id number] Name Value Range Interpretation Code Description Data Source(s) Systolic blood pressure 125 mm[Hg] 125 mm[Hg] [facility] ([facility], ) Diastolic blood pressure 80 mm[Hg] 80 mm[Hg] [facility] ([facility], ) Heart rate 74 /min 74 /min [facility] ([facility], ) Respiratory rate 14 /min 14 /min [facility] ( [facility], ) Body height 58.3 [in_i] 58.3 [in_i] [facility] ([facility], ) 4'10.30" Body weight 154.00 [lb_av] 154.00 [lb_av] [facility] ([facility], ) Body mass index (BMI) [Ratio] 31.9 kg/m2 31.9 k g/m2 [facility] ([facility], ) [place] body weight 100 [lb_av] 100 [lb_av] [facility] ([facility], ) Body height 59.00 in Normal (applies to non-numeric resu lts) 59.00 in [facility] ([facility]) Body weight Measured 156.00 lbs Normal (applies to n on-numeric results) 156.00 lbs [facility] ([facility]) Body mass index (BMI) [Ratio] 31.50 kg/m2 No rmal (applies to non-numeric results) 31.50 kg/m2 [facility] ([facility]) Systolic blood pressure 142 mm[Hg] Normal (applies t o non-numeric results) 142 mm[Hg] [facility] ([facility]) Diastolic blood pressure 81 mm[Hg] Normal (applies to non-numeric results) 81 mm[Hg] [facility] ([facility]) Heart rate 84 /min 84 /min [facility] ([facility]) Respiratory rate 17 /min 17 /min [facility] ( [facility], [facility]) Oxygen saturation in Arterial blood by Pulse oximetry 99 % 99 % [facility] ([facility]) Body temperature 97.7 [degF] 97.7 [degF] [facility] ([facility], [facility]) Body weight 155.00 [lb_av] 155.00 [lb_av] [facility] ([facility]) Body height 60 [in_i] 60 [in_i] [facility]) 5'0" Body mass index (BMI) [Ratio] 30.3 kg/m2 30.3 k g/m2 [facility] ([facility], [facility]) Systolic blood pressure 152 mm[Hg] 152 mm[Hg] M [facility] ([facility], [facility]) Diastolic blood pressure 82 mm[Hg] 82 mm[Hg] [facility] ([facility], [facility]) Body height 59.00 in Normal (applies to non-numeric resu lts) 59.00 in [facility] ([facility]) Body weight Measured 156.00 lbs Normal (applies to n on-numeric results) 156.00 lbs [facility] ([facility]) Body mass index (BMI) [Ratio] 31.50 kg/m2 No rmal (applies to non-numeric results) 31.50 kg/m2 [facility] ([facility]) Systolic blood pressure 142 mm[Hg] Normal (applies t o non-numeric results) 142 mm[Hg] [facility] ([facility]) Diastolic blood pressure 81 mm[Hg] Normal (applies to non-numeric results) 81 mm[Hg] [facility] ([facility]) Systolic blood pressure 148 mm[Hg] 148 mm[Hg] [facility] ([facility] Diastolic blood pressure 87 mm[Hg] 87 mm[Hg] [facility] ([facility] Respiratory rate 18 /min 18 /min [facility] ( [facility] Heart rate 86 /min 86 /min [facility] ([facility] Heart rate 81 /min 81 /min [facility] ([facility]) Body weight 162.19 [lb_av] 162.19 [lb_av] [facility] ([facility]) Body mass index (BMI) [Ratio] 32.8 kg/m2 32.8 k g/m2 [facility] ([facility]) Oxygen saturation in Arterial blood by Pulse oximetry 98 % 98 % [facility] ([facility]) Body height 59 [in_i] 59 [in_i] [facility] ([facility]) 4'11" Diastolic blood pressure 84 mm[Hg] 84 mm[Hg] [facility] ([facility]) Systolic blood pressure 128 mm[Hg] 128 mm[Hg] [facility] ([facility]) Systolic blood pressure 130 mm[Hg] 130 mm[Hg] [facility] ([facility]) Diastolic blood pressure 70 mm[Hg] 70 mm[Hg] [facility] ([facility]) Heart rate 81 /min 81 /min [facility] ([facility]) Body height 59 [in_i] 59 [in_i] [facility] ([facility]) 4'11" Body weight 165.00 [lb_av] 165.00 [lb_av] [facility] ([facility]) Body mass index (BMI) [Ratio] 33.3 kg/m2 33.3 k g/m2 [facility] ([facility]) Oxygen saturation in Arterial blood by Pulse oximetry 99 % 99 % [facility] ([facility]) Body temperature 97.8 [degF] 97.8 [degF] [facility] ([facility] Respiratory rate 16 /min 16 /min [facility] ( [facility] Body weight 165.38 [lb_av] 165.38 [lb_av] [facility] ([facility] [place] body weight 100 [lb_av] 100 [lb_av] [facility] ([facility] Body mass index (BMI) [Ratio] 33.7 kg/m2 33.7 k g/m2 [facility] ([facility] Body height 58.75 [in_i] 58.75 [in_i] [facility] ([facility] 4'10.75" Systolic blood pressure 162 mm[Hg] 162 mm[Hg] M [facility] ([facility] Diastolic blood pressure 85 mm[Hg] 85 mm[Hg] [facility] ([facility] Systolic blood pressure 136 mm[Hg] 136 mm[Hg] [facility] ([facility] Diastolic blood pressure 86 mm[Hg] 86 mm[Hg] [facility] Heart rate 75 /min 75 /min [facility] ([facility] Systolic blood pressure 163 mm[Hg] 163 mm[Hg] [facility] ([facility] Diastolic blood pressure 89 mm[Hg] 89 mm[Hg] [facility] Systolic blood pressure 150 mm[Hg] 150 mm[Hg] [facility] ([facility] recheck Diastolic blood pressure 85 mm[Hg] 85 mm[Hg] [facility] ([facility] recheck Heart rate 83 /min 83 /min [facility] ([facility] Body temperature 97.4 [degF] 97.4 [degF] [facility] ([facility] Body weight 165.50 [lb_av] 165.50 [lb_av] [facility] ([facility] Respiratory rate 14 /min 14 /min [facility] ( [facility] Body height 58.75 [in_i] 58.75 [in_i] [facility] ([facility] 4'10.75" [place] body weight 100 [lb_av] 100 [lb_av] [facility] ([facility] Body mass index (BMI) [Ratio] 33.7 kg/m2 33.7 k g/m2 [facility] ([facility] Heart rate 84 /min 84 /min [facility] ([facility] Diastolic blood pressure 78 mm[Hg] 78 mm[Hg] [facility] ([facility] recheck Systolic blood pressure 170 mm[Hg] 170 mm[Hg] [facility] ([facility] [place] body weight 100 [lb_av] 100 [lb_av] [facility] ([facility] Body temperature 97.1 [degF] 97.1 [degF] [facility] ([facility] Respiratory rate 16 /min 16 /min [facility] ( [facility] Body height 58.75 [in_i] 58.75 [in_i] [facility] ([facility] 4'10.75" Body weight 170.25 [lb_av] 170.25 [lb_av] [facility] ([facility] Body mass index (BMI) [Ratio] 34.7 kg/m2 34.7 k g/m2 [facility] ([facility] Diastolic blood pressure 83 mm[Hg] 83 mm[Hg] [facility] ([facility] Systolic blood pressure 139 mm[Hg] 139 mm[Hg] [facility] ([facility] recheck Body temperature 96.9 [degF] 96.9 [degF] [facility] ([facility] Body height 59 [in_i] 59 [in_i] [facility] ([facility]) 4'11" Body weight 169.00 [lb_av] 169.00 [lb_av] [facility] ([facility] ) Body mass index (BMI) [Ratio] 34.1 kg/m2 34.1 k g/m2 [facility] ([facility] ) Systolic blood pressure 142 mm[Hg] 142 mm[Hg] [facility] ([facility]) Diastolic blood pressure 82 mm[Hg] 82 mm[Hg] [facility] ([facility]) Body weight 167.00 [lb_av] 167.00 [lb_av] [facility] ([facility]) Respiratory rate 18 /min 18 /min [facility] ( [facility]) Systolic blood pressure 169 mm[Hg] 169 mm[Hg] [facility] ([facility] Systolic blood pressure 151 mm[Hg] 151 mm[Hg] [facility] ([facility] recheck Diastolic blood pressure 78 mm[Hg] 78 mm[Hg] [facility] ([facility] recheck Heart rate 80 /min 80 /min [facility] ([facility] Body temperature 97.3 [degF] 97.3 [degF] [facility] ([facility] Body height 58.75 [in_i] 58.75 [in_i] [facility] ([facility] 4'10.75" Body weight 173.25 [lb_av] 173.25 [lb_av] [facility] ([facility] Body mass index (BMI) [Ratio] 35.3 kg/m2 35.3 k g/m2 [facility] ([facility] Oxygen saturation in Arterial blood by Pulse oximetry 98 % 98 % [facility] ([facility] Diastolic blood pressure 83 mm[Hg] 83 mm[Hg] [facility] ([facility] Respiratory rate 14 /min 14 /min [facility] ( [facility] [place] body weight 100 [lb_av] 100 [lb_av] [facility] ([facility] Systolic blood pressure 138 mm[Hg] 138 mm[Hg] [facility] Diastolic blood pressure 72 mm[Hg] 72 mm[Hg] [facility] Heart rate 62 /min 62 /min [facility] Body height 149.9 cm 149.9 cm [facility] Body weight 83.008 kg 83.008 kg [facility] Body mass index (BMI) [Ratio] 36.96 kg/m2 36.96 kg/m2 [facility] Oxygen saturation in Arterial blood by Pulse oximetry 98 % 98 % [facility] Systolic blood pressure 169 mm[Hg] 169 mm[Hg] [facility] ([facility] Diastolic blood pressure 98 mm[Hg] 98 mm[Hg] [facility] Body temperature 97.0 [degF] 97.0 [degF] [facility] ([facility] Systolic blood pressure 169 mm[Hg] 169 mm[Hg] [facility] ([facility] Diastolic blood pressure 88 mm[Hg] 88 mm[Hg] [facility] ([facility] Heart rate 77 /min 77 /min [facility] ([facility] Respiratory rate 14 /min 14 /min [facility] ( [facility] Body height 59.75 [in_i] 59.75 [in_i] [facility] ([facility] 4'11.75" Body weight 184.38 [lb_av] 184.38 [lb_av] [facility] ([facility] Oxygen saturation in Arterial blood by Pulse oximetry 98 % 98 % [facility] ([facility] [place] body weight 100 [lb_av] 100 [lb_av] [facility] ([facility] Body mass index (BMI) [Ratio] 36.3 kg/m2 36.3 k g/m2 [facility] ([facility] Patient Treatment Plan of Care Planned Activity Planned Date Details Description Data Source (s) Clotrimazole 10 MG/ML Topical Cream 07/03/2020 12:00:00 AM EST [facility] Meclizine Hydrochloride 12.5 MG Oral Tablet [facility] Multiple Vitamin (MULTI-DAY PO) [facility]
[2021-06-04 09:45] LABS: BASO # 0.1 10^3/uL (0.0-0.2); BASO % 0.7 % (0.0-1.0); EOS # 0.3 10^3/uL (0.0-0.5); EOS % 3.7 % (0.0-3.0); HEMATOCRIT 35.7 % (36.0-47.0); HEMOGLOBIN 11.5 g/dl (12.0-15.5); LYMPH # 1.2 10^3/uL (1.5-5.0); LYMPH % 16.9 % (24.0-44.0); MEAN CORPUSCULAR HEMOGLOBIN 31.5 pg (27.0-33.0); MEAN CORPUSCULAR HGB CONC 32.2 g/dl (32.0-36.5); MEAN CORPUSCULAR VOLUME 97.8 fl (80.0-96.0); MONO # 0.7 10^3/uL (0.0-0.8); MONO % 10.1 % (2.0-8.0); NEUTROPHILS # 4.7 10^3/uL (1.5-8.5); NEUTROPHILS % 68.3 % (36.0-66.0); PLATELET COUNT, AUTOMATED 238 10^3/uL (150-450); RED BLOOD COUNT 3.65 10^6/uL (4.00-5.40); WHITE BLOOD COUNT 6.8 10^3/uL (4.0-10.0)
--- OUTSIDE RECORDS SUMMARY | 2021-06-04 10:02 | CCD ---
Author Author [facility] Organization [facility] Address Unknown Phone Unavailable Care Team Providers Care Linux Vmware Administrator Name Role Phone Doroteo Jimenez Unavailable Cristo Lindsey MD Unavailable Unavailable Cristo Lindsey MD Unavailable Unavailable Cristo Lindsey MD Unavailable Unavailable Cristo Lindsey MD Unavailable Unavailable Cristo Lindsey MD Unavailable Unavailable Cristo Lindsey MD Unavailable Unavailable Cherie Iglesias Unavailable Pleskach, Sapna BIOINFORMATICS SUPPORT SPECIALIST Unavailable Unavailable Pleskach, Sapna BIOINFORMATICS SUPPORT SPECIALIST Unavailable Unavailable Pleskach, Sapna BIOINFORMATICS SUPPORT SPECIALIST Unavailable Unavailable Pleskach, Sapna BIOINFORMATICS SUPPORT SPECIALIST Unavailable Unavailable Pleskach, Sapna BIOINFORMATICS SUPPORT SPECIALIST Unavailable Unavailable Pleskach, Sapna BIOINFORMATICS SUPPORT SPECIALIST Unavailable Unavailable Pleskach, Sapna BIOINFORMATICS SUPPORT SPECIALIST Unavailable Unavailable Pleskach, Sapna BIOINFORMATICS SUPPORT SPECIALIST Unavailable Unavailable Pleskach, Sapna BIOINFORMATICS SUPPORT SPECIALIST Unavailable Unavailable Pleskach, Sapna BIOINFORMATICS SUPPORT SPECIALIST Unavailable Unavailable Pleskach, Sapna BIOINFORMATICS SUPPORT SPECIALIST Unavailable Unavailable Pleskach, Sapna BIOINFORMATICS SUPPORT SPECIALIST Unavailable Unavailable Pleskach, Sapna BIOINFORMATICS SUPPORT SPECIALIST Unavailable Unavailable Pleskach, Sapna BIOINFORMATICS SUPPORT SPECIALIST Unavailable Unavailable Pleskach, Sapna BIOINFORMATICS SUPPORT SPECIALIST Unavailable Unavailable Pleskach, Sapna BIOINFORMATICS SUPPORT SPECIALIST Unavailable Unavailable Pleskach, Sapna BIOINFORMATICS SUPPORT SPECIALIST Unavailable Unavailable Pleskach, Sapna BIOINFORMATICS SUPPORT SPECIALIST Unavailable Unavailable Pleskach, Sapna BIOINFORMATICS SUPPORT SPECIALIST Unavailable Unavailable Pleskach, Sapna BIOINFORMATICS SUPPORT SPECIALIST Unavailable Unavailable Pleskach, Sapna BIOINFORMATICS SUPPORT SPECIALIST Unavailable Unavailable Pleskach, Sapna BIOINFORMATICS SUPPORT SPECIALIST Unavailable Unavailable Pleskach, Sapna BIOINFORMATICS SUPPORT SPECIALIST Unavailable Unavailable Pleskach, Sapna BIOINFORMATICS SUPPORT SPECIALIST Unavailable Unavailable Pleskach, Sapna BIOINFORMATICS SUPPORT SPECIALIST Unavailable Unavailable Pleskach, Sapna BIOINFORMATICS SUPPORT SPECIALIST Unavailable Unavailable Pleskach, Sapna BIOINFORMATICS SUPPORT SPECIALIST Unavailable Unavailable Pleskach, Sapna BIOINFORMATICS SUPPORT SPECIALIST Unavailable Unavailable Pleskach, Sapna BIOINFORMATICS SUPPORT SPECIALIST Unavailable Unavailable Pleskach, Sapna BIOINFORMATICS SUPPORT SPECIALIST Unavailable Unavailable Pleskach, Sapna BIOINFORMATICS SUPPORT SPECIALIST Unavailable Unavailable Pleskach, Sapna BIOINFORMATICS SUPPORT SPECIALIST Unavailable Unavailable Pleskach, Sapna BIOINFORMATICS SUPPORT SPECIALIST Unavailable Unavailable Pleskach, Sapna BIOINFORMATICS SUPPORT SPECIALIST Unavailable Unavailable Pleskach, Sapna BIOINFORMATICS SUPPORT SPECIALIST Unavailable Unavailable Pleskach, Sapna BIOINFORMATICS SUPPORT SPECIALIST Unavailable Unavailable Pleskach, Sapna BIOINFORMATICS SUPPORT SPECIALIST Unavailable Unavailable Pleskach, Sapna BIOINFORMATICS SUPPORT SPECIALIST Unavailable Unavailable Pleskach, Sapna BIOINFORMATICS SUPPORT SPECIALIST Unavailable Unavailable Pleskach, Sapna BIOINFORMATICS SUPPORT SPECIALIST Unavailable Unavailable Pleskach, Sapna BIOINFORMATICS SUPPORT SPECIALIST Unavailable Unavailable Pleskach, Sapna BIOINFORMATICS SUPPORT SPECIALIST Unavailable Unavailable Pleskach, Sapna BIOINFORMATICS SUPPORT SPECIALIST Unavailable Unavailable Pleskach, Sapna BIOINFORMATICS SUPPORT SPECIALIST Unavailable Unavailable NAZANIN, DOM PA Unavailable Unavailable [...] Cora Cosme MD, FACS Unavailable Unavailable Farmer Dowlel, Cora Cosme MD, FACS Unavailable Unavailable Farmer [...] Dowell, Cora Cosme MD, FACS Unavailable Unavailable Yoly Moreira Unavailable Tyler Moreiraanda Unavailable Pascual Birminghama Unavailable Unavailable Petrancosta, Cameron Julissa PA-C Unavailable Unavailabl e Petrancosta, Cameron Julissa PA-C Unavailable Unavailabl e Petrancosta, Cameron Julissa PA-C Unavailable Unavailabl e Petrancosta, Cameron Julissa PA-C Unavailable Unavailabl e Petrancosta, Cameron Julissa PA-C Unavailable Unavailabl e Petrancosta, Cameron Julissa PA-C Unavailable Unavailabl e Petrancosta, Cameron Julissa PA-C Unavailable Unavailabl e Petrancosta, Cameron Julissa PA-C Unavailable Unavailabl e Petrancosta, Cameron Julissa PA-C Unavailable Unavailabl e Petrancosta, Cameron Julissa PA-C Unavailable Unavailabl e Petrancosta, Cameron Julissa PA-C Unavailable Unavailabl e Petrancosta, Cameron Julissa PA-C Unavailable Unavailabl e Petrancosta, Cameron Julissa PA-C Unavailable Unavailabl e Petrancosta, Cameron Julissa PA-C Unavailable Unavailabl e Petrancosta, Cameron Julissa PA-C Unavailable Unavailabl e Petrancosta, Cameron Julissa PA-C Unavailable Unavailabl e Petrancosta, Cameron Julissa PA-C Unavailable Unavailabl e Petrancosta, Cameron Julissa PA-C Unavailable Unavailabl e Petrancosta, Cameron Julissa PA-C Unavailable Unavailabl e Petrancosta, Cameron Julissa PA-C Unavailable Unavailabl e Petrancosta, Cameron Julissa PA-C Unavailable Unavailabl e Petrancosta, Cameron Julissa PA-C Unavailable Unavailabl e Petrancosta, Cameron Julissa PA-C Unavailable Unavailabl e Petrancosta, Cameron Julissa PA-C Unavailable Unavailabl e Petrancosta, Cameron Julissa PA-C Unavailable Unavailabl e XAVIER BAILEY MD Unavailable Unavailable XAVIER BAILEY MD Unavailable Unavailable XAVIER ABILEY MD Unavailable Unavailable XAVIER BAILEY MD Unavailable [...] Unavailable Winifred Swain MD Unavailable Unavailable Winifred Swani MD Unavailable Unavailable Winifred Swain MD Unavailable [...] Unavailable Unavailable Ali, Winifred RAMIREZ Unavailable Unavailable Amaya, Alek Sanchez MD Unavailable Unavailable Amaya, Alek Sanchez MD Unavailable Unavailable Amaya, Alek Sanchez MD Unavailable Unavailable Amaya, Alek Sanchez MD Unavailable Unavailable PRAMOD, B MADY STRATEGIC PLANNING DIRECTOR Unavailable Unavailable PRAMOD, B MADY STRATEGIC PLANNING DIRECTOR Unavailable Unavailable PRAMOD, B MADY STRATEGIC PLANNING DIRECTOR Unavailable Unavailable PRAMOD, B MADY STRATEGIC PLANNING DIRECTOR Unavailable Unavailable PRAMOD, B MADY STRATEGIC PLANNING DIRECTOR Unavailable Unavailable PRAMOD, B MADY STRATEGIC PLANNING DIRECTOR Unavailable Unavailable PRAMOD, B MADY STRATEGIC PLANNING DIRECTOR Unavailable Unavailable PRAMOD, B MADY STRATEGIC PLANNING DIRECTOR Unavailable Unavailable PRAMOD, B MADY STRATEGIC PLANNING DIRECTOR Unavailable Unavailable PRAMOD, B MADY STRATEGIC PLANNING DIRECTOR Unavailable Unavailable PRAMOD, B MADY STRATEGIC PLANNING DIRECTOR Unavailable Unavailable PRAMOD, B MADY STRATEGIC PLANNING DIRECTOR Unavailable Unavailable PRAMOD, B MADY STRATEGIC PLANNING DIRECTOR Unavailable Unavailable PRAMOD, B MADY STRATEGIC PLANNING DIRECTOR Unavailable Unavailable PRAMOD, B MADY STRATEGIC PLANNING DIRECTOR Unavailable Unavailable PRAMOD, B MADY STRATEGIC PLANNING DIRECTOR Unavailable Unavailable PRAMOD, B MADY STRATEGIC PLANNING DIRECTOR Unavailable Unavailable PRAMOD, B MADY STRATEGIC PLANNING DIRECTOR Unavailable Unavailable PRAMOD, B MADY STRATEGIC PLANNING DIRECTOR Unavailable Unavailable PRAMOD, B MADY STRATEGIC PLANNING DIRECTOR Unavailable Unavailable PRAMOD, B MADY STRATEGIC PLANNING DIRECTOR Unavailable Unavailable PRAMOD, B MADY STRATEGIC PLANNING DIRECTOR Unavailable Unavailable PRAMOD, B MADY STRATEGIC PLANNING DIRECTOR Unavailable Unavailable PRAMOD, B MADY STRATEGIC PLANNING DIRECTOR Unavailable Unavailable PRAMOD, B MADY STRATEGIC PLANNING DIRECTOR Unavailable Unavailable PRAMOD, B MADY STRATEGIC PLANNING DIRECTOR Unavailable Unavailable PRAMOD, B MADY STRATEGIC PLANNING DIRECTOR Unavailable Unavailable PRAMOD, B MADY STRATEGIC PLANNING DIRECTOR Unavailable Unavailable PRAMOD, B MADY STRATEGIC PLANNING DIRECTOR Unavailable Unavailable PRAMOD, B MADY STRATEGIC PLANNING DIRECTOR Unavailable Unavailable PRAMOD, B MADY STRATEGIC PLANNING DIRECTOR Unavailable Unavailable PRAMOD, B MADY STRATEGIC PLANNING DIRECTOR Unavailable Unavailable PRAMOD, B MADY STRATEGIC PLANNING DIRECTOR Unavailable Unavailable PRAMOD, B MADY STRATEGIC PLANNING DIRECTOR Unavailable Unavailable PRAMOD, B MADY STRATEGIC PLANNING DIRECTOR Unavailable Unavailable PRAMOD, B MADY STRATEGIC PLANNING DIRECTOR Unavailable Unavailable PRAMOD, B MADY STRATEGIC PLANNING DIRECTOR Unavailable Unavailable PRAMOD, B MADY STRATEGIC PLANNING DIRECTOR Unavailable Unavailable PRAMOD, B MADY STRATEGIC PLANNING DIRECTOR Unavailable Unavailable PRAMOD, B MADY STRATEGIC PLANNING DIRECTOR Unavailable Unavailable PRAMOD, B MADY STRATEGIC PLANNING DIRECTOR Unavailable Unavailable PRAMOD, B MADY STRATEGIC PLANNING DIRECTOR Unavailable Unavailable PRAMOD, B MADY STRATEGIC PLANNING DIRECTOR Unavailable Unavailable PRAMOD, B MADY STRATEGIC PLANNING DIRECTOR Unavailable Unavailable PRAMOD, B MADY STRATEGIC PLANNING DIRECTOR Unavailable Unavailable PRAMOD, B MADY STRATEGIC PLANNING DIRECTOR Unavailable Unavailable PRAMOD, B MADY STRATEGIC PLANNING DIRECTOR Unavailable Unavailable PRAMOD, B MADY STRATEGIC PLANNING DIRECTOR Unavailable Unavailable PRAMOD, B MADY STRATEGIC PLANNING DIRECTOR Unavailable Unavailable PRAMOD, B MADY STRATEGIC PLANNING DIRECTOR Unavailable Unavailable PRAMOD, B MADY STRATEGIC PLANNING DIRECTOR Unavailable Unavailable PRAMOD, B MADY STRATEGIC PLANNING DIRECTOR Unavailable Unavailable PRAMOD, B MADY STRATEGIC PLANNING DIRECTOR Unavailable Unavailable PRAMOD, B MADY STRATEGIC PLANNING DIRECTOR Unavailable Unavailable PRAMOD, B MADY STRATEGIC PLANNING DIRECTOR Unavailable Unavailable PRAMOD, B MADY STRATEGIC PLANNING DIRECTOR Unavailable Unavailable PRAMOD, B MADY STRATEGIC PLANNING DIRECTOR Unavailable Unavailable PRAMOD, B MADY STRATEGIC PLANNING DIRECTOR Unavailable Unavailable PRAMOD, B MADY STRATEGIC PLANNING DIRECTOR Unavailable Unavailable PRAMOD, B MADY STRATEGIC PLANNING DIRECTOR Unavailable Unavailable PRAMOD, B MADY STRATEGIC PLANNING DIRECTOR Unavailable Unavailable PRAMOD, B MADY STRATEGIC PLANNING DIRECTOR Unavailable Unavailable Fish, B Myrna RAMIREZ Unavailable Unavailable Fish, B Myrna RAMIREZ Unavailable Unavailable Fish, B Myrna RAMIREZ Unavailable Unavailable Fish, B Myrna RAMIREZ Unavailable Unavailable Fish, B Myrna RAMIREZ Unavailable Unavailable Fish, B Myrna RAMIREZ Unavailable Unavailable Fish, B Myrna RAIMREZ Unavailable Unavailable Fish, B Myrna RAMIREZ Unavailable [...] Fish, B Myrna RAMIREZ Unavailable Unavailable Fish, Michael Norris MD Unavailable Unavailable Fish, Michael Norris MD Unavailable Unavailable Fish, B Myrna RAMIREZ Unavailable Unavailable Fish, Michael Norris MD Unavailable Unavailable Fish, Michael Norris MD Unavailable Unavailable Fish, Michael Norris MD Unavailable Unavailable Fish, Michael Norris MD Unavailable Unavailable Fish, Michael Norris MD Unavailable Unavailable Fish, B Myrna RAMIERZ Unavailable Unavailable Fish, B Myrna RAMIREZ Unavailable [...] L Macey PA Unavailable Unavailable Hegard, Destini BIOINFORMATICS SUPPORT SPECIALIST Unavailable Unavailable Hegard, Destini BIOINFORMATICS SUPPORT SPECIALIST Unavailable Unavailable Hegard, Destini BIOINFORMATICS SUPPORT SPECIALIST Unavailable Unavailable Hegard, Destini BIOINFORMATICS SUPPORT SPECIALIST Unavailable Unavailable Hegard, Destini BIOINFORMATICS SUPPORT SPECIALIST Unavailable Unavailable Hegard, Destini BIOINFORMATICS SUPPORT SPECIALIST Unavailable Unavailable Hegard, Destini BIOINFORMATICS SUPPORT SPECIALIST Unavailable Unavailable Hegard, Destini BIOINFORMATICS SUPPORT SPECIALIST Unavailable Unavailable Hegard, Destini BIOINFORMATICS SUPPORT SPECIALIST Unavailable Unavailable Hegard, Destini BIOINFORMATICS SUPPORT SPECIALIST Unavailable Unavailable Hegard, Destini BIOINFORMATICS SUPPORT SPECIALIST Unavailable Unavailable Hegard, Destini BIOINFORMATICS SUPPORT SPECIALIST Unavailable Unavailable Hegard, Destini BIOINFORMATICS SUPPORT SPECIALIST Unavailable Unavailable Hegard, Destini BIOINFORMATICS SUPPORT SPECIALIST Unavailable Unavailable Hegard, Destini BIOINFORMATICS SUPPORT SPECIALIST Unavailable Unavailable Hegard, Destini BIOINFORMATICS SUPPORT SPECIALIST Unavailable Unavailable Hegard, Destini BIOINFORMATICS SUPPORT SPECIALIST Unavailable Unavailable Re-disclosure Warning The records that [...] is protected by Article 27-F of the [facility] Public Health law. If you continue you may have access to information: Regarding HIV / AIDS; Provided by facilities licensed or operated by the [facility] Office of Mental Health; or Provided by the [facility] Office for People With Developmental Disabilities. If such information is present, then the following [facility] mandated warning applies: This information has [...] law may result in a fine or skilled nursing sentence or both. A general authorization for the release of medical or other information is NOT sufficient authorization for further disc losure. Allergies and Adverse Reactions Type Description Substance Reaction Status Data Source(s ) Propensity to adverse reactions CLONIDINE DERIVATIVES Clonidine Derivatives Shortness Of Breath High Active [facility] High Family History Family Member Name Family Member Gender Family Member Status Date o f Status Description Data Source(s) Unknown Unknown Problem [facility] ([facility]) Encounters Encounter Providers Location Date Indications Data Source(s ) Outpatient Attender: Winifred Swain MD Main office [facility] 05/29/2021 09:00:00 AM EDT [facility] ([facility]) Telemed Diagnostic Eval Attender: Daniel Amaya MD [facility] 05/22/2021 01:00:00 AM EDT - 05/22/2021 01:00:00 AM EDT [facility] ([facility]) Attender: Daniel Amaya MD 05/22/2021 12:00:00 AM EDT [facility] ([facility]) Outpatient Attender: DOM montanez 05/21/2021 09:25:00 AM EDT [facility] ([facility]) Health Monitoring - 15 Min [facility] 01:45:00 AM EDT - 05/17/2021 01:45:00 AM EDT [facility] ([facility]) Brief Individual Psychotherapy - 30 min [facility] 01:00:00 AM EDT - 05/17/2021 01:00:00 AM EDT [facility] ([facility]) Attender: Celsa [place] 05/17/2021 12:00:00 AM EDT [facility] ([facility]) Attender: Doroteo [facility] 05/17/2021 12:00:00 AM EDT [facility] ([facility]) Outpatient Attender: Sapna Olsen [facility] Main Office 04/30/2021 0 2:00:00 PM EDT [facility] ([facility] Outpatient Attender: MADY VO NP Physical Therapy 03:15:00 PM EDT [facility] Brief Individual Psychotherapy - 30 min [facility] 04/19/2021 01:00:00 AM EDT - 04/19/2021 01:00:00 AM EDT [facility] ([facility]) Attender: Doroteo [facility] 04/19/2021 12:00:00 AM EDT [facility] ([facility]) <td ID="encounterTypeDescriptionID0">[address] [facility] Follow-Up and Testing</td><td>Ba Goddard MD, FACS</td><td>Ba Goddard MD [facility]</td><td>03/21/2021</td><td>1:25PM</td><td>2:22PM</td><td></td>Outpatient Attender: Ba Dowell MD, ABRAM Goddard MD [facility] 03/21/2021 01:25:0 0 PM EDT - 03/21/2021 02:22:00 PM EDT [facility] (Ba Dowell MD [facility]) Outpatient Attender: Myrna Gooden MD Physical Therapy 03/19 01:00:00 PM EDT [facility] ([facility]) Outpatient Attender: Sapna Olsen [facility] Main Office 03/12/2021 0 2:15:00 PM EDT [facility] ([facility] Extended Individual Psychotherapy - 45 min Attender: Pretty Iglesias [facility] 03/06/2021 01:00:00 AM EDT - 03/06/2021 01:00:00 AM EDT [facility] ([facility]) Attender: Cherie Clark 03/06/2021 12:00:00 AM EDT [facility] ([facility]) Emergency Attender: Cristo Lindsey MDConsultant: LISANDRO Giron MD 2021 08:23:00 AM EDT - 2021 11:22:00 AM EDT [facility] Patient discharged. Psychiatric Diagnostic Evaluation (Non-Medical) Attender: Noa Iglesias [facility] 02/21/2021 01:00:00 AM EDT - 02/21/2021 01:00:00 AM EDT [facility] ([facility]) Attender: Cherie Iglesias 02/21/2021 12:00:00 AM EDT [facility] ([facility]) Extended Individual Psychotherapy - 45 min Attender: Darin Edwards [facility] 02/14/2021 02:15:00 AM EDT - 02/14/2021 02:15:00 AM EDT [facility] ([facility]) Attender: Yoly Moreira 02/14/2021 12:00:00 AM E DT [facility] ([facility]) Outpatient Attender: Sapna Olsen [facility] Main Office 02/12/2021 0 3:30:00 PM EDT [facility] ([facility] Outpatient Attender: Sapna Olsen [facility] Main Office 02/05/2021 0 8:00:00 AM EDT [facility] ([facility] OFFICE OUTPATIENT VISIT 15 MINUTES Attender: TAMMI WELCH Physical Therapy 01/17/2021 02:45:00 PM EDT [facility] ([facility]) Outpatient Attender: Destini Rivas [facility] Main Office 0 01/16/2021 02:00:00 PM EDT [facility] ([facility]) Outpatient Attender: Sapna Olsen [facility] Main Office 01/01/2021 0 3:45:00 PM EDT [facility] ([facility] Outpatient Attender: Macey WELCH [email or web address] 12:00:00 AM EST - 08/09/2020 02:50:43 PM EST [facility] Outpatient Attender: Julissa Jaime PA-C Main Office 07/03/2020 12:15:00 PM EST [facility] ([facility] <td ID="encounterTypeDescriptionID1">[address] 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</content>, <content ID="encounterDiagnosisID1-4">Dry Eye Syndrome Both Eyes</content></td>Outpatient Attender: Ba Dowell MD, FACS Ba Dowell MD [facility] 06/30/2020 01:34:00 PM EST - 06/30/2020 02:33:00 PM ES T 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Macular Degeneration Nonexudative Bilateral Early Dry StageEssential HypertensionRetinopathy Hypertensive Both EyesDry Eye Syndrome Both Eyes [facility] (Ba Dowell MD [facility]) Corneal Dystrophy Endothelial Cornea Gut brittany Bilateral Eyes Macular Degeneration Nonexudative Bilate ral Early Dry Stage Essential Hypertension 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 Outpatient Referrer: Macey RAMEYPRISCILLA-[facility] 10/2019 12:00:00 AM EST [facility] Outpatient Attender: Macey RAMEYPRISCILLA-SJPEnriquePRISCILLA 02/2020 12:00:00 AM EDT - 05/04/2020 01:59:49 PM EDT [facility] Functional Status Immunizations Vaccine Date Status Description Data Source(s) Moderna Sars-(Covid-19) vaccine, mRNA, LNP-S, PF, 100 mcg/ 0.5 mL 10/27/2020 12:00:00 AM EDT completed [facility] ([facility] COVID-19 VACCINE Moderna 10/27/2020 12:00:00 AM EDT completed [facility] Vaccine Series Complete: YESThis Data wa s Submitted to [facility] Via [facility]. COVID-19 VACCINE Moderna 09/29/2020 12:00:00 AM EST completed [facility] Vaccine Series Complete: NOThis Data was [facility] Moderna Sars-(Covid-19) vaccine, mRNA, LNP-S, PF, 100 mcg/ 0.5 mL 09/28/2020 11:00:00 PM EST completed [facility] ([facility] Medications Medication Brand Name Start Date Product Form Dose Route Admi nistrative Instructions Pharmacy Instructions Status Indications Reaction Description Data Source(s) Trazodone Hydrochloride 50 MG Oral Tablet trazodone 2020 12:00:00 AM EDT 50 mg by mouth completed <td ID="Medic ationRxNorm_1">681597</td><td ID="MedicationMedication_1">trazodone</td><td ID="MedicationRoute_1">by mouth</td><td ID="MedicationRouteConcept_1">[id number]</td><td ID="MedicationStartDate_1">05/22/2021</td><td ID="MedicationStopDate_1">07/21/2021</td><td ID="MedicationDosageFrequency_1">at bedtime</td><td ID="MedicationDuration_1">30</td><td ID="MedicationFormulaStrength_1">50 mg</td><td ID="MedicationDosageForm_1">tablet</td><td ID="MedicationDosageFormCode_1"></td><td ID="MedicationDosageDescription_1"></td><td ID="MedicationMedicationId_1">[id number]</td><td ID="MedicationAccount_1">[id number]</td><td ID="MedicationNpid_1">[id number]</td><td ID="MedicationAuthorFirstName_1">Daniel</td><td ID="MedicationAuthorLastName_1">Amaya</td><td ID="MedicationTaxonomyCode_1">[id number]</td><td ID="MedicationTaxonomyDesc_1">Psychiatry</td><td ID="MedicationPhoneNumber_1"> [phone]</td> [facility] ([facility]) buspirone hydrochloride 5 MG Oral Tablet Buspirone HCL 05/03/2021 12:00:00 AM EDT ORAL active [facility] ([facility] buspirone hydrochloride 5 MG Oral Tablet BUSPIRONE HCL 05/03/2021 12:00:00 AM EDT tablet 60 TAKE ONE TABLET BY MOUTH TWI CE A DAY TAKE ONE TABLET BY MOUTH TWICE A DAY SOLD: 05/03/2021 [employer] Mirtazapine 15 MG Oral Tablet Mirtazapine [...] AREA TWICE DAILY NEE DED FOR IRRITATION [facility] Meclizine Hydrochloride 12.5 MG Oral Tablet meclizine (ANTIVERT) 12.5 MG tablet meclizine (ANTIVERT) 12.5 MG tablet 12.5 mg Oral a borted Take 12.5 mg by mouth 3 (three) times a day as needed [facility] Multiple Vitamin (MULTI-DAY PO) Oral aborted Take by mouth [facility] Insurance Providers Payer name Policy type / Coverage type Policy ID Covered green party ID Covered green party's relationship to badillo Policy [place] Plan Information BS [place] [facility] Part B [id number] Self BS [place] Medigap Part B [id number] Self [id number] MEDICARE A [id number] Self [id number] A MEDICARE [id number] [id number] Medicare Natl Gov't Servi Medicare Primary [id number] Self [id number] MEDICARE [id number] Latisha [id number] Medicare [place] Primary [id number] Self [facility] [id number] Self [id number] [address] [place] [address] Healthcare Options Medigap Part B [id number] Self [place] Primary [id number] Self [facility] [employer] Options Medigap Part B [id number] Self [place] Primary [id number] Self [facility] [employer] Options Medigap Part B [id number] Self 0 [id number] [place] Primary [id number] Self 1 [id number] [facility] [employer] Options Medigap Part B [id number] Self [id number] [place] Med[place] B [id number] Self [id number] [employer] Options Medigap Part B [id number] Self [id number] [place] Med[place]ap Part B [id number] Self [id number] [employer] Options Medigap Part B [id number] Self 0 [id number] Medicare [place] Primary [id number] Self 1 [id number] [facility] Medigap Part B [id number] Self 0 [id number] Medicare [place] Medicare Primary [id number] Self 1 [id number] [facility] Medigap Part B [id number] Self [id number] Medicare [place] Medicare Primary [id number] Self 1 [id number] [facility] Medigap Part B [id number] Self 0 [id number] Medicare [place] Medicare Primary [id number] Self 1 [id number] [facility] [id number] [facility] [id number] [address] [place] [address] [id number] [phone] [id number] ANSI-Commercial [id number] MEDICARE [id number] S [id number] A Medicare Part B [facility] Other 0 [id number] S elf 0 MEDICARE [id number] SP [id number] Medicare [place] Medicare Primary [id number] Self [id number] [facility] Medigap Part B [id number] ..[id number] Self 06 [id number] Medicare - NGS Medicare Primary [id number] ..[id number] Self [id number] [facility] Medigap Part B [id number] 00.0 Self [id number] Medicare [place] Medicare Primary [id number] Self [id number] [facility] Medigap Part B [id number] 00.0 Self [id number] Medicare [place] Medicare Primary [id number] Self [id number] [facility] Medigap Part B [id number] Self Medicare [place] Medicare Primary [id number] Self [facility] Medigap Part B [id number] Self AARP O [id number] S [id number] A [id number] [facility] Medigap Part B [id number] 00.0 Self [id number] [facility] [id number] SP [id number] [facility] OPTIONS [id number] SP [id number] MEDICARE [id number] SP [id number] A Medicare Part B [facility] Other 0 [id number] Self 0 MEDICARE PART A -O/P [id number] 18 [id number] [facility] OPTIONS -C [id number] 18 [id number] MEDICARE PART A -O/P [id number] 18 [id number] [facility] [id number] 18 [id number] MEDICARE PART A -CLINIC [id number] 18 [id number] MEDICARE C [id number] S [id number] AARP O [id number] S [id number] 111 Medicare Part B [facility] Other 0 [id number] Self 0 Medicare [place] Medicare Primary [id number] Self [id number] [facility] Medigap Part B [id number] Self [id number] [place] Primary [id number] Self [id number] [facility] [id number] 00.0 Self [id number] Medicare [place] Medicare Primary [id number] Self [id number] [facility] Part B [id number] Self 0 [id number] [facility] [id number] 00.0 Self [id number] Medicare [place] Medicare Primary [id number] Self [id number] [facility] [id number] 00.0 Self [id number] Medicare [place] Medicare Primary [id number] Self [id number] Medicare [place] Medicare Primary [id number] Self 8 [id number] MEDICARE [id number] ANS-Medicare Part B [id number] Problems, Conditions, and Diagnoses Code Display Name Description Problem Type Effective Dates Data Source(s) N182 Chronic kidney disease, stage 2 (mild) C hronic kidney disease, stage 2 (mild) Diagnosis 2021 08:23:00 AM EDT [facility] I129 Hypertensive chronic kidney disease with stage 1 through stage 4 chronic kidney disease, or unspecified chronic kidney disease Hypertensive chronic kidney disease with stage 1 through stage 4 chronic kidney disease, or unspecified chronic kidney disease Diagnosis 2021 08:23:00 AM ED T [facility] R1084 Generalized abdominal pain Generalized abdominal pain Diagnosis 2021 08:23:00 AM EDT [facility] I10 Essential (primary) hypertension Essential (primary) h ypertension Diagnosis 05/04/2020 12:46:07 PM EDT [facility] N28.9 Disorder of kidney and ureter, unspecifi ed Disorder of kidney and ureter, unspecifi Diagnosis 05/04/2020 12:46:07 PM EDT [facility] R06.02 Shortness of breath Shortness of breath Diagnosis 1 12:46:07 PM EDT [facility] I35.1 Nonrheumatic aortic (valve) insufficienc y Nonrheumatic aortic (valve) insufficienc Diagnosis 05/04/2020 12:46:07 PM EDT [facility] R09.89 Other specified symptoms and signs involving the circulatory and respiratory systems Other specified symptoms and signs invol Diagnosis 05/04/2020 12:46:07 PM EDT [facility] R53.83 Malaise and fatigue Malaise and fatigue Problem 1 07/29/2020 12:00:00 AM EDT [facility] ([facility]) G47.33 Obstructive sleep apnea syndrome Obstructive sle ep apnea syndrome Problem 05/29/2021 12:00:00 AM EDT [facility] ([facility]) F33.41 Recurrent major depression in partial re mission Recurrent major depression in partial remission Problem 05/29/2021 12:00:00 AM EDT LESLI ([facility]) F51.01 Disorders of initiating and maintaining sleep Disorders of initiating and maintaining sleep Problem 05/29/2021 12:00:00 AM EDT [facility] ([facility]) G31.84 Mild cognitive disorder Mild cognitive disorder Proble 05/29/2021 12:00:00 AM EDT [facility] ([facility]) F60.9 Personality disorder, unspecified Unspecified Pe rsonality Disorder Condition 05/22/2021 12:00:00 AM EDT [facility] ([facility]) I12.9 Hypertensive chronic kidney disease with stage 1 through stage 4 chronic kidney disease, or unspecified chronic kidney disease Hypertensive chronic kidney disease w stg 1-4/unsp chr kdny Condition 05/22/2021 12:00:00 A M EDT [facility] ([facility]) F41.9 Anxiety disorder, unspecified Unspecified Anxiety Diso rder Condition 05/22/2021 12:00:00 AM EDT [facility] ([facility]) N18.4 Chronic kidney disease stage 4 Chronic kidney disease stage 4 Problem 07/03/2020 12:00:00 AM EST [facility] ([facility] [id number] Chronic kidney disease stage 4 Chronic kidney disease stage 4 Problem 07/03/2020 12:00:00 AM EST [facility] ([facility]) [id number] 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 Problem 12:00:00 AM EST MICHELLE ([facility]) [id number] 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 Problem 06/30/2020 12:00:00 AM EST GRE ENWAY ([facility]) I10 Essential hypertension Essential hypertension [id number] 05/04/2020 12:00:00 AM EDT [facility] N28.9 Renal insufficiency Renal insufficiency [id number] 1 12:00:00 AM EDT [facility] R06.02 SOB (shortness of breath) SOB (shortness of breath) 64 [id number] 05/04/2020 12:00:00 AM EDT [facility] I35.1 Nonrheumatic aortic valve insufficiency Nonrheumatic aortic valve insufficiency [id number] 05/04/2020 12:00:00 AM EDT [facility] R09.89 Bruit of right carotid artery Bruit of right carotid a rtery [id number] 05/04/2020 12:00:00 AM EDT [facility] Surgeries/Procedures Procedure Description Date Indications Data Source(s) OFFICE OUTPATIENT NEW 45 MINUTES 05/29/2021 12:00:00 A M EDT [facility] ([facility]) Mammogram 05/23/2021 12:00:00 AM EDT M EDENT ([facility] Telemed Diagnostic Eval 05/22/2021 12:00 :00 AM EDT - 05/22/2021 12:00:00 AM EDT [facility] ([facility]) Telemed Diagnostic Eval 05/22/2021 12:00:00 AM EDT [facility] ([facility]) OFFICE OUTPATIENT VISIT 15 MINUTES 05/21/2021 12:00:00 AM EDT [facility] ([facility]) PREVENT MED SWITCHBOARD INSTALLER&/RISK FACTOR REDJ SPX 15 MIN 05/17/2021 12:00:00 AM EDT - 05/17/2021 12:00:00 AM EDT [facility] ([facility]) PREVENT MED SWITCHBOARD INSTALLER&/RISK FACTOR REDJ SPX 15 MIN 05/17 12:00:00 AM EDT [facility] ([facility]) Brief Individual Psychotherapy - 30 min 05/17/2021 12:00:00 AM EDT - 05/17/2021 12:00:00 AM EDT [facility] ([facility]) Brief Individual Psychotherapy - 30 min 05/17/2021 12: 00:00 AM EDT [facility] ([facility]) OFFICE OUTPATIENT VISIT 15 MINUTES 04/30/2021 12:00:00 AM EDT [facility] ([facility] OFFICE OUTPATIENT VISIT 25 MINUTES 04/20/2021 12:00:00 AM EDT [facility] ([facility]) Brief Individual Psychotherapy - 30 min 04/19/2021 12:00:00 AM EDT - 04/19/2021 12:00:00 AM EDT [facility] ([facility]) Brief Individual Psychotherapy - 30 min 04/19/2021 12: 00:00 AM EDT [facility] ([facility]) Diabetic Foot Exam 03/19/2021 12:00:00 AM EDT [facility] ([facility]) OFFICE OUTPATIENT NEW 45 MINUTES 03/19/2021 12:00:00 A M EDT [facility] ([facility]) OFFICE OUTPATIENT VISIT 25 MINUTES 03/12/2021 12:00:00 AM EDT [facility] ([facility] Extended Individual Psychotherapy - 45 min 03/06/2021 12:00:00 AM EDT - 03/06/2021 12:00:00 AM EDT [facility] ([facility]) Extended Individual Psychotherapy - 45 min 12:00:00 AM EDT [facility] ([facility]) Psychiatric Diagnostic Evaluation (Non-Medical) 02/21/2021 12:00:00 AM EDT - 02/21/2021 12:00:00 AM EDT [facility] ([facility]) Psychiatric Diagnostic Evaluation (Non-Medical) 2020 12:00:00 AM EDT [facility] ([facility]) Extended Individual Psychotherapy - 45 min 02/14/2021 12:00:00 AM EDT - 02/14/2021 12:00:00 AM EDT [facility] ([facility]) Extended Individual Psychotherapy - 45 min 12:00:00 AM EDT [facility] ([facility]) OFFICE OUTPATIENT VISIT 25 MINUTES 02/12/2021 12:00:00 AM EDT [facility] ([facility] OFFICE OUTPATIENT VISIT 25 MINUTES 02/05/2021 12:00:00 AM EDT [facility] ([facility] ARTHROCENTESIS ASPIR&/INJECTION MAJOR JT/BURSA 021 12:00:00 AM EDT [facility] ([facility]) OFFICE OUTPATIENT VISIT 15 MINUTES 01/17/2021 12:00:00 AM EDT [facility] ([facility]) Shave Biopsy Of Skin, Single Lesion 01/16/2021 12:00:0 0 AM EDT [facility] ([facility]) OFFICE OUTPATIENT VISIT 25 MINUTES 01/16/2021 12:00:00 AM EDT [facility] ([facility]) Intermediate Eye Exam Established Patient Intermediate Eye Exam Established Patient 06/30/2020 12:00:00 AM EST MICHELLE (Marcelo [facility]) Mammogram 05/22/2020 12:00:00 AM EDT M EDENT ([facility] Document: 05/01/17 - Xray Report Results ID Date Data Source [id number] 05/29/2021 11:18:00 AM EDT [facility] ([facility], ) Name Value Range Interpretation Code Description Data Michelle rce(s) Supporting Document(s) Folate Laboratory test result [facility] ([facility], ) FOLATE NORMAL RANGE NORMAL GREATER THAN 5.4 NG/ML INDETERMINATE 3.4-5.4 NG/ML DEFICIENT LESS THAN 3.4 NG/ML Vitamin B12 Level 482 pg/mL [facility] ([facility], ) VITAMIN B12 NORMAL RANGE NORMAL 247 - 911 PG/ML INDETERMINATE 211 - 246 PG/ML DEFICIENT LESS THAN 211 PG/ML ID Date Data Source [id number] 05/29/2021 11:18:00 AM EDT [facility] ([facility], ) Name Value Range Interpretation Code Description Data Michelle rce(s) Supporting Document(s) Thyrotropin [Units/volume] in Serum or Plasma 3.340 uIU/ML 0.358-3.74 0 [facility] ([facility], ) ID Date Data Source [id number] 05/29/2021 11:18:00 AM EDT [facility] ([facility] [...] THAN 211 PG/ML ID Date Data Source [id number] 05/29/2021 11:18:00 AM EDT [facility] ([facility] Name Value Range Interpretation Code Description Data Michelle rce(s) Supporting Document(s) Thyrotropin [Units/volume] in Serum or Plasma 3.340 uIU/ML 0.358-3.74 0 [facility] ([facility] ID Date Data Source [id number] 05/21/2021 10:07:00 AM EDT [facility] ([facility]) Name Value Range Interpretation Code Description Data Michelle rce(s) Supporting Document(s) Bacteria identified in Urine by Culture Laboratory test result [facility] ([facility]) No Rx ID Date Data Source [id number] 04/26/2021 08:12:00 AM EDT [facility] ([facility] [...] [facility] ID Date Data Source [id number] 04/26/2021 08:12:00 AM EDT [facility] ([facility] [...] GFR Left</content>
<content>ESRD GFR <15 on MACHINE CRATER</content>
<content></content> Sodium Level 144 meq/L 136-145 [facility] [...] [facility] ID Date Data Source [id number] 04/26/2021 08:12:00 AM EDT [facility] ([facility] Name Value Range Interpretation Code Description Data Michelle rce(s) Supporting Document(s) Ast/Sgot 15 U/L 7-37 [facility] ([facility] Alt/SGPT 20 U/L 12-78 [...] [facility] ID Date Data Source [id number] 04/26/2021 08:12:00 AM EDT [facility] ([facility] Name Value Range Interpretation Code Description Data [facility](s) Supporting Document(s) Amphetamines Level Urine Laboratory test result [facility] ([facility] Benzodiazepines Urine Laboratory test result [facility] ([facility] Cannabinoids Urine Laboratory test result [facility] ([facility] Barbiturates Urine Laboratory test result [facility] ([facility] Cocaine Metabolite Urine Laboratory test result [facility] ([facility] Methadone Urine Laboratory test result [facility] ([facility] Opiates Urine Laboratory test result [facility] ([facility] Phencyclidine Urine Laboratory test result [facility] ([facility] ALL PRESUMPTIVE POSITIVE FINDINGS [...] CALL THE LAB. ID Date Data Source [id number] 04/26/2021 08:12:00 AM EDT [facility] ([facility] [...] [facility] ID Date Data Source [id number] 03/20/2021 09:03:00 AM EDT [facility] ([facility] Name Value Range Interpretation Code Description Data Michelle rce(s) Supporting Document(s) Cortisol [Mass/volume] in Serum or Plasma --AM peak specimen 16.6 ug/dL 4.3-22.4 [facility] ([facility] ID Date Data Source [id number] 03/20/2021 09:03:00 AM EDT [facility] ([facility] Name Value Range Interpretation Code Description Data Michelle rce(s) Supporting Document(s) Hemoglobin A1c/Hemoglobin.total in Blood 5.5 % [facility] ([facility] <content>REFERENCE RANGES:</content><br/ ><content></content>
<content><=5.6% NORMAL</content>
<content>5.7-6.4% SUGGESTS IMPAIRED GLUCOSE METABOLISM/PREDIABETIC</content>
<content>>= 6.5% ABNORMAL</content>
<content></content> Estimated Average Glucose 111 mg/dL 60-110 [facility] ([facility] ID Date Data Source [id number] 03/20/2021 09:03:00 AM EDT [facility] ([facility]) Name Value Range Interpretation Code Description Data Michelle rce(s) Supporting Document(s) Estimated Average Glucose 111 mg/dL 60-110 [facility] ([facility]) Hemoglobin A1c 5.5 % [facility] ([facility]) <content>REFERENCE RANGES:</content><br/ ><content></content>
<content><=5.6% NORMAL</content>
<content>5.7-6.4% SUGGESTS IMPAIRED GLUCOSE METABOLISM/PREDIABETIC</content>
<content>>= 6.5% ABNORMAL</content>
<content></content> ID Date Data Source [id number] 03/20/2021 09:03:00 AM EDT [facility] ([facility]) Name Value Range Interpretation Code Description Data Michelle rce(s) Supporting Document(s) Cortisol [Mass/volume] in Serum or Plasma --AM peak specimen 16.6 ug/dL 4.3-22.4 [facility] ([facility]) ID Date Data Source [id number] 03/07/2021 02:29:00 PM EDT [facility] ([facility] Name Value Range Interpretation Code Description Data Michelle rce(s) Supporting Document(s) Thyroid Stimulating Hormone 3.120 uIU/ML 0.358-3.740 [facility] ([facility] Free T4 1.05 ng/dL 0.76-1.46 [facility] ([facility] ID Date Data Source [id number] 03/07/2021 02:29:00 PM EDT [facility] ([facility] [...] [facility] ID Date Data Source [id number] 03/07/2021 02:29:00 PM EDT [facility] ([facility] [...] GFR Left</content>
<content>ESRD GFR <15 on MACHINE CRATER</content>
<content></content> Potassium Serum 3.9 meq/L 3.5-5.1 [facility] ([facility] Carbon Dioxide Level 29 meq/L 21-32 [facility] ([facility] Chloride Level 111 meq/L 98-107 [facility] ([facility] Ast/Sgot 17 U/L 7-37 [facility] ([facility] Calcium Level 9.3 mg/dL 8.8-10.2 [...] [facility] ID Date Data Source [id number] 03/07/2021 02:29:00 PM EDT [facility] ([facility]) Name Value Range Interpretation Code Description Data Michelle rce(s) Supporting Document(s) Thyrotropin [Units/volume] in Serum or Plasma by Detec tion limit <= 0.05 mIU/L 3.120 uIU/ML 0.358-3.740 [facility] ([facility]) Free T4 1.05 ng/dL 0.76-1.46 [facility] ([facility]) ID Date Data Source [id number] 03/07/2021 02:29:00 PM EDT [facility] ([facility]) Name Value Range Interpretation Code Description Data Michelle rce(s) Supporting Document(s) Cholesterol Level 157 mg/dL [facility] Triglycerides Level 122 mg/dL [facility] ([facility] HDL Cholesterol 48 mg/dL [facility] ([facility]) LDL Cholesterol 85 mg/dL [facility] ([facility]) Non-HDL-C 109 mg/dL [facility] ([facility]) Cholesterol Risk Ratio 3.270 [facility] ([facility]) ID Date Data Source [id number] 03/07/2021 02:29:00 PM EDT [facility] ([facility]) Name Value Range Interpretation Code Description Data Michelle rce(s) Supporting Document(s) Glucose, Fasting 100 mg/dL 70-100 [facility] ([facility]) Creatinine For GFR 2.27 mg/dL 0.55-1.30 [facility] ([facility]) Blood Urea Nitrogen 27 mg/dL 7-18 [facility] Potassium Serum 3.9 meq/L 3.5-5.1 [facility] ([facility]) Sodium Level 144 meq/L 136-145 [facility] ([facility]) Glomerular Filtration Rate 22.1 [facility] ([facility]) <content>Units are mL/min/1.73 m2</content>
<content></content>
<content>Chronic Kidney Disease Staging per NKF:</content>
<content></content>
<content>Stage I & II GFR >=60 Normal to Mildly Decreased</content>
<content>Stage III GFR 30- 59 Moderately Decreased</content>
<content>Stage IV GFR 15-29 Severely Decreased</content>
<content>Stage V GFR <15 Very Little GFR Left</content>
<content>ESRD GFR <15 on MACHINE CRATER</content>
<content></content>
<content></content> Carbon Dioxide Level 29 meq/L 21-32 [facility] ([facility]) Chloride Level 111 meq/L 98-107 [facility] ([facility]) Anion Gap 4 meq/L 8-16 [facility] ([facility]) Calcium [Mass/volume] in Serum or Plasma 9.3 mg/dL 8.8-10.2 [facility] ([facility]) Aspartate aminotransferase [Enzymatic activity/volume] in Serum or Plasma 17 U/L 7-37 [facility] ([facility]) Alanine aminotransferase [Enzymatic activity/volume] in Seru m or Plasma 20 U/L 12-78 [facility] ([facility]) Bilirubin,Total 0.7 mg/dL 0.2-1.0 [facility] ([facility]) Alkaline phosphatase [Enzymatic activity/volume] in Serum or Plasma 48 U/L 45-117 [facility] ([facility]) Albumin/Globulin Ratio 1.2 1.2-2.2 [facility] ([facility]) Protein [Mass/volume] in Serum or Plasma 6.5 GM/DL 6.4-8.2 [facility] ([facility]) Albumin [Mass/volume] in Serum or Plasma 3.6 GM/DL 3.2-5.2 [facility] ([facility]) ID Date Data Source [id number] 2021 03:02:00 PM EDT [facility] [address] [place] [address] PHONE: [phone] FAX: [phone] Name .................. : NATANAEL MOURA Acct Number.................. : [id number] ROOM. ................. : TR-07 MR Number ................... : [id number] Stay type ............. : E/R Discharge Date......... ... : 03/04/21 Admit Date ......... : 03/04/21 Admit Phys .................... : SHONNA Fisher Date of ....... : 1940 Family Phys ................... : LEO RAMSAY Phone .................. : [phone] Age ................................ : 81 Film# .................. .:[id number] Sex ................................. : F Unsigned transcriptions are preliminary reports and do not represent a medical or legal document CT ABD & PELV W/[place] ORAL W/[place] [id number] COMPLETE:03/04/21 08:55 [id number] Reason(s): Abdominal Pain CT ABDOMEN AND PELVIS [...] hydronephrosis or stones. Page 1 of 2 [facility] [address] [place] [address] PHONE: [phone] FAX: [phone] Name .................. : NATANAEL MOURA Acct Number.................. : [id number] ROOM. ................. : TR-07 MR Number ................... : [id number] Stay type ............. : E/R Discharge Date......... ... : 03/04/21 Admit Date ......... : 03/04/21 Admit Phys .................... : SHONNA Fisher Date of ....... : 1940 Family Phys ................... : BLACK CHRI Phone .................. : [phone] Age ................................ : 81 Film# .................. .:[id number] Sex ........................... ...... : F Unsigned transcriptions are preliminary reports and do not represent a medical or legal document CT ABD & PELV W/[place] ORAL W/[place] [id number] COMPLETE:03/04/21 08:55 [id number] Reason(s): Abdominal Pain OTHER : No abnormalities [...] By Mark Kelley MD , 03/04/21 15:02, JWTe Transcribe Initials: CHANDLER , Transcribe Date: 03/04/21 13:39, Dictation Date: Copy for: EMERGENCY DEPT via modem Copy for: 710 MED REC DISCHARGED Page 2 of 2 Name Value Range Interpretation Code Description Data Michelle rce(s) Supporting Document(s) ID Date Data Source [id number] 2021 08:23:00 AM EDT [facility] 1 OrderSheet [facility] Emergency Department [address] [place] [address] Phone #: [phone] 08:22 Patient: [...] STAT 08:45 2021 08:59 Pati EDCatch) Cristo Lindsey ; Arlene Nguyễn [id number] STUDY ORDERSOrder Description Priority Entered Acknowledged InitialedCT ABD PEL W/O STAT 08:55 2021 08:56 TerryOral W/O IV Cristo Lindsey ; Janki PULLIAMContrast(Oxygen?(No))(IV?(No)) Reason for Study: Abdominal PainMEDICATION/IV/DRIP/FLUID ORDERSOrder Description Priority Entered Acknowledged InitialedAcetaminophen PO 08:45 2021 08:56 Fqrvs958 mg (NOW x1) Cristo Lindsey ; Shearer RNGENERAL ORDERSOrder Description Priority Entered Acknowledged Initialed[Electronically signed by Ronda Hope R.N. (12:2021)][Electronically signed by Cristo Lindsey (13:27 2021)][Electronically locked by Ronda Hope R.N. (12:2021)] Name Value Range Interpretation Code Description Data Michelle rce(s) Supporting Document(s) ID Date Data Source [id number] 2021 08:23:00 AM EDT [place] [address] Medication Reconciliation Report [facility] Emergency Department [address] [place] [address] Phone #: ext- [phone] 08:22 Patient: [...] rce(s) Supporting Document(s) ID Date Data Source [id number] 2021 08:23:00 AM EDT [facility] 1 Medication Administration Record [facility] Emergency Department [address] [place] [address] Phone #: ext- [phone] 08:22 Patient: MARTELL SANTOYO Sex: F : 1940 Age: 81yWeight: 73.4 kgHeight/Length: 59 inBMI: 32.7ALLERGIES: Aspirin, Amoxicillin, Macrobid, Ciprofloxin HCl, Sulfa Antibiotics Date/Time Medication Administered Medication OrderedGiven ACETAMINOPHEN [PO] Acetaminophen PO 650 mg (NOW08:56 2021 Dose: 650 mg Tablets PO x1)Arnulfo Shearer RN Name Value Range Interpretation Code Description Data Michelle rce(s) Supporting Document(s) ID Date Data Source [id number] 2021 08:23:00 AM EDT [facility] 1 General Instructions [facility] Emergency Department [address] [place] [address] Phone #: ext- [phone] 08:22 Patient: MARTELL SANTOYO Sex: F [...] of Abdominal Pain (Female) 2 General Instructions [facility] Emergency Department [address] [place] [address] Phone #: ext- [phone] 08:22 Patient: [...] for taking these medicines. 3 General Instructions [facility] Emergency Department [address] [place] [address] Phone #: ext- [phone] 08:22 [id number] Sex[facility] F : 1940 Age: 81yGeneral care [...] begin to improve in thenext 24 hours.Call [phone] if any of these occur: Trouble breathing Confusion Fainting or loss of consciousness Rapid heart rate 4 General Instructions [facility] Emergency Department [address] [place] [address] Phone #: ext- [phone] 08:22 Patient: MARTELL SANTOYO Sex: F : 1940 Age: 81y SeizureWhen [...] or water and you are getting dehydrated [id number] [employer] ([employer]). [address] [place] [address]. All rights reserved. This information is not [...] the blood vessels (vasculitis) 5 General Instructions [facility] Emergency Department [address] [place] [address] Phone #: ext- [phone] 08:22 Patient: MARTELL SANTOYO Sex: F : 1940 Age: 81y Viral or bacterial infectionSome mevx-utv-ufckqph (OTC) pain medicines can cause renal failure [...] you quit. For more information, visit: o smokefree.gov/sites/default/files/pdf/oqjnbaco-kqp-dna-accessible.pdf o www.smokefree.gov o www.cancer.org/healthy/stayawayfromtobacco/guidetoquittingsmoking/ Talk with your [...] be reduced or stopped. 6 General Instructions [facility] Emergency Department [address] [place] [address] Phone #: ext- [phone] 08:22 Patient: [id number] Sex: F : 1940 Age: 81y Before starting any swkd-vqj-mxptgiq (OTC) medicines, herbal supplements, or vitamins, talk [...] Contact one of the following for moreinformation: [place] [employer], www.aakp.org National Kidney Foundation, www.kidney.org [employer] [employer], www.kidneyfund.org National Kidney Disease Education [...] by your healthcare provider 7 General Instructions [facility] Emergency Department [address] [place] [address] Phone #: ext- [phone] 08:22 Patient: MARTELL SANTOYO Sex: F : 1940 Age: 81y Unexpected weight gain or swelling in the legs, ankles, or around your eyes You don't urinate as much as normal, or you aren't able to urinate [employer] [address] [place] [address]. All rights reserved. This information is not intended as asubstitute for professional medical care. Always follow your healthcare professional's instructions. You have been given the following additional information: Abdominal Pain, Unknown Cause, (Female) Renal Insufficiency(Electronically signed by Cristo Lindsey 2021 13:27) Name Value Range Interpretation Code Description Data Michelle rce(s) Supporting Document(s) ID Date Data Source [id number] 2021 08:23:00 AM EDT [facility] 1 Clinical Report - Nurses [facility] Emergency Department [address] [place] [address] Phone #: ext- [phone] 08:22 Patient: [...] She has had diarrhea and abdominal pain.Treatment OPTICIAN APPRENTICE:None.SEPSIS SCREEN: SIRS SCREEN NEGATIVE. SEPSIS SCREEN NEGATIVE. [...] Vo RN.PROBLEMS: 2 Clinical Report - Nurses [facility] Emergency Department [address] [place] [address] Phone #: ext- [phone] 08:22 Patient: MARTELL SANTOYO [facility]#: [id number] Sex: F : 1940 Age: 81y L [...] via stretcher. 3 Clinical Report - Nurses [facility] Emergency Department [address] [place] [address] Phone #: ext- [phone] 08:22 Patient: [id number] Sex: F : 1940 Age: 81y GENERAL [...] RR: 16. O2 saturation: 97%. --10:15 03/04/21 [facility] Tech1 10:56 03/04/21. BP: 147/74. HR: 66. RR: 16. O2 saturation: 96%. --10:56 03/04/21 [facility] Tech1.DISPOSITION / DISCHARGE 11:18 03/04/21. BP: 139/78. HR: 76. RR: 16. O2 saturation: 97%. Temp: 98.1 F. Pain level now 5/10. --11:18 03/04/21 Pati combine driverArelne Nguyễn ER Tech1 11:26 03/04/21. Condition at departure: improved and stable. No learning barriers present. Discharge instructions provided and reviewed with the patient. Patient verbalized understanding. Written instructions provided in Chinese. The patient was discharged by the physician. She was discharged home and accompanied by lime boiler. She left via p [employer]te vehicle. Neurosurgery Research Director driving. --12:26 03/04/21 Ronda Hope R.N.Locked/Released at 2021 12:26 by Ronda Hope R.N. Name Value Range Interpretation Code Description Data Michelle rce(s) Supporting Document(s) ID Date Data Source [id number] 2021 08:23:00 AM EDT [facility] 1 Clinical Report - Physicians/Mid Levels [facility] Emergency Department [address] [place] [address] Phone #: ext- [phone] 08:22 Patient: [...] in the emergency department. ( Seen at [facility] for possible adverse effect from Zoloft).REVIEW OF [...] Medications: 2 Clinical Report - Physicians/Mid Levels [facility] Emergency Department [address] [place] [address] Phone #: ext- [phone] 08:22 Patient: MARTELL SANTOYO Sex: F : 1940 Age: 81y Fish [...] Flag Units (Reference) 3 Clinical Report - Physicians/[facility] Emergency Department [address] [place] [address] Phone #: ext- [phone] 08:22 Patient: [...] Male GFR Interprentation 20-49 yrs >60 mL/min [id number] yrs >56 mL/min Normal 60-69 yrs >49 mL/min Normal 70-79yrs>42 mL/min Normal 80 and above >35 mL/min Normal Female GFRInterpretation 20-39 yrs >60 mL/min Normal 40-49 yrs >58 mL/minNormal 50-59 yrs >51 mL/min Normal 60-69 yrs >45 mL/min Normal 4 Clinical Report - Physicians/Mid Levels [facility] Emergency Department [address] [place] [address] Phone #: ext- [phone] 08:22 Patient: [...] sufficiency. 5 Clinical Report - Physicians/Mid Levels [facility] Emergency Department [address] [place] [address] Phone #: ext- [phone] 08:22 Patient: [...] rce(s) Supporting Document(s) ID Date Data Source [id number] 2021 09:34:00 AM EDT [facility] Name Value Range Interpretation Code Description Data [facility](s) Supporting Document(s) CBC W/AUTOMATED DIFF [facility] COMPLETE BLOOD COUNT Leukocytes [#/volume] in Blood by Automated count 7.4 10^3/uL 4.2 - 1 1.0 [facility] Erythrocytes [#/volume] in Blood by Automated count 3.74 10^6/uL 4. 20 - 5.40 L [facility] Hemoglobin [Mass/volume] in Blood 11.9 g/dL 12.0 - 16.0 L [facility] Hematocrit [Volume Fraction] of Blood by Automated count 36.7 % 3 7.0 - 47.0 L [facility] Erythrocyte mean corpuscular volume [Entitic volume] by Auto mated count 98.1 fL 81.0 - 101 [facility] Erythrocyte mean corpuscular hemoglobin [Entitic mass] by Automated count 31.8 pg 27.0 - 34.0 [facility] Erythrocyte mean corpuscular hemoglobin concentration [Mass/volume] by Automated count 32.4 g/dL 31.0 - 36.0 [facility] Erythrocyte distribution width [Ratio] by Automated count 13.6 % 11.5 - 14.5 [facility] Platelets [#/volume] in Blood by Automated count 249 10^3/uL 150 - 45 0 [facility] Platelet mean volume [Entitic volume] in Blood by Automated count 9.0 fL 7.4 - 10.4 [facility] Neutrophils/100 leukocytes in Blood by Automated count 67.3 % 37. 0 - 80.0 [facility] Lymphocytes/100 leukocytes in Blood by Manual count 18.6 % 25.0 - 40.0 L [facility] Monocytes/100 leukocytes in Blood by Automated count 9.6 % 3.0 - 8.0 H [facility] Eosinophils/100 leukocytes in Blood by Automated count 3.7 % 0.0 - 7.0 [facility] Basophils/100 leukocytes in Blood by Automated count 0.5 % 0.0 - 2.5 [facility] %IG 0.3 % 0.0 - 0.0 H [facility] al %NRBC 0.0 % 0.0 - 0.0 [facility] al Neutrophils [#/volume] in Blood by Automated count 4.96 10^3/uL 2.00 - 6.90 [facility] Lymphocytes [#/volume] in Blood by Automated count 1.37 10^3/uL 0.60 - 3.40 [facility] Monocytes [#/volume] in Blood by Automated count 0.71 10^3/uL 0.00 - 0.90 [facility] Eosinophils [#/volume] in Blood by Automated count 0.27 10^3/uL 0.00 - 0.70 [facility] Basophils [#/volume] in Blood by Automated count 0.04 10^3/uL 0.00 - 0.20 [facility] #IG 0.02 10^3/uL 0.00 - 0.10 [facility] #NRBC 0.00 10^3/uL 0.00 - 0.00 [facility] MANUAL DIFF NOT INDICATED [facility] RBC MORPH NOT INDICATED [facility] spital ID Date Data Source [id number] 2021 09:33:00 AM EDT [facility] Name Value Range Interpretation Code Description Data Michelle rce(s) Supporting Document(s) COMPREHENSIVE METABOLIC PANEL [facility] COMPREHENSIVE METABOLIC PANEL Sodium [Moles/volume] in Serum or Plasma 144 mEq/L 134 - 153 [facility] Potassium [Moles/volume] in Serum or Plasma 4.0 mEq/L 3.6 - 5.0 [facility] Chloride [Moles/volume] in Serum or Plasma 109 mEq/L 98 - 107 H [facility] Carbon dioxide, total [Moles/volume] in Serum or Plasma 25 MEQ/L 22 - 30 [facility] Glucose [Mass/volume] in Serum or Plasma 104 MG/DL 70 - 99 H [facility] BUN 24 MG/DL 7 - 21 H [facility] al Creatinine [Mass/volume] in Serum or Plasma 2.0 MG/DL 0.7 - 1.5 H [facility] BUN/CREAT 12 8 - 27 [facility] Protein [Mass/volume] in Serum or Plasma 6.5 G/DL 6.3 - 8.2 [facility] Albumin [Mass/volume] in Serum or Plasma 3.9 G/DL 3.9 - 5.0 [facility] Globulin [Mass/volume] in Serum by calculation 2.6 GM/DL 2.4 - 3.2 [facility] A/G RATIO 1.5 0.8 - 2.0 [facility] Calcium [Mass/volume] in Serum or Plasma 10.1 MG/DL 8.4 - 10.2 [facility] Bilirubin.total [Mass/volume] in Serum or Plasma <0.7 MG/DL 0.2 - 1.3 [facility] Alkaline phosphatase [Enzymatic activity/volume] in Serum or Plasma 48 U/L 38 - 126 [facility] Aspartate aminotransferase [Enzymatic activity/volume] in Serum or Plasma 18 U/L 5 - 40 [facility] Alanine aminotransferase [Enzymatic activity/volume] in Seru m or Plasma 10 U/L 7 - 56 [facility] Anion gap 3 in Serum or Plasma 10.0 mmol/L 8.0 - 16.0 [facility] AGE 81 yrs [facility] al NON-AA GFR 25 mL/min [facility] AFR AMER GFR >60 [facility] Male GFR In terprentation [...] >32 mL/min Normal ID Date Data Source [id number] 2021 09:26:00 AM EDT [facility] Name Value Range Interpretation Code Description Data Michelle rce(s) Supporting Document(s) Lipase [Enzymatic activity/volume] in Serum or Plasma 36 U/L 13 - 60 [facility] ID Date Data Source [id number] 2021 09:33:00 AM EDT [facility] Name Value Range Interpretation Code Description Data Michelle rce(s) Supporting Document(s) URINALYSIS [facility] URINALYSIS SOURCE R [facility] COLOR yellow NORMAL: Yellow [facility] CLARITY clear NORMAL: Clear [facility] Specific gravity of Urine by Test strip 1.010 1.001 - 1.030 [facility] pH 7 5 - 9 [facility] al Glucose [Mass/volume] in Urine by Test strip NORM NORMAL: Negat [facility] Bilirubin.total [Presence] in Urine by Test strip NEG NORMAL: Negative [facility] Ketones [Presence] in Urine by Test strip NEG NORMAL: Negative [facility] Protein [Mass/volume] in Urine by Test strip 30 NORMAL: Negat [facility] Nitrite [Presence] in Urine by Test strip NEG NORMAL: Negative [facility] BLOOD NEG NORMAL: Negative [facility] LEUK EST 25 NORMAL: Negative [facility] Urobilinogen [Mass/volume] in Urine by Test strip NOR less venessa n 1.0 mg/dL [facility] MICROSCOPIC See Below [facility] WBC 1 - 3 NORMAL: NONE SEEN [facility] EPITHELIAL FEW NORMAL: NONE SEEN [facility] Bacteria [Presence] in Urine sediment by Light microscopy Tr brice NORMAL: NONE SEEN [facility] ID Date Data Source [id number] 01/16/2021 02:21:00 PM EDT [facility] Name Value Range Interpretation Code Description Data Michelle rce(s) Supporting Document(s) Laboratory test finding (navigational concept) Laboratory test result [facility] ([facility]) No further treatment Laboratory test finding (navigational concept) Laboratory test result [facility] ([facility]) No further treatment ID Date Data Source [id number] 01/16/2021 02:21:[address] [facility] ([facility]) Name Value Range Interpretation Code Description Data Michelle rce(s) Supporting Document(s) Laboratory test finding (navigational concept) Laboratory test result [facility]) ID Date Data Source [id number] 11/09/2020 10:24:00 AM EDT [facility] Name Value Range Interpretation Code Description Data Michelle rce(s) Supporting Document(s) SARS-CoV-2 (COVID 19) NEGATIVE - SARS-CoV-2 (COVID19) [facility] This lab was ordered by [facility] a nd reported by [facility]. ID Date Data Source [id number] 06/27/2020 09:38:00 AM EST [facility] ([facility] [...] % 0.0-1.0 [facility] ([facility] [place] % 9.3 % 0.0-5.0 [facility] ([facility] Nucleated Red Blood Cell % 0.0 % 0-0 [facility] ([facility] Immature Granulocyte % 0.3 % 0-3.0 [facility] ([facility] Neutrophils # 3.4 10 1.5-8.5 [facility] ([facility] Lymph # 1.7 10 1.5-5.0 [facility] ([facility] [place] # 0.6 10 0.0-0.8 [facility] ([facility] Eos # 0.4 10 0.0-0.5 [facility] ([facility] Baso # 0.0 10 0.0-0.2 [facility] ([facility] ID Date Data Source [id number] 06/27/2020 09:38:00 AM EST [facility] ([facility] [...] GFR Left</content>
<content>ESRD GFR <15 on MACHINE CRATER</content>
<content></content> Creatinine For GFR 2.20 mg/dL 0.55-1.30 [...] [facility] ID Date Data Source [id number] 05/22/2020 12:00:00 AM EDT [facility] Patient Name: MARTELL [id number] Date of : 1940[place] [address] Date of Exam: 05/22/2020#: Fax: [phone] EXAM: [...] mammogram was read with the assistance of [facility], an FDAapproved computer aided detection system for [...] leted Unknown if ever smoked [facility] ([facility]) Smoking 05/21/2021 12:00:00 AM EDT Patient has never smoked co mpleted Patient has never smoked [facility] ([place] [facility]) Smoking 05/17/2021 12:00:00 AM EDT Unknown if ever smoked comp leted Unknown if ever smoked [facility] ([facility]) Smoking 04/20/2021 12:00:00 AM EDT Never Smoked Cigarettes com pleted Never Smoked Cigarettes [facility] ([facility]) Smoking 04/19/2021 12:00:00 AM EDT Unknown if ever smoked comp leted Unknown if ever smoked [facility] ([facility]) Smoking 04/18/2021 06:33:32 AM EDT Never smoked tobacco (findi ng) completed Never smoked tobacco (finding) MICHELLE (Ba Dowell [facility]) Smoking 03/12/2021 12:00:00 AM EDT Patient has never smoked co mpleted Patient has never smoked [facility] ([facility] Smoking 03/06/2021 12:00:00 AM EDT Unknown if ever smoked comp leted Unknown if ever smoked [facility] ([facility]) Smoking 02/21/2021 12:00:00 AM EDT Unknown if ever smoked comp leted Unknown if ever smoked [facility] ([facility]) Smoking 02/14/2021 12:00:00 AM EDT Unknown if ever smoked comp leted Unknown if ever smoked [facility] ([facility]) Alcohol intake 08/09/2020 12:00:00 AM EST Never completed [facility] Smoking 08/09/2020 12:00:00 AM EST Never smoker completed Never s moker [facility] Vital Signs ID Date Data Source [id number] Name Value Range Interpretation Code Description Data Source(s) Systolic blood pressure 125 mm[Hg] 125 mm[Hg] M [facility] ([facility], ) Diastolic blood pressure 80 mm[Hg] 80 mm[Hg] [facility] ([facility] ) Heart rate 74 /min 74 /min [facility] ([facility] ) Respiratory rate 14 /min 14 /min [facility] ( [facility], ) Body height 58.3 [in_i] 58.3 [in_i] [facility] ([facility], ) 4'10.30" Body weight 154.00 [lb_av] 154.00 [lb_av] [facility] ([facility], ) Body mass index (BMI) [Ratio] 31.9 kg/m2 31.9 k g/m2 [facility] ([facility] ) [place] body weight 100 [lb_av] 100 [lb_av] [facility] ([facility], ) Body height 59.00 in Normal (applies to non-numeric resu lts) 59.00 in [facility] ([facility]) Body weight Measured 156.00 lbs Normal (applies to n on-numeric results) 156.00 lbs [facility] ([facility]) Body mass index (BMI) [Ratio] 31.50 kg/m2 No rmal (applies to non-numeric results) 31.50 kg/m2 [facility] ([facility]) Systolic blood pressure 142 mm[Hg] Normal (applies t o non-numeric results) 142 mm[Hg] [facility] ([facility]) Diastolic blood pressure 81 mm[Hg] Normal (applies to non-numeric results) 81 mm[Hg] [facility] ([facility]) Heart rate 84 /min 84 /min [facility] ([facility]) Respiratory rate 17 /min 17 /min [facility] ( [place] [facility]) Oxygen saturation in Arterial blood by Pulse oximetry 99 % 99 % [facility] ([facility]) Body temperature 97.7 [degF] 97.7 [degF] [facility] ([place] [facility]) Body weight 155.00 [lb_av] 155.00 [lb_av] [facility] T ([facility]) Body height 60 [in_i] 60 [in_i] [facility] ([facility]) 5'0" Body mass index (BMI) [Ratio] 30.3 kg/m2 30.3 k g/m2 [facility] ([place] [facility]) Systolic blood pressure 152 mm[Hg] 152 mm[Hg] M EDENT ([place] [facility]) Diastolic blood pressure 82 mm[Hg] 82 mm[Hg] [facility] ([place] [facility]) Body height 59.00 in Normal (applies to non-numeric resu lts) 59.00 in [facility] ([facility]) Body weight Measured 156.00 lbs Normal (applies to n on-numeric results) 156.00 lbs [facility] ([facility]) Body mass index (BMI) [Ratio] 31.50 kg/m2 No rmal (applies to non-numeric results) 31.50 kg/m2 [facility] ([facility]) Systolic blood pressure 142 mm[Hg] Normal (applies t o non-numeric results) 142 mm[Hg] [facility] ([facility]) Diastolic blood pressure 81 mm[Hg] Normal (applies to non-numeric results) 81 mm[Hg] [facility] ([facility]) Systolic blood pressure 148 mm[Hg] 148 mm[Hg] M [facility] ([facility] Diastolic blood pressure 87 mm[Hg] 87 mm[Hg] [facility] ([facility] Heart rate 86 /min 86 /min [facility] ([facility] Respiratory rate 18 /min 18 /min [facility] ( [facility] Body weight 162.19 [lb_av] 162.19 [lb_av] MED[facility] T ([facility]) Body mass index (BMI) [Ratio] 32.8 kg/m2 32.8 k g/m2 [facility] ([facility]) Oxygen saturation in Arterial blood by Pulse oximetry 98 % 98 % [facility] ([facility]) Heart rate 81 /min 81 /min [facility] ([facility]) Body height 59 [in_i] 59 [in_i] [facility] ([facility]) 4'11" Diastolic blood pressure 84 mm[Hg] 84 mm[Hg] [facility] ([facility]) Systolic blood pressure 128 mm[Hg] 128 mm[Hg] M [facility] ([facility]) Systolic blood pressure 130 mm[Hg] 130 mm[Hg] M [facility] ([facility]) Diastolic blood pressure 70 mm[Hg] 70 mm[Hg] [facility] ([facility]) Heart rate 81 /min 81 /min [facility] ([facility]) Body height 59 [in_i] 59 [in_i] [facility] ([facility]) 4'11" Body weight 165.00 [lb_av] 165.00 [lb_av] [facility] T ([facility]) Body mass index (BMI) [Ratio] 33.3 kg/m2 33.3 k g/m2 [facility] ([facility]) Oxygen saturation in Arterial blood by Pulse oximetry 99 % 99 % [facility] ([facility]) Body temperature 97.8 [degF] 97.8 [degF] [facility] ([facility] Respiratory rate 16 /min 16 /min [facility] ( [facility] Body height 58.75 [in_i] 58.75 [in_i] [facility] ([facility] 4'10.75" Body weight 165.38 [lb_av] 165.38 [lb_av] [facility] ([facility] [place] body weight 100 [lb_av] 100 [lb_av] [facility] ([facility] Body mass index (BMI) [Ratio] 33.7 kg/m2 33.7 k g/m2 [facility] ([facility] Systolic blood pressure 162 mm[Hg] 162 mm[Hg] M [facility] ([facility] Diastolic blood pressure 85 mm[Hg] 85 mm[Hg] [facility] ([facility] Systolic blood pressure 136 mm[Hg] [...] 97.4 [degF] [facility] ([facility] Respiratory rate 14 /min 14 /min [facility] ( [facility] Body weight 165.50 [lb_av] 165.50 [lb_av] [facility] ([facility] [place] body weight 100 [lb_av] 100 [lb_av] [facility] ([facility] Body mass index (BMI) [Ratio] 33.7 kg/m2 33.7 k g/m2 [facility] ([facility] Body height 58.75 [in_i] 58.75 [in_i] [facility] ([facility] 4'10.75" Heart rate 84 /min 84 /min [facility] ([facility] Diastolic blood pressure 78 mm[Hg] 78 mm[Hg] [facility] ([facility] recheck Systolic blood pressure 170 mm[Hg] 170 mm[Hg] M [facility] ([facility] [place] body weight 100 [lb_av] 100 [lb_av] [facility] T ([facility] Body temperature 97.1 [degF] 97.1 [degF] [facility] ([facility] Respiratory rate 16 /min 16 /min [facility] ( [facility] Body height 58.75 [in_i] 58.75 [in_i] [facility] ([facility] 4'10.75" Body weight 170.25 [lb_av] 170.25 [lb_av] [facility] T ([facility] Body mass index (BMI) [Ratio] 34.7 kg/m2 34.7 k g/m2 [facility] ([facility] Diastolic blood pressure 83 mm[Hg] 83 mm[Hg] [facility] ([facility] Systolic blood pressure 139 mm[Hg] 139 mm[Hg] M [facility] ([facility] recheck Body temperature 96.9 [degF] 96.9 [degF] [facility] ([facility] Body height 59 [in_i] 59 [in_i] [facility] ([facility] ) 4'11" Body weight 169.00 [lb_av] 169.00 [lb_av] [facility] T ([facility] ) Body mass index (BMI) [Ratio] 34.1 kg/m2 34.1 k g/m2 [facility] ([facility] ) Systolic blood pressure 142 mm[Hg] 142 mm[Hg] M [facility] ([facility]) Diastolic blood pressure 82 mm[Hg] 82 mm[Hg] [facility] ([facility]) Body weight 167.00 [lb_av] 167.00 [lb_av] [facility] T ([facility]) Respiratory rate 18 /min 18 /min [facility] ( [facility]) Systolic blood pressure 169 [...] 98 % [facility] ([facility] Body mass index (BMI) [Ratio] 35.3 kg/m2 35.3 k g/m2 [facility] ([facility] Diastolic blood pressure 83 mm[Hg] 83 mm[Hg] [facility] ([facility] Respiratory rate 14 /min 14 /min [facility] ( [facility] [place] body weight 100 [lb_av] 100 [lb_av] [facility] T ([facility] Systolic blood pressure 138 mm[Hg] 138 mm[Hg] [facility] Diastolic blood pressure 72 mm[Hg] 72 mm[Hg] [facility] Heart rate 62 /min 62 /min [facility] Body height 149.9 cm 149.9 cm [facility] Body weight 83.008 kg 83.008 kg [facility] Body mass index (BMI) [Ratio] 36.96 kg/m2 36.96 kg/m2 [facility] Oxygen saturation in Arterial blood by Pulse oximetry 98 % 98 % [facility] Systolic blood pressure 169 mm[Hg] 169 mm[Hg] [...] 98 % [facility] ([facility] [place] body weight 100 [lb_av] 100 [lb_av] [facility] T ([facility] Body mass index (BMI) [Ratio] 36.3 kg/m2 36.3 k g/m2 [facility] ([facility] Patient Treatment Plan of Care Planned Activity Planned Date Details Description Data Source (s) Clotrimazole 10 MG/ML Topical Cream 07/03/2020 12:00:00 AM EST [facility] Meclizine Hydrochloride 12.5 MG Oral Tablet [facility] Multiple Vitamin (MULTI-DAY PO) [facility]
[2021-06-04 10:07] LABS: CALCIUM LEVEL 9.8 MG/DL (8.8-10.2); CREATININE FOR GFR 2.16 MG/DL (0.55-1.30); GLOMERULAR FILTRATION RATE 23.4 (>32); POTASSIUM SERUM 3.4 MEQ/L (3.5-5.1)
[2021-06-04 14:17] VITALS: BP 141/80
== END 2021-06-04 14:30 | disposition home or self-care (01) ==
LOC: M ED 08:09
DX: R35.89 Other polyuria (principal); I12.9 Hypertensive chronic kidney disease with stage 1 through stage 4 chronic kidney disease, or unspecified chronic kidney disease; N18.4 Chronic kidney disease, stage 4 (severe); F41.9 Anxiety disorder, unspecified; G47.33 Obstructive sleep apnea (adult) (pediatric); Z79.899 Other long term (current) drug therapy; Z88.0 Allergy status to penicillin; Z88.2 Allergy status to sulfonamides; Z88.8 Allergy status to other drugs, medicaments and biological substances; Z91.018 Allergy to other foods; Z91.041 Radiographic dye allergy status

== ENCOUNTER 2021-09-30 11:46 | Inpatient (IN) | payer MEDICARE ==
[~2021-09-30] VITALS: Ht 149.9 cm; Wt 64.0 kg
[~2021-09-30 11:46] MED LIST changes: -CLON0.5T2; +CLON0.5T2 PO
[2021-09-30 12:42] LABS: HEMOGLOBIN 11.2 g/dl (12.0-15.5); PLATELET COUNT, AUTOMATED 215 10^3/uL (150-450); WHITE BLOOD COUNT 5.6 10^3/uL (4.0-10.0)
[2021-09-30 13:02] LABS: AMPHETAMINES LEVEL URINE NEGATIVE (NEGATIVE); BARBITURATES URINE NEGATIVE (NEGATIVE); BENZODIAZEPINES URINE NEGATIVE (NEGATIVE); CANNABINOIDS URINE NEGATIVE (NEGATIVE); COCAINE METABOLITE URINE NEGATIVE (NEGATIVE); METHADONE URINE NEGATIVE (NEGATIVE); OPIATES URINE NEGATIVE (NEGATIVE); PHENCYCLIDINE URINE NEGATIVE (NEGATIVE)
[2021-09-30 13:12] LABS: ACETAMINOPHEN LEVEL < 2.0 UG/ML (10.0-30.0); ALBUMIN 3.3 GM/DL (3.2-5.2); ALT/SGPT 19 U/L (12-78); BILIRUBIN,DIRECT 0.2 MG/DL (0.0-0.2); BILIRUBIN,TOTAL 0.7 MG/DL (0.2-1.0); BLOOD UREA NITROGEN 25 MG/DL (7-18); CALCIUM LEVEL 9.4 MG/DL (8.8-10.2); CARBON DIOXIDE LEVEL 25 MEQ/L (21-32); CHLORIDE LEVEL 112 MEQ/L (98-107); ETHYL ALCOHOL (ETHANOL) < 0.003 % (0.000-0.010); GLOMERULAR FILTRATION RATE 19.7 (>32); GLUCOSE, FASTING 93 MG/DL (70-100); POTASSIUM SERUM 3.8 MEQ/L (3.5-5.1); SALICYLATE LEVEL < 1.7 MG/DL (5.0-30.0); SODIUM LEVEL 146 MEQ/L (136-145); TOTAL PROTEIN 6.3 GM/DL (6.4-8.2)
[2021-09-30 13:15] LABS: RSV AMPLIFICATION NEGATIVE (NEGATIVE)
[2021-09-30] MEDS ORDERED: SYST1SOL4 OU (18:46)
[2021-09-30] MEDS ORDERED: MELA5TAB7 PO (18:46)
[2021-09-30] MEDS ORDERED: RA N1TAB PO (18:46)
[2021-09-30] MEDS ORDERED: FISH10002 PO (18:46)
[2021-09-30] MEDS ORDERED: DONE5TAB82 PO (18:46)
[2021-09-30] MEDS ORDERED: FAMO1TAB11 PO (18:46)
[2021-09-30] MEDS ORDERED: LUTE6CAP9 PO (18:46)
[2021-09-30] MEDS ORDERED: FOLI1TAB11 PO (18:46)
[2021-09-30] MEDS ORDERED: HOME MED LIST COMPLETE! XX SCH (18:50)
[2021-09-30] MEDS ORDERED: FAMOTIDINE 20 MG TAB PO PRN (18:55)
[2021-09-30] MEDS ORDERED: clonazePAM 0.5 MG TAB PO PRN (18:55)
[2021-09-30] MEDS ORDERED: amLODIPine 5 MG TAB PO SCH (21:00)
[2021-09-30] MEDS ORDERED: DONEPEZIL 5 MG TAB PO SCH (21:00)
[2021-10-01 15:45] LABS: CALCIUM LEVEL 9.3 MG/DL (8.8-10.2); CREATININE FOR GFR 2.28 MG/DL (0.55-1.30); GLOMERULAR FILTRATION RATE 21.9 (>32); POTASSIUM SERUM 4.9 MEQ/L (3.5-5.1)
[2021-10-01] MEDS ORDERED: traZODone 50 MG TAB PO PRN (17:40)
[2021-10-01] MEDS ORDERED: MOM 30ML SUSPENSION UDC PO PRN (17:40)
[2021-10-01] MEDS ORDERED: MAALOX 30 ML SUSP *UDC PO PRN (17:40)
[2021-10-01] MEDS ORDERED: FAMOTIDINE 20 MG TAB PO PRN (17:40)
[2021-10-01 20:25] VITALS: BP 146/81
[2021-10-01] MEDS ORDERED: DONEPEZIL 5 MG TAB PO SCH (21:00)
[2021-10-01] MEDS: POLYVINYL ALCOHOL OPHTH SOLN 15 ML(LIQUITEARS) OU SCH (21:48)
[2021-10-01] MEDS: amLODIPine 5 MG TAB PO SCH (21:49)
[2021-10-01] MEDS: RAMELTEON 8 MG TAB (ROZEREM) PO PRN (22:14)
[2021-10-02 06:49] VITALS: BP 136/67
[2021-10-02] MEDS: PILL CUTTER 1 EACH XX PRN (08:36)
[2021-10-02] MEDS: POLYVINYL ALCOHOL OPHTH SOLN 15 ML(LIQUITEARS) OU SCH ×4 (08:37→21:39)
[2021-10-02] MEDS: MAGNESIUM GLUCONATE 500 MG TAB PO SCH (08:37)
[2021-10-02] MEDS: OMEGA-3 1000MG CAPSULE PO SCH (08:38)
[2021-10-02] MEDS ORDERED: FOLIC ACID 1 MG TAB PO SCH (09:00)
[2021-10-02] MEDS: CitaloPRAM (CeleXA) 10 MG TABLET PO SCH (10:33)
[2021-10-02] MEDS: MULTIVITAMINS/MINERALS THERAP 1 TAB PO SCH (12:05)
[2021-10-02 17:47] VITALS: BP 134/78
[2021-10-02] MEDS: RAMELTEON 8 MG TAB (ROZEREM) PO PRN (21:39)
[2021-10-02] MEDS: amLODIPine 5 MG TAB PO SCH (21:42)
[2021-10-03 07:16] VITALS: BP 144/71
[2021-10-03] MEDS: POLYVINYL ALCOHOL OPHTH SOLN 15 ML(LIQUITEARS) OU SCH ×4 (09:20→21:16)
[2021-10-03] MEDS: MAGNESIUM GLUCONATE 500 MG TAB PO SCH (09:20)
[2021-10-03] MEDS: CitaloPRAM (CeleXA) 10 MG TABLET PO SCH (09:21)
[2021-10-03] MEDS: MULTIVITAMINS/MINERALS THERAP 1 TAB PO SCH (09:21)
[2021-10-03] MEDS: OMEGA-3 1000MG CAPSULE PO SCH (09:21)
[2021-10-03 18:44] VITALS: BP 136/72
[2021-10-03] MEDS: amLODIPine 5 MG TAB PO SCH (21:17)
[2021-10-03] MEDS: RAMELTEON 8 MG TAB (ROZEREM) PO PRN (21:17)
[2021-10-04 06:17] VITALS: BP 144/82
[2021-10-04] MEDS: OMEGA-3 1000MG CAPSULE PO SCH (09:03)
[2021-10-04] MEDS: MAGNESIUM GLUCONATE 500 MG TAB PO SCH (09:03)
[2021-10-04] MEDS: POLYVINYL ALCOHOL OPHTH SOLN 15 ML(LIQUITEARS) OU SCH ×4 (09:03→21:42)
[2021-10-04] MEDS: CitaloPRAM (CeleXA) 10 MG TABLET PO SCH (09:03)
[2021-10-04] MEDS: MULTIVITAMINS/MINERALS THERAP 1 TAB PO SCH (09:03)
[2021-10-04 17:59] VITALS: BP 143/67
[2021-10-04] MEDS: amLODIPine 5 MG TAB PO SCH (21:45)
[2021-10-04] MEDS: RAMELTEON 8 MG TAB (ROZEREM) PO PRN (21:46)
[2021-10-05 06:20] VITALS: BP 163/74
[2021-10-05] MEDS: CitaloPRAM (CeleXA) 10 MG TABLET PO SCH (08:27)
[2021-10-05] MEDS: POLYVINYL ALCOHOL OPHTH SOLN 15 ML(LIQUITEARS) OU SCH ×4 (08:27→21:33)
[2021-10-05] MEDS: PILL CUTTER 1 EACH XX PRN (08:27)
[2021-10-05] MEDS: MULTIVITAMINS/MINERALS THERAP 1 TAB PO SCH (08:27)
[2021-10-05] MEDS: OMEGA-3 1000MG CAPSULE PO SCH (08:27)
[2021-10-05] MEDS: MAGNESIUM GLUCONATE 500 MG TAB PO SCH (08:28)
[2021-10-05 19:18] VITALS: BP 140/78
[2021-10-05] MEDS: hydrOXYzine 10 MG TAB PO PRN (21:33)
[2021-10-05] MEDS: amLODIPine 5 MG TAB PO SCH (21:33)
[2021-10-06 07:01] VITALS: BP 140/100
[2021-10-06] MEDS: MAGNESIUM GLUCONATE 500 MG TAB PO SCH (09:21)
[2021-10-06] MEDS: POLYVINYL ALCOHOL OPHTH SOLN 15 ML(LIQUITEARS) OU SCH ×4 (09:21→21:30)
[2021-10-06] MEDS: CitaloPRAM (CeleXA) 10 MG TABLET PO SCH (09:21)
[2021-10-06] MEDS: OMEGA-3 1000MG CAPSULE PO SCH (09:21)
[2021-10-06] MEDS: MULTIVITAMINS/MINERALS THERAP 1 TAB PO SCH (09:21)
[2021-10-06 18:43] VITALS: BP 138/80
[2021-10-06] MEDS: amLODIPine 5 MG TAB PO SCH (21:30)
[2021-10-06] MEDS: hydrOXYzine 10 MG TAB PO PRN (21:30)
[2021-10-07] MEDS: hydrOXYzine 10 MG TAB PO PRN ×2 (06:36→21:40)
[2021-10-07 06:37] VITALS: BP 170/70
[2021-10-07] MEDS: POLYVINYL ALCOHOL OPHTH SOLN 15 ML(LIQUITEARS) OU SCH ×4 (09:18→21:41)
[2021-10-07] MEDS: PILL CUTTER 1 EACH XX PRN (09:18)
[2021-10-07] MEDS: OMEGA-3 1000MG CAPSULE PO SCH (09:19)
[2021-10-07] MEDS: MULTIVITAMINS/MINERALS THERAP 1 TAB PO SCH (09:19)
[2021-10-07] MEDS: MAGNESIUM GLUCONATE 500 MG TAB PO SCH (09:19)
[2021-10-07] MEDS: CitaloPRAM (CeleXA) 10 MG TABLET PO SCH (09:19)
[2021-10-07 18:44] VITALS: BP 124/82
[2021-10-07] MEDS: amLODIPine 5 MG TAB PO SCH (21:40)
[2021-10-08 06:29] VITALS: BP 145/82
[2021-10-08] MEDS: MULTIVITAMINS/MINERALS THERAP 1 TAB PO SCH (09:20)
[2021-10-08] MEDS: CitaloPRAM (CeleXA) 10 MG TABLET PO SCH (09:20)
[2021-10-08] MEDS: PILL CUTTER 1 EACH XX PRN (09:21)
[2021-10-08] MEDS: POLYVINYL ALCOHOL OPHTH SOLN 15 ML(LIQUITEARS) OU SCH ×4 (09:21→21:51)
[2021-10-08] MEDS: OMEGA-3 1000MG CAPSULE PO SCH (09:21)
[2021-10-08] MEDS: MAGNESIUM GLUCONATE 500 MG TAB PO SCH (09:21)
[2021-10-08] MEDS: hydrOXYzine 10 MG TAB PO PRN ×2 (13:31→21:53)
[2021-10-08 16:19] VITALS: BP 122/70
[2021-10-08] MEDS: amLODIPine 5 MG TAB PO SCH (21:52)
[2021-10-09 06:25] VITALS: BP 150/90
[2021-10-09] MEDS: MULTIVITAMINS/MINERALS THERAP 1 TAB PO SCH (08:55)
[2021-10-09] MEDS ORDERED: NEOSPORIN TOP OINT 15GM TOP PRN (08:55)
[2021-10-09] MEDS: POLYVINYL ALCOHOL OPHTH SOLN 15 ML(LIQUITEARS) OU SCH ×4 (08:55→21:12)
[2021-10-09] MEDS: PILL CUTTER 1 EACH XX PRN (08:55)
[2021-10-09] MEDS: CitaloPRAM (CeleXA) 10 MG TABLET PO SCH (08:56)
[2021-10-09] MEDS: MAGNESIUM GLUCONATE 500 MG TAB PO SCH (08:56)
[2021-10-09] MEDS: OMEGA-3 1000MG CAPSULE PO SCH (08:56)
[2021-10-09] MEDS: hydrOXYzine 10 MG TAB PO PRN (14:09)
[2021-10-09 16:23] VITALS: BP 142/71
[2021-10-09] MEDS: NEOSPORIN TOP OINT 15GM TOP SCH (21:12)
[2021-10-09] MEDS: amLODIPine 5 MG TAB PO SCH (21:12)
[2021-10-09] MEDS: RAMELTEON 8 MG TAB (ROZEREM) PO PRN (22:37)
[2021-10-10 06:18] VITALS: BP 156/72
[2021-10-10] MEDS: CitaloPRAM (CeleXA) 10 MG TABLET PO SCH (08:35)
[2021-10-10] MEDS: MULTIVITAMINS/MINERALS THERAP 1 TAB PO SCH (08:35)
[2021-10-10] MEDS: MAGNESIUM GLUCONATE 500 MG TAB PO SCH (08:35)
[2021-10-10] MEDS: OMEGA-3 1000MG CAPSULE PO SCH (08:35)
[2021-10-10] MEDS: POLYVINYL ALCOHOL OPHTH SOLN 15 ML(LIQUITEARS) OU SCH ×4 (08:36→21:33)
[2021-10-10] MEDS: NEOSPORIN TOP OINT 15GM TOP SCH ×2 (08:36→21:33)
[2021-10-10] MEDS: hydrOXYzine 10 MG TAB PO PRN (12:55)
[2021-10-10 17:03] VITALS: BP 138/63
[2021-10-10] MEDS: amLODIPine 5 MG TAB PO SCH (21:32)
[2021-10-10] MEDS: RAMELTEON 8 MG TAB (ROZEREM) PO PRN (23:57)
[2021-10-11] MEDS: PILL CUTTER 1 EACH XX PRN (08:57)
[2021-10-11] MEDS: NEOSPORIN TOP OINT 15GM TOP SCH ×2 (08:58→21:38)
[2021-10-11] MEDS: POLYVINYL ALCOHOL OPHTH SOLN 15 ML(LIQUITEARS) OU SCH ×4 (08:58→21:38)
[2021-10-11] MEDS: hydrOXYzine 10 MG TAB PO PRN ×3 (08:58→21:38)
[2021-10-11] MEDS: MULTIVITAMINS/MINERALS THERAP 1 TAB PO SCH (08:59)
[2021-10-11] MEDS: CitaloPRAM (CeleXA) 10 MG TABLET PO SCH (08:59)
[2021-10-11] MEDS: OMEGA-3 1000MG CAPSULE PO SCH (08:59)
[2021-10-11] MEDS: MAGNESIUM GLUCONATE 500 MG TAB PO SCH (08:59)
[2021-10-11 18:59] VITALS: BP 132/84
[2021-10-11] MEDS: amLODIPine 5 MG TAB PO SCH (21:39)
[2021-10-12] MEDS: RAMELTEON 8 MG TAB (ROZEREM) PO PRN ×2 (00:31→22:55)
[2021-10-12 06:47] VITALS: BP 156/70
[2021-10-12] MEDS: POLYVINYL ALCOHOL OPHTH SOLN 15 ML(LIQUITEARS) OU SCH ×4 (08:42→20:16)
[2021-10-12] MEDS: OMEGA-3 1000MG CAPSULE PO SCH (08:43)
[2021-10-12] MEDS: CitaloPRAM (CeleXA) 10 MG TABLET PO SCH (08:44)
[2021-10-12] MEDS: PILL CUTTER 1 EACH XX PRN (08:44)
[2021-10-12] MEDS: NEOSPORIN TOP OINT 15GM TOP SCH ×2 (08:44→20:16)
[2021-10-12] MEDS: MAGNESIUM GLUCONATE 500 MG TAB PO SCH (08:44)
[2021-10-12] MEDS: DOCUSATE SODIUM 100MG CAPSULE PO PRN (08:44)
[2021-10-12] MEDS: MULTIVITAMINS/MINERALS THERAP 1 TAB PO SCH (08:44)
[2021-10-12] MEDS: hydrOXYzine 10 MG TAB PO PRN (08:45)
[2021-10-12] MEDS ORDERED: diphenhydrAMINE 25MG CAP PO PRN (12:40)
[2021-10-12 15:43] LABS: CALCIUM LEVEL 8.8 MG/DL (8.8-10.2); CREATININE FOR GFR 2.34 MG/DL (0.55-1.30); GLOMERULAR FILTRATION RATE 21.3 (>32)
[2021-10-12 16:30] VITALS: BP 135/64
[2021-10-12] MEDS: amLODIPine 5 MG TAB PO SCH (20:15)
[2021-10-12] MEDS: DONEPEZIL 5 MG TAB PO SCH (20:15)
[2021-10-12] MEDS ORDERED: traZODone 25MG PER 1/2 TABLET PO SCH (21:00)
[2021-10-13 06:24] VITALS: BP 158/82
[2021-10-13] MEDS: MAGNESIUM GLUCONATE 500 MG TAB PO SCH (08:23)
[2021-10-13] MEDS: hydrOXYzine 10 MG TAB PO PRN ×2 (08:23→14:16)
[2021-10-13] MEDS: PILL CUTTER 1 EACH XX PRN ×2 (08:23→20:46)
[2021-10-13] MEDS: OMEGA-3 1000MG CAPSULE PO SCH (08:23)
[2021-10-13] MEDS: NEOSPORIN TOP OINT 15GM TOP SCH ×2 (08:23→20:46)
[2021-10-13] MEDS: POLYVINYL ALCOHOL OPHTH SOLN 15 ML(LIQUITEARS) OU SCH ×4 (08:23→20:46)
[2021-10-13] MEDS: CitaloPRAM (CeleXA) 10 MG TABLET PO SCH (08:23)
[2021-10-13] MEDS: ACETAMINOPHEN TAB 650MG DOSE (2X325MG) PO PRN (14:16)
[2021-10-13 16:10] VITALS: BP 138/76
[2021-10-13] MEDS: amLODIPine 5 MG TAB PO SCH (20:46)
[2021-10-13] MEDS: DONEPEZIL 5 MG TAB PO SCH (20:49)
[2021-10-14] MEDS: ACETAMINOPHEN TAB 650MG DOSE (2X325MG) PO PRN (00:55)
[2021-10-14 06:33] VITALS: BP 160/90
[2021-10-14] MEDS: OMEGA-3 1000MG CAPSULE PO SCH (09:07)
[2021-10-14] MEDS: DOCUSATE SODIUM 100MG CAPSULE PO PRN (09:07)
[2021-10-14] MEDS: CitaloPRAM (CeleXA) 10 MG TABLET PO SCH (09:07)
[2021-10-14] MEDS: hydrOXYzine 10 MG TAB PO PRN ×2 (09:07→16:25)
[2021-10-14] MEDS: POLYVINYL ALCOHOL OPHTH SOLN 15 ML(LIQUITEARS) OU SCH ×4 (09:08→20:49)
[2021-10-14] MEDS: MAGNESIUM GLUCONATE 500 MG TAB PO SCH (09:08)
[2021-10-14] MEDS: NEOSPORIN TOP OINT 15GM TOP SCH ×2 (09:08→20:49)
[2021-10-14 17:47] VITALS: BP 140/90
[2021-10-14 20:48] VITALS: BP 154/81
[2021-10-14] MEDS: amLODIPine 5 MG TAB PO SCH (20:48)
[2021-10-14] MEDS: DONEPEZIL 5 MG TAB PO SCH (20:48)
[2021-10-14] MEDS: RAMELTEON 8 MG TAB (ROZEREM) PO PRN (21:53)
[2021-10-15] MEDS: hydrOXYzine 10 MG TAB PO PRN (06:27)
[2021-10-15 06:44] VITALS: BP 140/60
[2021-10-15] MEDS: MAGNESIUM GLUCONATE 500 MG TAB PO SCH (08:48)
[2021-10-15] MEDS: CitaloPRAM (CeleXA) 10 MG TABLET PO SCH (08:48)
[2021-10-15] MEDS: POLYVINYL ALCOHOL OPHTH SOLN 15 ML(LIQUITEARS) OU SCH ×2 (08:49→12:03)
[2021-10-15] MEDS: NEOSPORIN TOP OINT 15GM TOP SCH (08:49)
[2021-10-15] MEDS: OMEGA-3 1000MG CAPSULE PO SCH (08:49)
[2021-10-15] MEDS ORDERED: NEOM28OI TOP (10:40)
[2021-10-15] MEDS ORDERED: HYDR-643 PO (10:40)
[2021-10-15] MEDS ORDERED: POLYOPD OU (10:40)
[2021-10-15] MEDS ORDERED: FISH1CAP26 PO (10:40)
[2021-10-15] MEDS ORDERED: COLA100C5 PO (10:40)
[2021-10-15] MEDS ORDERED: CELE10TA PO (10:40)
[2021-10-15] MEDS ORDERED: RAME8TAB2 PO (10:40)
[2021-10-15] MEDS ORDERED: MAGN50TA PO (10:40)
[2021-10-15] MEDS ORDERED: ARIC1TAB PO (10:40)
== END 2021-10-15 13:19 | disposition home or self-care (01) | DRG 885 ==
LOC: M ED 11:46 → M ED INP 10-01 17:36 → M PSY 10-01 20:22
PROVIDERS: ADMIT Student in an Organized Health Care Education/Training Program; ATTEND Student in an Organized Health Care Education/Training Program
DX: F32.89 Other specified depressive episodes (principal); N18.4 Chronic kidney disease, stage 4 (severe); M30.0 Polyarteritis nodosa; R45.851 Suicidal ideations; F41.1 Generalized anxiety disorder; R41.9 Unspecified symptoms and signs involving cognitive functions and awareness; I12.9 Hypertensive chronic kidney disease with stage 1 through stage 4 chronic kidney disease, or unspecified chronic kidney disease; M19.90 Unspecified osteoarthritis, unspecified site; G47.30 Sleep apnea, unspecified; J45.909 Unspecified asthma, uncomplicated; D64.9 Anemia, unspecified; M54.50 Low back pain, unspecified; M54.2 Cervicalgia; Z98.49 Cataract extraction status, unspecified eye; F03.90 Unspecified dementia, unspecified severity, without behavioral disturbance, psychotic disturbance, mood disturbance, and anxiety; Z79.899 Other long term (current) drug therapy; Z88.1 Allergy status to other antibiotic agents; Z88.2 Allergy status to sulfonamides; Z88.6 Allergy status to analgesic agent; Z88.8 Allergy status to other drugs, medicaments and biological substances; Z91.018 Allergy to other foods; Z20.822 Contact with and (suspected) exposure to COVID-19

== ENCOUNTER 2021-11-11 15:32 | Emergency (ER) | payer MEDICARE ==
[~2021-11-11] VITALS: Ht 152.4 cm; Wt 63.6 kg
[~2021-11-11 15:32] MED LIST changes: +ARIC1TAB PO; +CELE10TA PO; +COLA100C5 PO; +DONE5TAB82 PO; +FAMO1TAB11 PO; +FISH10002 PO; +FISH1CAP26 PO; +FOLI1TAB11 PO; +HYDR-643 PO; +LUTE6CAP9 PO; +MAGN50TA PO; +MELA5TAB7 PO; +NEOM28OI TOP; +POLYOPD OU; +RA N1TAB PO; +RAME8TAB2 PO; +SYST1SOL4 OU
[2021-11-11 16:15] VITALS: BP 165/72
== END 2021-11-11 17:06 | disposition home or self-care (01) ==
LOC: M ED 15:32 → EDBD 15:32 → M ED 17:06
DX: F41.8 Other specified anxiety disorders (principal); J45.909 Unspecified asthma, uncomplicated; I12.9 Hypertensive chronic kidney disease with stage 1 through stage 4 chronic kidney disease, or unspecified chronic kidney disease; N18.4 Chronic kidney disease, stage 4 (severe); F39 Unspecified mood [affective] disorder; G47.33 Obstructive sleep apnea (adult) (pediatric); M54.9 Dorsalgia, unspecified; Z79.899 Other long term (current) drug therapy; Z88.0 Allergy status to penicillin; Z88.2 Allergy status to sulfonamides; Z88.8 Allergy status to other drugs, medicaments and biological substances; Z91.041 Radiographic dye allergy status

== ENCOUNTER 2022-05-08 12:14 | Emergency (ER) | payer MEDICARE ==
[~2022-05-08] VITALS: Ht 149.9 cm; Wt 64.5 kg
[2022-05-08] MEDS ORDERED: BOOSTRIX/ADACEL VACCINE (DIPHTH/PERTUSS/ACELL/TETANUS) 0.5ML SYR IM.IMMUN ONE (12:50)
[2022-05-08] MEDS ORDERED: LIDOCAINE 1% MDV 20ML VIAL SC ONE (12:50)
[2022-05-08 13:30] LABS: BASO # 0.1 10^3/uL (0.0-0.2); BASO % 0.8 % (0.0-1.0); EOS # 0.4 10^3/uL (0.0-0.5); EOS % 6.3 % (0.0-3.0); HEMATOCRIT 33.5 % (36.0-47.0); HEMOGLOBIN 10.9 g/dl (12.0-15.5); LYMPH # 1.6 10^3/uL (1.5-5.0); LYMPH % 24.4 % (24.0-44.0); MEAN CORPUSCULAR HEMOGLOBIN 32.3 pg (27.0-33.0); MEAN CORPUSCULAR HGB CONC 32.5 g/dl (32.0-36.5); MEAN CORPUSCULAR VOLUME 99.4 fl (80.0-96.0); MONO # 0.5 10^3/uL (0.0-0.8); MONO % 7.4 % (2.0-8.0); NEUTROPHILS # 3.9 10^3/uL (1.5-8.5); NEUTROPHILS % 60.9 % (36.0-66.0); PLATELET COUNT, AUTOMATED 197 10^3/uL (150-450); RED BLOOD COUNT 3.37 10^6/uL (4.00-5.40); WHITE BLOOD COUNT 6.4 10^3/uL (4.0-10.0)
[2022-05-08 13:47] LABS: CALCIUM LEVEL 9.3 MG/DL (8.8-10.2); CREATININE FOR GFR 2.54 MG/DL (0.55-1.30); GLOMERULAR FILTRATION RATE 19.3 (>32); POTASSIUM SERUM 4.1 MEQ/L (3.5-5.1)
[2022-05-08 15:05] VITALS: BP 142/78
== END 2022-05-08 15:19 | disposition home or self-care (01) ==
LOC: M ED 12:14 → EDBD 12:14 → M ED 15:19
DX: S01.411A Laceration without foreign body of right cheek and temporomandibular area, initial encounter (principal); W01.190A Fall on same level from slipping, tripping and stumbling with subsequent striking against furniture, initial encounter; J45.909 Unspecified asthma, uncomplicated; I10 Essential (primary) hypertension; N18.4 Chronic kidney disease, stage 4 (severe); M19.90 Unspecified osteoarthritis, unspecified site; G47.30 Sleep apnea, unspecified; Z23 Encounter for immunization; Z88.1 Allergy status to other antibiotic agents; Z88.5 Allergy status to narcotic agent; Z88.2 Allergy status to sulfonamides

== ENCOUNTER → 2022-05-29 | Outpatient (CLI) | payer MEDICARE | LOC: M WHC 14:04 | PROVIDERS: ATTEND Nurse Practitioner Family | DX: Z12.31 Encounter for screening mammogram for malignant neoplasm of breast (principal) ==

== ENCOUNTER 2022-06-27 15:57 | Inpatient (IN) | payer MEDICARE ==
[~2022-06-27] VITALS: Ht 149.9 cm; Wt 65.6 kg
[2022-06-27 18:26] LABS: HEMATOCRIT 35.6 % (36.0-47.0); HEMOGLOBIN 11.3 g/dl (12.0-15.5); MEAN CORPUSCULAR HGB CONC 31.7 g/dl (32.0-36.5); MEAN CORPUSCULAR VOLUME 100.8 fl (80.0-96.0); PLATELET COUNT, AUTOMATED 200 10^3/uL (150-450); RED BLOOD COUNT 3.53 10^6/uL (4.00-5.40); WHITE BLOOD COUNT 6.8 10^3/uL (4.0-10.0)
[2022-06-27 18:48] LABS: AMPHETAMINES LEVEL URINE NEGATIVE (NEGATIVE); BARBITURATES URINE NEGATIVE (NEGATIVE); BENZODIAZEPINES URINE NEGATIVE (NEGATIVE); CANNABINOIDS URINE NEGATIVE (NEGATIVE); COCAINE METABOLITE URINE NEGATIVE (NEGATIVE); ETHYL ALCOHOL (ETHANOL) 0.003 % (0.000-0.010); METHADONE URINE NEGATIVE (NEGATIVE); OPIATES URINE NEGATIVE (NEGATIVE); PHENCYCLIDINE URINE NEGATIVE (NEGATIVE)
[2022-06-27 18:50] LABS: ACETAMINOPHEN LEVEL < 2.0 UG/ML (10.0-20.0); BILIRUBIN,DIRECT 0.2 MG/DL (<0.4); SALICYLATE LEVEL < 3.0 MG/DL (<30)
[2022-06-27 18:59] LABS: RSV AMPLIFICATION NEGATIVE (NEGATIVE)
[2022-06-27 19:53] LABS: ALBUMIN 3.4 G/DL (3.2-5.2); ALKALINE PHOSPHATASE 60 U/L (46-116); ALT/SGPT 13 U/L (7.0-40); AST/SGOT 14 U/L (<34); BILIRUBIN,TOTAL 0.7 MG/DL (0.3-1.2); BLOOD UREA NITROGEN 31 MG/DL (9-23); CARBON DIOXIDE LEVEL 26 MMOL/L (20-31); CHLORIDE LEVEL 110 MMOL/L (98-107); GLUCOSE, FASTING 104 MG/DL (74-106); SODIUM LEVEL 145 MMOL/L (136-145); TOTAL PROTEIN 6.1 G/DL (5.7-8.2)
[2022-06-27 20:26] LABS: THYROID STIMULATING HORMONE 2.587 uIU/ML (0.55-4.78)
[2022-06-27] MEDS ORDERED: AMLO1TAB25 PO (20:33)
[2022-06-27] MEDS ORDERED: MELA1TAB31 PO (20:33)
[2022-06-27] MEDS ORDERED: LUTE2000 PO (20:33)
[2022-06-27] MEDS ORDERED: PEPCCHW3 PO (20:39)
[2022-06-27] MEDS ORDERED: SYST1SOL OU (20:39)
[2022-06-27] MEDS ORDERED: HALO0.5H PO (20:39)
[2022-06-27] MEDS ORDERED: OCUVTAB PO (20:39)
[2022-06-27] MEDS ORDERED: TUMS750C5 PO (20:39)
[2022-06-27] MEDS ORDERED: B-COTAB10 PO (20:39)
[2022-06-27] MEDS ORDERED: XALA0.007 OU (20:39)
[2022-06-27] MEDS ORDERED: ACET500T15 PO (20:39)
[2022-06-27] MEDS ORDERED: VITA100093 PO (20:39)
[2022-06-27] MEDS ORDERED: COLA100C5 PO (20:39)
[2022-06-27 20:41] LABS: GLOMERULAR FILTRATION RATE 20.6 (>32)
[2022-06-27] MEDS ORDERED: HOME MED LIST COMPLETE! XX SCH (20:45)
[2022-06-27] MEDS ORDERED: MOM 30ML SUSPENSION UDC PO PRN (21:05)
[2022-06-27] MEDS ORDERED: ACETAMINOPHEN TAB 650MG DOSE (2X325MG) PO PRN (21:05)
[2022-06-27] MEDS ORDERED: POLYVINYL ALCOHOL OPHTH SOLN 15ML (LIQUITEARS) OU PRN (21:05)
[2022-06-27] MEDS ORDERED: MAALOX 30 ML SUSP *UDC PO PRN (21:05)
[2022-06-27] MEDS: RAMELTEON 8 MG TAB (ROZEREM) PO SCH (21:37)
[2022-06-27 22:11] VITALS: BP 140/76
[2022-06-27] MEDS: haloperidoL 0.5 MG TAB PO SCH (22:51)
[2022-06-27] MEDS: LATANOPROST 0.005% OPHTH SOLN 2.5 ML OU SCH (22:51)
[2022-06-28 06:36] VITALS: BP 144/72
[2022-06-28] MEDS: PILL CUTTER 1 EACH XX PRN ×2 (07:55→21:06)
[2022-06-28] MEDS: OCUVITE 1 TAB PO SCH (07:55)
[2022-06-28] MEDS: NEPHRO-VIT TAB (NEPHROCAPS) PO SCH (07:55)
[2022-06-28] MEDS: VITAMIN D 1,000 INTERNATIONAL UNITS TABLET PO SCH (07:55)
[2022-06-28] MEDS: lamoTRIgine 25MG TAB PO SCH (16:49)
[2022-06-28 18:13] VITALS: BP 145/69
[2022-06-28] MEDS: RAMELTEON 8 MG TAB (ROZEREM) PO SCH (21:06)
[2022-06-28] MEDS: OMEGA-3 1000MG CAPSULE PO SCH (21:06)
[2022-06-28] MEDS: DOCUSATE SODIUM 100MG CAPSULE PO SCH (21:06)
[2022-06-28] MEDS: haloperidoL 0.5 MG TAB PO SCH (21:07)
[2022-06-28] MEDS: LATANOPROST 0.005% OPHTH SOLN 2.5 ML OU SCH (21:07)
[2022-06-29 06:14] VITALS: BP 143/69
[2022-06-29] MEDS: lamoTRIgine 25MG TAB PO SCH (08:09)
[2022-06-29] MEDS: PILL CUTTER 1 EACH XX PRN ×2 (08:09→21:39)
[2022-06-29] MEDS: VITAMIN D 1,000 INTERNATIONAL UNITS TABLET PO SCH (08:09)
[2022-06-29] MEDS: NEPHRO-VIT TAB (NEPHROCAPS) PO SCH (08:10)
[2022-06-29] MEDS: OCUVITE 1 TAB PO SCH (08:10)
[2022-06-29 18:21] VITALS: BP 142/86
[2022-06-29] MEDS: DOCUSATE SODIUM 100MG CAPSULE PO SCH (21:39)
[2022-06-29] MEDS: LATANOPROST 0.005% OPHTH SOLN 2.5 ML OU SCH (21:39)
[2022-06-29] MEDS: haloperidoL 0.5 MG TAB PO SCH (21:39)
[2022-06-29] MEDS: OMEGA-3 1000MG CAPSULE PO SCH (21:39)
[2022-06-29] MEDS: RAMELTEON 8 MG TAB (ROZEREM) PO SCH (21:39)
[2022-06-30 06:22] VITALS: BP 145/69
[2022-06-30] MEDS: lamoTRIgine 25MG TAB PO SCH (08:16)
[2022-06-30] MEDS: VITAMIN D 1,000 INTERNATIONAL UNITS TABLET PO SCH (08:16)
[2022-06-30] MEDS: NEPHRO-VIT TAB (NEPHROCAPS) PO SCH (08:18)
[2022-06-30] MEDS: OCUVITE 1 TAB PO SCH (08:18)
[2022-06-30] MEDS: PILL CUTTER 1 EACH XX PRN ×2 (08:18→20:57)
[2022-06-30 18:00] VITALS: BP 156/88
[2022-06-30] MEDS: haloperidoL 0.5 MG TAB PO SCH (20:57)
[2022-06-30] MEDS: RAMELTEON 8 MG TAB (ROZEREM) PO SCH (20:57)
[2022-06-30] MEDS: OMEGA-3 1000MG CAPSULE PO SCH (20:57)
[2022-06-30] MEDS: MAGNESIUM GLUCONATE 500 MG TAB PO SCH (20:57)
[2022-06-30] MEDS: DOCUSATE SODIUM 100MG CAPSULE PO SCH (20:57)
[2022-06-30] MEDS: LATANOPROST 0.005% OPHTH SOLN 2.5 ML OU SCH (20:57)
[2022-07-01 06:32] VITALS: BP 154/78
[2022-07-01] MEDS: OCUVITE 1 TAB PO SCH (07:57)
[2022-07-01] MEDS: NEPHRO-VIT TAB (NEPHROCAPS) PO SCH (07:57)
[2022-07-01] MEDS: lamoTRIgine 25MG TAB PO SCH (07:57)
[2022-07-01] MEDS: VITAMIN D 1,000 INTERNATIONAL UNITS TABLET PO SCH (07:57)
[2022-07-01] MEDS: PILL CUTTER 1 EACH XX PRN (07:57)
[2022-07-01 16:23] VITALS: BP 136/70
[2022-07-01] MEDS: MAGNESIUM GLUCONATE 500 MG TAB PO SCH (21:45)
[2022-07-01] MEDS: haloperidoL 0.5 MG TAB PO SCH (21:46)
[2022-07-01] MEDS: DOCUSATE SODIUM 100MG CAPSULE PO SCH (21:49)
[2022-07-01] MEDS: OMEGA-3 1000MG CAPSULE PO SCH (21:49)
[2022-07-01] MEDS: LATANOPROST 0.005% OPHTH SOLN 2.5 ML OU SCH (21:49)
[2022-07-01] MEDS: RAMELTEON 8 MG TAB (ROZEREM) PO SCH (21:49)
[2022-07-02 06:40] VITALS: BP 151/72
[2022-07-02] MEDS: NEPHRO-VIT TAB (NEPHROCAPS) PO SCH (08:04)
[2022-07-02] MEDS: OCUVITE 1 TAB PO SCH (08:04)
[2022-07-02] MEDS: lamoTRIgine 25MG TAB PO SCH (08:04)
[2022-07-02] MEDS: PILL CUTTER 1 EACH XX PRN (08:04)
[2022-07-02] MEDS: VITAMIN D 1,000 INTERNATIONAL UNITS TABLET PO SCH (08:04)
[2022-07-02 16:24] VITALS: BP 144/75
[2022-07-02] MEDS: MAGNESIUM GLUCONATE 500 MG TAB PO SCH (21:14)
[2022-07-02] MEDS: haloperidoL 0.5 MG TAB PO SCH (21:15)
[2022-07-02] MEDS: DOCUSATE SODIUM 100MG CAPSULE PO SCH (21:15)
[2022-07-02] MEDS: RAMELTEON 8 MG TAB (ROZEREM) PO SCH (21:15)
[2022-07-02] MEDS: LATANOPROST 0.005% OPHTH SOLN 2.5 ML OU SCH (21:15)
[2022-07-02] MEDS: OMEGA-3 1000MG CAPSULE PO SCH (21:15)
[2022-07-03 06:21] VITALS: BP 160/88
[2022-07-03] MEDS: PILL CUTTER 1 EACH XX PRN ×2 (08:32→21:40)
[2022-07-03] MEDS: VITAMIN D 1,000 INTERNATIONAL UNITS TABLET PO SCH (08:33)
[2022-07-03] MEDS: OCUVITE 1 TAB PO SCH (08:33)
[2022-07-03] MEDS: lamoTRIgine 25MG TAB PO SCH (08:33)
[2022-07-03] MEDS: NEPHRO-VIT TAB (NEPHROCAPS) PO SCH (08:33)
[2022-07-03] MEDS: POLYVINYL ALCOHOL OPHTH SOLN 15ML (LIQUITEARS) OU SCH ×3 (14:14→21:34)
[2022-07-03 16:18] VITALS: BP 140/73
[2022-07-03] MEDS: haloperidoL 0.5 MG TAB PO SCH (21:33)
[2022-07-03] MEDS: LATANOPROST 0.005% OPHTH SOLN 2.5 ML OU SCH (21:34)
[2022-07-03] MEDS: MAGNESIUM GLUCONATE 500 MG TAB PO SCH (21:34)
[2022-07-03] MEDS: DOCUSATE SODIUM 100MG CAPSULE PO SCH (21:36)
[2022-07-03] MEDS: OMEGA-3 1000MG CAPSULE PO SCH (21:36)
[2022-07-03] MEDS: RAMELTEON 8 MG TAB (ROZEREM) PO SCH (21:36)
[2022-07-03] MEDS: SERTRALINE HCL 25 MG TABLET PO SCH (21:36)
[2022-07-04 06:41] VITALS: BP 137/76
[2022-07-04] MEDS: OCUVITE 1 TAB PO SCH (08:36)
[2022-07-04] MEDS: lamoTRIgine 25MG TAB PO SCH (08:36)
[2022-07-04] MEDS: POLYVINYL ALCOHOL OPHTH SOLN 15ML (LIQUITEARS) OU SCH ×3 (08:36→21:33)
[2022-07-04] MEDS: NEPHRO-VIT TAB (NEPHROCAPS) PO SCH (08:36)
[2022-07-04] MEDS: VITAMIN D 1,000 INTERNATIONAL UNITS TABLET PO SCH (08:36)
[2022-07-04] MEDS: PILL CUTTER 1 EACH XX PRN ×2 (08:37→21:35)
[2022-07-04 19:20] VITALS: BP 150/74
[2022-07-04] MEDS: LATANOPROST 0.005% OPHTH SOLN 2.5 ML OU SCH (21:33)
[2022-07-04] MEDS: OMEGA-3 1000MG CAPSULE PO SCH (21:34)
[2022-07-04] MEDS: haloperidoL 0.5 MG TAB PO SCH (21:34)
[2022-07-04] MEDS: SERTRALINE HCL 25 MG TABLET PO SCH (21:34)
[2022-07-04] MEDS: MAGNESIUM GLUCONATE 500 MG TAB PO SCH (21:34)
[2022-07-04] MEDS: RAMELTEON 8 MG TAB (ROZEREM) PO SCH (21:34)
[2022-07-04] MEDS: DOCUSATE SODIUM 100MG CAPSULE PO SCH (21:34)
[2022-07-05 06:44] VITALS: BP 152/76
[2022-07-05] MEDS: PILL CUTTER 1 EACH XX PRN (08:09)
[2022-07-05] MEDS: lamoTRIgine 25MG TAB PO SCH (08:10)
[2022-07-05] MEDS: VITAMIN D 1,000 INTERNATIONAL UNITS TABLET PO SCH (08:10)
[2022-07-05] MEDS: NEPHRO-VIT TAB (NEPHROCAPS) PO SCH (08:10)
[2022-07-05] MEDS: OCUVITE 1 TAB PO SCH (08:10)
[2022-07-05] MEDS: POLYVINYL ALCOHOL OPHTH SOLN 15ML (LIQUITEARS) OU SCH ×3 (08:10→21:34)
[2022-07-05 16:27] VITALS: BP 140/90
[2022-07-05] MEDS ORDERED: HALOPERIDOL 0.25MG PER 1/2 TABLET PO ONE (21:00)
[2022-07-05] MEDS: LATANOPROST 0.005% OPHTH SOLN 2.5 ML OU SCH (21:31)
[2022-07-05] MEDS: DOCUSATE SODIUM 100MG CAPSULE PO SCH (21:32)
[2022-07-05] MEDS: SERTRALINE HCL 25 MG TABLET PO SCH (21:32)
[2022-07-05] MEDS: haloperidoL 0.5 MG TAB PO SCH (21:32)
[2022-07-05] MEDS: RAMELTEON 8 MG TAB (ROZEREM) PO SCH (21:32)
[2022-07-05] MEDS: OMEGA-3 1000MG CAPSULE PO SCH (21:32)
[2022-07-05] MEDS: MAGNESIUM GLUCONATE 500 MG TAB PO SCH (21:33)
[2022-07-06 06:21] VITALS: BP 164/77
[2022-07-06] MEDS: PILL CUTTER 1 EACH XX PRN (08:13)
[2022-07-06] MEDS: VITAMIN D 1,000 INTERNATIONAL UNITS TABLET PO SCH (08:15)
[2022-07-06] MEDS: OCUVITE 1 TAB PO SCH (08:15)
[2022-07-06] MEDS: NEPHRO-VIT TAB (NEPHROCAPS) PO SCH (08:15)
[2022-07-06] MEDS: lamoTRIgine 25MG TAB PO SCH (08:15)
[2022-07-06] MEDS: POLYVINYL ALCOHOL OPHTH SOLN 15ML (LIQUITEARS) OU SCH ×3 (08:15→21:37)
[2022-07-06 16:28] VITALS: BP 140/77
[2022-07-06] MEDS: LATANOPROST 0.005% OPHTH SOLN 2.5 ML OU SCH (21:34)
[2022-07-06] MEDS: DOCUSATE SODIUM 100MG CAPSULE PO SCH (21:34)
[2022-07-06] MEDS: RAMELTEON 8 MG TAB (ROZEREM) PO SCH (21:35)
[2022-07-06] MEDS: haloperidoL 0.5 MG TAB PO SCH (21:35)
[2022-07-06] MEDS: OMEGA-3 1000MG CAPSULE PO SCH (21:35)
[2022-07-06] MEDS: SERTRALINE HCL 25 MG TABLET PO SCH (21:35)
[2022-07-06] MEDS: MAGNESIUM GLUCONATE 500 MG TAB PO SCH (21:36)
[2022-07-07 06:32] VITALS: BP 162/80
[2022-07-07] MEDS: PILL CUTTER 1 EACH XX PRN (08:12)
[2022-07-07] MEDS: lamoTRIgine 25MG TAB PO SCH (08:13)
[2022-07-07] MEDS: NEPHRO-VIT TAB (NEPHROCAPS) PO SCH (08:13)
[2022-07-07] MEDS: VITAMIN D 1,000 INTERNATIONAL UNITS TABLET PO SCH (08:13)
[2022-07-07] MEDS: POLYVINYL ALCOHOL OPHTH SOLN 15ML (LIQUITEARS) OU SCH ×3 (08:13→21:03)
[2022-07-07] MEDS: OCUVITE 1 TAB PO SCH (08:14)
[2022-07-07 16:39] VITALS: BP 160/94
[2022-07-07] MEDS: LATANOPROST 0.005% OPHTH SOLN 2.5 ML OU SCH (21:03)
[2022-07-07] MEDS: DOCUSATE SODIUM 100MG CAPSULE PO SCH (21:04)
[2022-07-07] MEDS: haloperidoL 0.5 MG TAB PO SCH (21:04)
[2022-07-07] MEDS: MAGNESIUM GLUCONATE 500 MG TAB PO SCH (21:04)
[2022-07-07] MEDS: OMEGA-3 1000MG CAPSULE PO SCH (21:04)
[2022-07-07] MEDS: SERTRALINE HCL 25 MG TABLET PO SCH (21:05)
[2022-07-07] MEDS: RAMELTEON 8 MG TAB (ROZEREM) PO SCH (21:48)
[2022-07-08 06:56] VITALS: BP 143/73
[2022-07-08] MEDS: PILL CUTTER 1 EACH XX PRN ×2 (08:13→21:36)
[2022-07-08] MEDS: VITAMIN D 1,000 INTERNATIONAL UNITS TABLET PO SCH (08:13)
[2022-07-08] MEDS: lamoTRIgine 25MG TAB PO SCH (08:13)
[2022-07-08] MEDS: OCUVITE 1 TAB PO SCH (08:14)
[2022-07-08] MEDS: NEPHRO-VIT TAB (NEPHROCAPS) PO SCH (08:14)
[2022-07-08] MEDS: POLYVINYL ALCOHOL OPHTH SOLN 15ML (LIQUITEARS) OU SCH ×3 (08:15→21:37)
[2022-07-08 19:04] VITALS: BP 163/78
[2022-07-08] MEDS: LATANOPROST 0.005% OPHTH SOLN 2.5 ML OU SCH (21:36)
[2022-07-08] MEDS: DOCUSATE SODIUM 100MG CAPSULE PO SCH (21:37)
[2022-07-08] MEDS: haloperidoL 0.5 MG TAB PO SCH (21:37)
[2022-07-08] MEDS: RAMELTEON 8 MG TAB (ROZEREM) PO SCH (21:37)
[2022-07-08] MEDS: OMEGA-3 1000MG CAPSULE PO SCH (21:37)
[2022-07-08] MEDS: MAGNESIUM GLUCONATE 500 MG TAB PO SCH (21:37)
[2022-07-09 06:31] VITALS: BP 126/76
[2022-07-09] MEDS: VITAMIN D 1,000 INTERNATIONAL UNITS TABLET PO SCH (08:11)
[2022-07-09] MEDS: PILL CUTTER 1 EACH XX PRN ×2 (08:11→21:37)
[2022-07-09] MEDS: lamoTRIgine 25MG TAB PO SCH (08:11)
[2022-07-09] MEDS: OCUVITE 1 TAB PO SCH (08:12)
[2022-07-09] MEDS: NEPHRO-VIT TAB (NEPHROCAPS) PO SCH (08:12)
[2022-07-09] MEDS: POLYVINYL ALCOHOL OPHTH SOLN 15ML (LIQUITEARS) OU SCH ×3 (08:13→21:39)
[2022-07-09 20:14] VITALS: BP 148/97
[2022-07-09] MEDS: DOCUSATE SODIUM 100MG CAPSULE PO SCH (21:38)
[2022-07-09] MEDS: MAGNESIUM GLUCONATE 500 MG TAB PO SCH (21:38)
[2022-07-09] MEDS: OMEGA-3 1000MG CAPSULE PO SCH (21:38)
[2022-07-09] MEDS: RAMELTEON 8 MG TAB (ROZEREM) PO SCH (21:38)
[2022-07-09] MEDS: haloperidoL 0.5 MG TAB PO SCH (21:38)
[2022-07-09] MEDS: LATANOPROST 0.005% OPHTH SOLN 2.5 ML OU SCH (21:39)
[2022-07-10] MEDS: VITAMIN D 1,000 INTERNATIONAL UNITS TABLET PO SCH (08:08)
[2022-07-10] MEDS: lamoTRIgine 25MG TAB PO SCH (08:08)
[2022-07-10] MEDS: PILL CUTTER 1 EACH XX PRN (08:08)
[2022-07-10] MEDS: OCUVITE 1 TAB PO SCH (08:08)
[2022-07-10] MEDS: NEPHRO-VIT TAB (NEPHROCAPS) PO SCH (08:08)
[2022-07-10] MEDS: POLYVINYL ALCOHOL OPHTH SOLN 15ML (LIQUITEARS) OU SCH ×3 (08:08→21:39)
[2022-07-10] MEDS: SERTRALINE HCL 25 MG TABLET PO SCH (12:04)
[2022-07-10 18:15] VITALS: BP 144/82
[2022-07-10] MEDS: LATANOPROST 0.005% OPHTH SOLN 2.5 ML OU SCH (21:37)
[2022-07-10] MEDS: MAGNESIUM GLUCONATE 500 MG TAB PO SCH (21:38)
[2022-07-10] MEDS: haloperidoL 0.5 MG TAB PO SCH (21:38)
[2022-07-10] MEDS: RAMELTEON 8 MG TAB (ROZEREM) PO SCH (21:38)
[2022-07-10] MEDS: DOCUSATE SODIUM 100MG CAPSULE PO SCH (21:38)
[2022-07-10] MEDS: OMEGA-3 1000MG CAPSULE PO SCH (21:38)
[2022-07-11 06:33] VITALS: BP 161/72
[2022-07-11] MEDS: NEPHRO-VIT TAB (NEPHROCAPS) PO SCH (08:35)
[2022-07-11] MEDS: OCUVITE 1 TAB PO SCH (08:36)
[2022-07-11] MEDS: lamoTRIgine 25MG TAB PO SCH (08:36)
[2022-07-11] MEDS: VITAMIN D 1,000 INTERNATIONAL UNITS TABLET PO SCH (08:36)
[2022-07-11] MEDS: SERTRALINE HCL 25 MG TABLET PO SCH (08:36)
[2022-07-11] MEDS: POLYVINYL ALCOHOL OPHTH SOLN 15ML (LIQUITEARS) OU SCH ×3 (08:37→21:41)
[2022-07-11 15:12] VITALS: BP 140/78
[2022-07-11] MEDS: RAMELTEON 8 MG TAB (ROZEREM) PO SCH (21:41)
[2022-07-11] MEDS: OMEGA-3 1000MG CAPSULE PO SCH (21:41)
[2022-07-11] MEDS: LATANOPROST 0.005% OPHTH SOLN 2.5 ML OU SCH (21:41)
[2022-07-11] MEDS: haloperidoL 0.5 MG TAB PO SCH (21:41)
[2022-07-11] MEDS: DOCUSATE SODIUM 100MG CAPSULE PO SCH (21:41)
[2022-07-11] MEDS: MAGNESIUM GLUCONATE 500 MG TAB PO SCH (21:42)
[2022-07-12 06:29] VITALS: BP 162/80
[2022-07-12] MEDS: OCUVITE 1 TAB PO SCH (08:39)
[2022-07-12] MEDS: lamoTRIgine 25MG TAB PO SCH (08:39)
[2022-07-12] MEDS: SERTRALINE HCL 25 MG TABLET PO SCH (08:39)
[2022-07-12] MEDS: PILL CUTTER 1 EACH XX PRN ×2 (08:39→21:41)
[2022-07-12] MEDS: VITAMIN D 1,000 INTERNATIONAL UNITS TABLET PO SCH (08:39)
[2022-07-12] MEDS: NEPHRO-VIT TAB (NEPHROCAPS) PO SCH (08:39)
[2022-07-12] MEDS: POLYVINYL ALCOHOL OPHTH SOLN 15ML (LIQUITEARS) OU SCH ×3 (08:40→21:41)
[2022-07-12 19:53] VITALS: BP 156/82
[2022-07-12] MEDS: MAGNESIUM GLUCONATE 500 MG TAB PO SCH (21:41)
[2022-07-12] MEDS: OMEGA-3 1000MG CAPSULE PO SCH (21:41)
[2022-07-12] MEDS: LATANOPROST 0.005% OPHTH SOLN 2.5 ML OU SCH (21:41)
[2022-07-12] MEDS: RAMELTEON 8 MG TAB (ROZEREM) PO SCH (21:41)
[2022-07-12] MEDS: DOCUSATE SODIUM 100MG CAPSULE PO SCH (21:41)
[2022-07-12] MEDS: haloperidoL 0.5 MG TAB PO SCH (21:42)
[2022-07-13 06:24] VITALS: BP 154/88
[2022-07-13] MEDS: POLYVINYL ALCOHOL OPHTH SOLN 15ML (LIQUITEARS) OU SCH ×3 (08:26→21:46)
[2022-07-13] MEDS: VITAMIN D 1,000 INTERNATIONAL UNITS TABLET PO SCH (08:26)
[2022-07-13] MEDS: lamoTRIgine 25MG TAB PO SCH (08:26)
[2022-07-13] MEDS: SERTRALINE HCL 25 MG TABLET PO SCH (08:26)
[2022-07-13] MEDS: OCUVITE 1 TAB PO SCH (08:27)
[2022-07-13] MEDS: NEPHRO-VIT TAB (NEPHROCAPS) PO SCH (08:27)
[2022-07-13 18:29] VITALS: BP 149/79
[2022-07-13] MEDS: MAGNESIUM GLUCONATE 500 MG TAB PO SCH (21:45)
[2022-07-13] MEDS: PILL CUTTER 1 EACH XX PRN (21:45)
[2022-07-13] MEDS: DOCUSATE SODIUM 100MG CAPSULE PO SCH (21:45)
[2022-07-13] MEDS: OMEGA-3 1000MG CAPSULE PO SCH (21:45)
[2022-07-13] MEDS: LATANOPROST 0.005% OPHTH SOLN 2.5 ML OU SCH (21:45)
[2022-07-13] MEDS: RAMELTEON 8 MG TAB (ROZEREM) PO SCH (21:45)
[2022-07-13] MEDS: haloperidoL 0.5 MG TAB PO SCH (21:45)
[2022-07-14 06:37] VITALS: BP 142/72
[2022-07-14] MEDS: SERTRALINE HCL 25 MG TABLET PO SCH (08:17)
[2022-07-14] MEDS: VITAMIN D 1,000 INTERNATIONAL UNITS TABLET PO SCH (08:17)
[2022-07-14] MEDS: POLYVINYL ALCOHOL OPHTH SOLN 15ML (LIQUITEARS) OU SCH ×3 (08:17→21:39)
[2022-07-14] MEDS: lamoTRIgine 25MG TAB PO SCH (08:17)
[2022-07-14] MEDS: OCUVITE 1 TAB PO SCH (08:18)
[2022-07-14] MEDS: NEPHRO-VIT TAB (NEPHROCAPS) PO SCH (08:18)
[2022-07-14 18:09] VITALS: BP 151/89
[2022-07-14] MEDS: OMEGA-3 1000MG CAPSULE PO SCH (21:39)
[2022-07-14] MEDS: MAGNESIUM GLUCONATE 500 MG TAB PO SCH (21:39)
[2022-07-14] MEDS: PILL CUTTER 1 EACH XX PRN (21:39)
[2022-07-14] MEDS: RAMELTEON 8 MG TAB (ROZEREM) PO SCH (21:39)
[2022-07-14] MEDS: LATANOPROST 0.005% OPHTH SOLN 2.5 ML OU SCH (21:39)
[2022-07-14] MEDS: haloperidoL 0.5 MG TAB PO SCH (21:39)
[2022-07-14] MEDS: DOCUSATE SODIUM 100MG CAPSULE PO SCH (21:39)
[2022-07-15 06:43] VITALS: BP 156/74
[2022-07-15] MEDS: PILL CUTTER 1 EACH XX PRN (08:06)
[2022-07-15] MEDS: SERTRALINE HCL 25 MG TABLET PO SCH (08:07)
[2022-07-15] MEDS: lamoTRIgine 25MG TAB PO SCH (08:07)
[2022-07-15] MEDS: OCUVITE 1 TAB PO SCH (08:07)
[2022-07-15] MEDS: NEPHRO-VIT TAB (NEPHROCAPS) PO SCH (08:07)
[2022-07-15] MEDS: POLYVINYL ALCOHOL OPHTH SOLN 15ML (LIQUITEARS) OU SCH ×3 (08:07→21:46)
[2022-07-15] MEDS: VITAMIN D 1,000 INTERNATIONAL UNITS TABLET PO SCH (08:07)
[2022-07-15 16:20] VITALS: BP 145/74
[2022-07-15] MEDS: LATANOPROST 0.005% OPHTH SOLN 2.5 ML OU SCH (21:43)
[2022-07-15] MEDS: haloperidoL 0.5 MG TAB PO SCH (21:44)
[2022-07-15] MEDS: DOCUSATE SODIUM 100MG CAPSULE PO SCH (21:44)
[2022-07-15] MEDS: RAMELTEON 8 MG TAB (ROZEREM) PO SCH (21:44)
[2022-07-15] MEDS: OMEGA-3 1000MG CAPSULE PO SCH (21:45)
[2022-07-15] MEDS: MAGNESIUM GLUCONATE 500 MG TAB PO SCH (21:45)
[2022-07-16 06:29] VITALS: BP 159/71
[2022-07-16] MEDS: PILL CUTTER 1 EACH XX PRN (08:09)
[2022-07-16] MEDS: OCUVITE 1 TAB PO SCH (08:11)
[2022-07-16] MEDS: VITAMIN D 1,000 INTERNATIONAL UNITS TABLET PO SCH (08:11)
[2022-07-16] MEDS: SERTRALINE HCL 25 MG TABLET PO SCH (08:11)
[2022-07-16] MEDS: lamoTRIgine 25MG TAB PO SCH (08:11)
[2022-07-16] MEDS: POLYVINYL ALCOHOL OPHTH SOLN 15ML (LIQUITEARS) OU SCH ×3 (08:12→21:39)
[2022-07-16] MEDS: NEPHRO-VIT TAB (NEPHROCAPS) PO SCH (08:40)
[2022-07-16 10:00] VITALS: BP 159/71
[2022-07-16 16:47] VITALS: BP 152/90
[2022-07-16] MEDS: LATANOPROST 0.005% OPHTH SOLN 2.5 ML OU SCH (21:38)
[2022-07-16] MEDS: OMEGA-3 1000MG CAPSULE PO SCH (21:39)
[2022-07-16] MEDS: haloperidoL 0.5 MG TAB PO SCH (21:39)
[2022-07-16] MEDS: DOCUSATE SODIUM 100MG CAPSULE PO SCH (21:39)
[2022-07-16] MEDS: MAGNESIUM GLUCONATE 500 MG TAB PO SCH (21:39)
[2022-07-16] MEDS: RAMELTEON 8 MG TAB (ROZEREM) PO SCH (21:39)
[2022-07-17 06:45] VITALS: BP 162/72
[2022-07-17] MEDS: PILL CUTTER 1 EACH XX PRN (08:05)
[2022-07-17] MEDS: VITAMIN D 1,000 INTERNATIONAL UNITS TABLET PO SCH (08:07)
[2022-07-17] MEDS: OCUVITE 1 TAB PO SCH (08:07)
[2022-07-17] MEDS: POLYVINYL ALCOHOL OPHTH SOLN 15ML (LIQUITEARS) OU SCH ×3 (08:07→21:49)
[2022-07-17] MEDS: SERTRALINE HCL 25 MG TABLET PO SCH (08:07)
[2022-07-17] MEDS: NEPHRO-VIT TAB (NEPHROCAPS) PO SCH (08:20)
[2022-07-17 16:31] VITALS: BP 154/90
[2022-07-17] MEDS: LATANOPROST 0.005% OPHTH SOLN 2.5 ML OU SCH (21:49)
[2022-07-17] MEDS: MAGNESIUM GLUCONATE 500 MG TAB PO SCH (21:52)
[2022-07-17] MEDS: RAMELTEON 8 MG TAB (ROZEREM) PO SCH (21:52)
[2022-07-17] MEDS: DOCUSATE SODIUM 100MG CAPSULE PO SCH (21:52)
[2022-07-17 21:53] VITALS: BP 159/89
[2022-07-17] MEDS: OMEGA-3 1000MG CAPSULE PO SCH (21:53)
[2022-07-17] MEDS: haloperidoL 0.5 MG TAB PO SCH (21:53)
[2022-07-18 07:00] VITALS: BP 148/71
[2022-07-18] MEDS: SERTRALINE HCL 25 MG TABLET PO SCH (08:03)
[2022-07-18] MEDS: VITAMIN D 1,000 INTERNATIONAL UNITS TABLET PO SCH (08:03)
[2022-07-18] MEDS: NEPHRO-VIT TAB (NEPHROCAPS) PO SCH (08:04)
[2022-07-18] MEDS: OCUVITE 1 TAB PO SCH (08:05)
[2022-07-18] MEDS: PILL CUTTER 1 EACH XX PRN (08:05)
[2022-07-18] MEDS: POLYVINYL ALCOHOL OPHTH SOLN 15ML (LIQUITEARS) OU SCH (08:05)
[2022-07-18] MEDS ORDERED: B-COTAB10 PO (09:58)
[2022-07-18] MEDS ORDERED: CRAN450T4 PO (09:58)
[2022-07-18] MEDS ORDERED: SERT-141 PO (09:58)
[2022-07-18] MEDS ORDERED: RAME8TAB2 PO (09:58)
[2022-07-18] MEDS ORDERED: AMLO1TAB25 PO (09:58)
[2022-07-18] MEDS ORDERED: VITA100093 PO (09:58)
[2022-07-18] MEDS ORDERED: COLA100C5 PO (09:58)
[2022-07-18] MEDS ORDERED: HALO0.5H PO (09:58)
== END 2022-07-18 12:02 | disposition home or self-care (01) | DRG 881 ==
LOC: M ED 15:57 → M ED INP 21:03 → M PSY 22:00
PROVIDERS: ADMIT Psychiatry & Neurology Psychiatry; ATTEND Psychiatry & Neurology Psychiatry
DX: F32.9 Major depressive disorder, single episode, unspecified (principal); N18.4 Chronic kidney disease, stage 4 (severe); M30.0 Polyarteritis nodosa; R45.851 Suicidal ideations; F41.1 Generalized anxiety disorder; R41.89 Other symptoms and signs involving cognitive functions and awareness; I12.9 Hypertensive chronic kidney disease with stage 1 through stage 4 chronic kidney disease, or unspecified chronic kidney disease; G47.33 Obstructive sleep apnea (adult) (pediatric); J45.909 Unspecified asthma, uncomplicated; D64.9 Anemia, unspecified; F60.89 Other specific personality disorders; M54.2 Cervicalgia; Z79.899 Other long term (current) drug therapy; Z91.041 Radiographic dye allergy status; Z88.0 Allergy status to penicillin; Z79.82 Long term (current) use of aspirin; Z88.2 Allergy status to sulfonamides; Z88.6 Allergy status to analgesic agent; Z88.8 Allergy status to other drugs, medicaments and biological substances; Z60.2 Problems related to living alone

== ENCOUNTER 2023-03-03 11:54 | Emergency (ER) | payer MEDICARE ==
[~2023-03-03 11:54] MED LIST changes: +ACET500T15 PO; +AMLO1TAB25 PO; +ARTIDRO4 OU; +B-COTAB10 PO; +HALO0.5H PO; +LUTE2000 PO; +MELA1TAB31 PO; +OCUVTAB PO; -POLYOPD OU; +SERT-141 PO; +SYST1SOL OU; +VITA100093 PO; +XALA0.007 OU
[2023-03-03 13:25] LABS: HEMATOCRIT 31.9 % (36.0-47.0); HEMOGLOBIN 10.8 g/dl (12.0-15.5); MEAN CORPUSCULAR HEMOGLOBIN 34.3 pg (27.0-33.0); MEAN CORPUSCULAR HGB CONC 33.9 g/dl (32.0-36.5); MEAN CORPUSCULAR VOLUME 101.3 fl (80.0-96.0); PLATELET COUNT, AUTOMATED 198 10^3/uL (150-450); RED BLOOD COUNT 3.15 10^6/uL (4.00-5.40); WHITE BLOOD COUNT 5.7 10^3/uL (4.0-10.0)
[2023-03-03 13:35] LABS: AMPHETAMINES LEVEL URINE NEGATIVE (NEGATIVE); BARBITURATES URINE NEGATIVE (NEGATIVE); COCAINE METABOLITE URINE NEGATIVE (NEGATIVE); METHADONE URINE NEGATIVE (NEGATIVE); PHENCYCLIDINE URINE NEGATIVE (NEGATIVE)
[2023-03-03 13:36] LABS: BENZODIAZEPINES URINE NEGATIVE (NEGATIVE); CANNABINOIDS URINE NEGATIVE (NEGATIVE); OPIATES URINE NEGATIVE (NEGATIVE)
[2023-03-03 13:38] LABS: ETHYL ALCOHOL (ETHANOL) < 0.003 % (0.000-0.010)
[2023-03-03 13:39] LABS: ACETAMINOPHEN LEVEL < 2.0 UG/ML (10.0-20.0); SALICYLATE LEVEL < 3.0 MG/DL (<30)
[2023-03-03 13:40] LABS: ALBUMIN 3.3 G/DL (3.2-5.2); ALKALINE PHOSPHATASE 52 U/L (46-116); ALT/SGPT 10 U/L (7.0-40); AST/SGOT < 8 U/L (<34); BILIRUBIN,DIRECT 0.2 MG/DL (<0.4); BILIRUBIN,TOTAL 0.7 MG/DL (0.3-1.2); BLOOD UREA NITROGEN 33 MG/DL (9-23); CALCIUM LEVEL 9.6 MG/DL (8.3-10.6); CARBON DIOXIDE LEVEL 27 MMOL/L (20-31); CHLORIDE LEVEL 109 MMOL/L (98-107); CREATININE FOR GFR 2.72 MG/DL (0.55-1.30); GLOMERULAR FILTRATION RATE 17.9 (>32); GLUCOSE, FASTING 98 MG/DL (74-106); POTASSIUM SERUM 3.6 MMOL/L (3.5-5.1); SODIUM LEVEL 145 MMOL/L (136-145)
[2023-03-03 13:42] LABS: THYROID STIMULATING HORMONE 3.043 uIU/ML (0.55-4.78)
[2023-03-03 15:19] VITALS: BP 170/80; TEMP 97.1; O2SAT 94
== END 2023-03-03 15:23 | disposition home or self-care (01) ==
LOC: M ED 11:54
DX: F32.A Depression, unspecified (principal); I12.9 Hypertensive chronic kidney disease with stage 1 through stage 4 chronic kidney disease, or unspecified chronic kidney disease; J45.909 Unspecified asthma, uncomplicated; G47.33 Obstructive sleep apnea (adult) (pediatric); N18.4 Chronic kidney disease, stage 4 (severe); Z91.041 Radiographic dye allergy status; Z88.6 Allergy status to analgesic agent; Z88.0 Allergy status to penicillin; Z88.8 Allergy status to other drugs, medicaments and biological substances; Z79.899 Other long term (current) drug therapy

== ENCOUNTER → 2023-06-18 | Outpatient (CLI) | payer MEDICARE | LOC: M WHC 13:18 | PROVIDERS: ATTEND Registered Nurse | DX: Z12.31 Encounter for screening mammogram for malignant neoplasm of breast (principal); M85.89 Other specified disorders of bone density and structure, multiple sites ==

== ENCOUNTER → 2023-10-23 | Outpatient (CLI) | payer MEDICARE ==
[~2023-10-23] MED LIST changes: +DOCU100C16 PO; +HYDR-161 PO; +IRBE150T27 PO; -IRBE150T7 PO; +OCUVTAB8 PO; +SERT25TA21 PO; +SERT25TA85 PO; +VITA-168 PO; +XALA0.007 OP
[2023-10-23 15:44] LABS: BASO # 0.1 10^3/uL (0.0-0.2); BASO % 0.8 % (0.0-1.0); EOS # 0.2 10^3/uL (0.0-0.5); EOS % 2.5 % (0.0-3.0); HEMATOCRIT 34.9 % (36.0-47.0); HEMOGLOBIN 11.3 g/dl (12.0-15.5); LYMPH # 2.1 10^3/uL (1.5-5.0); LYMPH % 27.4 % (24.0-44.0); MEAN CORPUSCULAR HGB CONC 32.4 g/dl (32.0-36.5); MONO # 0.7 10^3/uL (0.0-0.8); MONO % 9.5 % (2.0-8.0); NEUTROPHILS # 4.5 10^3/uL (1.5-8.5); NEUTROPHILS % 59.4 % (36.0-66.0); PLATELET COUNT, AUTOMATED 225 10^3/uL (150-450); RED BLOOD COUNT 3.42 10^6/uL (4.00-5.40); WHITE BLOOD COUNT 7.6 10^3/uL (4.0-10.0)
[2023-10-23 15:57] LABS: HEMOGLOBIN A1c 4.9 % (4.0-6.0)
[2023-10-23 16:02] LABS: ERYTHROCYTE SEDIMENTATION RATE 10 mm/hr (0-30)
[2023-10-23 16:05] LABS: ALBUMIN 3.7 G/DL (3.2-5.2); BILIRUBIN,TOTAL 0.5 MG/DL (0.3-1.2); CALCIUM LEVEL 10.3 MG/DL (8.3-10.6); CREATININE FOR GFR 3.46 MG/DL (0.55-1.30); GLOMERULAR FILTRATION RATE 13.5 (>32); PERCENT SATURATION 23.1 % (13.2-45.0); POTASSIUM SERUM 4.3 MMOL/L (3.5-5.1); TOTAL PROTEIN 6.4 G/DL (5.7-8.2)
[2023-10-23 16:11] LABS: THYROID STIMULATING HORMONE 2.963 uIU/ML (0.55-4.78)
[2023-10-23 16:14] LABS: FREE T4 0.94 NG/DL (0.89-1.76)
== END ==
LOC: M PLAIMG 14:32
PROVIDERS: ATTEND Registered Nurse
DX: R63.4 Abnormal weight loss (principal); Z79.899 Other long term (current) drug therapy; Z86.39 Personal history of other endocrine, nutritional and metabolic disease

== ENCOUNTER 2023-10-28 12:02 | Inpatient (IN) | payer MEDICARE ==
[~2023-10-28] VITALS: Ht 180.3 cm; Wt 53.3 kg
[~2023-10-28 12:02] MED LIST changes: -DOCU100C16 PO; -HYDR-161 PO; -OCUVTAB8 PO; -SERT25TA21 PO; -SERT25TA85 PO; -VITA-168 PO; -XALA0.007 OP
[2023-10-28 13:46] LABS: HEMATOCRIT 32.2 % (36.0-47.0); HEMOGLOBIN 10.3 g/dl (12.0-15.5); MEAN CORPUSCULAR HEMOGLOBIN 33.3 pg (27.0-33.0); MEAN CORPUSCULAR VOLUME 104.2 fl (80.0-96.0); PLATELET COUNT, AUTOMATED 186 10^3/uL (150-450); RED BLOOD COUNT 3.09 10^6/uL (4.00-5.40); WHITE BLOOD COUNT 5.9 10^3/uL (4.0-10.0)
[2023-10-28 14:00] LABS: ETHYL ALCOHOL (ETHANOL) < 0.003 % (0.000-0.010)
[2023-10-28 14:02] LABS: ALBUMIN 3.3 G/DL (3.2-5.2); ALKALINE PHOSPHATASE 48 U/L (46-116); ALT/SGPT 12 U/L (7.0-40); AST/SGOT 12 U/L (<34); BILIRUBIN,DIRECT 0.2 MG/DL (<0.4); BILIRUBIN,TOTAL 0.6 MG/DL (0.3-1.2); BLOOD UREA NITROGEN 35 MG/DL (9-23); CALCIUM LEVEL 9.6 MG/DL (8.3-10.6); CARBON DIOXIDE LEVEL 26 MMOL/L (20-31); CHLORIDE LEVEL 110 MMOL/L (98-107); CREATININE FOR GFR 3.23 MG/DL (0.55-1.30); GLOMERULAR FILTRATION RATE 14.6 (>32); GLUCOSE, FASTING 89 MG/DL (74-106); POTASSIUM SERUM 3.9 MMOL/L (3.5-5.1); SALICYLATE LEVEL < 3.0 MG/DL (<30); SODIUM LEVEL 143 MMOL/L (136-145); TOTAL PROTEIN 5.7 G/DL (5.7-8.2)
[2023-10-28 14:05] LABS: THYROID STIMULATING HORMONE 3.201 uIU/ML (0.55-4.78)
[2023-10-28] MEDS ORDERED: MED REC IN PROGRESS XX SCH (14:05)
[2023-10-28 14:10] LABS: AMPHETAMINES LEVEL URINE NEGATIVE (NEGATIVE); BARBITURATES URINE NEGATIVE (NEGATIVE); BENZODIAZEPINES URINE NEGATIVE (NEGATIVE); COCAINE METABOLITE URINE NEGATIVE (NEGATIVE); METHADONE URINE NEGATIVE (NEGATIVE); OPIATES URINE NEGATIVE (NEGATIVE); PHENCYCLIDINE URINE NEGATIVE (NEGATIVE)
[2023-10-28 14:11] LABS: CANNABINOIDS URINE NEGATIVE (NEGATIVE)
[2023-10-28] MEDS ORDERED: SERT25TA85 PO (16:17)
[2023-10-28] MEDS ORDERED: ACETAMINOPHEN 325 MG TAB PO PRN (16:30)
[2023-10-28] MEDS ORDERED: XALA0.007 OP (16:46)
[2023-10-28] MEDS ORDERED: HYDR-161 PO (16:46)
[2023-10-28] MEDS ORDERED: ACETAMINOPHEN TAB 650MG DOSE (2X325MG) PO PRN (16:55)
[2023-10-28] MEDS ORDERED: MOM 30ML SUSPENSION UDC PO PRN (16:55)
[2023-10-28] MEDS ORDERED: MAALOX 30 ML SUSP *UDC PO PRN (16:55)
[2023-10-28 18:50] VITALS: BP 140/80; TEMP 97.7; O2SAT 97
[2023-10-28] MEDS: haloperidoL 0.5 MG TAB PO SCH (20:29)
[2023-10-28] MEDS ORDERED: AMLO1TAB25 PO (21:51)
[2023-10-28] MEDS ORDERED: RA N1TAB PO (21:51)
[2023-10-28] MEDS ORDERED: DOCU100C16 PO (21:51)
[2023-10-28] MEDS ORDERED: SERT25TA21 PO (21:51)
[2023-10-28] MEDS ORDERED: CRAN450T4 PO (21:51)
[2023-10-28] MEDS ORDERED: OCUVTAB8 PO (21:51)
[2023-10-28] MEDS ORDERED: VITA-168 PO (21:51)
[2023-10-28] MEDS ORDERED: HOME MED LIST COMPLETE! XX SCH (22:00)
[2023-10-29 06:01] VITALS: BP 130/84; TEMP 97.5; O2SAT 96
[2023-10-29] MEDS: FAMOTIDINE 20 MG TAB PO SCH ×2 (08:21→21:17)
[2023-10-29] MEDS: DOCUSATE SODIUM 100MG CAPSULE PO SCH ×2 (08:21→21:17)
[2023-10-29] MEDS: SERTRALINE HCL 25 MG TABLET PO SCH (08:21)
[2023-10-29] MEDS: MAGNESIUM OXIDE 400MG TAB (MAG-OX) PO SCH (08:22)
[2023-10-29] MEDS: CALCIUM CARBONATE 500 MG CHEW U/D PO SCH (08:26)
[2023-10-29] MEDS ORDERED: NEPHRO-VIT TAB (NEPHROCAPS) PO SCH (09:00)
[2023-10-29] MEDS: VITAMIN D 1,000 INTERNATIONAL UNITS TABLET PO SCH (11:41)
[2023-10-29] MEDS: PILL CUTTER 1 EACH XX PRN (11:42)
[2023-10-29] MEDS: OCUVITE 1 TAB PO SCH (11:42)
[2023-10-29 12:20] VITALS: BP 128/84
[2023-10-29 17:27] VITALS: BP 130/60; TEMP 97.4
[2023-10-29] MEDS: amLODIPine 5 MG TAB PO SCH (21:00)
[2023-10-29] MEDS: **hydrALAZINE** 10 MG TAB PO SCH (21:00)
[2023-10-29] MEDS: diphenhydrAMINE 25MG CAP PO PRN (21:17)
[2023-10-29] MEDS: LATANOPROST 0.005% OPHTH SOLN 2.5 ML OU SCH (21:20)
[2023-10-30] MEDS: UNRESOLVED CLARIFICATION ENTRY XX SCH (00:01)
[2023-10-30 06:18] VITALS: BP 156/81; TEMP 97.7; O2SAT 97
[2023-10-30] MEDS: SERTRALINE HCL 50 MG TAB PO SCH (08:39)
[2023-10-30] MEDS: haloperidoL 0.5 MG TAB PO STA (09:38)
[2023-10-30] MEDS: MAGNESIUM GLUCONATE 500 MG TAB PO SCH (11:07)
[2023-10-30 17:06] VITALS: BP 157/78; TEMP 97.5; O2SAT 97
[2023-10-30] MEDS: CALCIUM CARBONATE 500 MG CHEW U/D PO SCH (18:19)
[2023-10-30 21:23] VITALS: BP 116/74
[2023-10-30] MEDS: FAMOTIDINE 20 MG TAB PO SCH (21:27)
[2023-10-30] MEDS: haloperidoL 0.5 MG TAB PO SCH (21:28)
[2023-10-31 06:58] VITALS: BP 148/67; TEMP 97.4; O2SAT 99
[2023-10-31 07:00] VITALS: BP 148/78; TEMP 97; O2SAT 96
[2023-10-31 16:35] VITALS: BP 125/82; TEMP 98.1; O2SAT 99
[2023-11-01 06:18] VITALS: BP 131/63; TEMP 98.1; O2SAT 95
[2023-11-01 16:15] VITALS: BP 128/80; TEMP 98; O2SAT 97
[2023-11-02 06:15] VITALS: BP 153/79; TEMP 98.4; O2SAT 95
[2023-11-02 16:07] VITALS: BP 136/71; TEMP 98.1; O2SAT 98
[2023-11-03 06:27] VITALS: BP 132/68; TEMP 99.2; O2SAT 98
[2023-11-03] MEDS: HALOPERIDOL 0.25MG PER 1/2 TABLET PO SCH (11:41)
[2023-11-03 18:04] VITALS: BP 128/70; TEMP 98.7
[2023-11-03 20:50] VITALS: BP 128/68
[2023-11-04 06:42] VITALS: BP 152/76; TEMP 98.1; O2SAT 97
[2023-11-04 08:40] VITALS: BP 106/64
[2023-11-04] MEDS: clonazePAM 0.5 MG TAB PO ONE (10:22)
[2023-11-04 16:15] VITALS: BP 136/65; TEMP 96.9; O2SAT 96
[2023-11-05 07:00] VITALS: BP 150/84; TEMP 97.4; O2SAT 98
[2023-11-05 18:38] VITALS: BP 125/73; TEMP 98.2
[2023-11-06 06:48] VITALS: BP 134/71; TEMP 97.1; O2SAT 97
[2023-11-06 16:13] VITALS: BP 140/70; TEMP 97.6; O2SAT 97
[2023-11-07 05:54] VITALS: BP 133/66; TEMP 97.8; O2SAT 97
[2023-11-07 16:26] VITALS: BP 121/63; TEMP 97.7; O2SAT 96
[2023-11-07 20:45] VITALS: BP 118/62
[2023-11-08 06:40] VITALS: BP 150/72; TEMP 97.5; O2SAT 95
[2023-11-08 16:24] VITALS: BP 136/66; TEMP 97.5; O2SAT 96
[2023-11-09 06:27] VITALS: BP 156/80; TEMP 96.8; O2SAT 96
[2023-11-09 16:16] VITALS: BP 126/80; TEMP 97.4; O2SAT 96
[2023-11-09 21:04] VITALS: BP 112/68
[2023-11-10 06:24] VITALS: BP 152/76; TEMP 97.6; O2SAT 95
[2023-11-10 08:43] VITALS: BP 103/62
[2023-11-10 17:39] VITALS: BP 152/80; TEMP 98.5; O2SAT 98
[2023-11-11 06:25] VITALS: BP 130/68; TEMP 98.3; O2SAT 96
[2023-11-11 17:39] VITALS: BP 145/60; TEMP 97.6; O2SAT 96
[2023-11-12 06:16] VITALS: BP 148/70; TEMP 97.8; O2SAT 95
[2023-11-12 17:19] VITALS: BP 189/85; TEMP 97.8; O2SAT 97
[2023-11-13 06:31] VITALS: BP 161/74; TEMP 97.6; O2SAT 100
[2023-11-13 17:39] VITALS: BP 178/88; TEMP 98.2; O2SAT 95
[2023-11-14 06:17] VITALS: BP 136/68; TEMP 98; O2SAT 97
[2023-11-14] MEDS: diphenhydrAMINE 25MG CAP PO PRN (15:05)
[2023-11-14 16:33] VITALS: BP 134/70; TEMP 97.9; O2SAT 97
[2023-11-14 21:04] VITALS: BP 104/64
[2023-11-14] MEDS: diphenhydrAMINE 50MG CAP PO PRN (21:08)
[2023-11-15 06:18] VITALS: BP 142/68; TEMP 97.9; O2SAT 95
[2023-11-15 14:31] VITALS: BP 156/70; TEMP 97.8; O2SAT 99
[2023-11-15 14:48] VITALS: BP 156/70; TEMP 97.8; O2SAT 99
[2023-11-15 20:47] VITALS: BP 114/64
[2023-11-16 06:24] VITALS: BP 154/74; TEMP 98.4; O2SAT 96
[2023-11-16 16:28] VITALS: BP 132/65; TEMP 98.8; O2SAT 96
[2023-11-17 06:16] VITALS: BP 156/76; TEMP 98; O2SAT 96
[2023-11-17 17:25] VITALS: BP 155/71; TEMP 98.3; O2SAT 97
[2023-11-18 06:13] VITALS: BP 127/66; TEMP 98.6; O2SAT 96
[2023-11-18 08:37] VITALS: BP 110/60
[2023-11-18] MEDS ORDERED: DIPH50CA PO (09:10)
[2023-11-18] MEDS ORDERED: SERT50TA29 PO (09:10)
== END 2023-11-18 13:04 | disposition home or self-care (01) | DRG 884 ==
LOC: M ED 12:02 → M ED INP 16:51 → M PSY 18:47
PROVIDERS: ADMIT Student in an Organized Health Care Education/Training Program; ATTEND Student in an Organized Health Care Education/Training Program
DX: F06.32 Mood disorder due to known physiological condition with major depressive-like episode (principal); R45.851 Suicidal ideations; N18.4 Chronic kidney disease, stage 4 (severe); M30.0 Polyarteritis nodosa; F41.1 Generalized anxiety disorder; I12.9 Hypertensive chronic kidney disease with stage 1 through stage 4 chronic kidney disease, or unspecified chronic kidney disease; M19.90 Unspecified osteoarthritis, unspecified site; G47.33 Obstructive sleep apnea (adult) (pediatric); D64.9 Anemia, unspecified; F60.89 Other specific personality disorders; J45.909 Unspecified asthma, uncomplicated; M54.9 Dorsalgia, unspecified; G89.29 Other chronic pain; Z79.899 Other long term (current) drug therapy; Z91.041 Radiographic dye allergy status; Z88.0 Allergy status to penicillin; Z88.2 Allergy status to sulfonamides; Z88.6 Allergy status to analgesic agent; Z88.8 Allergy status to other drugs, medicaments and biological substances; Z11.52 Encounter for screening for COVID-19; Z60.2 Problems related to living alone; Z98.49 Cataract extraction status, unspecified eye; Z90.79 Acquired absence of other genital organ(s)

== ENCOUNTER 2023-11-20 14:38 | Inpatient (IN) | payer MEDICARE ==
[~2023-11-20] VITALS: Ht 149.9 cm; Wt 53.4 kg
[~2023-11-20 14:38] MED LIST changes: +DIPH50CA PO; +DOCU100C16 PO; +HYDR-161 PO; +OCUVTAB8 PO; +SERT25TA21 PO; +SERT25TA85 PO; +SERT50TA29 PO; +VITA-168 PO; +XALA0.007 OP
[2023-11-20 16:25] LABS: HEMATOCRIT 29.6 % (36.0-47.0); HEMOGLOBIN 9.5 g/dl (12.0-15.5); MEAN CORPUSCULAR HEMOGLOBIN 33.5 pg (27.0-33.0); MEAN CORPUSCULAR HGB CONC 32.1 g/dl (32.0-36.5); MEAN CORPUSCULAR VOLUME 104.2 fl (80.0-96.0); PLATELET COUNT, AUTOMATED 200 10^3/uL (150-450); RED BLOOD COUNT 2.84 10^6/uL (4.00-5.40); WHITE BLOOD COUNT 6.8 10^3/uL (4.0-10.0)
[2023-11-20 16:54] LABS: AMPHETAMINES LEVEL URINE NEGATIVE (NEGATIVE); BARBITURATES URINE NEGATIVE (NEGATIVE); BENZODIAZEPINES URINE NEGATIVE (NEGATIVE); COCAINE METABOLITE URINE NEGATIVE (NEGATIVE)
[2023-11-20 16:55] LABS: CANNABINOIDS URINE NEGATIVE (NEGATIVE); METHADONE URINE NEGATIVE (NEGATIVE); OPIATES URINE NEGATIVE (NEGATIVE); PHENCYCLIDINE URINE NEGATIVE (NEGATIVE)
[2023-11-20 16:58] LABS: ETHYL ALCOHOL (ETHANOL) < 0.003 % (0.000-0.010)
[2023-11-20 17:00] LABS: ALBUMIN 3.2 G/DL (3.2-5.2); ALKALINE PHOSPHATASE 51 U/L (46-116); ALT/SGPT 13 U/L (7.0-40); AST/SGOT 17 U/L (<34); BILIRUBIN,DIRECT 0.1 MG/DL (<0.4); BILIRUBIN,TOTAL 0.4 MG/DL (0.3-1.2); BLOOD UREA NITROGEN 44 MG/DL (9-23); CALCIUM LEVEL 9.2 MG/DL (8.3-10.6); CARBON DIOXIDE LEVEL 24 MMOL/L (20-31); CHLORIDE LEVEL 111 MMOL/L (98-107); CREATININE FOR GFR 2.96 MG/DL (0.55-1.30); GLOMERULAR FILTRATION RATE 16.2 (>32); GLUCOSE, FASTING 92 MG/DL (74-106); POTASSIUM SERUM 4.4 MMOL/L (3.5-5.1); SALICYLATE LEVEL < 3.0 MG/DL (<30); SODIUM LEVEL 144 MMOL/L (136-145); TOTAL PROTEIN 5.7 G/DL (5.7-8.2)
[2023-11-20 17:01] LABS: THYROID STIMULATING HORMONE 2.973 uIU/ML (0.55-4.78)
[2023-11-20] MEDS ORDERED: MAALOX 30 ML SUSP *UDC PO PRN (17:15)
[2023-11-20] MEDS ORDERED: ACETAMINOPHEN TAB 650MG DOSE (2X325MG) PO PRN (17:15)
[2023-11-20] MEDS ORDERED: MOM 30ML SUSPENSION UDC PO PRN (17:15)
[2023-11-20] MEDS ORDERED: SERT-141 PO (18:50)
[2023-11-20] MEDS ORDERED: DIPH50CA PO (18:50)
[2023-11-20] MEDS ORDERED: VITA50TA47 PO (18:50)
[2023-11-20] MEDS ORDERED: HOME MED LIST COMPLETE! XX SCH (18:55)
[2023-11-20] MEDS: **hydrALAZINE** 10 MG TAB PO ONE (20:23)
[2023-11-20 21:00] VITALS: BP 158/70; TEMP 98; O2SAT 96
[2023-11-20] MEDS: diphenhydrAMINE 25MG CAP PO PRN (21:34)
[2023-11-21 06:12] VITALS: BP 144/68; TEMP 98.6; O2SAT 95
[2023-11-21] MEDS: CALCIUM CARBONATE 500 MG CHEW U/D PO SCH (07:55)
[2023-11-21] MEDS: SERTRALINE HCL 50 MG TAB PO SCH (08:37)
[2023-11-21] MEDS: PILL CUTTER 1 EACH XX PRN (08:37)
[2023-11-21] MEDS: THIAMINE 100 MG TAB PO SCH (08:38)
[2023-11-21] MEDS: FAMOTIDINE 20 MG TAB PO SCH (08:38)
[2023-11-21] MEDS: VITAMIN D 1,000 INTERNATIONAL UNITS TABLET PO SCH (08:39)
[2023-11-21] MEDS: **hydrALAZINE** 10 MG TAB PO SCH (09:00)
[2023-11-21] MEDS: OCUVITE 1 TAB PO SCH (09:33)
[2023-11-21] MEDS: NEPHRO-VIT TAB (NEPHROCAPS) PO SCH (09:33)
[2023-11-21 09:54] VITALS: BP 108/66
[2023-11-21] MEDS: MAGNESIUM GLUCONATE 500 MG TAB PO SCH (13:51)
[2023-11-21 17:22] VITALS: BP 120/78; TEMP 97.8; O2SAT 96
[2023-11-21] MEDS: DOCUSATE SODIUM 100MG CAPSULE PO SCH (20:29)
[2023-11-21] MEDS: diphenhydrAMINE 50MG CAP PO SCH (20:30)
[2023-11-21] MEDS: LATANOPROST 0.005% OPHTH SOLN 2.5 ML OU SCH (20:30)
[2023-11-21] MEDS: haloperidoL 0.5 MG TAB PO SCH (20:30)
[2023-11-22 06:26] VITALS: BP 157/78; TEMP 98.4; O2SAT 97
[2023-11-22 08:23] VITALS: BP 108/60
[2023-11-22 15:51] VITALS: BP 138/72; TEMP 97.7; O2SAT 98
[2023-11-23 06:13] VITALS: BP 156/80; TEMP 98; O2SAT 98
[2023-11-23 18:12] VITALS: BP 148/69; TEMP 99.6; O2SAT 95
[2023-11-23 20:35] VITALS: BP 130/70
[2023-11-24 06:37] VITALS: BP 142/64; TEMP 97.8; O2SAT 95
[2023-11-24 08:28] VITALS: BP 105/68
[2023-11-24 19:23] VITALS: BP 124/72; TEMP 97.7; O2SAT 98
[2023-11-25 06:17] VITALS: BP 162/68; TEMP 97.8; O2SAT 96
[2023-11-25 07:05] VITALS: BP 158/78
[2023-11-25 08:47] VITALS: BP 134/72
[2023-11-25 18:40] VITALS: BP 148/80; TEMP 97.2
[2023-11-26 06:42] VITALS: BP 150/72; TEMP 97.4; O2SAT 96
[2023-11-26 08:54] VITALS: BP 107/62
[2023-11-26] MEDS: diphenhydrAMINE 12.5MG/5ML ELIXIR UDC PO PRN (16:18)
[2023-11-26 18:54] VITALS: BP 148/78; TEMP 98.7
[2023-11-27 06:07] VITALS: BP 142/68; TEMP 98.4; O2SAT 98
[2023-11-27 17:53] VITALS: BP 150/80; TEMP 97.5; O2SAT 98
[2023-11-28 06:30] VITALS: BP 145/66; TEMP 97.6
[2023-11-28 16:07] VITALS: BP 136/78; TEMP 98.6; O2SAT 97
[2023-11-29 06:37] VITALS: BP 164/78; TEMP 97.2; O2SAT 99
[2023-11-29 15:39] VITALS: BP 134/72; TEMP 97.9; O2SAT 97
[2023-11-30 06:25] VITALS: BP_SYST 144; BP_SYST 150; BP_DIAS 70; BP_DIAS 72; TEMP 97.6; O2SAT 97
[2023-11-30 15:39] VITALS: BP 126/70; TEMP 97.9; O2SAT 97
[2023-12-01 06:20] VITALS: BP 179/94; TEMP 97.6; O2SAT 97
[2023-12-01 06:21] VITALS: BP 152/84
[2023-12-01 18:00] VITALS: BP 131/69; TEMP 97.7; O2SAT 96
[2023-12-01 20:45] VITALS: BP 120/68
[2023-12-02 06:55] VITALS: BP 150/74; TEMP 98.5; O2SAT 96
[2023-12-02 18:51] VITALS: BP 140/88; TEMP 98.3
[2023-12-02 20:39] VITALS: BP 132/68
[2023-12-03 06:36] VITALS: BP 150/72; TEMP 98.1; O2SAT 96
[2023-12-03 08:26] VITALS: BP 126/59
[2023-12-03 18:23] VITALS: BP 160/80; TEMP 98
[2023-12-04 06:33] VITALS: BP 154/83; TEMP 98.1; O2SAT 97
[2023-12-04 09:00] VITALS: BP 127/74
[2023-12-04] MEDS ORDERED: ZOLO100T PO (11:42)
[2023-12-04] MEDS ORDERED: HALO1TAB PO (11:42)
[2023-12-04] MEDS ORDERED: CALC200T15 PO (11:42)
[2023-12-04] MEDS ORDERED: DIPH-389 PO (11:43)
== END 2023-12-04 14:44 | disposition home or self-care (01) | DRG 885 ==
LOC: M ED 14:38 → M ED INP 17:15 → M PSY 21:08
PROVIDERS: ADMIT Student in an Organized Health Care Education/Training Program; ATTEND Psychiatry & Neurology Child & Adolescent Psychiatry
DX: F33.3 Major depressive disorder, recurrent, severe with psychotic symptoms (principal); N18.4 Chronic kidney disease, stage 4 (severe); M30.0 Polyarteritis nodosa; R45.851 Suicidal ideations; I12.9 Hypertensive chronic kidney disease with stage 1 through stage 4 chronic kidney disease, or unspecified chronic kidney disease; F32.A Depression, unspecified; R25.1 Tremor, unspecified; G47.33 Obstructive sleep apnea (adult) (pediatric); K21.9 Gastro-esophageal reflux disease without esophagitis; J45.909 Unspecified asthma, uncomplicated; D64.9 Anemia, unspecified; M54.2 Cervicalgia; F41.1 Generalized anxiety disorder; F60.89 Other specific personality disorders; Z79.899 Other long term (current) drug therapy; Z88.6 Allergy status to analgesic agent; Z88.0 Allergy status to penicillin; Z88.2 Allergy status to sulfonamides; Z91.041 Radiographic dye allergy status; Z98.49 Cataract extraction status, unspecified eye

== ENCOUNTER → 2023-12-25 | Outpatient (CLI) | payer MEDICARE ==
[~2023-12-25] MED LIST changes: +CALC200T15 PO; +DIPH-389 PO; +HALO1TAB PO; +VITA50TA47 PO; +ZOLO100T PO
[2023-12-25 18:31] LABS: BASO # 0.1 10^3/uL (0.0-0.2); BASO % 0.7 % (0.0-1.0); EOS # 0.3 10^3/uL (0.0-0.5); EOS % 3.8 % (0.0-3.0); HEMATOCRIT 36.1 % (36.0-47.0); HEMOGLOBIN 11.4 g/dl (12.0-15.5); LYMPH # 1.8 10^3/uL (1.5-5.0); MEAN CORPUSCULAR HEMOGLOBIN 33.3 pg (27.0-33.0); MEAN CORPUSCULAR HGB CONC 31.6 g/dl (32.0-36.5); MEAN CORPUSCULAR VOLUME 105.6 fl (80.0-96.0); MONO # 0.7 10^3/uL (0.0-0.8); MONO % 9.4 % (2.0-8.0); NEUTROPHILS # 4.6 10^3/uL (1.5-8.5); NEUTROPHILS % 61.8 % (36.0-66.0); PLATELET COUNT, AUTOMATED 229 10^3/uL (150-450); RED BLOOD COUNT 3.42 10^6/uL (4.00-5.40); WHITE BLOOD COUNT 7.4 10^3/uL (4.0-10.0)
[2023-12-25 18:43] LABS: ALKALINE PHOSPHATASE 62 U/L (46-116); ALT/SGPT 12 U/L (7.0-40); AST/SGOT 10 U/L (<34); BILIRUBIN,TOTAL 0.6 MG/DL (0.3-1.2); BLOOD UREA NITROGEN 45 MG/DL (9-23); CALCIUM LEVEL 10.4 MG/DL (8.3-10.6); CARBON DIOXIDE LEVEL 27 MMOL/L (20-31); CHLORIDE LEVEL 105 MMOL/L (98-107); CREATININE FOR GFR 3.28 MG/DL (0.55-1.30); FOLATE > 24.0 NG/ML (>5.4); GLOMERULAR FILTRATION RATE 14.3 (>32); GLUCOSE, FASTING 90 MG/DL (74-106); POTASSIUM SERUM 4.6 MMOL/L (3.5-5.1); SODIUM LEVEL 142 MMOL/L (136-145); THYROID STIMULATING HORMONE 3.666 uIU/ML (0.55-4.78); TOTAL PROTEIN 6.5 G/DL (5.7-8.2); VITAMIN B12 LEVEL 990 PG/ML (211-911)
[2024-01-06 14:19] LABS: ACETYLCHOLINE RCPTOR BINDING A < 0.03 nmol/L (0.00-0.24); ACETYLCHOLINE RCPTOR BLOCK ABO 20 % (0-25); ANTI-MuSK ABY INTERP <1.0 U/mL (.); VITAMIN B1 LEVEL WHOLE BLOODX 154.6 nmol/L (66.5-200.0); VITAMIN B6,PYRIDOXAL PHOSPHATE 16.3 ug/L (3.4-65.2); VITAMIN E(ALPHA TOCOPHEROL)X 14.8 mg/L (9.0-29.0); VITAMIN E(GAMMA TOCOPHEROL) 0.5 mg/L (0.5-4.9)
== END ==
LOC: M PLALAB 14:29
PROVIDERS: ATTEND Psychiatry & Neurology Neurology
DX: R25.1 Tremor, unspecified (principal); E53.8 Deficiency of other specified B group vitamins; E56.0 Deficiency of vitamin E; H53.2 Diplopia

== ENCOUNTER 2024-06-02 11:15 | Inpatient (IN) | payer MEDICARE ==
[~2024-06-02] VITALS: Ht 149.9 cm; Wt 48.6 kg
[2024-06-02] MEDS ORDERED: MELA3TAB49 PO (11:44)
[2024-06-02] MEDS ORDERED: BENA25CA4 PO (11:44)
[2024-06-02] MEDS ORDERED: SYST1SOL OU (11:44)
[2024-06-02] MEDS ORDERED: TIMO5DRO4 OU (11:44)
[2024-06-02] MEDS ORDERED: KP V1TAB2 PO (11:44)
[2024-06-02] MEDS ORDERED: SERT50TA29 PO (11:44)
[2024-06-02 11:55] LABS: HEMATOCRIT 34.3 % (36.0-47.0); HEMOGLOBIN 11.1 g/dl (12.0-15.5); MEAN CORPUSCULAR HEMOGLOBIN 33.7 pg (27.0-33.0); MEAN CORPUSCULAR HGB CONC 32.4 g/dl (32.0-36.5); MEAN CORPUSCULAR VOLUME 104.3 fl (80.0-96.0); PLATELET COUNT, AUTOMATED 231 10^3/uL (150-450); RED BLOOD COUNT 3.29 10^6/uL (4.00-5.40); WHITE BLOOD COUNT 7.4 10^3/uL (4.0-10.0)
[2024-06-02 12:16] LABS: ETHYL ALCOHOL (ETHANOL) < 0.003 % (0.000-0.010)
[2024-06-02 12:17] LABS: SALICYLATE LEVEL < 3.0 MG/DL (<30)
[2024-06-02 12:18] LABS: ALBUMIN 3.5 G/DL (3.2-5.2); ALKALINE PHOSPHATASE 42 U/L (35-104); ALT/SGPT 15 U/L (7.0-40); AST/SGOT 13 U/L (<34); BILIRUBIN,DIRECT 0.1 MG/DL (<0.4); BILIRUBIN,TOTAL 0.6 MG/DL (0.3-1.2); BLOOD UREA NITROGEN 47 MG/DL (9-23); CALCIUM LEVEL 10.1 MG/DL (8.3-10.6); CARBON DIOXIDE LEVEL 24 MMOL/L (20-31); CHLORIDE LEVEL 109 MMOL/L (98-107); GLOMERULAR FILTRATION RATE 17.9 (>32); GLUCOSE, FASTING 104 MG/DL (74-106); POTASSIUM SERUM 4.4 MMOL/L (3.5-5.1); SODIUM LEVEL 142 MMOL/L (136-145); TOTAL PROTEIN 6.5 G/DL (5.7-8.2)
[2024-06-02 12:39] LABS: AMPHETAMINES LEVEL URINE NEGATIVE (NEGATIVE); BARBITURATES URINE NEGATIVE (NEGATIVE); BENZODIAZEPINES URINE NEGATIVE (NEGATIVE); COCAINE METABOLITE URINE NEGATIVE (NEGATIVE); METHADONE URINE NEGATIVE (NEGATIVE); OPIATES URINE NEGATIVE (NEGATIVE); PHENCYCLIDINE URINE NEGATIVE (NEGATIVE)
[2024-06-02 12:40] LABS: CANNABINOIDS URINE NEGATIVE (NEGATIVE)
[2024-06-02] MEDS ORDERED: MOM 30ML SUSPENSION UDC PO PRN (14:35)
[2024-06-02] MEDS ORDERED: MAALOX 30 ML SUSP *UDC PO PRN (14:35)
[2024-06-02] MEDS ORDERED: ACETAMINOPHEN 325 MG TAB PO PRN (14:35)
[2024-06-02] MEDS ORDERED: EQL50TAB2 PO (14:59)
[2024-06-02] MEDS ORDERED: HOME MED LIST COMPLETE! XX SCH (15:05)
[2024-06-02 16:05] VITALS: BP 167/76; TEMP 98.1; O2SAT 100
[2024-06-02] MEDS: diphenhydrAMINE 25MG CAP PO PRN (21:42)
[2024-06-03 06:21] VITALS: BP 140/62; TEMP 97.2; O2SAT 98
[2024-06-03] MEDS: FAMOTIDINE 20 MG TAB PO SCH (08:31)
[2024-06-03] MEDS: amLODIPine 5 MG TAB PO SCH (09:00)
[2024-06-03] MEDS: SERTRALINE HCL 50 MG TAB PO SCH (10:05)
[2024-06-03 11:13] VITALS: BP 128/64
[2024-06-03] MEDS: TIMOLOL MALEATE 0.5% OPHTH SOLN 5 ML OU SCH (11:15)
[2024-06-03 15:39] VITALS: BP 118/68; TEMP 99; O2SAT 98
[2024-06-03] MEDS: haloperidoL 0.5 MG TAB PO SCH (20:43)
[2024-06-03] MEDS: DOCUSATE SODIUM 100MG CAPSULE PO PRN (20:43)
[2024-06-03] MEDS: LATANOPROST 0.005% OPHTH SOLN 2.5 ML OU SCH (20:43)
[2024-06-04 06:07] VITALS: BP 134/78; TEMP 97.2; O2SAT 96
[2024-06-04 17:47] VITALS: BP 100/70; TEMP 96.6; O2SAT 96
[2024-06-04] MEDS: PILL CUTTER 1 EACH XX PRN (20:43)
[2024-06-05 06:27] VITALS: BP 141/80; TEMP 97; O2SAT 97
[2024-06-05] MEDS: ESCITALOPRAM OXALATE 10 MG TAB (LEXAPRO) PO SCH (08:18)
[2024-06-05 15:58] VITALS: BP 122/68; TEMP 97.8; O2SAT 100
[2024-06-06 06:34] VITALS: BP 150/70; TEMP 97.9; O2SAT 98
[2024-06-06 15:22] VITALS: BP 112/70; TEMP 98.1; O2SAT 98
[2024-06-07 06:36] VITALS: BP 157/80; TEMP 98.2; O2SAT 95
[2024-06-07 08:21] VITALS: BP 116/70
[2024-06-07] MEDS: ESCITALOPRAM OXALATE 10 MG TAB (LEXAPRO) PO ONE (12:13)
[2024-06-07 15:14] VITALS: BP 124/66; TEMP 97.9; O2SAT 98
[2024-06-08 06:48] VITALS: BP 158/90; TEMP 98.2; O2SAT 96
[2024-06-08] MEDS: ESCITALOPRAM OXALATE 10 MG TAB (LEXAPRO) PO SCH (08:20)
[2024-06-08 14:49] VITALS: BP 148/70; TEMP 98.3; O2SAT 97
[2024-06-09 06:24] VITALS: BP 151/72; TEMP 97.7; O2SAT 97
[2024-06-09] MEDS: diphenhydrAMINE 25MG CAP PO SCH (11:14)
[2024-06-09 14:00] VITALS: BP 133/63; TEMP 98.2; O2SAT 97
[2024-06-10 06:30] VITALS: BP 141/78; TEMP 97.9; O2SAT 96
[2024-06-10 08:18] VITALS: BP 94/68
[2024-06-10 15:14] VITALS: BP 142/60; TEMP 98.1; O2SAT 95
[2024-06-10] MEDS: diphenhydrAMINE 25MG CAP PO PRN (20:10)
[2024-06-11 06:17] VITALS: BP 138/83; TEMP 97.6; O2SAT 96
[2024-06-11 08:07] VITALS: BP 128/68
[2024-06-11 15:00] VITALS: BP 119/80; TEMP 98.8; O2SAT 98
[2024-06-12 06:53] VITALS: BP 155/90; TEMP 98.2; O2SAT 96
[2024-06-12 14:53] VITALS: BP 120/60; TEMP 97.9; O2SAT 96
[2024-06-13 06:37] VITALS: BP 130/73; TEMP 98.1; O2SAT 97
[2024-06-13 15:09] VITALS: BP 100/68; TEMP 98; O2SAT 98
[2024-06-14 06:42] VITALS: BP 156/76; TEMP 97.9; O2SAT 96
[2024-06-14 08:33] VITALS: BP 107/65
[2024-06-14 15:38] VITALS: BP 130/62; TEMP 98.5; O2SAT 95
[2024-06-15 06:30] VITALS: BP 153/76; TEMP 97.9; O2SAT 95
[2024-06-15 08:34] VITALS: BP 111/63
[2024-06-15 15:23] VITALS: BP 141/62; TEMP 97.8; O2SAT 97
[2024-06-16 06:24] VITALS: BP 144/74; TEMP 97; O2SAT 95
[2024-06-16 08:35] VITALS: BP 116/67
[2024-06-16 08:37] VITALS: BP 116/67
[2024-06-16] MEDS ORDERED: COLA100C5 PO (10:34)
[2024-06-16] MEDS ORDERED: LEXA1TAB PO (10:34)
== END 2024-06-16 12:05 | disposition home or self-care (01) | DRG 885 ==
LOC: M ED 11:15 → UNDOADMIN 13:03 → M ED INP 13:03 → M PSY 16:20
PROVIDERS: ADMIT Psychiatry & Neurology Child & Adolescent Psychiatry; ATTEND Psychiatry & Neurology Child & Adolescent Psychiatry
DX: F33.3 Major depressive disorder, recurrent, severe with psychotic symptoms (principal); R45.851 Suicidal ideations; N18.4 Chronic kidney disease, stage 4 (severe); M30.0 Polyarteritis nodosa; F41.1 Generalized anxiety disorder; F60.89 Other specific personality disorders; Z74.1 Need for assistance with personal care; I12.9 Hypertensive chronic kidney disease with stage 1 through stage 4 chronic kidney disease, or unspecified chronic kidney disease; M19.90 Unspecified osteoarthritis, unspecified site; G47.33 Obstructive sleep apnea (adult) (pediatric); G89.29 Other chronic pain; K21.9 Gastro-esophageal reflux disease without esophagitis; J45.909 Unspecified asthma, uncomplicated; D64.9 Anemia, unspecified; M54.9 Dorsalgia, unspecified; Z85.828 Personal history of other malignant neoplasm of skin; Z79.899 Other long term (current) drug therapy; Z91.041 Radiographic dye allergy status; Z88.1 Allergy status to other antibiotic agents; Z88.6 Allergy status to analgesic agent; Z88.2 Allergy status to sulfonamides; Z88.8 Allergy status to other drugs, medicaments and biological substances; Z63.0 Problems in relationship with spouse or partner; Z60.2 Problems related to living alone; Z90.79 Acquired absence of other genital organ(s); Z90.49 Acquired absence of other specified parts of digestive tract

== ENCOUNTER → 2024-11-01 | Outpatient (REF) | payer MEDICARE ==
[~2024-11-01] MED LIST changes: +BENA25CA4 PO; +EQL50TAB2 PO; +KP V1TAB2 PO; +LEXA1TAB PO; +MELA3TAB49 PO; +TIMO5DRO4 OU
== END ==
LOC: M LAB REF 16:51
PROVIDERS: ATTEND Registered Nurse
DX: R35.0 Frequency of micturition (principal)

== ENCOUNTER 2025-05-10 12:40 | Emergency (ER) | payer MEDICARE ==
[~2025-05-10] VITALS: Ht 149.9 cm; Wt 44.2 kg
[~2025-05-10 12:40] MED LIST changes: +BUSP5TA PO; -DIPH50CA PO; +DIPH50CA31 PO; -EQL50TAB2 PO; +LEXA1TAB2 PO; +MELA5TAB44 PO; -MELA5TAB7 PO; -RA T500C2 PO; +TIMO0.5S20 OU; +TURM500C10 PO; +VITA1TAB82 PO
[2025-05-10 14:54] LABS: KETONE, URINE AUTO RFX NEGATIVE (NEGATIVE); MUCUS, URINE RFX SMALL (NEGATIVE); RBC, URINE AUTO RFX 13 /HPF (0-3); SQUAM EPITHELIAL CELL UR AURFX 0 /HPF (0-6)
[2025-05-10 14:58] LABS: LEUKOCYTE ESTERASE UR AUTO RFX 2+ (NEGATIVE); NITRITE, URINE AUTO RFX POSITIVE (NEGATIVE); WBC, URINE AUTO RFX 104 /HPF (0-3)
[2025-05-10] MEDS ORDERED: NITR-67 PO (15:04)
[2025-05-10] MEDS ORDERED: NITROFURANTOIN 100 MG CAP PO ONE (15:05)
[2025-05-10] MEDS ORDERED: CEFD1CAP9 PO (15:29)
[2025-05-10] MEDS: ADV IV ONE (16:00)
[2025-05-10] MEDS: MINI IV ONE (16:00)
[2025-05-10] MEDS: DEXTROSE 5% IV ONE (16:00)
[2025-05-10] MEDS: CEFTRIAXONE SOD IV ONE (16:00)
[2025-05-10 16:47] VITALS: BP 173/82; TEMP 98.7; O2SAT 98
== END 2025-05-10 16:58 | disposition home or self-care (01) ==
LOC: M ED 12:40 → EDBD 12:40 → M ED 16:58
DX: T83.511A Infection and inflammatory reaction due to indwelling urethral catheter, initial encounter (principal); I10 Essential (primary) hypertension; K21.9 Gastro-esophageal reflux disease without esophagitis; N18.4 Chronic kidney disease, stage 4 (severe); F41.9 Anxiety disorder, unspecified; M54.50 Low back pain, unspecified; Z88.8 Allergy status to other drugs, medicaments and biological substances; Z88.1 Allergy status to other antibiotic agents; Z88.6 Allergy status to analgesic agent; Z88.2 Allergy status to sulfonamides; Z91.041 Radiographic dye allergy status; Z79.2 Long term (current) use of antibiotics; Z79.899 Other long term (current) drug therapy
CPT/HCPCS: 81001; 87088; 87186; 96365; 99284; J0696

== ENCOUNTER → 2025-05-24 | Outpatient (REF) | payer MEDICARE ==
[~2025-05-24] MED LIST changes: +CEFD1CAP9 PO; +NITR-67 PO
[2025-05-24 14:13] LABS: APPEARANCE, URINE CLEAR (CLEAR); BACTERIA, URINE AUTO NEGATIVE (NEGATIVE); BILIRUBIN, URINE AUTO NEGATIVE (NEGATIVE); BLOOD, URINE BLOOD 2+ (NEGATIVE); GLUCOSE, URINE (UA) AUTO NEGATIVE (NEGATIVE); KETONE, URINE AUTO NEGATIVE (NEGATIVE); LEUKOCYTE ESTERASE, URINE AUTO NEGATIVE (NEGATIVE); MUCUS, URINE SMALL (NEGATIVE); NITRITE, URINE AUTO NEGATIVE (NEGATIVE); PROTEIN, URINE AUTO NEGATIVE (NEGATIVE); RBC, URINE AUTO 18 /HPF (0-3); SPECIFIC GRAVITY URINE AUTO 1.006 (1.002-1.035); SQUAMOUS EPITHELIAL CELL UR AU 1 /HPF (0-6); UROBILINOGEN, URINE AUTO 0.2 mg/dL (0.0-2.0); WBC, URINE AUTO 4 /HPF (0-3)
== END ==
LOC: M SMT 12:53
PROVIDERS: ATTEND Physician Assistant
DX: N39.0 Urinary tract infection, site not specified (principal)